=== PATIENT | female | born 1955 | race Caucasian/White ===

== ENCOUNTER 2020-12-06 14:33 | Emergency (ER) | payer MEDICARE, SELFPAY ==
[2020-12-06 14:34] VITALS: BP 182/114; PULSE 80; RESP 18; TEMP 36.6; O2SAT 98; BMI 27.4
--- NOTE | 2020-12-06 14:51 | EKG12_ITS ---
Test Reason : CHEST PAIN Blood Pressure : / mmHG Vent. Rate : 077 BPM Atrial Rate : 077 BPM P-R Int : 136 ms QRS Dur : 076 ms QT Int : 408 ms P-R-T Axes : 058 063 038 degrees QTc Int : 461 ms Normal sinus rhythm Nonspecific ST abnormality Abnormal ECG Confirmed by RICARDO RASCON, EDOUARD ([id number]), field map editor DRU GRAVES ([id number]) on 12/07/2020 12:54:19 PM Referred By: DAGO/JARON Confirmed By:ZACKARY SILVA MD
--- NOTE | 2020-12-06 14:52 | EX.ED.DYSGE1 ---
HPI History of Present Illness Chief Complaint: Chest Pain Detail of Chief Complaint: Left upper chest pain and hypertension Informant: patient Onset/Context/Timing Onset: Days Current Severity: Moderate Maximum Severity: Moderate Narrative Narrative: Patient presents complaining of left shoulder pain. Symptoms been ongoing for the past several days. Pain was more severe today to the point where she canceled a trip and went to the urgent care. 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 They noted her blood pressure to be quite elevated and wanted her to come the emergency room for evaluation. Patient states her blood pressure typically runs borderline high but she is not currently on any medication for blood pressure. [facility] Medical History (Updated 12/06/20 @ 16:[address] Aysha Singh MD) History of depression RODRIGUEZ (obstructive sleep apnea) Home Medications bupropion HCl 100 mg PO DAILY 10/06/13 [History Last Taken 10/07/16] citalopram 20 mg PO DAILY 10/06/13 [History Last Taken 10/07/16] multivitamin [Multiple Vitamins] 1 ea PO DAILY 10/07/16 [History Last Taken 10/07/16] hydrocodone-acetaminophen 1 tab PO Q6H PRN 3 Days #10 tab 12/06/20 [Rx Last Taken Unknown] Allergy/AdvReac Type Severity Reaction Status Date / Time amoxicillin Allergy Itching Verified 12/06/20 14:37 codeine Allergy Unknown Verified 12/06/20 14:36 Iodinated Contrast Media Allergy Swelling Verified 12/06/20 14:36 [Iodinated Contrast Media - IV Dye] shellfish derived Allergy Rash Verified 12/06/20 14:36 Surgical History H/O cardiac radiofrequency ablation Social History Smoking Status: Never smoker ROS ROS ED Constitutional Constitutional ED: Denies chills or fever(s) Eyes Eyes: Denies change in vision ENT ENT ED: Denies sore throat Cardiovascular Cardiovascular: Reports chest pain Respiratory/Chest Respiratory/Chest: Denies cough or dyspnea Gastrointestinal Gastrointestinal: Denies abdominal pain, diarrhea, nausea or vomiting Genitourinary Genitourinary ED: Denies dysuria Musculoskeletal Musculoskeletal: Reports arthralgias; Denies back pain Integumentary Denies rash Neurologic Neurologic: Denies headache(s) or weakness Psychiatric Psychiatric: Denies anxiety or depression Endocrine Endocrinology: Denies polydipsia or polyuria Allergic/Immunologic Allergic/Immunologic ED: Denies urticaria EXAM Physical Exam Const Vital Signs: 12/06/20 14:34 12/06/20 15:52 Temperature 97.8 F Temperature Source Temporal Pulse Rate 80 79 Respiratory Rate 18 22 H Blood Pressure 182/114 H 174/114 H Blood Pressure Mean 136 134 Pulse Ox 98 95 Oxygen Delivery Method Room Air Positive well nourished and well developed General Appearance ED: well developed HEENT Reports normocephalic and head/scalp atraumatic Eyes PERRL and EOMs intact bilaterally Neck supple Chest Wall inspection of chest normal Chest Narrative: Left upper chest wall tenderness to palpation. No crepitus. Resp normal respiratory effort and clear to auscultation bilaterally Cardio regular rate and regular rhythm GI normal to inspection, nondistended, normoactive bowel sounds Palpation: soft Extremity normal to inspection Neuro oriented x3 and no sensory deficits noted Sensorium / Orientation: alert Motor Exam: strength 5/5 throughout Psych mental status grossly normal Skin no rashes or lesions noted MDM MDM MDM Narrative Medical decision making narrative: EKG was obtained. Portable chest x-ray and labs are obtained. Lab Data Attestation: I reviewed the patient's lab results. Labs: Laboratory Results - last 24 hr 12/06/20 12/06/20 15:15 15:15 WBC 9.1 RBC 4.72 Hgb 13.5 Hct 40.5 MCV 85.8 MCH 28.6 MCHC 33.3 RDW Std Deviation 41.6 RDW Coeff of Anthony 13.2 Plt Count 204 MPV 11.0 Immature Gran % (Auto) 0.300 Neut % (Auto) 56.4 Lymph % (Auto) 28.9 [place] % (Auto) 8.6 Eos % (Auto) 5.1 H Baso % (Auto) 0.7 Absolute Neuts (auto) 5.1 Absolute Lymphs (auto) 2.62 Nucleated RBC % 0 Sodium 139 Potassium 3.5 Chloride 107 Carbon Dioxide 27.0 Anion Gap 5 BUN 12 Creatinine 0.88 Estim Creat Clear Calc 58.87 Est GFR (MDRD) Af Amer 83 Est GFR (MDRD) Non-Af 69 BUN/Creatinine Ratio 13.7 Glucose 96 Calcium 8.3 L Troponin I < 0.015 Radiography Chest X-Ray - ED: 1 View, Read by ED Physician, Normal, Heart, Lungs and Mediastinum Diagnostic Testing: Radiology Impression Chest X-Ray 12/06/20 15:20 IMPRESSION: Normal x-ray examination of the chest. Electronically Signed: Tuan Rosales MD at 15:33 EDT , Service support , EKG Initial EKG: Attestation: I personally reviewed and interpreted this EKG as follows: Interpretation: Sinus Rhythm (Sinus at 77 with no acute ischemia.) Treatment and Re-Evaluation Comments:: Patient had an episode of similar pain several days ago and several hours today. Pain is reproducible over the left upper chest wall. Cardiac work-up at this time is negative. I am unsure if her elevated blood pressure may be secondary to pain. At this time we will work on controlling her pain and healing the chest wall. I did recommend obtaining a blood pressure cuff and monitoring this of 2 times a day. She will follow-up with her PCP in regards to this as well as any further cardiac work-up that is needed. Patient was advised that if she develops worsened pain, shortness of breath, lightheadedness or dizziness, or persistent elevation of blood pressure she is to return for repeat evaluation. She voices understanding and agreement. Discharge Plan Triage Chief Complaint: Chest Pain ED Provider: Aysha Singh Dx/Rx/DC Orders Clinical Impression: Hypertension, Acute chest wall pain Instructions: ED Chest Wall Contusion, ED Hypertension, To Be Confirmed Prescriptions: New hydrocodone-acetaminophen 5-325 mg tablet 1 tab PO Q6H PRN (Reason: pain) 3 Days Qty: 10 RF: 0 No Action bupropion HCl 100 MG tablet 100 mg PO DAILY RF: 0 citalopram 20 MG tablet 20 mg PO DAILY RF: 0 multivitamin [Multiple Vitamins] 1 EACH tablet 1 ea PO DAILY RF: 0 Primary Care Provider: Mai Schmidt Referrals: Mai Schmidt PA [Primary Care Provider] - 3-5 Days Disposition Disposition: Home, self care
--- NOTE | 2020-12-06 15:20 | RAD_ITS ---
STUDY: X-RAY CHEST REASON FOR EXAM: Female, 65 years old. Chest pain. TECHNIQUE: Single AP portable view of the chest. COMPARISON: Comparison is made with prior examination 10/07/2016. FINDINGS: EKG electrodes are seen. The lungs are clear and expanded. There is no demonstrated pleural abnormality. Normal size heart. Normal mediastinum and gosia. Normal visualized pulmonary arteries. Normal visualized aortic arch and descending thoracic aorta. Normal visualized thoracic spine. Normal visualized ribs, clavicles, and shoulders. There is no demonstrated abnormality of the visualized soft tissue structures of the upper abdomen. RAD/Chest 1 View (Portable) IMPRESSION: Normal x-ray examination of the chest. Electronically Signed: Tuan Rosales MD at 15:33 EDT , Service support ,
[2020-12-06 15:28] LABS: Absolute Lymphocyte Count 2.62 X10^3/uL (0.83-4.51); Absolute Neutrophil Count 5.1 X10^3/uL (2.0-7.7); Basophil# 0.06 X10^3/uL; Basophil% 0.7 % (0-1); Eosinophil# 0.46 X10^3/uL; Eosinophils% 5.1 % (0-5); Hematocrit 40.5 % (37-47); Hemoglobin 13.5 g/dL (12.0-15.0); Lymphocyte # 2.62 X10^3/ul (0.83-4.51); Lymphocyte % 28.9 % (19-41); Mean Corp Hgb Conc 33.3 g/dL (32-36); Mean Corpuscular Hgb 28.6 pg (27.0-32.0); Mean Corpuscular Volume 85.8 fL (81-99); Monocyte# 0.78 X10^3/uL; Monocyte% 8.6 % (0-10); NRBC Flagged by Analyzer 0 % (0-5); Neutrophil # 5.12 X10^3/uL (2.7-7.7); Neutrophil % 56.4 % (47-70); Platelet Count 204 K/mm3 (150-450); RBC Distribution Width CV 13.2 % (11.6-14.6); RBC Distribution Width SD 41.6 fl (35.1-43.9); Red Blood Count 4.72 M/mm3 (4.2-5.4); White Blood Count 9.1 K/mm3 (4.4-11.0)
[2020-12-06 15:43] LABS: Anion Gap 5 (5-15); BUN 12 mg/dL (7-18); BUN/Creat Ratio 13.7 RATIO (10-20); Calcium,Total 8.3 mg/dL (8.5-10.1); Chloride 107 mmol/L (98-107); Creatinine, Serum 0.88 mg/dL (0.55-1.02); EST Glomerular Filtration Rate 69 mL/min (>60); Est Glom Filt Rate - Afr Amer 83 mL/min (>60); Estimated Creatinine Clearance 58.87 ml/min; Glucose 96 mg/dL (74-106); Potassium 3.5 mmol/L (3.5-5.1); Sodium Level 139 mmol/L (136-145)
[2020-12-06 15:52] VITALS: BP 174/114; PULSE 79; RESP 22; O2SAT 95
[2020-12-06 16:16] VITALS: BP 167/93; PULSE 71; RESP 16; O2SAT 95
== END 2020-12-06 16:24 | disposition home or self-care (01) ==
PROVIDERS: Emergency Provider Emergency Medicine; PCP Physician Assistant
DX: I10 Essential (primary) hypertension (principal); R07.89 Other chest pain
CPT/HCPCS: 71045; 80048; 84484; 85025; 93005; 99284; A4216

== ENCOUNTER 2025-06-05 19:56 | Emergency (ER) | payer MEDICARE, SELFPAY ==
[2025-06-05 19:56] VITALS: BP 169/88; PULSE 92; RESP 18; TEMP 36.6; O2SAT 99; BMI 27.8
--- NOTE | 2025-06-05 20:09 | EDS_ITS ---
HPI History of Present Illness Chief Complaint: Laceration Detail of Chief Complaint: Laceration distal volar radial side of right index finger Informant: patient Onset/Context/Timing Onset: Hours Mechanism/Context: Incised (Cut using a knife to open boxes) Location of pain/injuries: Right hand Location: Right index finger Current Severity: Gone Maximum Severity: Mild Worsened by: Not applicable Relieved by: Pressure Associated Symptoms Associated Symptoms: Negative for Parasthesias, Weakness or Loss of function Narrative Narrative: Patient is a 70-year-old [id number] woman who presents with laceration distal volar radial side of the left index finger. Is a flap type laceration. She denies paresthesia, anesthesia medics. Prior similar symptoms: No Recent Illness/Hospitalization: No PFSH PFSH Medical History RODRIGUEZ (obstructive sleep apnea) History of depression Home Medications ?Medication ?Instructions ?Recorded ?Last Taken ?Type bupropion HCl 100 mg tablet 100 mg PO DAILY 10/06/13 0 10/07/16 History citalopram 20 mg tablet 20 mg PO DAILY 10/06/13 04/0 09/20 History multivitamin (Multiple Vitamins 1 ea PO DAILY 10/07/16 10/07/16 History tablet) hydrocodone-acetaminophen 5-325mg 1 tab PO Q6H PRN roma n 3 days #10 12/06/20 Unknown Rx 5mg-325mg tabs Allergy/AdvReac Type Severity Reaction Status Date / Time amoxicillin Allergy Itching Verified 06/05/25 19:57 codeine Allergy Unknown Verified 06/05/25 19:57 Iodinated Contrast Media Allergy Swelling Verified 06/05/25 19:57 (Iodinated Contrast Media - IV Dye) shellfish derived Allergy Rash Verified 06/05/25 19:57 Surgical History H/O cardiac radiofrequency ablation Social History Smoking Status: Never smoker ROS ROS ED Integumentary Reports other Details: Flap type laceration right index finger previously- described Neurologic Neurologic: Denies paresthesias Hematologic/Lymphatic Hematologic/Lymphatic: Denies easy bleeding or easy bruising EXAM Physical Exam Const Vital Signs: 06/05/25 19:56 Temperature 97.8 F Temperature Source Oral Pulse Rate 92 Respiratory Rate 18 Blood Pressure 169/88 H Blood Pressure Mean 115 Pulse Ox 99 Oxygen Delivery Method Room Air Positive well nourished and well developed General Appearance ED: well developed and NAD HEENT atraumatic Eyes PERRL and EOMs intact bilaterally Resp normal respiratory effort Cardio regular rhythm Rate: regular rate Extremity Extremity Narrative: Patient has a flap type laceration 1.5 cm distal volar radial side of the right index finger. There is no subungual hematoma. Sensation is intact. Capillary fill is normal. Extensor and flexor mechanism is intact. Neuro oriented x3, CN's II-XII intact bilaterally, no focal motor deficits and no sensory deficits noted Psych mental status grossly normal and thought process normal Skin Skin Narrative: Laceration previously-described PROC Procedures Other Procedures Procedure(s): The laceration was cleansed. The laceration was closed with Dermabond since it approximates well. MDM MDM MDM Narrative Medical decision making narrative: Patient has laceration amenable to closure with Dermabond. It did need closure. Imaging was not indicated. Discharge Plan Triage Chief Complaint: Laceration ED Provider: Norm Bartlett Dx/Rx/DC Orders Clinical Impression: Laceration of right index finger, Hypertension Instructions: ED Laceration, Skin Adhesive Prescriptions: No Action bupropion HCl 100 MG tablet 100 mg PO DAILY Patient Comments: MENTAL HEALTH citalopram 20 MG tablet 20 mg PO DAILY Patient Comments: DEPRESSION multivitamin [Multiple Vitamins] 1 EACH tablet 1 ea PO DAILY Patient Comments: SUPPLEMENT hydrocodone-acetaminophen 5-325 mg tablet 1 tab PO Q6H PRN (Reason: pain) 3 Days Qty: 10 0RF Primary Care Provider: Mai Schmidt Referrals: Mai Schmidt PA [Primary Care Provider, Medical] - As Needed Print Language: Slovak Disposition Disposition: Home, Self Care
--- OUTSIDE RECORDS SUMMARY | 2025-06-05 20:24 | XMS RPT_ITS | CCD ---
Author Organization [facility] Care Team Providers Care Fitness [employer] Manager Name Role Phone Mai Schmidt PA-C Primary Care Provider [phone] Zak Buck MD Unavailable Zak Buck MD Unavailable Fiorella ESCOBAR, [place] Unavailable [phone] Ambrose Brandt Unavailable Unavailable Mai Schmidt PA-C Primary Care Provider [phone] Zak Buck MD Unavailable Zak Buck MD Unavailable Fiorella ESCOBAR, [place] Unavailable [phone] Mai Schmidt PA-C Primary Care Provider [phone] Zak Buck MD Unavailable Zak Buck MD Unavailable Fiorella ESCOBAR, [place] Unavailable [phone] Fiorella ESCOBAR, [place] Unavailable [phone] Mai Schmidt PA-C Primary Care Provider [phone] Nedra BOWL SANDER.Sharda ALFORD Primary Care Provider Haagen BOWL SANDER.Sharda ALFORD Primary Care Provider Suppan BOWL SANDER.Connie ALFORD Unavailable Mehrdad Yuan MD Unavailable Suppan BOWL SANDER.Connie ALFORD A Unavailable SHARDA SNEED Primary Care Unavailable BEVERLEY CUEVAS Referring Unavailable ANA LUISA ARTIS Attending Unavailable [facility] Unavailable HANNAH BO Referring Unavailable [facility] Unavailable QUIANA TAPIA Attending Unavailable [facility] Referring Unavailable [facility] Attending Unavailable [facility] Unavailable [facility] Care Unavailable [facility] Care Unavailable FARZANA BOSTON Referring Unavailable [facility] Unavailable [facility] Attending Unavailable [facility] Unavailable [facility] Referring Unavailable BEVERLEY CUEVAS Attending Unavailable [facility] Unavailable Allergies Allergy Classification Reported Allergen(s) Allergy Type Date of Onset Reaction(s) Facility (20 sources) Amoxicillin; Translations: [AMOXICILLIN] Drug Allergy 03-27-2005 [facility] Work Phone: (20 sources) Codeine; Translations: [CODEINE] Drug Allergy 09-10-2005 [facility] (20 sources) Iodine; Translations: [IODINE] Drug Allergy 03-27-2005 [facility] Work Phone: (20 sources) Lisinopril; Translations: [LISINOPRIL] Drug Allergy 12-29-2020 [facility] (20 sources) SEAFOOD [Other] Propensity to adverse reactions 08-01-2006 [facility] Work Phone: (20 sources) Shellfish; Translations: [SHELLFISH DERIVED] Drug Allergy 07-31-2023 [facility] Work Phone: Medications Current Medications Medication Drug Class(es) Dates Sig (Normalized) Sig (Original) amLODIPine 5 mg oral tablet (20 sources) Dihydropyridine Calcium Channel Meaghan Start: 12-08-2020 End: 2024 take 1 tablet by mouth once daily amLODIPine (NORVASC) 5 mg tablet Indications: Hypertension, essential Take 1 tablet by mouth once daily. 90 tablet 3 04/14/2024 Active Comment on above: Take 1 tablet by lottie th once daily. cefdinir 300 mg oral capsule (1 source) Cephalosporin Antibacterial Start: 07-14-2022 End: 07-21-2022 take 1 capsule by mouth twice daily cefdinir (OMNICEF) 300 mg capsule Take 1 capsule by mouth twice daily for 7 days. 20 capsule 0 07/14/2022 07/21/2022 Active Comment on above: Take 1 capsule by mo [facility] twice daily for 7 days. 24 hr desvenlafaxine succinate 25 mg extended release oral tablet (20 sources) Serotonin and Norepinephrine Reuptake Inhibitor Start: 02-09-2024 End: 04-23-2025 take 1 tablet by mouth once daily desvenlafaxine ER (PRISTIQ) 25 mg 24 hr tablet Indications: Recurrent major depression in partial remission Take 1 tablet by mouth once daily. Take with additional 50 mg tablet. 90 tablet 1 10/25/2024 04/23/2025 Active Start: 07-04-2022 End: 2024 take 1 tablet by mouth once daily desvenlafaxine ER (PRISTIQ) 50 mg 24 hr tablet Indications: Recurrent major depression in partial remission Take 1 tablet by mouth once daily. 90 tablet 3 04/14/2024 Active Start: 05-13-2022 End: 07-04-2022 take 1 tablet by mouth once daily desvenlafaxine ER (PRISTIQ) 25 mg 24 hr tablet Take 1 tablet by mouth once daily. 30 tablet 2 05/13/2022 07/04/2022 Discontinued (Course of therapy completed) Comment on above: Take 1 tablet by [facility] once daily. difluprednate 0.5 mg/ml ophthalmic suspension (20 sources) Start: 07-01-2024 take 1 drop(s) into the eye(s) four times daily difluprednate (DUREZOL) 0.05 % ophthalmic suspension Use 1 Drop in both eyes four times daily. 07/01/2024 Active Start: 05-08-2016 End: 05-13-2022 Difluprednate (DUREZOL) 0.05 % drop [The details of the medication are not available because there are pending changes by a home health clinician.] 05/08/2016 05/13/2022 Discontinued Comment on above: [The details of the medication are not available because there are pending changes by a home health clinician.] doxycycline hyclate 100 mg oral tablet (2 sources) Tetracycline-class Drug Start: End: take 1 tablet by mouth twice daily doxycycline (VIBRA-TABS) 100 mg tablet Take 1 tablet by mouth two times a day for 7 days. Patient should start on June 18, 2024. 14 tablet 06/18/2024 06/25/2024 Active Start: 05-26-2022 End: 06-02-2022 take 1 tablet by mouth twice daily doxycycline (VIBRA-TABS) 100 mg tablet Take 1 tablet by mouth twice daily for 7 days. 14 tablet 0 05/26/2022 06/02/2022 Active Comment on above: Take 1 tablet by [facility] twice daily for 7 days. erythromycin 0.005 mg/mg ophthalmic ointment (2 sources) Macrolide, Macrolide Antimicrobial Start: 07-08-2024 End: 07-15-2024 erythromycin (ROMYCIN) 5 mg/gram (0.5 %) ophthalmic ointment Use 1 application in both eyes four times daily for 7 days. 3.5 g 07/08/2024 07/15/2024 Active Start: 08-18-2022 End: 08-25-2022 erythromycin (ROMYCIN) 5 mg/ gram (0.5 %) ophthalmic ointment Use 1 application in the left eye four times daily for 7 days. 7 g 0 08/18/2022 08/25/2022 Active Comment on above: Use 1 application in the left eye four times daily for 7 days. estradiol 0.1 mg/ml vaginal cream (5 sources) Estrogen Start: estradiol (ESTRACE) 0.01 % (0.1 mg/gram) vaginal cream Use 1 gram vaginally at bedtime for 2 weeks then 1-3 time/weeks for maintenance. 42.5 g 2 12/07/2024 Active fluticasone propionate 0.05 mg/actuat metered dose nasal spray (20 sources) Corticosteroid Start: End: take 2 spray(s) by mouth once daily fluticasone (FLONASE) 50 mcg/actuation nasal spray Use 2 Sprays in each nostril once daily. Rinse mouth after use. 11.1 mL 07/08/2024 02/28/2025 Discontinued levothyroxine sodium 0.025 mg oral tablet (20 sources) l-Thyroxine Start: 022 End: take 1 tablet by mouth once daily for thyroid dysfunction levothyroxine (SYNTHROID) 25 mcg tablet Indications: Subclinical hypothyroidism Take 1 tablet by mouth once daily. Take on empty stomach. For thyroid. 90 tablet 3 09/17/2024 Active Start: 05-11-2022 End: 05-13-2022 take 1 tablet by mouth once daily for thyroid dysfunction levothyroxine (LEVOXYL) 50 mcg tablet Indications: Subclinical hypothyroidism Take 1 tablet by mouth once daily. Take on empty stomach. For Thyroid 30 tablet 2 05/11/2022 05/13/2022 Discontinued Start: 06-05-2021 End: 05-11-2022 take 1 tablet by mouth once daily for thyroid dysfunction levothyroxine (SYNTHROID) 25 mcg tablet Indications: Subclinical hypothyroidism Take 1 tablet by mouth once daily. Take on empty stomach. For thyroid. 30 tablet 0 04/12/2022 05/11/2022 Discontinued Start: 05-19-2020 End: 06-01-2021 take 1 tablet by mouth once daily for thyroid dysfunction levothyroxine (SYNTHROID) 25 mcg tablet Indications: Subclinical hypothyroidism Take 1 tablet by mouth once daily. Take on empty stomach. For thyroid. 30 tablet 11 05/19/2020 06/01/2021 Discontinued Comment on above: Take 1 tablet by lottie th once daily. Take on empty stomach. For thyroid. Take 1 tablet by lottie th once daily. Take on empty stomach. For Thyroid Completed/Discontinued Medications Medication Drug Class(es) Dates Sig (Normalized) Sig (Original) aspirin 81 mg delayed release oral tablet (14 sources) Platelet Aggregation Inhibitor, Nonsteroidal Anti-inflammatory Drug Start: 06-07-2021 End: 05-13-2022 take 1 tablet by mouth twice daily aspirin, enteric coated (ASPIRIN, ENTERIC COATED) 81 mg EC tablet Take 1 tablet by mouth twice daily for 28 days. 56 tablet 0 06/07/2021 05/13/2022 Discontinued Comment on above: Take 1 tablet by lottie th twice daily for 28 days. benzonatate 100 mg oral capsule (2 sources) Non-narcotic Antitussive Start: 06-14-2024 End: 07-08-2024 take 1 capsule by mouth every eight hours as needed benzonatate (TESSALON PERLE) 100 mg capsule Take 1 capsule by mouth three times a day as needed for cough. 21 capsule 06/14/2024 07/08/2024 Discontinued (Course of therapy completed) betamethasone 0.0005 mg/mg topical ointment (1 source) Corticosteroid Start: 07-31-2023 End: 08-30-2023 betamethasone dipropionate 0.05 % ointment Apply to affected area two times a day. 15 g 07/31/2023 08/30/2023 betamethasone 3 mg/ml / betamethasone acetate 3 mg/ml injectable suspension (1 source) Corticosteroid Start: 05-05-2023 End: 05-05-2023 betamethasone acetate-betamethas one sodium phosphate 6 mg injection (CELESTONE) 24 hr buPROPion hydrochloride 300 mg extended release oral tablet (17 sources) Aminoketone Start: 10-16-2020 End: 05-13-2022 take 1 tablet by mouth once daily buPROPion XL (WELLBUTRIN XL) 300 mg 24 hr tablet Take 1 tablet by mouth once daily. 90 tablet 1 11/21/2021 05/13/2022 Discontinued Comment on above: Take 1 tablet by [facility] once daily. Calcium Carbonate / vitamin D3 (17 sources) End: 05-13-2022 CALCIUM CARBONATE/VITAMIN D3 (VITAMIN D-3 ORAL) Indications: seasonal affective disorder Take by mouth. 05/13/2022 Discontinued End: 05-13-2022 CALCIUM CARBONATE/VITAMIN D3 (VITAMIN D-3 ORAL) Indications: seasonal affective disorder Take by mouth. 0 05/13/2022 Discontinued CALCIUM CARBONAT E/VITAMIN D3 (VITAMIN D-3 ORAL) Indications: seasonal affective disorder Take by mouth. 0 Active Comment on above: Take by mouth. celecoxib 200 mg oral capsule (6 sources) Nonsteroidal Anti-inflammatory Drug Start: End: take 1 capsule by mouth once daily celecoxib (CELEBREX) 200 mg capsule Indications: Primary osteoarthritis of right knee Take 1 capsule by mouth once daily. 30 capsule 1 01/14/2022 05/13/2022 Discontinued Comment on above: Take 1 capsule by mo [facility] once daily. citalopram 40 mg oral tablet (20 sources) Serotonin Reuptake Inhibitor Start: End: take 1 tablet by mouth once daily citalopram (CELEXA) 40 mg tablet Indications: Recurrent major depression in partial remission (HCC) Take 1 tablet by mouth once daily. 90 tablet 1 11/21/2021 07/04/2022 Discontinued Comment on above: Take 1 tablet by lottie th once daily. clindamycin 300 mg oral capsule (9 sources) Lincosamide Antibacterial Start: End: clindamycin (CLEOCIN) 300 mg capsule Indications: Status post left knee replacement 2 capsules 1 hour prior to dental procedure. 2 capsule 3 12/18/2021 05/13/2022 Discontinued (Course of therapy completed) Comment on above: 2 capsules 1 hour pr ior to dental procedure. cyclobenzaprine hydrochloride 10 mg oral tablet (16 sources) Muscle Relaxant Start: End: cyclobenzaprine (FLEXERIL) 10 mg tablet Indications: Acute left-sided low back pain without sciatica [The details of the medication are not available because there are pending changes by a home health clinician.] 15 tablet 0 03/05/2021 05/13/2022 Discontinued Comment on above: [The details of the medication are not available because there are pending changes by a home health clinician.] 10 ml lidocaine hydrochloride 10 mg/ml injection (1 source) Antiarrhythmic, Amide Local Anesthetic Start: End: lidocaine (PF) 10 mg/mL (1 %) 4 mL injection (XYLOCAINE) meloxicam 15 mg oral tablet (4 sources) Nonsteroidal Anti-inflammatory Drug Start: End: take 1 tablet by mouth once daily meloxicam (MOBIC) 15 mg tablet Take 1 tablet by mouth once daily. 30 tablet 1 05/05/2023 02/09/2024 Discontinued (Side Effects) Comment on above: Take 1 tablet by lottie th once daily. Problems Active Problems Problem Classification Problem Date Documented Date Episodic/Chronic Cardiac dysrhythmias (20 sources) Paroxysmal supraventricular tachycardia; Translations: [Supraventricular tachycardia] Onset: 03-27-2005 03-06-2020 Chronic Chronic kidney disease (20 sources) Chronic kidney disease stage 3; Translations: [Chronic renal insufficiency, stage 3 (moderate)] Onset: 07-13-2020 07-13-2020 Chronic Chronic kidney disease (1 source) Chronic kidney disease; Translations: [Stage 3 chronic kidney disease, unspecified whether stage 3a or 3b CKD (HCC)] Onset: 05-02-2025 Disorders of lipid metabolism (20 sources) Hypercholesterolemia; Translations: [Pure hypercholesterolemia, unspecified] Onset: 06-24-2012 06-24-2012 Chronic Diverticulosis and diverticulitis (20 sources) Diverticulosis of colon; Translations: [Diverticulosis of large intestine without perforation or abscess without bleeding] Onset: 12-12-2009 08-01-2011 Chronic Essential hypertension (3 sources) Essential hypertension; Translations: [Essential (primary) hypertension] Onset: 05-02-2025 01-27-2023 Chronic Genitourinary symptoms and ill-defined conditions (3 sources) Urinary incontinence; Translations: [Unspecified urinary incontinence] Onset: 12-07-2024 12-07-2024 Chronic Immunity disorders (20 sources) Sarcoidosis of lung with sarcoidosis of lymph nodes; Translations: [Sarcoidosis of lung with sarcoidosis of lymph nodes] Onset: 08-25-2006 03-06-2020 Chronic Immunizations and screening for infectious disease (1 source) Encounter for immunization; Translations: [Encounter for immunization] Onset: 05-02-2025 Episodic Inflammation; infection of eye (except that caused by tuberculosis or sexually transmitteddisease) (2 sources) Conjunctivitis of left eye; Translations: [Unspecified conjunctivitis] Episodic Menopausal disorders (1 source) Atrophic vaginitis; Translations: [Postmenopausal atrophic vaginitis] 12-07-2024 Chronic Mood disorders (20 sources) Recurrent major depression in partial remission; Translations: [Major depressive disorder, recurrent, in partial remission] Onset: 05-22-2010 07-23-2017 Chronic Nonmalignant breast conditions (2 sources) Lump in left breast; Translations: [Unspecified lump in the left breast, unspecified quadrant] 02-18-2024 Episodic Osteoarthritis (20 sources) Osteoarthritis of left knee joint; Translations: [Unilateral primary osteoarthritis, left knee] Onset: 05-21-2021 05-21-2021 Chronic Other and unspecified benign neoplasm (20 sources) History of polyp of colon; Translations: [Personal history of colonic polyps] Onset: 10-01-2012 03-31-2022 Episodic Other bone disease and musculoskeletal deformities (20 sources) Posterior calcaneal exostosis; Translations: [Juvenile osteochondrosis of tarsus, left ankle] Onset: 06-10-2018 06-10-2018 Chronic Other connective tissue disease (5 sources) History of total knee arthroplasty; Translations: [Presence of left artificial knee joint] Chronic Other ear and sense organ disorders (1 source) Impacted cerumen of bilateral ears; Translations: [Impacted cerumen, bilateral] Episodic Other ear and sense organ disorders (1 source) Impacted cerumen, right ear; Translations: [Impacted cerumen of right ear] Onset: 04-14-2025 Episodic Other ear and sense organ disorders (1 source) Impacted cerumen, bilateral; Translations: [Bilateral impacted cerumen] Onset: 04-14-2025 Episodic Other lower respiratory disease (3 sources) Cough; Translations: [Acute cough] 06-14-2024 Episodic Other nervous system disorders (1 source) Carpal tunnel syndrome of right wrist; Translations: [Carpal tunnel syndrome, right upper limb] Chronic Other non-traumatic joint disorders (2 sources) Pain in left knee; Translations: [Pain in joint, lower leg] Episodic Other non-traumatic joint disorders (3 sources) Pain in right knee; Translations: [Pain in joint, lower leg] Episodic Other screening for suspected conditions (not mental disorders or infectious disease) (13 sources) Patient encounter status; Translations: [Encounter for screening mammogram for malignant neoplasm of breast] Onset: 02-24-2025 Episodic Other skin disorders (3 sources) Skin lesion; Translations: [Disorder of the skin and subcutaneous tissue, unspecified] 10-25-2024 Episodic Other upper respiratory infections (2 sources) Bacterial sinusitis; Translations: [Chronic sinusitis, unspecified] Chronic Other upper respiratory infections (3 sources) Acute maxillary sinusitis; Translations: [Acute maxillary sinusitis, unspecified] Onset: 05-02-2025 Episodic Residual codes; unclassified (20 sources) Obstructive sleep apnea syndrome; Translations: [Obstructive sleep apnea (adult) (pediatric)] Onset: 12-14-2018 03-06-2020 Chronic Thyroid disorders (20 sources) Subclinical hypothyroidism; Translations: [Other specified hypothyroidism] Onset: 12-29-2020 12-29-2020 Chronic Unclassified (3 sources) Patient encounter status 12-07-2024 Unclassified (1 source) History of colonic polyps; Translations: [History of colonic polyps] Onset: 02-28-2025 Unclassified (1 source) PSVT (paroxysmal supraventricular tachycardia) (HCC); Translations: [PSVT (paroxysmal supraventricular tachycardia) (HCC)] Onset: 03-06-2020 Unclassified (1 source) Acute cough; Translations: [Acute cough] Onset: 06-14-2024 Past or Other Problems Problem Classification Problem Date Documented Da te Episodic/Chronic Diabetes mellitus without complication (20 sources) Prediabetes; Translations: [Prediabetes] Onset: 05-21-2021 05-21-2021 Episodic Infective arthritis and osteomyelitis (except that caused by tuberculosis or sexually transmitted disease) (20 sources) Reactive arthritis triad; Translations: [Ana's disease, unspecified site] Onset: 11-25-2013 Resolved: 03-06-2020 03-06-2020 Episodic Nonspecific chest pain (20 sources) Chest pain; Translations: [Other chest pain] Onset: 03-06-2020 03-06-2020 Episodic Other connective tissue disease (20 sources) Left achilles tendonitis; Translations: [Achilles tendinitis, left leg] Onset: 06-10-2018 06-10-2018 Episodic Other skin disorders (1 source) Disorder of the skin and subcutaneous tissue, unspecified; Translations: [Skin lesion] Onset: 10-25-2024 Episodic Screening and history of mental health and substance abuse codes (20 sources) H/O: depression; Translations: [Personal history of other mental and behavioral disorders] Onset: 12-14-2018 Resolved: 03-06-2020 03-06-2020 Episodic Results Test Name Value Interpretation Reference Range Facility [facility] 05-02-2025 CN Office Visit (FAMPWS ) ROSE MARIE ROYAL ([id number]) 1955 F Date Time Provider Department 05/02/25 3:40 PM SHARDA SNEED During your visit today, we recorded the following information about you: Pulse Respiration Blood pressure Weight 91/minute 16/minute 142/98 78.9 kg Sharda Sneed APRN.CNP 05/02/2025 4:17 PM Written The condition is asymptomatic based upon labs. Continue current treatment plan. Follow up at least yearly. Sharda Sneed APRN.CNP 05/02/2025 4:26 PM Signed Continue the same medication. Check some home BPs and send them in to me. Get labwork done. Recheck in 6 months. Sharda Sneed APRN.CNP 05/03/2025 1:08 PM Signed This is a 70 year old female who presents today with: The patient is a 70-year-old female with hypertension and hypothyroidism, presenting for influenza and COVID-19 vaccinations. HISTORY OF PRESENT ILLNESS: Rose Marie Drummond is a 70-year-old female with a history of HTN, hypothyroidism, and depression, presenting for follow-up. Upper Respiratory Infection: - Runny nose and nasal crusting x2 weeks. - Initially thought to be allergies; now believes it is a cold. - Symptoms began to improve; considering flu and COVID vaccinations today. HTN: - Taking amlodipine. - Uses high blood pressure cold tablets for current cold symptoms. - Has a home blood pressure monitor but does not regularly check BP. - Recent high BP reading on 04/14 while in urgent care for cerumen impaction. Hypothyroidism: - Taking levothyroxine. - Takes all medications together in the morning. - Denies heat or cold intolerance, dysphagia, or hair loss. - Reports chronic constipation, especially during travel. Depression: - Managed with Pristiq 50 mg and 25 mg. - Reports medication is effective; denies desire for changes. Vaginal Atrophy: - Using Estrace cream with significant improvement in symptoms. 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 Baumann-PSVT ARTHROSCOPY KNEE DIAGNOSTIC W/WO SYNOVIAL BX SPX Left 1973 DELIVERY ONLY 1982,1986 , low transverse CHOLECYSTECTOMY Cholecystectomy COLONOSCOPY 2012, 2015 COLONOSCOPY FLX DX W/COLLJ SPEC WHEN PFRMD 03/31/2020 Colonoscopy COLSC FLX W/RMVL OF TUMOR POLYP LESION SNARE TQ 12/12/2009 Multiple polyps,diverticulosis EYE SURGERY HX Left 2017 cataract TONSILLECTOMY HX TOTAL ABDOMINAL HYSTERECT W/WO RMVL TUBE OVARY Hysterectomy, BRIE TOTAL KNEE REPLACEMENT Left 06/06/2021 Left total knee arthroplasty VAGINAL HYSTERECTOMY ALLERGIES Shellfish Derived, Amoxicillin, Codeine, Iodine, and Lisinopril MEDICATIONS Current Outpatient Medications Medication Sig desvenlafaxine ER (PRISTIQ) 50 mg 24 hr tablet Take 1 tablet by mouth once daily. amLODIPine (NORVASC) 5 mg tablet Take 1 tablet by mouth once daily. estradiol (ESTRACE) 0.01 % (0.1 mg/gram) vaginal cream Use 1 gram vaginally at bedtime for 2 weeks then 1-3 time/weeks for maintenance. desvenlafaxine ER (PRISTIQ) 25 mg 24 hr tablet Take 1 tablet by mouth once daily. Take with additional 50 mg tablet. levothyroxine (SYNTHROID) 25 mcg tablet Take 1 tablet by mouth once daily. Take on empty stomach. For thyroid. difluprednate (DUREZOL) 0.05 % ophthalmic suspension Use 1 drop in both eyes as needed (for eyerhitis). fluticasone (FLONASE) 50 mcg/actuation nasal spray Use 2 Sprays in each nostril once daily. Rinse mouth after use. No current facility-administered medications for this visit. FAMILY HISTORY Problem Relation Age of Onset Cancer Father lung Diabetes Mother Coronary Artery Disease Mother multiple interventions, but has severe diabetes Colon Cancer Other none Thyroid Maternal Grandmother SOCIAL HISTORY[1] REVIEW OF SYSTEMS Constitutional: (-) unintentional weight loss, (-) weakness, (-) fatigue Head: (-) headaches Eyes: (-) vision change Ears/Nose/Mouth/Throat: (+) runny nose, (-) hearing change, (-) dysphagia Neck: (-) neck mass Cardiovascular: (-) chest pain, (-) palpitations, (-) peripheral edema Respiratory: (-) dyspnea Gastrointestinal: (+) heartburn, (+) constipation, (-) blood in stool, (-) melena Musculoskeletal: (-) muscle pain, (-) joint pain Skin: (+) dry skin Neurological: (-) syncope, (-) seizures, (-) tremors Endocrine: (-) heat intolerance, (-) cold intolerance, (-) polydipsia, (-) polyuria Hematologic/Lymphatic: (-) easy bruising EXAM: BP 142/98 Pulse 91 Resp 16 Wt 78.9 kg (174 lb) SpO2 96% BM (more content not included)... Normal [facility] CNOVon 04-14-2025 CNOV Office Visit (WOUCA) ROSE MARIE ROYAL ([id number]) 1955 F Date Time Provider Department 04/14/25 8:45 AM QUIANA TAPIA During your visit today, we recorded the following information about you: Temperature Pulse Respiration Blood pressure 97.3 degrees 71/minute 20/minute 161/79 Weight 79 kg Quiana Tapia APRN.SALES FACILITATOR 04/14/2025 10:03 AM Signed [facility] Subjective Rose Marie [place] Felipe Drummond is a 70 year old female. Patient presents with: Ear Pain: R ear pain and down neck x 6 days Ear Pain The patient is a 70-year-old female presenting with aural pulsations. Aural Pulsations: - Onset: Recent. - Describes hearing heartbeat in the ear, worsening over time. - No previous episodes. - Denies use of Q-tips. - Had earwax removal a few years ago. 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 Baumann-PSVT ARTHROSCOPY KNEE DIAGNOSTIC W/WO SYNOVIAL BX SPX Left 1973 DELIVERY ONLY 1982,1986 , low transverse CHOLECYSTECTOMY Cholecystectomy COLONOSCOPY 2012, 2015 COLONOSCOPY FLX DX W/COLLJ SPEC WHEN PFRMD 03/31/2020 Colonoscopy COLSC FLX W/RMVL OF TUMOR POLYP LESION SNARE TQ 12/12/2009 Multiple polyps,diverticulosis EYE SURGERY HX Left 2017 cataract TONSILLECTOMY HX TOTAL ABDOMINAL HYSTERECT W/WO RMVL TUBE OVARY Hysterectomy, BRIE TOTAL KNEE REPLACEMENT Left 06/06/2021 Left total knee arthroplasty VAGINAL HYSTERECTOMY ALLERGIES Shellfish Derived, Amoxicillin, Codeine, Iodine, and Lisinopril MEDICATIONS estradiol (ESTRACE) 0.01 % (0.1 mg/gram) vaginal cream Use 1 gram vaginally at bedtime for 2 weeks then 1-3 time/weeks for maintenance. desvenlafaxine ER (PRISTIQ) 25 mg 24 hr tablet Take 1 tablet by mouth once daily. Take with additional 50 mg tablet. levothyroxine (SYNTHROID) 25 mcg tablet Take 1 tablet by mouth once daily. Take on empty stomach. For thyroid. difluprednate (DUREZOL) 0.05 % ophthalmic suspension Use 1 drop in both eyes as needed (for eyerhitis). amLODIPine (NORVASC) 5 mg tablet Take 1 tablet by mouth once daily. desvenlafaxine ER (PRISTIQ) 50 mg 24 hr tablet Take 1 tablet by mouth once daily. fluticasone (FLONASE) 50 mcg/actuation nasal spray Use 2 Sprays in each nostril once daily. Rinse mouth after use. FAMILY HISTORY Problem Relation Age of Onset Cancer Father lung Diabetes Mother Coronary Artery Disease Mother multiple interventions, but has severe diabetes Colon Cancer Other none Thyroid Maternal Grandmother SOCIAL HISTORY[1] Objective BP 161/79 Pulse 71 Temp 36.3 ?C (97.3 ?F) Resp 20 Wt 79 kg (174 lb 2.6 oz) SpO2 96% BMI 28.67 kg/m? Physical Exam Constitutional: General: She is not in acute distress. Appearance: Normal appearance. She is normal weight. She is not ill-appearing or toxic-appearing. HENT: Right Ear: Tympanic membrane, ear canal and external ear normal. There is impacted cerumen. Left Ear: Tympanic membrane and ear canal normal. There is impacted cerumen. Ears: Comments: Irrigation bilaterally by MA Patient tolerated procedure well Nose: No congestion or rhinorrhea. Mouth/Throat: Pharynx: Oropharynx is clear. Eyes: Extraocular Movements: Extraocular movements intact. Conjunctiva/sclera: Conjunctivae normal. Pupils: Pupils are equal, round, and reactive to light. Cardiovascular: Rate and Rhythm: Normal rate and regular rhythm. Pulses: Normal pulses. Heart sounds: Normal heart sounds. Pulmonary: Effort: Pulmonary effort is normal. Breath sounds: Normal breath sounds. Lymphadenopathy: Cervical: No cervical adenopathy. Neurological: Mental Status: She is alert. { 1. Impacted cerumen of right ear (H61.21) 2. Bilateral impacted cerumen (H61.23) - Significant cerumen impaction noted on exam, obscuring visualization of the tympanic membrane. - Performed cerumen irrigation with resolution of symptoms and improved hearing. No signs of otitis externa, perferation of tympanic membrane or otitis media. - Educated patient on cerumen overproduction and impaction; advised that this is not due to Q-tip use. and Recording using [employer] software for draft documentation of the visit was discussed with the patient/authorized sales representative consultant; all questions welcomed and answered. Patient/authorized sales representative consultant agreed to proceed Disposition The patient was discharged. [1] Social History Tobacco Use Smoking status: Never Smo (more content not included)... Normal [facility] CNOVon 02-28-2025 CNOV Office Visit (GENSWS ) ROSE MARIE ROYAL ([id number]) 1955 F Date Time Provider Department 02/28/25 8:30 AM ANA LUISA ARTIS During your visit today, we recorded the following information about you: Pulse Respiration Blood pressure Weight 72/minute 16/minute 125/76 80.9 kg Ana Luisa Artis APRN.SALES FACILITATOR 02/28/2025 8:59 AM Signed HISTORY AND PHYSICAL Rose Marie Drummond : 1955 REFERRING PHYSICIAN: Hannah Bo [address] [facility] [id number] CHIEF COMPLAINT: Patient presents with: Consult: Due for repeat colonoscopy. Denies GI issues HPI: Rose Marie is a 69 year old female referred for endoscopy. Rose Marie notes due for screening colonoscopy-hx of polyps (2019). Rose Marie denies abdominal pain. Rose Marie denies diarrhea. Rose Marie denies constipation. Rose Marie denies a change in bowel habits. Rose Marie denies melena. Rose Marie denies bright red blood per rectum. Rose Marie denies hemorrhoids. Rose Marie denies family history of colon issues. Rose Marie denies heartburn. Rose Marie denies dysphagia. Rose Marie denies a history of ulcers/ peptic ulcer disease. Rose Marie's medical history is significant for hx of SVT s/p ablation (2013), obstructive lung disease, AND CKD. She denies CP, SOB, dizziness, palpitations, syncope, edema, recent hospitalizations Rose Marie has undergone prior endoscopy. Last colonoscopy was 03/[address] Bo at [facility]. Sedation: Midazolam 5 mg IV, Fentanyl 100 micrograms IV, Diphenhydramine 50 mg IV Impression: - Non-bleeding internal hemorrhoids. - One 3 to 8 mm polyp at the hepatic flexure, removed with a cold snare. Resected and retrieved. Clip (MR conditional) was placed. CONVERTED FINAL DIAGNOSIS Colon, hepatic flexure, polyp, biopsy Sessile serrated polyp. Current Outpatient Medications Medication Sig estradiol (ESTRACE) 0.01 % (0.1 mg/gram) vaginal cream Use 1 gram vaginally at bedtime for 2 weeks then 1-3 time/weeks for maintenance. desvenlafaxine ER (PRISTIQ) 25 mg 24 hr tablet Take 1 tablet by mouth once daily. Take with additional 50 mg tablet. levothyroxine (SYNTHROID) 25 mcg tablet Take 1 tablet by mouth once daily. Take on empty stomach. For thyroid. difluprednate (DUREZOL) 0.05 % ophthalmic suspension Use 1 Drop in both eyes four times daily. fluticasone (FLONASE) 50 mcg/actuation nasal spray Use 2 Sprays in each nostril once daily. Rinse mouth after use. amLODIPine (NORVASC) 5 mg tablet Take 1 tablet by mouth once daily. desvenlafaxine ER (PRISTIQ) 50 mg 24 hr tablet Take 1 tablet by mouth once daily. fluticasone (FLONASE) 50 mcg/actuation nasal spray Use 2 Sprays in each nostril once daily. Rinse mouth after use. (Patient not taking: Reported on 02/28/2025) No current facility-administered medications for this visit. 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 Baumann-PSVT ARTHROSCOPY KNEE DIAGNOSTIC W/WO SYNOVIAL BX SPX Left 1973 DELIVERY ONLY 1982,1986 , low transverse CHOLECYSTECTOMY Cholecystectomy COLONOSCOPY 2012, 2015 COLONOSCOPY FLX DX W/COLLJ SPEC WHEN PFRMD 03/31/2020 Colonoscopy COLSC FLX W/RMVL OF TUMOR POLYP LESION SNARE TQ 12/12/2009 Multiple polyps,diverticulosis EYE SURGERY HX Left 2017 cataract TONSILLECTOMY HX TOTAL ABDOMINAL HYSTERECT W/WO RMVL TUBE OVARY Hysterectomy, BRIE TOTAL KNEE REPLACEMENT Left 06/06/2021 Left total knee arthroplasty VAGINAL HYSTERECTOMY FAMILY HISTORY Problem Relation Age of Onset Cancer Father lung Diabetes Mother Coronary Artery Disease Mother multiple interventions, but has severe diabetes Colon Cancer Other none Thyroid Maternal Grandmother SOCIAL HISTORY[1] REVIEW OF SYMPTOMS: REVIEW OF SYSTEMS: General: The patient + fatigue, denies weight loss, denies weight gain, denies feeling hot, and feelings of cold. Eyes: The patient denies glaucoma, denies eye injury/surgery, denies glasses or contacts. Ear/Nose/Throat: The patient + allergies, denies hayfever, denies ear infections, and denies bloody noses. Cardiovascular: The patient denies chest pain, denies heart disease, denies high blood pressure, denies high cholesterol, and denies poor circulation. Respiratory: The patient denies tuberculosis, denies pneumonia, + frequent cough, denies shortness of breath, and denies coughing up blood. Gastrointestinal: The patient denies difficulty swallowing, denies acid reflux, denies ulcers, denies jaundice/hepatitis, denies gallbladder problem (more content not included)... Normal [facility] DBT Breast - bilateral scree wingn 02-24-2025 IMPRESSION: There is no mammographic evidence of malignancy in either breast. Routine screening mammogram is recommended. Annual mammogram will be due in 1 year. BI-RADS Category 1: Negative RISK: Based on the Tyrer-Cuzick (TC) risk assessment model, this patient has a 5.2% lifetime risk of developing breast cancer, meaning they are at average risk for developing breast cancer. However, this is only an estimate based on available history provided on the patient's questionnaire. We encourage all patients to talk with their providers about these results, further recommendations for managing breast health, and appropriate supplemental screening options if the patient has dense breast tissue. Interpreting Radiologist: Azucena Osuna M.D. Electronically signed on: 02/24/2025 Power Lineman Technician: KILLIAN Transcriminda Date/Time: Feb 24 2025 7:51A Dictated by: AZUCENA OSUNA MD This examination was interpreted and the report reviewed and electronically signed by: AZUCENA OSUNA MD on Feb 24 2025 11:49AM [facility] DIVISION OF RADIOLOGY * * *Final Report* * * DATE OF EXAM: Feb 24 2025 8:01AM [facility] [id number] - [facility] SCREENING W JOSE / PROCEDURE REASON: Encounter for screening mammogram for malignant neoplasm of breast * * * * Physician Interpretation * * * * RESULT: [place] [address] #[id number] - [facility] SCREENING W JOSE HISTORY: 69 year-old patient presents for screening. Patient is asymptomatic in both breasts. Patient states no personal history of breast cancer. COMPARISON STUDIES: The present examination has been compared to prior imaging studies dated 09/22/2019 (mammogram), 06/04/2021 (mammogram), 06/05/2021 (mammogram), 02/14/2023 (mammogram), 02/18/2024 (mammogram) and 02/25/2024 (ultrasound). MAMMOGRAM TECHNIQUE: The study was acquired using full field digital technology and interpreted from soft copy. Digital Breast Tomosynthesis (DBT) images were obtained and used to assist in the interpretation of this examination. MAMMOGRAM FINDINGS: There are scattered areas of fibroglandular density. No suspicious masses, calcifications or other abnormalities are seen in either breast. There are no significant interval changes. DIVISION OF RADIOLOGY Provider, [facility] - 02/24/2025 * * *Final Report* * * DATE OF EXAM: Feb 24 2025 8:01AM [facility] [id number] - [facility] SCREENING W JOSE / PROCEDURE REASON: Encounter for screening mammogram for malignant neoplasm of breast * * * * Physician Interpretation * * * * RESULT: [place] [address] #[id number] - [facility] SCREENING W JOSE HISTORY: 69 year-old patient presents for screening. Patient is asymptomatic in both breasts. Patient states no personal history of breast cancer. COMPARISON STUDIES: The present examination has been compared to prior imaging studies dated 09/22/2019 (mammogram), 06/04/2021 (mammogram), 06/05/2021 (mammogram), 02/14/2023 (mammogram), 02/18/2024 (mammogram) and 02/25/2024 (ultrasound). MAMMOGRAM TECHNIQUE: The study was acquired using full field digital technology and interpreted from soft copy. Digital Breast Tomosynthesis (DBT) images were obtained and used to assist in the interpretation of this examination. MAMMOGRAM FINDINGS: There are scattered areas of fibroglandular density. No suspicious masses, calcifications or other abnormalities are seen in either breast. There are no significant interval changes. IMPRESSION IMPRESSION: There is no mammographic evidence of malignancy in either breast. Routine screening mammogram is recommended. Annual mammogram will be due in 1 year. BI-RADS Category 1: Negative RISK: Based on the Tyrer-Cuzick (TC) risk assessment model, this patient has a 5.2% lifetime risk of developing breast cancer, meaning they are at average risk for developing breast cancer. However, this is only an estimate based on available history provided on the patient's questionnaire. We encourage all patients to talk with their providers about these results, further recommendations for managing breast health, and appropriate supplemental screening options if the patient has dense breast tissue. Interpreting Radiologist: Azucena Osuna M.D. Electronically signed on: 02/24/2025 Power Lineman Technician: KILLIAN Transcribe Date/Time: Feb 24 2025 7:51A Dictated by: AZUCENA OSUNA MD This examination was interpreted and the report reviewed and electronically signed by: AZUCENA OSUNA MD on Feb 24 2025 11:49AM EST [facility] Radiology Study observation (narrative) [facility] DBT Breast - bilateral scree ningOrdered By: [facility] Provider on 02-24-2025 [facility] SCREENING W TOMOon 02-24 [facility] SCREENING W JOSE * * *Final Report* * * DATE OF EXAM: Feb 24 2025 8:01AM [id number] - [facility] SCREENING W JOSE / PROCEDURE REASON: Encounter for screening mammogram for malignant neoplasm of breast * * * * Physician Interpretation * * * * RESULT: [place] [address] #[id number] - [facility] SCREENING W JOSE HISTORY: 69 year-old patient presents for screening. Patient is asymptomatic in both breasts. Patient states no personal history of breast cancer. COMPARISON STUDIES: The present examination has been compared to prior imaging studies dated 09/22/2019 (mammogram), 06/04/2021 (mammogram), 06/05/2021 (mammogram), 02/14/2023 (mammogram), 02/18/2024 (mammogram) and 02/25/2024 (ultrasound). MAMMOGRAM TECHNIQUE: The study was acquired using full field digital technology and interpreted from soft copy. Digital Breast Tomosynthesis (DBT) images were obtained and used to assist in the interpretation of this examination. MAMMOGRAM FINDINGS: There are scattered areas of fibroglandular density. No suspicious masses, calcifications or other abnormalities are seen in either breast. There are no significant interval changes. IMPRESSION: There is no mammographic evidence of malignancy in either breast. Routine screening mammogram is recommended. Annual mammogram will be due in 1 year. BI-RADS Category 1: Negative RISK: Based on the Tyrer-Cuzick (TC) risk assessment model, this patient has a 5.2% lifetime risk of developing breast cancer, meaning they are at average risk for developing breast cancer. However, this is only an estimate based on available history provided on the patient's questionnaire. We encourage all patients to talk with their providers about these results, further recommendations for managing breast health, and appropriate supplemental screening options if the patient has dense breast tissue. Interpreting Radiologist: Azucena Osuna M.D. Electronically signed on: 02/24/2025 Power Lineman Technician: KILLIAN Transcribe Date/Time: Feb 24 2025 7:51A Dictated by: AZUCENA OSUNA MD This examination was interpreted and the report reviewed and electronically signed by: AZUCENA OSUNA MD on Feb 24 2025 11:49AM EST [id number] Normal [facility] CNOVon 12-07-2024 CNOV Office Visit (OBGYWM ) ROSE MARIE ROYAL ([id number]) 1955 F Date Time Provider Department 12/07/24 7:30 AM BEVERLEY CUEVAS OBGYWM During your visit today, we recorded the following information about you: Blood pressure Weight 142/84 78 kg Beverley Cuevas APRN.SALES FACILITATOR 12/07/2024 8:31 AM Signed Rose Marie Gardinermargarita Drummond is a 69 year old female who presents for problem visit anal lesion. HPI: Patient states that she noticed a lump near the anus recently. She denies any drainage or pain to the area. She does have a history of internal hemorrhoids. Patient is also concerned about random incontinence and is wondering what she can do for that. She also complains of random soreness and bleeding when wiping the vaginal area. Patient is not sexually active at this time. 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 Baumann-PSVT ARTHROSCOPY KNEE DIAGNOSTIC W/WO SYNOVIAL BX SPX Left 1973 DELIVERY ONLY 1982,1986 , low transverse CHOLECYSTECTOMY Cholecystectomy COLONOSCOPY 2012, 2015 COLONOSCOPY FLX DX W/COLLJ SPEC WHEN PFRMD 03/31/2020 Colonoscopy COLSC FLX W/RMVL OF TUMOR POLYP LESION SNARE TQ 12/12/2009 Multiple polyps,diverticulosis EYE SURGERY HX Left 2017 cataract TONSILLECTOMY HX TOTAL ABDOMINAL HYSTERECT W/WO RMVL TUBE OVARY Hysterectomy, BRIE TOTAL KNEE REPLACEMENT Left 06/06/2021 Left total knee arthroplasty VAGINAL HYSTERECTOMY FAMILY HISTORY Problem Relation Age of Onset Cancer Father lung Diabetes Mother Coronary Artery Disease Mother multiple interventions, but has severe diabetes Colon Cancer Other none Thyroid Maternal Grandmother Social History Tobacco Use Smoking status: Never Smokeless tobacco: Never Vaping Use Vaping status: Never Used Substance Use Topics Alcohol use: No Drug use: No Current Outpatient Medications Medication Sig desvenlafaxine ER (PRISTIQ) 25 mg 24 hr tablet Take 1 tablet by mouth once daily. Take with additional 50 mg tablet. levothyroxine (SYNTHROID) 25 mcg tablet Take 1 tablet by mouth once daily. Take on empty stomach. For thyroid. difluprednate (DUREZOL) 0.05 % ophthalmic suspension Use 1 Drop in both eyes four times daily. fluticasone (FLONASE) 50 mcg/actuation nasal spray Use 2 Sprays in each nostril once daily. Rinse mouth after use. fluticasone (FLONASE) 50 mcg/actuation nasal spray Use 2 Sprays in each nostril once daily. Rinse mouth after use. amLODIPine (NORVASC) 5 mg tablet Take 1 tablet by mouth once daily. desvenlafaxine ER (PRISTIQ) 50 mg 24 hr tablet Take 1 tablet by mouth once daily. estradiol (ESTRACE) 0.01 % (0.1 mg/gram) vaginal cream Use 1 gram vaginally at bedtime for 2 weeks then 1-3 time/weeks for maintenance. No current facility-administered medications for this visit. Allergies As of Date: 12/07/2024 Allergen Noted Reaction SHELLFISH DERIVED 07/31/2023 Hives AMOXICILLIN 03/27/2005 Rash CODEINE 09/10/2005 Vomiting IODINE 03/27/2005 Hives LISINOPRIL 12/29/2020 Rash Fully Assessed 12/07/2024 REVIEW OF SYSTEMS Bladder: No dysuria, gross hematuria, urinary frequency, urinary urgency, +incontinence. Expanded ROS: N/A Allergies and current medication updated:Yes SENSITIVE EXAM: The sensitive examination was discussed with the Patient or Patient's Authorized Clipper Counters. As applicable, any other physician, advance practice provider, medical student, or other health professional student that will be observing or involved in the sensitive examination for educational or training purposes was discussed with the Patient or Authorized Clipper Counters. The Patient or Authorized Clipper Counters has agreed to proceed with the sensitive examination. (Sensitive examination includes inspection and/or palpation of the breasts, pelvis, prostate and anorectal regions). EXAM: BP 142/84 Wt 172 lb (78.0kg) GENERAL: pleasant, female in no apparent distress HEENT: Normocephalic, atraumatic, mucus membranes moist, and no lesions CHEST: Normal inspiratory effort PELVIC: external genitalia normal, normal Bartholin's glands, urethra, Lusby's glands, no vulvar lesions, physiologic discharge present, normal appearing perineal body and perianal region, cysto (more content not included)... Normal [facility] CNOVon 10-25-2024 CNOV Office Visit (FAMPWS ) ROSE MARIE ROYAL ([id number]) 1955 F Date Time Provider Department 10/25/24 3:00 PM SHARDA SNEED [facility] During your visit today, we recorded the following information about you: Pulse Respiration Blood pressure Weight 87/minute 16/minute 138/78 78 kg Sharda Sneed APRN.SALES FACILITATOR 10/25/2024 3:33 PM Signed Your refill for Pristiq has been processed; continue taking it first thing in the morning along with your thyroid medication. Fasting labs (CBC, CMP, A1c, cholesterol panel, and thyroid labs) have been ordered. When you come in for these tests, please fast for 10-12 hours (water and black coffee are allowed). The order is good for 2 months. A referral has been placed for cardiology -- you should be able to call in to schedule. A referral has been made to pulmonology. You will be seen by Dr. Sadia Riley in [place]. A referral to rheumatology is in place (Dr. Lara in [place]). A referral to gynecology has been ordered. Continue monitoring your sugar intake by watching carbohydrates and sugars to help manage your A1c in the pre-diabetic range. Sharda Sneed APRN.SALES FACILITATOR 10/25/2024 4:11 PM Signed This is a 69 year old female who presents today with: Rose Marie is a 69-year-old female with a history of tachycardia, depression, and Ana's disease, presenting for medication management and referrals to cardiology, pulmonology, gynecology, and rheumatology. HISTORY OF PRESENT ILLNESS: Medication Management: - Taking Pristiq 50 mg and 25 mg daily; requests refill. - Taking thyroid medication; last labs in February. - Taking amlodipine; denies chest pain, dyspnea, palpitations, peripheral edema, headaches, or dizziness. - Blood pressure well-controlled; notes elevation with cold tablets. - A1c consistently between 5.9-6.1. Tachycardia: - History of tachycardia, treated with ablation; no episodes since. - Consumes coffee and occasional Mountain Dew; avoids excessive caffeine. She hasn't seen cardiology in many years and would like to get reestablished. Depression: - Well-managed with Pristiq; no changes desired. Happy with current regimen. Ana's Disease: - Experiences occasional swelling in fingers and toes. Reports that she has not seen rheumatology in many years. She would like to get reestablished with rheum. Anorectal Mass: - Noticed a small mass resembling a BB at the edge of the anus; suspects a cyst. 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 Pulmonary sarcoidosis. Has not seen pulmonology in years. No problems, but would like to get reestablished. 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 Baumann-PSVT ARTHROSCOPY KNEE DIAGNOSTIC W/WO SYNOVIAL BX SPX Left 1973 DELIVERY ONLY 1982,1986 , low transverse CHOLECYSTECTOMY Cholecystectomy COLONOSCOPY 2012, 2015 COLONOSCOPY FLX DX W/COLLJ SPEC WHEN PFRMD 03/31/2020 Colonoscopy COLSC FLX W/RMVL OF TUMOR POLYP LESION SNARE TQ 12/12/2009 Multiple polyps,diverticulosis EYE SURGERY HX Left 2017 cataract TONSILLECTOMY HX TOTAL ABDOMINAL HYSTERECT W/WO RMVL TUBE OVARY Hysterectomy, BRIE TOTAL KNEE REPLACEMENT Left 06/06/2021 Left total knee arthroplasty VAGINAL HYSTERECTOMY ALLERGIES Shellfish Derived, Amoxicillin, Codeine, Iodine, and Lisinopril MEDICATIONS Current Outpatient Medications Medication Sig desvenlafaxine ER (PRISTIQ) 25 mg 24 hr tablet Take 1 tablet by mouth once daily. Take with additional 50 mg tablet. levothyroxine (SYNTHROID) 25 mcg tablet Take 1 tablet by mouth once daily. Take on empty stomach. For thyroid. difluprednate (DUREZOL) 0.05 % ophthalmic suspension Use 1 Drop in both eyes four times daily. fluticasone (FLONASE) 50 mcg/actuation nasal spray Use 2 Sprays in each nostril once daily. Rinse mouth after use. fluticasone (FLONASE) 50 mcg/actuation nasal spray Use 2 Sprays in each nostril once daily. Rinse mouth after use. amLODIPine (NORVASC) 5 mg tablet Take 1 tablet by mouth once daily. desvenlafaxine ER (PRISTIQ) 50 mg 24 hr tablet Take 1 tablet by mouth once daily. No current facility-administered medications for this visit. FAMILY HISTORY Problem Relation Age of Onset Cancer Father lung Diabetes Mother Coronary Artery Disease Mother multiple interventions, but has severe diabetes Colon Cancer Other none Thyroid Maternal Grandmother Social History Tobacco Use Smoking status: Never Smokeless tobacco: Never Vaping Use Vaping status: Never Used (more content not included)... Normal [facility] CNOVon 07-08-2024 CNOV Office Visit (UCWSTR ) ROSE MARIE ROYAL ([id number]) 1955 F Date Time Provider Department 07/08/24 5:30 PM FARZANA BOSTON [facility] During your visit today, we recorded the following information about you: Temperature Pulse Respiration Blood pressure 98.7 degrees 81/minute 20/minute 157/73 Weight 75.7 kg Farzana Boston APRN.SALES FACILITATOR 07/08/2024 6:27 PM Signed This note was created using NoteWriter. Subjective Rose Marie England Felipe Drummond is a 69 year old female. 69 year old female with PMH PSVT, RODRIGUEZ, sarcoidosis, Ana's, hypothyroid presents for illness. Acute onset one week ago +sinus pressure +post nasal drainage +cough Non productive +eye redness and drainage Denies SOB Denies dyspnea Denies abdominal pain Denies N/V/D The history is provided by the patient. No health policy manager was used. Sinus Problem This is a new problem. The current episode started 1 to 4 weeks ago. The problem occurs constantly. The problem has been unchanged. Associated symptoms include congestion, coughing, headaches and a sore throat. Pertinent negatives include no abdominal pain, anorexia, arthralgias, change in bowel habit, chest pain, fatigue, fever, joint swelling, myalgias, nausea, neck pain, rash, swollen glands, urinary symptoms, vomiting or weakness. Nothing aggravates the symptoms. She has tried nothing for the symptoms. The treatment provided no relief. 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 Baumann-PSVT ARTHROSCOPY KNEE DIAGNOSTIC W/WO SYNOVIAL BX SPX Left 1973 DELIVERY ONLY 1982,1986 , low transverse CHOLECYSTECTOMY Cholecystectomy COLONOSCOPY 2012, 2015 COLONOSCOPY FLX DX W/COLLJ SPEC WHEN PFRMD 03/31/2020 Colonoscopy COLSC FLX W/RMVL OF TUMOR POLYP LESION SNARE TQ 12/12/2009 Multiple polyps,diverticulosis EYE SURGERY HX Left 2017 cataract TONSILLECTOMY HX TOTAL ABDOMINAL HYSTERECT W/WO RMVL TUBE OVARY Hysterectomy, BRIE TOTAL KNEE REPLACEMENT Left 06/06/2021 Left total knee arthroplasty VAGINAL HYSTERECTOMY ALLERGIES Shellfish Derived, Amoxicillin, Codeine, Iodine, and Lisinopril MEDICATIONS difluprednate (DUREZOL) 0.05 % ophthalmic suspension Use 1 Drop in both eyes four times daily. fluticasone (FLONASE) 50 mcg/actuation nasal spray Use 2 Sprays in each nostril once daily. Rinse mouth after use. desvenlafaxine ER (PRISTIQ) 25 mg 24 hr tablet Take 1 tablet by mouth once daily. Take with additional 50 mg tablet. amLODIPine (NORVASC) 5 mg tablet Take 1 tablet by mouth once daily. desvenlafaxine ER (PRISTIQ) 50 mg 24 hr tablet Take 1 tablet by mouth once daily. levothyroxine (SYNTHROID) 25 mcg tablet Take 1 tablet by mouth once daily. Take on empty stomach. For thyroid. fluticasone (FLONASE) 50 mcg/actuation nasal spray Use 2 Sprays in each nostril once daily. Rinse mouth after use. erythromycin (ROMYCIN) 5 mg/gram (0.5 %) ophthalmic ointment Use 1 application in both eyes four times daily for 7 days. FAMILY HISTORY Problem Relation Age of Onset Cancer Father lung Diabetes Mother Coronary Artery Disease Mother multiple interventions, but has severe diabetes Colon Cancer Other none Thyroid Maternal Grandmother Social History Tobacco Use Smoking status: Never Smokeless tobacco: Never Vaping Use Vaping status: Never Used Substance Use Topics Alcohol use: No Drug use: No Review of Systems Constitutional: Negative for activity change, appetite change, fatigue and fever. HENT: Positive for congestion, postnasal drip, rhinorrhea, sinus pressure, sinus pain and sore throat. Eyes: Positive for discharge and redness. Negative for pain and itching. Eye lid matting Respiratory: Positive for cough. Negative for apnea, choking and chest tightness. Cardiovascular: Negative for chest pain. Gastrointestinal: Negative for abdominal pain, anorexia, change in bowel habit, nausea and vomiting. Musculoskeletal: Negative for arthralgias, joint swelling, myalgias and neck pain. Skin: Negative for rash. Allergic/Immunologic: Negative for environmental allergies, food allergies and immunocompromised state. Neurological: Positive for headaches. Negative for dizziness, facial asymmetry and weakness. Hematological: Negative for adenopathy. Does not bruise/bleed easily. Psychiatric/Behavioral: Negative for agitation and behavioral problems. Objective BP 157/73 Pulse 81 Temp 37.1 ?C (98.7 ?F) Resp 20 Wt 75.7 kg (166 lb 14.2 oz) SpO2 97% BMI 27.47 kg/m? Physical Exam (more content not included)... Normal [facility] CNOVon 06-14-2024 CN Office Visit (UCTR ) ROSE MARIE ROYAL ([id number]) 1955 F Date Time Provider Department 06/14/24 8:45 AM FARZANA BOSTON [facility] During your visit today, we recorded the following information about you: Temperature Pulse Respiration Blood pressure 98.2 degrees 90/minute 18/minute 148/84 Weight 76.1 kg Farzana Boston APRN.SALES FACILITATOR 06/14/2024 9:34 AM Signed This note was created using RubyRideriter. Subjective Rose Marie England Felipe Drummond is a 69 year old female. 69 year old female with PMH sleep apnea, sarcoidosis, reiters, subclinical thyroid presents for illness. Acute onset 4 days ago +raspy throat. 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 No health policy manager was used. Cough This is a new problem. The current episode started more than 2 days ago. The problem occurs constantly. The problem has not changed since onset.The cough is Non-productive. There has been no fever. Associated symptoms include chills, headaches and rhinorrhea. Pertinent negatives include no chest pain, no sweats, no weight loss, no ear congestion, no ear pain, no sore throat, no myalgias, no shortness of breath, no wheezing and no eye redness. Treatments tried: see HPI. The treatment provided no relief. She is not a smoker. Her past medical history does not include bronchitis, pneumonia, bronchiectasis, COPD, emphysema or asthma. 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 Baumann-PSVT ARTHROSCOPY KNEE DIAGNOSTIC W/WO SYNOVIAL BX SPX Left 1973 DELIVERY ONLY 1982,1986 , low transverse CHOLECYSTECTOMY Cholecystectomy COLONOSCOPY 2012, 2015 COLONOSCOPY FLX DX W/COLLJ SPEC WHEN PFRMD 03/31/2020 Colonoscopy COLSC FLX W/RMVL OF TUMOR POLYP LESION SNARE TQ 12/12/2009 Multiple polyps,diverticulosis EYE SURGERY HX Left 2017 cataract TONSILLECTOMY HX TOTAL ABDOMINAL HYSTERECT W/WO RMVL TUBE OVARY Hysterectomy, BRIE TOTAL KNEE REPLACEMENT Left 06/06/2021 Left total knee arthroplasty VAGINAL HYSTERECTOMY ALLERGIES Shellfish Derived, Amoxicillin, Codeine, Iodine, and Lisinopril MEDICATIONS desvenlafaxine ER (PRISTIQ) 25 mg 24 hr tablet Take 1 tablet by mouth once daily. Take with additional 50 mg tablet. amLODIPine (NORVASC) 5 mg tablet Take 1 tablet by mouth once daily. desvenlafaxine ER (PRISTIQ) 50 mg 24 hr tablet Take 1 tablet by mouth once daily. levothyroxine (SYNTHROID) 25 mcg tablet Take 1 tablet by mouth once daily. Take on empty stomach. For thyroid. benzonatate (TESSALON PERLE) 100 mg capsule Take 1 capsule by mouth three times a day as needed for cough. fluticasone (FLONASE) 50 mcg/actuation nasal spray Use 2 Sprays in each nostril once daily. Rinse mouth after use. [START ON 06/18/2024] doxycycline (VIBRA-TABS) 100 mg tablet Take 1 tablet by mouth two times a day for 7 days. Patient should start on June 18, 2024. FAMILY HISTORY Problem Relation Age of Onset Cancer Father lung Diabetes Mother Coronary Artery Disease Mother multiple interventions, but has severe diabetes Colon Cancer Other none Thyroid Maternal Grandmother Social History Tobacco Use Smoking status: Never Smokeless tobacco: Never Vaping Use Vaping status: Never Used Substance Use Topics Alcohol use: No Drug use: No Review of Systems Constitutional: Positive for chills. Negative for weight loss. HENT: Positive for congestion, rhinorrhea, sinus pressure and sinus pain. Negative for ear pain and sore throat. Eyes: Negative for pain, discharge, redness and itching. Respiratory: Positive for cough. Negative for shortness of breath and wheezing. Cardiovascular: Negative for chest pain. Gastrointestinal: Negative for abdominal pain, diarrhea and vomiting. Musculoskeletal: Negative for myalgias. Skin: Negative for color change, pallor and rash. Allergic/Immunologic: Negative for environmental allergies, food allergies and immunocompromised state. Neurological: Positive for headaches. Hematological: Negative for adenopathy. Does not bruise/bleed easily. Psychiatric/Behavioral: Negative for agitation and behavioral problems. Objective BP 148/84 Pulse 90 Temp 36.8 ?C (98.2 ?F) (Tympanic) Resp 18 Wt 76.1 kg (167 lb 12.3 oz) SpO2 98% BMI 27.62 kg/m? Physical Exam Vitals and nursing note reviewed. Const (more content not included)... Normal [facility] STREP A MOLECULAR (POC)on Procedural Control Valid [facility] Strep A (POCT) Negative Negative [facility] XR CHEST 2V FRONTAL/LATon XR CHEST 2V FRONTAL/LAT * * *Final Report* * * DATE OF EXAM: Jun 14 2024 9:08AM [id number] - XR CHEST 2V FRONTAL/LAT / PROCEDURE REASON: Acute cough * * * * Physician Interpretation * * * * EXAMINATION: CHEST RADIOGRAPH (2 VIEW FRONTAL and LATERAL) CLINICAL HISTORY: Acute cough MQ: XC2_6 EXAM DATE/TIME: 06/14/2024 9:08 AM COMPARISON: Chest x-ray dated 07/31/2023 RESULT: Lines, tubes, and devices: None. Lungs and pleura: Chronic mild coarsening of the lung markings. No consolidation. No lung mass. No pleural effusion. No pneumothorax. Cardiomediastinal silhouette: Stable cardiomediastinal silhouette. Bones and soft tissues: Surgical clips are present in the upper abdomen. IMPRESSION: No acute radiographic abnormality. Power Lineman Technician: [facility] Transcribe Date/Time: Jun 14 2024 9:09A Dictated by : ELLA SQUIRES MD This examination was interpreted and the report reviewed and electronically signed by: ELLA SQUIRES MD on Jun 14 2024 9:09AM EST [id number] Normal [facility] XR Chest PA and Lateralon IMPRESSION: No acute radiographic abnormality. Power Lineman Technician: [facility] Transcribe Date/Time: Jun 14 2024 9:09A Dictated by : ELLA SQUIRES MD This examination was interpreted and the report reviewed and electronically signed by: ELLA SQUIRES MD on Jun 14 2024 9:09AM EST DIVISION OF RADIOLOGY * * *Final Report* * * DATE OF EXAM: Jun 14 2024 9:08AM [id number] - XR CHEST 2V FRONTAL/LAT / PROCEDURE REASON: Acute cough * * * * Physician Interpretation * * * * EXAMINATION: CHEST RADIOGRAPH (2 VIEW FRONTAL & LATERAL) CLINICAL HISTORY: Acute cough MQ: XC2_6 EXAM DATE/TIME: 06/14/2024 9:08 AM COMPARISON: Chest x-ray dated 07/31/2023 RESULT: Lines, tubes, and devices: None. Lungs and pleura: Chronic mild coarsening of the lung markings. No consolidation. No lung mass. No pleural effusion. No pneumothorax. Cardiomediastinal silhouette: Stable cardiomediastinal silhouette. Bones and soft tissues: Surgical clips are present in the upper abdomen. DIVISION OF RADIOLOGY Provider, [facility] - 06/14/2024 * * *Final Report* * * DATE OF EXAM: Jun 14 2024 9:08AM WOX [id number] - XR CHEST 2V FRONTAL/LAT / PROCEDURE REASON: Acute cough * * * * Physician Interpretation * * * * EXAMINATION: CHEST RADIOGRAPH (2 VIEW FRONTAL & LATERAL) CLINICAL HISTORY: Acute cough MQ: XC2_6 EXAM DATE/TIME: 06/14/2024 9:08 AM COMPARISON: Chest x-ray dated 07/31/2023 RESULT: Lines, tubes, and devices: None. Lungs and pleura: Chronic mild coarsening of the lung markings. No consolidation. No lung mass. No pleural effusion. No pneumothorax. Cardiomediastinal silhouette: Stable cardiomediastinal silhouette. Bones and soft tissues: Surgical clips are present in the upper abdomen. IMPRESSION IMPRESSION: No acute radiographic abnormality. Power Lineman Technician: JULIANO Transcribe Date/Time: Jun 14 2024 9:09A Dictated by : ELLA SQUIRES MD This examination was interpreted and the report reviewed and electronically signed by: ELLA SQUIRES MD on Jun 14 2024 9:09AM EST [facility] Radiology Study observation (narrative) [facility] XR Chest PA and LateralOrder ed By: [facility] Provider on 06-14-2024 [facility] US Breast - left limitedon 0 02-25-2024 IMPRESSION: BENIGN There is no sonographic evidence of malignancy. The 1.2 cm x 0.6 cm x 1.3 cm oval cyst in the left breast is consistent with a simple cyst and is benign. Return to annual mammogram screening schedule is recommended. Raul morgan/denis:02/25/2024 14:46:00 Melting Supervisor(s): Farzana Petty [facility] Ultrasound BI-RADS: Category 2: Benign Multiple national specialty organizations have released breast cancer screening guidelines for women at average risk for developing breast cancer - guidelines that are based on both evidence and opinion, yet differ on when to start and how often to screen for breast cancer. With representation from Breast Imaging, Internal Medicine, Women's Health, Family Medicine, and Medical/Surgical Oncology, the [facility] has carefully reviewed the data and reached the following consensus: 1) All women should engage in shared decision-making with their providers to decide when to start and how often to screen; 2) All women should have the opportunity to start screening mammography at age 40; 3) For women ages 45-55, we recommend annual screening mammograms; 4) For women ages 55 and over, we support both the transition from an annual to a biennial interval if this aligns more with patient's values and preferences, or continuation with annual screening; 5) All women should discuss with their providers when to stop screening mammograms. Power Lineman Technician: Denis Transcribe Date/Time: Feb 25 2024 2:32P Dictated by : RAUL LENNON MD This examination was interpreted and the report reviewed and electronically signed by: RAUL LENNON MD on Feb 25 2024 2:46PM [facility] DIVISION OF RADIOLOGY * * *Final Report* * * DATE OF EXAM: Feb 25 2024 2:41PM [id number] - [facility] US BREAST LTD LT / PROCEDURE REASON: multiple diagnoses * * * * Physician Interpretation * * * * #[id number] - [facility] [employer] BREAST LTD LT LIMITED ULTRASOUND OF LEFT BREAST: 02/25/2024 HISTORY: Multiple Diagnoses. RESULT: No prior exams were available for comparison. Color flow and real-time ultrasound of the left breast upper outer quadrant were performed. Mata scale images of the real-time examination were reviewed. There is a benign 1.2 cm x 0.6 cm x 1.3 cm oval cyst in the left breast at 1 o'clock middle depth. This oval cyst is anechoic. This correlates with mammography findings. Color flow imaging demonstrates that there is no vascularity present. DIVISION OF RADIOLOGY Provider, [facility] - 02/25/2024 * * *Final Report* * * DATE OF EXAM: Feb 25 2024 2:41PM U [id number] - [employer] BREAST LTD LT / PROCEDURE REASON: multiple diagnoses * * * * Physician Interpretation * * * * #[id number] - [facility] US BREAST LTD LT LIMITED ULTRASOUND OF LEFT BREAST: 02/25/2024 HISTORY: Multiple Diagnoses. RESULT: No prior exams were available for comparison. Color flow and real-time ultrasound of the left breast upper outer quadrant were performed. Mata scale images of the real-time examination were reviewed. There is a benign 1.2 cm x 0.6 cm x 1.3 cm oval cyst in the left breast at 1 o'clock middle depth. This oval cyst is anechoic. This correlates with mammography findings. Color flow imaging demonstrates that there is no vascularity present. IMPRESSION IMPRESSION: BENIGN There is no sonographic evidence of malignancy. The 1.2 cm x 0.6 cm x 1.3 cm oval cyst in the left breast is consistent with a simple cyst and is benign. Return to annual mammogram screening schedule is recommended. Raul morgan/denis:02/25/2024 14:46:00 Melting Supervisor(s): Farzana Petty, [facility] Ultrasound BI-RADS: Category 2: Benign Multiple national specialty organizations have released breast cancer screening guidelines for women at average risk for developing breast cancer - guidelines that are based on both evidence and opinion, yet differ on when to start and how often to screen for breast cancer. With representation from Breast Imaging, Internal Medicine, Women's Health, Family Medicine, and Medical/Surgical Oncology, the [facility] has carefully reviewed the data and reached the following consensus: 1) All women should engage in shared decision-making with their providers to decide when to start and how often to screen; 2) All women should have the opportunity to start screening mammography at age 40; 3) For women ages 45-55, we recommend annual screening mammograms; 4) For women ages 55 and over, we support both the transition from an annual to a biennial interval if this aligns more with patient's values and preferences, or continuation with annual screening; 5) All women should discuss with their providers when to stop screening mammograms. Power Lineman Technician: Denis Transcribe Date/Time: Feb 25 2024 2:32P Dictated by : RAUL LENNON MD This examination was interpreted and the report reviewed and electronically signed by: RAUL LENNON MD on Feb 25 2024 2:46PM EST [facility] Radiology Study observation (narrative) [facility] US Breast - left limitedOrde red By: [facility] Provider on 02-25-2024 [facility] DBT Breast - bilateral scree ningon 02-18-2024 * * *Final Report* * * DATE OF EXAM: Feb 18 2024 7:46AM [id number] - [facility] SCREENING W JOSE / PROCEDURE REASON: Encounter for screening mammogram for breast cancer * * * * Physician Interpretation * * * * RESULT: #[id number] - [facility] SCREENING W JOSE BILATERAL DIGITAL SCREENING MAMMOGRAM TOMOSYNTHESIS WITH CAD: 02/18/2024 HISTORY: Screening Mammogram with JOSE - patient reports NO breast symptoms. RESULT: TECHNIQUE: The study was acquired using full field digital technology and interpreted from soft copy. Digital Breast Tomosynthesis (DBT) images were obtained and used to assist in the interpretation of this examination. Current study was also evaluated with a Computer Aided Detection (CAD). Comparison is made to exams dated: 02/14/2023 mammogram, 06/05/2021 mammogram, 06/04/2021 mammogram - [facility], and 09/22/2019 mammogram - [facility]. There are scattered areas of fibroglandular density. There is an oval mass in the left breast upper outer aspect middle depth. Finding is best noted on tomographic CC slice 31 and MLO slice 33. No other significant masses, calcifications, or other findings are seen in either breast. DIVISION OF RADIOLOGY Provider, [facility] - 02/18/2024 * * *Final Report* * * DATE OF EXAM: Feb 18 2024 7:46AM [id number] - [facility] SCREENING W JOSE / PROCEDURE REASON: Encounter for screening mammogram for breast cancer * * * * Physician Interpretation * * * * RESULT: #[id number] - [facility] SCREENING W JOSE BILATERAL DIGITAL SCREENING MAMMOGRAM TOMOSYNTHESIS WITH CAD: 02/18/2024 HISTORY: Screening Mammogram with JOSE - patient reports NO breast symptoms. RESULT: TECHNIQUE: The study was acquired using full field digital technology and interpreted from soft copy. Digital Breast Tomosynthesis (DBT) images were obtained and used to assist in the interpretation of this examination. Current study was also evaluated with a Computer Aided Detection (CAD). Comparison is made to exams dated: 02/14/2023 mammogram, 06/05/2021 mammogram, 06/04/2021 mammogram - [facility], and 09/22/2019 mammogram - [facility]. There are scattered areas of fibroglandular density. There is an oval mass in the left breast upper outer aspect middle depth. Finding is best noted on tomographic CC slice 31 and MLO slice 33. No other significant masses, calcifications, or other findings are seen in either breast. IMPRESSION IMPRESSION: INCOMPLETE: NEED ADDITIONAL IMAGING EVALUATION The oval mass in the left breast is indeterminate. An ultrasound is recommended. The exam was reviewed by a staff physician. josé Lewis M.D., D.O./ednis:02/18/2024 10:57:26 Melting Supervisor(s): RT Otto(R)(M), [facility] letter sent: Additional Imaging Needed Mammogram BI-RADS: Category 0: Incomplete: Need Additional Imaging Evaluation If this report indicates you need additional imaging, and it has NOT yet been performed, please call , to schedule. We sincerely thank you for choosing the [facility] for your breast imaging needs. Multiple national specialty organizations have released breast cancer screening guidelines for women at average risk for developing breast cancer - guidelines that are based on both evidence and opinion, yet differ on when to start and how often to screen for breast cancer. With representation from Breast Imaging, Internal Medicine, Women's Health, Family Medicine, and Medical/Surgical Oncology, the [facility] has carefully reviewed the data and reached the following consensus: 1) All women should engage in shared decision-making with their providers to decide when to start and how often to screen; 2) All women should have the opportunity to start screening mammography at age 40; 3) For women ages 45-55, we recommend annual screening mammograms; 4) For women ages 55 and over, we support both the transition from an annual to a biennial interval if this aligns more with patient's values and preferences, or continuation with annual screening; 5) All women should discuss with their providers when to stop screening mammograms. Power Lineman Technician: Denis Transcribe Date/Time: Feb 18 2024 7:27A Dictated by: JEN LIM, DO This examination was interpreted and the report reviewed and electronically signed by: CASEY WILDER MD on Feb 18 2024 10:57AM EST [facility] Radiology Study observation (narrative) [facility] DBT Breast - bilateral scree ningOrdered By: Ccf Provider on 02-18-2024 [facility] HbA1c (Bld)on 02-09-2024 Average glucose Estimated from glycated hemoglobin (Bld) [Mass/Vol] 128 mg/dL [facility] Comment on above: eAG: (Estimated aver age glucose) is a calculated value from HgbA1c and is sales representative consultant of the average blood glucose level in the last 2-3 month period. HbA1c (Bld) [Mass fraction] 6.1 % High 4.3 - 5.6 % [facility] Comment on above: [place] Diabetes As sociation guidelines indicate that patients with HgbA1c in the range 5.7-6.4% are at increased risk for development of diabetes, and intervention by lifestyle modification may be beneficial. HgbA1c greater or equal to 6.5% is considered diagnostic of diabetes. Interpretation and review of laboratory results Abnormal [facility] XR Chest PA and Lateralon IMPRESSION: No acute radiographic abnormality. 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 Lungs and pleura: No consolidation. No lung mass. No pleural effusion. No pneumothorax. Mild stable diffuse coarsening of lung markings Cardiomediastinal silhouette: Normal cardiomediastinal silhouette. Bones and soft tissues: Unremarkable. 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 Lungs and pleura: No consolidation. No lung mass. No pleural effusion. No pneumothorax. Mild stable diffuse coarsening of lung markings Cardiomediastinal silhouette: Normal cardiomediastinal silhouette. Bones and soft tissues: Unremarkable. IMPRESSION IMPRESSION: No acute radiographic abnormality. Power Lineman Technician: [facility] Transcribe Date/Time: Jul 31 2023 12:05P Dictated by : GIANFRANCO MILES MD This examination was interpreted and the report reviewed and electronically signed by: GIANFRANCO MILES MD on Jul 31 2023 12:06PM EST [facility] Radiology Study observation (narrative) [facility] XR Chest PA and LateralOrder ed By: Ccf Provider on 07-31-2023 [facility] XR KNEE GENERAL 4V AP BOTH/P A BOTH/LAT/MERC RIGHTon 05-05-2023 [facility] JASPAL SCREENINGon 02-14-2023 [facility] XR CHEST 2V FRONTAL/LATon [facility] XR Chest PA and Lateralon IMPRESSION: Prominence of the bilateral pulmonary markings. 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 Lungs and pleura: There is prominence of the bilateral pulmonary markings. No consolidation. No lung mass. No pleural effusion. No pneumothorax. Cardiomediastinal silhouette: Unremarkable cardiomediastinal silhouette. Bones and soft tissues: Unremarkable. 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 Lungs and pleura: There is prominence of the bilateral pulmonary markings. No consolidation. No lung mass. No pleural effusion. No pneumothorax. Cardiomediastinal silhouette: Unremarkable cardiomediastinal silhouette. Bones and soft tissues: Unremarkable. IMPRESSION IMPRESSION: Prominence of the bilateral pulmonary markings. Power Lineman Technician: JULIANO Transcribe Date/Time: Jan 27 2023 1:06P Dictated by : EDGAR SAM MD This examination was interpreted and the report reviewed and electronically signed by: EDGAR SAM MD on Jan 27 2023 1:07PM EST [facility] Radiology Study observation (narrative) [facility] XR Chest PA and LateralOrder ed By: Ccf Provider on 01-27-2023 [facility] XR KNEE GENERAL 4V AP BOTH/P A BOTH/LAT/MERC RIGHTon 01-14-2022 [facility] XR KNEE GENERAL 4V AP BOTH/P A BOTH/LAT/MERC LEFTon 11-23-2021 [facility] Basic Metabolic Panlon 06-07 Anion gap [Moles/Vol] 15 mmol/L Normal 9-18 [facility] Comment on above: Performed By: #### B MP, CBC ####[facility] [address] [place] [address] Calcium [Mass/Vol] 8.4 mg/dL Low 8.5-10.2 [facility] Comment on above: Performed By: #### B MP, CBC ####[facility] [address] [place] [address] Chloride [Moles/Vol] 103 mmol/L Normal 97-105 [facility] Comment on above: Performed By: #### B MP, CBC ####[facility] [address] [place] [address] CO2 [Moles/Vol] 22 mmol/L Normal 22-30 [facility] Comment on above: Performed By: #### B MP, CBC ####[facility] [address] [place] [address] Creatinine [Mass/Vol] 0.80 mg/dL Normal 0.58-0.96 [facility] Comment on above: Performed By: #### B MP, CBC ####[facility] [address] [place] [address] eGFR- Amer. >60 Normal [facility] Comment on above: Performed By: #### B MP, CBC ####[facility] [address] [place] [address] eGFR-All Other Races >60 Normal [facility] Comment on above: Result Comment: eGFR (Estimated GFR) Units of measure: mL/min/1.73 meters squared eGFR is derived from the reexpressed MDRD Study equation using the following parameters: serum creatinine, age, gender and race. The creatinine assay has been calibrated to be traceable to IDMS. An eGFR <60 mL/min/1.73m2 for >3 months is consistent with chronic kidney disease. Refer to KDOQI guidelines for clinical interpretation. In patients with unstable renal function, e.g. those with acute kidney injury, the eGFR may not accurately reflect actual GFR. Note: On 09/01/2021, the eGFR calculation will be updated to the NKF-ASN Task Force recommended 2020 CKD-EPI creatinine equation which does not include a race variable. For more information or to access a 2020 CKD-EPI calculator, visit the National Kidney Foundation website at kidney.org/professionals/kdoqi/gfr_calculator. Performed By: #### B MP, CBC ####[facility] [address] [place] [address] Glucose [Mass/Vol] 136 mg/dL High 74-99 [facility] Comment on above: Result Comment: The [place] Diabetes Association (ADA) provides guidance for cutoff values for fasting glucose and random glucose. The ADA defines fasting as no caloric intake for at least 8 hours. Fasting plasma glucose results between 100 to 125 mg/dL indicate increased risk for diabetes (prediabetes). Fasting plasma glucose results greater than or equal to 126 mg/dL meet the criteria for diagnosis of diabetes. In the absence of unequivocal hyperglycemia, results should be confirmed by repeat testing. In a patient with classic symptoms of hyperglycemia or hyperglycemic crisis, random plasma glucose results greater than or equal to 200 mg/dL meet the criteria for diagnosis of diabetes. Reference: Standards of Medical Care in Diabetes 2016, [place] Diabetes Association. Diabetes Care. 2016.39(Suppl 1). Performed By: #### B MP, CBC ####[facility] [address] [place] [address] Potassium [Moles/Vol] 4.2 mmol/L Normal 3.7-5.1 [facility] Comment on above: Performed By: #### B MP, CBC ####[facility] [address] [place] [address] Sodium [Moles/Vol] 140 mmol/L Normal 136-144 [facility] Comment on above: Performed By: #### B MP, CBC ####[facility] [address] [place] [address] Urea nitrogen [Mass/Vol] 13 mg/dL Normal 7-21 [facility] Comment on above: Performed By: #### B MP, CBC ####[facility] [address] [place] [address] CASE MANAGEMon 06-07-2021 CASE MANAGEM HNO ID: [id number] Author: Amber Morgan RN Service: Case Management Author Type: Registered Nurse Type: Care Mgt Progress Note Filed: 06/07/2021 4:10 PM Note Text: CARE MANAGEMENT DISCHARGE NOTE SERVICE DATE: 06/07/2021 SERVICE TIME: 4:09 PM LOS: 0 days Admission Date: 06/06/2021 DISCHARGE ARRANGEMENT (list agency and phone number) Discharge Arrangement: Home with Home Health Provider Name: [facility] CAREGIVER ASSESSMENT: Caregiver is ready, willing and able to meet the patient's needs as recommended by the inter-professional team:: Yes Does the patient have an acute stroke diagnosis, or has the patient had a stroke during this admission?: No Patient's transition needs and plan for meeting these needs: Home PT HANDOFF COMMUNICATION: Handoff to: Primary Care Physician Primary Care Physician Name/Phone: Dr. John Schmidt-[phone] TRANSPORTATION ARRANGEMENTS: Transportation Arrangements: Car- Daughter to transport Discharge Information Row Name Admission (Current) from 06/06/[address] [facility] Start of Care 06/08/21 Needs Prior to Discharge: Ready for Discharge Discharge order written for today. [facility] will be seeing the patient with a start of care date on 06/08/21. Notified [facility] of the patients discharge home today. SIGNATURE: Amber Morgan RN PATIENT NAME: Rose Marie Drummond DATE: June 07, 2021 TIME: 4:09 PM PAGER/CONTACT #: [phone] [facility] CASE MANAGEM HNO ID: [id number] Author: Amber Morgan RN Service: Case Management Author Type: Registered Nurse Type: Care Mgt Progress Note Filed: 06/07/2021 9:52 AM Note Text: CARE MANAGEMENT PROGRESS NOTE SERVICE DATE: 06/07/2021 SERVICE TIME: 9:52 AM LOS: 0 days Needs Prior to Discharge: OT/PT Evaluation [facility] able to accept. CM department will continue to follow for DC needs. SIGNATURE: Amber Morgan RN PATIENT NAME: Rose Marie Drummond DATE: June 07, 2021 TIME: 9:52 AM PAGER/CONTACT #: [phone] [facility] CASE MGT INIT ASSESon 2020 CASE MGT INIT [facility] HNO ID: [id number] Author: Amber Morgan RN Service: Case Management Author Type: Registered Nurse Type: Care Mgt Initial Assessment Filed: 06/07/2021 9:38 AM Note Text: CARE MANAGEMENT: ASSESSMENT AND DISCHARGE PLAN SERVICE DATE: June 07, 2021 SERVICE TIME: 9:36 AM PRIMARY CARE PHYSICIAN: Mai Schmidt PA-C - Confirmed with the patient ADMISSION STATUS: Extended Recovery Needs Prior to Discharge: OT/PT Evaluation MEDICAL: [employer] MEDICARE PPO Patient/Clipper Counters Stated Goals: To have reduction in symptoms;To improve my functional status;To return home to life as it was Health Insurance: [employer] Medicare Health Issues Impacting Discharge Plan: Chronic Chronic: Tachycardia and Saarcoidosis Last Discharge Date: 03/31/20 Is this Within the Past 30 days? Last discharge within 30 days: No Advance Directive: Current Advance Directive: Health Care Power of Duplicate Maker;Living Will In Chart: Yes Up To Date and Valid: Yes Health LiteracyHow often do you need to have someone help you when you read instructions, pamphlets, or other written material from your doctor or pharmacy? : 1 - Never How confident are you filling out medical forms by yourself?: 1 - Extremely Baseline Mental Status Prior to this Illness what was the patient's Baseline Mental Status?: Alert AND Oriented Prior to this illness, has anyone described the patient having any of the following behaviors?: Not Applicable Relationship of the informant to the patient:: Self Functional Status: Independent Does Patient Currently Receive Any Community Services or Home Care?: None Equipment Prior to Admission: Walker;Cane;Elevated toilet seat Has the Patient Been in a Senior Care Facility in the Past 30 days?: No SOCIAL: Living Arrangements: Home Lives With: Alone Financial Resources: Not Applicable Primary Contact: Extended Emergency Contact Information Primary Emergency Contact: McgowanTabitha hooper Mobile Relation: Daughter Supportive Patient Contact:: Yes Contact Resources: Family Family Name/Phone: Daughter Tabitha Mcgowan Caregiver AssessmentCaregiver is ready, willing and able to meet the patient's needs as recommended by the inter-professional team:: Yes Does the patient have an acute stroke diagnosis, or has the patient had a stroke during this admission?: No Patient's transition needs and plan for meeting these needs: TBD Patient's perception of need for this admission: Elective surgery Medication Adherance I am convinced of the importance of my prescription medication: 0 - Agree Completely I worry that my prescription medication will do more harm than good to me : 0 - Disagree Completely I feel financially burdened by my [id number] expenses for my prescription medication:: 0 - Disagree Completely Risk Score: 0 Patient is categorized as: Low risk < 2 Are you interested in bedside delivery of your medications? Yes Is Patient Psychosocially Complex?: No ASSESSMENT AND PLAN: Medical Needs: Medical Needs: Two or more chronic diseases;Fall risk or frequent falls Psychosocial Needs: Psychosocial Needs: None FREEDOM OF CHOICE EXPLAINED: [place] of Choice Given: Yes Level of Care Discussed: Home Care Financial Disclosure Provided: Yes POTENTIAL TRANSITION PLANS To Be Determined Review of the chart and met with the patient. The patient lives alone, she has someone coming over in the mornings and evening to help her during the day when she gets home and her daughter will be staying with her a night. The patient lives in a ranch home. PT- Pending. Discussed discharge planning. The patient plans on discharging home with home PT. Referral to [facility]. CM department will continue to follow for DC needs. SIGNATURE: Amber Morgan RN PATIENT NAME: Rose Marie Drummond DATE: June 07, 2021 TIME: 9:36 AM PAGER/CONTACT #: [phone] Normal [facility] CBCon 06-07-2021 Absolute nRBC <0.01 Normal <0.01 [facility] Comment on above: Performed By: #### B MP, CBC ####[facility] [address] [place], [place] [id number] Erythrocyte distribution width (RBC) [Ratio] 13.2 % Normal 11.5-15.0 [facility] Comment on above: Performed By: #### B MP, CBC ####[facility] [address] [place], [place] [address] Hematocrit (Bld) [Volume fraction] 34.8 % Low 36.0-46.0 [facility] Comment on above: Performed By: #### B MP, CBC ####[facility] [address] [place] [address] Hemoglobin (Bld) [Mass/Vol] 11.8 g/dL Normal 11.5-15.5 [facility] Comment on above: Performed By: #### B MP, CBC ####[facility] [phone] MCH 28.9 pG Normal 26.0-34.0 [facility] Comment on above: Performed By: #### B MP, CBC ####[facility] [address] [place] [address] MCHC (RBC) [Mass/Vol] 33.9 g/dL Normal 30.5-36.0 [facility] Comment on above: Performed By: #### B MP, CBC ####[facility] [address] MCV (RBC) [Entitic vol] 85.3 fL Normal 80.0-100.0 [facility] Comment on above: Performed By: #### B MP, CBC ####[facility] [address] [place], [place] [phone] Platelet mean volume (Bld) [Entitic vol] 10.7 fL Normal 9.0-12.7 [facility] Comment on above: Performed By: #### B MP, CBC ####[facility] [address] Platelets (Bld) [#/Vol] 194 10*3/uL Normal 150-400 [facility] Comment on above: Performed By: #### B MP, CBC ####[facility] [address] RBC (Bld) [#/Vol] 4.08 10*6/uL Normal 3.90-5.20 [facility] Comment on above: Performed By: #### B MP, CBC ####[facility] [address] WBC (Bld) [#/Vol] 13.52 10*3/uL High 3.70-11.00 [facility] Comment on above: Performed By: #### B MP, CBC ####[facility] [address] [place] [address] CONSULTon 06-07-2021 CONSULT HNO ID: [id number] Author: Yousif Ghosh MD Service: General Internal Medicine Author Type: Physician Type: Consults Filed: 06/08/2021 8:36 PM Note Text: [facility]- Consultation ROSE MARIE ROYAL : 1955 AGE: 66 SEX: F [id number] LOCATION: [id number] ATTENDING PHYSICIAN: Zak Buck M.D. DATE OF SERVICE: 06/07/2021 TIME OF SERVICE: 01:40 PM REASON FOR CONSULTATION: Postop medical management. 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 She underwent elective left total knee arthroplasty on 06/06/2021. She had uneventful intraoperative course. Estimated blood loss 250 mL. She had an uneventful night and so far she is doing well with physical therapy. Has 1 episode of transient lightheadedness, dizziness. PAST MEDICAL HISTORY: As mentioned above. PAST SURGICAL HISTORY: As mentioned above plus history of cholecystectomy, hysterectomy, endoscopy. FAMILY HISTORY: Father had lung cancer. Mother had diabetes and coronary artery disease. SOCIAL HISTORY: She does not smoke or drink alcohol. MEDICATIONS: Current home medication list reviewed. ALLERGIES: She is allergic to amoxicillin, caused a rash; iodine, hives; lisinopril, rash; seafood, also hives; codeine caused vomiting. REVIEW OF SYSTEMS: HEENT/Neck: No history of TIA, CVA, glaucoma, seizure disorders. No history of asthma or COPD. Has chronic cough due to sarcoidosis. Obstructive sleep apnea, currently on CPAP. History of cardiac arrhythmia status post ablation therapy. No history of coronary artery disease, congestive heart failure. No dyspnea with exertion. No history of bleeding, peptic ulcer disease, hepatitis, or colitis. Good appetite. Regular bowel movement. No history of chronic dysuria, hematuria, renal calculi. Does have CKD stage 3. Prediabetic and hypothyroidism. No history of DVTs, paresthesia of the feet. History of depression. PHYSICAL EXAM: General: Elderly white female who is alert and oriented. Neck: Good carotid pulse felt. No carotid bruit. No thyromegaly appreciated. No lymphadenopathy of the neck. Lungs: Clear to auscultation bilaterally. Cardiovascular: S1, S2. Regular rhythm. No murmur, gallop, or rub appreciated. Abdomen: Soft, nontender, nondistended. No mass felt. Lower Extremities: No ankle edema noted. IMPRESSION: 1. Osteoarthritis, status post left total knee arthroplasty. Deep venous thrombosis prophylaxis as ordered by Dr. Buck. 2. Obstructive sleep apnea. Currently on home CPAP. 3. Anxiety/depression. Continue Wellbutrin and Celexa. 4. Hypertension. Continue Norvasc. 5. Hypothyroidism. Continue Synthroid. 6. Sarcoidosis. 7. Continue her eye drops. 8. Hold other medication for now. Thank you very much for kind referral. Continue to follow her while she is in the hospital. It is possible she will discharge home today. Yousif Ghosh M.D. Internal Medicine MAHDURI:[id number] /[id number] [facility] THERAPY NTon 06-07-2021 THERAPY NT HNO ID: [id number] Author: Ave Murphy PTA Service: Physical Therapy Author Type: Hardware Trainer Type: Therapy (PT/OT/Speech/Resp) Filed: 06/07/2021 4:12 PM Note Text: Attestation signed by Sweetie Bahena PT at 06/07/2021 5:11 PM I reviewed and agree with the assessment as documented above. SIGNATURE: Sweetie Bahena, PT DATE: June 07, 2021 TIME: 5:11 PM Physical Therapy Treatment SERVICE DATE: 06/07/2021 SERVICE TIME: 1537 to 1604 ROOM: [id number] Recommended Discharge Disposition: Home PT Recommended Discharge Disposition Comments: Pt currently functining below baseline s/p L TKA; Pt presenting with increased pain, increased edema, decreased LLE ROM, decreased strength, impaired activity tolerance, impaired balance, and overall decreased functional mobility requiring skilled services post acute stay to address deficits Anticipated Discharge Needs: Physical Assist at Home;Supervision at Home Physical Assist at Home for: Stairs;Self Care;Safety;Transportat ion;Shopping Supervision at Home due to: Other: See Comment (Initially for optimal safety) Recommended Discharge Equipment: No equipment needs anticipated PT 6 Clicks Score: 20 Precautions/Activity Restrictions: Total Knee Replacement;Weight Bearing Restrictions;Fall Risk Precaution/Activity Restriction Comments: standard Extremity With Weight Bearing Restricted: Left Lower Extremity Left Lower Extremity Weight Bearing Status: WBAT Current Hospital Course: L TKA Reason for Hospital Admission: Osteoarthritis of L knee Relevant Past Medical History: Arthiritis, benign neoplasm of colon, Lumbago, dyslipidemia, tachycardia, Reiters disease Response to Therapy Interventions: Good participation in activities,Improved tolerance for activity,Notable progression with functional activities/skills,On-tr ack to achieve discharge goals,Pain Continue skilled needs due to: Functional mobility/skill impairments,Safety concerns Physical Therapy Problem List: Education Deficit;Edema;Pain;Impa ired Self Care;Decreased Activity Tolerance;Decreased Range Of Motion;Decreased Strength;Functional Mobility Impairment;Balance Impaired Treatment Interventions: Education;Self Care / Home Management;Energy Conservation Training;Joint Mobility;Balance Training;Strengthening; Functional Mobility Training;Pain Management;Edema Management;Modalities Modalities: Ice Plan for next visit: Bed mobility,Fall prevention,Family instruction,Gait training,Exercise instruction/handout,Sit to Stand Transfers,Standing Balance,Standing Tolerance,Walker Training Home Environment Patient Lives With: Self/Alone Assistance Available: PRN (daughter) Entry To Home: Stairs;Without Rail Number Of Stairs Into Home: 2 (1 step, then platform, then 1 step) Number Of Stairs To Bed/Bath: 0 Tub/Shower Type: walk in shower with built in seat Laundry: 1st floor pt completes Equipment Owned: Wheeled Walker;Commode-Raised;L bradley Handled Shoe Horn;ADL Kit;Hand Held Shower;Shower Chair;Bread Slicer Machine;Cane Prior Functional Level: Within Functional Limits Prior Functional Level Comments: Pt reports independence with ADLs and IADLs, No AD for ambulation however has been wearing a knee brace recently, +driving, +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 No falls in the past 6 months Patient Report: Patient reporting significant pain however, agreeable to Pt session. patient medication prior to PT treatment. CURRENT FUNCTIONAL STATUS: Most recent performance Current Functional Mobility Assist Level Additional Information Rolling Supine to Sit Stand By Assistance HOB flat, no use of rails Sit to Supine Stand By Assistance HOb flat, no use of rails Scooting Stand By Assistance forward/retro in bed Sit to Stand Contact Guard Assistance x1 trail from EOB, x2 trials from chair. Cues for hand placement. Stand to Sit Contact Guard Assistance Cues for safe approach, hand placement, L LE extension and controlled/eccentric decent. patient impulsive with sitting. Bed to Chair Toilet/Commode Gait Contact Guard Assistance Gait Device: Wheeled Walker Gait Distance (feet): 100'x1 Step-to gait. Patient continues to hip hike due to keeping L LE straight. Patient noting significant pain with gait training. Cues for upright posture, use of B UE's to assist and diaphragmatic breathing Stairs Additional Information Curb Step Contact Guard Assistance Device: Wheeled Walker Car Transfer Blank ritchie indicate activity not attempted Gait Deviations Left Lower Extremity: Foot clearance decreased;Heel strike during initial stance decreased;Step length decreased General Deviations/Observations : Antalgic gait;Mimi decreased;Flexed trunk posture;Step length decreased;Visual scanning/environmental awareness de (more content not included)... [facility] THERAPY NT HNO ID: [id number] Author: Sweetie Bahena, PT Service: ? Author Type: Physical Therapist Type: Therapy (PT/OT/Speech/Resp) Filed: 06/07/2021 12:12 PM Note Text: Physical Therapy Evaluation SERVICE DATE: 06/07/2021 SERVICE TIME: 1101 to 1145 ROOM: [place] [address] Recommended Discharge Disposition: Home PT Recommended Discharge Disposition Comments: Pt currently functining below baseline s/p L TKA; Pt presenting with increased pain, increased edema, decreased LLE ROM, decreased strength, impaired activity tolerance, impaired balance, and overall decreased functional mobility requiring skilled services post acute stay to address deficits Anticipated Discharge Needs: Physical Assist at Home;Supervision at Home Physical Assist at Home for: Stairs;Self Care;Safety;Transportat ion;Shopping Supervision at Home due to: Other: See Comment (Initially for optimal safety) Recommended Discharge Equipment: No equipment needs anticipated PT 6 Clicks Score: 18 Precautions/Activity Restrictions: Total Knee Replacement;Weight Bearing Restrictions;Fall Risk Precaution/Activity Restriction Comments: standard Extremity With Weight Bearing Restricted: Left Lower Extremity Left Lower Extremity Weight Bearing Status: WBAT Current Hospital Course: L TKA Reason for Hospital Admission: Osteoarthritis of L knee Relevant Past Medical History: Arthiritis, benign neoplasm of colon, Lumbago, dyslipidemia, tachycardia, Reiters disease Response to Therapy Interventions: Good participation in activities,Improved tolerance for activity,Notable progression with functional activities/skills,On-tr ack to achieve discharge goals,Pain,Progression of disease process,Requires additional time to complete activities Continue skilled needs due to: Functional mobility/skill impairments,Safety concerns Physical Therapy Problem List: Education Deficit;Edema;Pain;Impa ired Self Care;Decreased Activity Tolerance;Decreased Range Of Motion;Decreased Strength;Functional Mobility Impairment;Balance Impaired Treatment Interventions: Education;Self Care / Home Management;Energy Conservation Training;Joint Mobility;Balance Training;Strengthening; Functional Mobility Training;Pain Management;Edema Management;Modalities Modalities: Ice Plan for next visit: Bed mobility,Chair transfer training,Fall prevention,Family instruction,Gait training,Exercise instruction/handout,Pre -gait activities,Sit to Stand Transfers,Sitting balance,Standing Balance,Stairs training,Standing Tolerance,Walker Training Home Environment Patient Lives With: Self/Alone Assistance Available: PRN (daughter) Entry To Home: Stairs;Without Rail Number Of Stairs Into Home: 2 (1 step, then platform, then 1 step) Number Of Stairs To Bed/Bath: 0 Tub/Shower Type: walk in shower with built in seat Laundry: 1st floor pt completes Equipment Owned: Wheeled Walker;Commode-Raised;L bradley Handled Shoe Horn;ADL Kit;Hand Held Shower;Shower Chair;Bread Slicer Machine;Cane Prior Functional Level: Within Functional Limits Prior Functional Level Comments: Pt reports independence with ADLs and IADLs, No AD for ambulation however has been wearing a knee brace recently, +driving, +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 No falls in the past 6 months Patient Report: Pt reports pain in her knee along the incision site above her kneecap. Agreeable to PT, cleared with RN CURRENT FUNCTIONAL STATUS: Most recent performance Current Functional Mobility Assist Level Additional Information Rolling Supine to Sit Stand By Assistance;Additional Information HOB flat, minimal use of handrail Sit to Supine Stand By Assistance;Additional Information HOB flat, no use of handrail. Scooting Stand By Assistance;Additional Information fwd/retro at EOB and in bedside chair Sit to Stand Contact Guard Assistance;Additional Information Pt uses UE support from surface appropriately, with LLE extended due to increased pain with flexion Stand to Sit Contact Guard Assistance;Additional Information Cues for feeling BLE against surface, reaching UE back to surface, and slow descent to sit. Pt demonstrated eccentric control Bed to Chair Toilet/Commode Gait Contact Guard Assistance;Additional Information Gait Device: Wheeled Walker;Other: See Comment (gait belt) Gait Distance (feet): 1 X 100 Demonstrated and gave verbal cues for sequencing prior to attempt. Pt hesitant to flex LLE secondary to pain resulting in hip hike, decreased heel strike, and antalgic gait. Pt follows cues appropriately with no increased lateral sway or LOB. Progressed to SBA Stairs Additional Information Pt deferred this session due to increased pain and fatigue. Requesting second session for stair negotiation Curb Step Car Transfer Blank ritchie indicate activity not attempted Gait Deviations Left Lower Extremity: Heel strike during initial stance decreased;Hip Hike;Foot clearance decreased;Hyperextensio n during st (more content not included)... [facility] THERAPY NT HNO ID: [id number] Author: Amber Martínez OT/L Service: Occupational Therapy Author Type: Occupational Therapist Type: Therapy (PT/OT/Speech/Resp) Filed: 06/07/2021 11:02 AM Note Text: Occupational Therapy Evaluation SERVICE DATE: 06/07/2021 SERVICE TIME: 1006 to 1046 ROOM: [place] [address] Recommended Discharge Disposition: Home Anticipated Discharge Needs: Physical Assist at Home Physical Assist at Home for: Transportation;Shopping ;Meals;Laundry;Cleaning OT 6 Clicks Score: 22 Precautions/Activity Restrictions: Total Knee Replacement;Weight Bearing Restrictions;Fall Risk Extremity With Weight Bearing Restricted: Left Lower Extremity Left Lower Extremity Weight Bearing Status: WBAT Current Hospital Course: L TKA Reason for Hospital Admission: surgery Relevant Past Medical History: OA PAST MEDICAL HISTORY Diagnosis Date - Arthritis - Benign neoplasm of colon - Disorder of thyroid - Dyslipidemia - Lumbago - Paroxysmal tachycardia, unspecified (HCC) - 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 Baumann-PSVT - DELIVERY ONLY 1982,1986 , low transverse - COLONOS W/REM POLYP SNARE 12/12/2009 Multiple polyps,diverticulosis - COLONOSCOP W/ OR W/O BRSH SPEC 03/31/2020 Colonoscopy - COLONOSCOPY 2012, 2015 - DIAGNOSTIC ARTHROSCOPY KNEE Left 1973 - EYE SURGERY HX Left 2017 cataract - REMOVAL GALLBLADDER Cholecystectomy - TONSILLECTOMY HX - TOTAL ABDOM HYSTERECTOMY Hysterectomy, BRIE - TOTAL KNEE REPLACEMENT Left 06/06/2021 Left total knee arthroplasty - VAGINAL HYSTERECTOMY Response to Therapy Interventions: Good participation in activities Cognition/Communication Deficits Responsiveness: Awake,Alert Follows Commands: 3-step Commands Cognitive Clinical Tests and Screens: 4AT Screening 4AT Screening Assess alertness (ask patient to state their name and address): Normal (fully alert, but not agitated, throughout assessment) Ask patient: age, date of , current year, and current location: No mistakes Ask patient to tell me the months of the year backwards order, starting with June: Able to state 7+ months correctly Acute change or fluctuating mental status: No 4AT Score: 0 Delirium Positive/Negative: Negative Home Environment Patient Lives With: Self/Alone Assistance Available: PRN (Dtr lives 2 miles away) Entry To Home: Stairs;Without Rail Number Of Stairs Into Home: 2 Number Of Stairs To Bed/Bath: 0 Tub/Shower Type: walk in shower with built in seat Laundry: 1st floor pt completes Equipment Owned: ADL Kit;Commode-Raised Prior Functional Level: Within Functional Limits Prior Functional Level Comments: Pt reports IND with ADLs/IADLS, ambulates without AD. 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 Patient Report: I'm feeling good CURRENT FUNCTIONAL STATUS: Most recent performance Current Activities of Daily Living Assist Level Additional Information Feeding Set Up Grooming Stand By Assistance (while standing at sink) Bathing Upper Body Supervision Bathing Lower Body Contact Guard Assistance Dressing Upper Body Contact Guard Assistance;Supervision Dressing Lower Body Contact Guard Assistance Toileting Contact Guard Assistance Instrumental Activities of Daily Living Assist Level Additional Information Meal/Beverage Prep Moderate Assistance Cleaning Maximal Assistance Laundry Maximal Assistance Medication Management with Strategies Functional Mobility Assist Level Additional Information Rolling Supine to Sit Stand By Assistance Sit to Supine Scooting Sit to Stand Contact Guard Assistance Stand to Sit Contact Guard Assistance Bed to Chair Toilet/Commode Shower Functional Mobility Contact Guard Assistance Wheeled Walker Blank ritchie indicate activity not attempted Learning/Educational Needs: Discharge Plan;Disease Process;Equipment;Funct ional Activities/Mobility;Randall n Management;Plan of Care;Precautions;Rehabi litation Techniques and Procedures;Safety;Self Care Goals for Plan of Care: Patient will be discontinued from Occupational Therapy when no further skilled needs are identified in this setting. PLAN: OT Frequency: Discontinue therapy services Reasons Therapy Services Discontinued: No skilled needs TREATMENT INTERVENTIONS: Therapy Diagnosis: No Skilled Need Interventions Provided: Evaluation;Therapeutic Activity (07889);Self Usp Management (07379) $ Evaluation-Moderate (76113) Billed Units: 1 unit Therapeutic Activity (52885) Treatment Minutes: 10 $ Therapeutic Activity (96554) Billed Units: 1 unit Self Usp Management (63335) Treatment Minutes: 15 $ Self Usp Management (77258) Billed Units: 1 unit Training AND education provided in: Adaptive equipment / DME,Assistive (more content not included)... [facility] ANES POSTPROC EVALon 021 ANES POSTPROC EVAL HNO ID: [id number] Author: Randy Adkins MD Service: Anesthesiology Author Type: Anesthesiologist Type: Anesthesia Postprocedure Evaluation Filed: 06/06/2021 5:02 PM Note Text: POST ANESTHESIA EVALUATION NOTE : 1955 Procedure Summary Date: 06/06/21 Room / Location: [place] OR04 / [place] Anesthesia Start: 1425 Anesthesia Stop: 1654 Procedure: ARTHROPLASTY REPLACE JOINT TOTAL KNEE (Left Knee) Diagnosis: Primary osteoarthritis of left knee Surgeons: Zak Buck MD Responsible Provider: Randy Adkins MD Anesthesia Type: spinal ASA Status: 3 Anesthesia Type: spinal Last vitals Vitals Value Taken Time BP 94/52 06/06/21 1655 Temp 36.6 ?C (97.9 ?F) 06/06/21 1651 Pulse 67 06/06/21 1659 Resp 22 06/06/21 1659 SpO2 96 % 06/06/21 1659 Vitals shown include unvalidated device data. Post Anesthesia Patient Status Patient Evaluation: bedside. Anticipated Disposition: inpatient floor planned admission. Neurological Status: aware and responsive. Pulmonary Status: breathing comfortably on room air Airway Control: returned to baseline unsupported. Cardiovascular Status: stable. Pain Management: clinically adequate Postoperative Hydration: acceptable. Intraoperative Events: no significant anesthesia events Post Operative Nausea/Vomiting Status: no significant post operative nausea or vomiting Anesthetic Observations: Recommendation: continue current plan of care. Anesthesia Observations No Documentation SIGNATURE: Randy Adkins MD PATIENT NAME: Rose Marie Drummond DATE: June 06, 2021 TIME: 5:01 PM CSN: [id number] [facility] ANES PRE-OPon 06-06-2021 ANES PRE-OP HNO ID: [id number] Author: Randy Adkins MD Service: Anesthesiology Author Type: Anesthesiologist Type: Anesthesia Preprocedure Evaluation Filed: 06/06/2021 12:40 PM Note Text: ANESTHESIOLOGY DAY OF SURGERY NOTE : 1955 Procedure(s) (LRB): ARTHROPLASTY REPLACE JOINT TOTAL KNEE (Left) Surgeon(s): Zak Buck MD Estimated body mass index is 28.41 kg/m? as calculated from the following: Height as of this encounter: 167.6 cm (5' 6). Weight as of this encounter: 79.8 kg (176 lb). Most recent hematocrit and potassium results: Hematocrit 41.3 05/21/2021 Potassium 3.6 05/21/2021 Relevant Problems ANESTHESIA (+) Obstructive sleep apnea syndrome CARDIO (+) PSVT (paroxysmal supraventricular tachycardia) (HCC) ENDO (+) Subclinical hypothyroidism -RENAL (+) Chronic renal insufficiency, stage 3 (moderate) ([facility]) NEURO-PSYCH (+) Personal history of colonic polyps PULMONARY (+) Obstructive sleep apnea syndrome Other (+) Ana's disease (HCC) I - PHYSICAL EVALUATION AIRWAY Patient intubated: No. Tracheostomy tube not present Mallampati: II. TM distance: >3 FB. Neck ROM: full ROM without neurological symptoms. Mouth opening: adequate. Short neck: no. Thick neck: no DENTAL Dental findings: teeth intact and poor dentition. Additional exam findings: no II - ANESTHESIA PLAN ASA Score: 3 Anesthetic Plan: spinal The patient is not a current smoker. NPO Status: adequate Monitoring plan: standard ASA. Postoperative analgesic plan: parenteral or oral opioids and peripheral nerve block. Anesthetic Risks, Benefits, Alternatives, Personnel Discussed. Consent obtained from: patient.Patient / Surrogate agrees to blood products: blood products not planned DNR status not reviewed with patient and/or family prior to surgery. Significant changes in the patient condition since the History and Physical, not otherwise documented in primary service progress note: no. Potential Anesthesia issues that may suggest increased risk of complications or contraindication to planned procedure: none. Vitals Value Taken Time BP 141/70 06/06/21 1232 Pulse 82 06/06/21 1232 Resp 16 06/06/21 1232 Temp 36.2 ?C (97.2 ?F) 06/06/21 1232 SpO2 98 % 06/06/21 1232 Facility-Administered Medications as of 06/06/2021 Medication Dose Route Frequency - lidocaine 10 mg/mL (1 %) 1-2 mg injection (XYLOCAINE) 0.1-0.2 mL INTRADERMAL PRN - lactated ringers iv infusion 5-30 mL/hr INTRAVENOUS CONTINUOUS - ceFAZolin iv piggyback 2 g in D5W (iso-osmotic) 100 mL (ANCEF) 2 g INTRAVENOUS Pre-Op Once Outpatient Medications as of 06/06/2021 Medication Sig - amLODIPine (NORVASC) 5 mg tablet Take 1 tablet by mouth once daily. - naproxen (NAPROSYN) 500 mg tablet Take 1 tablet by mouth twice daily with meals. Take with food. - cyclobenzaprine (FLEXERIL) 10 mg tablet Take 1/2 - 1 tid prn - Difluprednate (DUREZOL) 0.05 % drop As needed - CALCIUM CARBONATE/VITAMIN D3 (VITAMIN D-3 ORAL) Take by mouth. I have interviewed and examined the patient. I have reviewed the medical record and/or the pre-anesthesia evaluation, pertinent labs, and test results. This contains updated information obtained within 48 hours of Surgery/Procedure. SIGNATURE: Randy Adkins MD PATIENT NAME: Rose Marie Drummond DATE: June 06, 2021 TIME: 12:40 PM CSN: [id number] [facility] 06-06-2021 [facility] HNO ID: [id number] Author: Sam Ramey PA-C Service: Orthopaedic Surgery Author Type: Physician Histologic Technician Type: Discharge Summary Filed: 06/07/2021 4:04 PM Note Text: Attestation signed by Zak Buck MD at 06/09/2021 9:31 AM Zak Buck MD DISCHARGE SUMMARY PATIENT NAME: Rose Marie Drummond ADMISSION DATE: 06/06/2021 DISCHARGE DATE: 06/07/2021 PATIENT DISCHARGE SUMMARY C O N F I D E N T I A L I N F O R M A T I O N The following is a brief overview of your hospitalization. Some of the information contained on this summary may be confidential. This information should be kept in your records and should be shared with your regular doctor. These instructions explain what you or your plant care worker need to do to continue your care at home or at another healthcare facility - Please go over these instructions with your nurse and plant care worker. - If you are not sure about something, please ask. ------ Highest Readmission Risk Score: 6 The 30 day readmissions risk score is derived from an internally validated risk model which evaluates patient level characteristics, utilization history, medication orders and lab results up until the day of discharge. Patients with a score of 40 or above are considered highest risk for readmission. Specific patient level drivers will be listed at the bottom of the summary. The 30 day readmissions risk score is derived from an internally validated risk model which evaluates patient level characteristics, utilization history, medication orders and lab results up until the day of discharge. Patients with a score of 40 or above are considered highest risk for readmission. Where I Will be Going after Discharge: Home with Home Health My Condition at Discharge: Stable PRINCIPAL DIAGNOSIS: (Reason after study for this admission): Procedure(s): ARTHROPLASTY REPLACE JOINT TOTAL KNEE OTHER DIAGNOSES: Patient Active Hospital Problem List: No active hospital problems. OPERATIONS PERFORMED: Procedure(s): ARTHROPLASTY REPLACE JOINT TOTAL KNEE My Doctors and Medical Team: - My Main Hospital Doctor: Doctor Zak Buck MD PHYSICAL EXAM: See daily progress note Vitals: BP 154/75 Pulse 104 Temp 36.9 ?C (98.4 ?F) (Oral) Resp 16 Ht 167.6 cm (5' 6) Wt 85.9 kg (189 lb 6 oz) SpO2 94% BMI 30.57 kg/m? SUMMARY OF WHAT HAPPENED WHILE PATIENT WAS IN THE HOSPITAL: The patient was followed in the office by Dr. Buck in clinic for left knee osteoarthritis. It was determined the patient would benefit from left total knee arthoplasty. The procedure, its risks, benefits, and potential complications were discussed in detail prior to surgery. The patient conveyed understanding of all topics and consented to surgery. The patient was admitted to the hospital. Underwent an elective left total knee arthroplasty on 06/06/[address] Buck. The patient tolerated the procedure well and was returned to the Post Anesthesia Care Unit in stable condition. Vital signs per PACU protocol. VTE risk assessment performed. O2 therapy monitored by Respiratory Therapy to include incentive spirometry, ADL, wound and support per physician order set postop protocol. PT and OT to evaluate and treat. IV antibiotics, antiemetics, Aspirin for DVT prophylaxis and pain medication were given. The patient progressed with physical therapy. Lab values and vital signs were monitored and remained stable. The incision remained clean, dry and intact. Thigh and calf are not swollen. No signs of DVT or infection. The patient progressed with physical therapy towards goal of safety and independence. Patient was determined safe for discharge to home with home health care on 06/07/2021. TREATMENT / WOUND CARE: If you have any concerns about your wound, please contact the office. Keep wound and incision area clean and dry. You may remove your dressing on POD #7. If it remains drainage-free, you may leave the dressing off, keeping the wound open to air. If there is any drainage please contact the office You may not submerge the wound under standing water for 6 weeks time after surgery (i.e. no baths, no hot tubs, no swimming pools). Do not rub the wound, but rather pat dry. If you have non-absorbable sutures in place, these will be taken out on your 1st follow-up appointment. Observe the wound for signs of infection, including increased redness, swelling, or persistent drainage around the incision site. It is normal for your wound to be warmer immediately after surgery (even up to 4-6 weeks after surgery). If you begin to experience fevers, chills, night sweats, or flu-like symptoms (more content not included)... [facility] NURSING PROGon 06-06-2021 NURSING PROG HNO ID: [id number] Author: Sera Rodriguez RN Service: ? Author Type: Registered Nurse Type: Nursing Progress Note Filed: 06/06/2021 2:02 PM Note Text: Dr. adkins at bedside for left adductor nerve block. RN at bedside, pt monitored throughout, BP 141/70 Pulse 82 Temp 36.2 ?C (97.2 ?F) (Temporal) Resp 16 Ht 167.6 cm (5' 6) Wt 79.8 kg (176 lb) SpO2 98% BMI 28.41 kg/m? .Pt tolerated procedure without difficulty. [facility] OPERATIVE NOon 06-06-2021 OPERATIVE NO HNO ID: [id number] Author: Zak Buck MD Service: Orthopaedic Surgery Author Type: Physician Type: Operative Report Filed: 06/06/2021 4:45 PM Note Text: OPERATIVE/PROCEDURE REPORT LOG ID: [id number] SURGERY/PROCEDURE DATE: 06/06/2021 INCISION/PROCEDURE START TIME: 3:01 PM INCISION CLOSE/PROCEDURE END TIME: SURGEON(S)/PROCEDURALIS T(S) AND WELLNESS RN(S): Surgeon(s) and Role: * Zak Buck MD - Primary Physician Histologic Technician: Rossy Shah PA-C (first coat sander) Registered Nurse: Radha Leal RN SURGERY/PROCEDURE(S): Left total knee arthroplasty. On 06/06/2021, the patient was clearly identified in the preoperative? area and marked accordingly on the Left?knee by myself.? Anesthesia placed a? regional block in pre-op.? Pt received 2g of Ancef in the IV within 1 hour of? incision or tourniquet.? Pt was taken to the operative suite, provided a spinal anesthesia, and was placed in the? supine position.? Anesthesia assumed care of the head and neck for the remainder?of the case and began a supplemental anesthetic.? All other bony landmarks? were appropriately padded in standard fashion.? A well-padded upper thigh? tourniquet was placed on the affected?lower extremity with Webril padding and set at? 300 mmHg.? An appropriate time-out was conducted and all in the room in agreement,? signed consent form was on the chart, images were available for viewing, and implants? were appropriately present with representation.? The left?lower extremity was then? sterilely prepped and draped in the standard fashion with Chloroprep.? An incision? was marked out approximately 3 fingerbreadths both proximal and distal to the? patella leading down to the medial side of the tibial tuberosity. Exsanguination? was completed with an Esmarch bandage and the tourniquet was applied at 300 mmHg.? Incision was made with a 10 blade through the skin, down to the fascia of the? thigh and the bursa of the knee.? Minor dissection was made along the medial? portion for skin flap for exposure.? Then, using a 10 blade a medial arthrotomy? was completed and the patella was dislocated laterally.? The fat pad was resected.? An appopriate?medial release was completed for again visualization, and soft tissue balancing for varus and valgus balance, due to her mild varus.? The synovium was likewise resected on? the superior portion of the distal femur for later, accurate measurements.? The patient had moderate patellofemoral compartmental OA and severe medial and mild lateral femoral wear and minor wear on the lateral tibial surface. ? Once appropriate exposure was completed with sharp Hohmann and Z retractors both? medially and laterally, entry point for the femoral intramedullary guide was? started and the starting point was drilled accordingly.? The guide cathy was placed with just some slight flexion,? and the distal femoral measuring guide was applied. ?Next the distal femoral cutting jig was applied.? 6 degrees of valgus? with a 8 mm cut was made off the medial distal femur. This was pinned in place accordingly and the? distal cut was made. The femoral sizer block was then pinned and was measured to a #4 femur. The All-in-one cutting block was then pinned securely, lined up with the [place]'s line and the epicondylar axis. The distal femoral and chamfer cuts were then made in standard fashion? without any complication.? The femoral trial was placed and fit appropriately with? excellent positioning.? I then focused on? the tibial cut.? A blunt Hohmann retractor was placed to protect the PCL?and posterior structures and the anterior tibia was translated anteriorly for? visualization.? The medial and lateral menisci were excised at this time with? Bovie electrocautery. The external medullary guide for the proximal tibia cut was applied? and centered at the ankle off the medial border of the tibial crest and medial 1/3? of the tibial tuberosity.? This was pinned in place in standard fashion with the? cross pin to stabilize after measuring off the lateral?and intact side at 9 mm.? A standard cut was then made with the appropriate varus and valgus positioning to my? liking using drop cathy.? I then selected a #4 sizer for the tibia and this?appeared to fit very well.? It was pinned with the appropriate external rotation and central position based off the medial third of the tibial tuberosity. ?I trialed with a 9 mm polyethylene?and?my distal femoral trial was placed.? My? rotation appears excellent.? The patient was able to come out into full extension. ?She had varus and valgus through full flexion and extension arc which balanced the knee nicely, maybe an extra 1-2 mm of opening on the medial side. I marked my rotation of? the tibial component and then used the tibial punch accordingly. I reamed for a universal with a 50mm stem as her bone was not of great quality. ? ??The final femoral tria (more content not included)... [facility] 05-17-2021 [facility] Telephone (ME2E) FELIPE HSUROSE MARIE HAMMOND ([id number]) 1955 F Date Time Provider Department 05/17/21 ZAK BUCK During your visit today, we recorded the following information about you: OTIS Morejon 05/22/2021 3:10 PM Signed TOTAL JOINT COMPLETE CARE PROGRAM PRE-OPERATIVE TEACHING Service Date: 05/17/2021 Service Time: 3:06 PM Date of : 1955 Gender: female Date of Surgery: 06/06/21 Procedure: Left Total Knee Replacement Complete Care Program was discussed with the patient: Subcontract Manager Identification: Patient identified a plant care worker to help when discharged to home: daughter teaches school Home Environment: Home Layout: Ranch, Entry Steps: 1 to porch and 1 in house, Bedroom Location: 1st floor, Bathroom Location: 1st floor and walk in shower. Pt owns walker, cane, raised toilet seat. Discussed with patient importance of attending joint education class and provided date and times of class: YES paper copy. Patient received Joint Education Binder: Yes Patient plans discharge home with [facility]. SIGNATURE: OTIS Morejon PATIENT NAME: Rose Marie Drummond DATE: May 17, 2021 TIME: 6:42 AM Allergies As of Date: 05/17/2021 Noted Allergy Reaction AMOXICILLIN 03/27/2005 2 - Rash CODEINE 09/10/2005 11 - Vomiting IODINE 03/27/2005 4 - Hives LISINOPRIL 12/29/2020 2 - Rash SEAFOOD [Other] 08/01/2006 4 - Hives Date Reviewed: 04/26/2021 Reviewed by: Zak Buck MD - Fully Assessed Reason for Visit: Pre-Op Teaching [134] Prescriptions as of 05/22/2021 - mupirocin (BACTROBAN) 2 % ointment Apply 0.5 inch with cotton swab (Q-tip) to each nostril in the morning and evening for 5 days prior to and including day of surgery. - buPROPion XL (WELLBUTRIN XL) 300 mg 24 hr tablet Take 1 tablet by mouth once daily. - citalopram (CELEXA) 40 mg tablet Take 1 tablet by mouth once daily. - traMADol (ULTRAM) 50 mg tablet Take 1 tablet by mouth every 8 hours as needed for pain for up to 122 days. - naproxen (NAPROSYN) 500 mg tablet Take 1 tablet by mouth twice daily with meals. Take with food. - cyclobenzaprine (FLEXERIL) 10 mg tablet Take 1/2 - 1 tid prn - amLODIPine (NORVASC) 5 mg tablet Take 1 tablet by mouth once daily. - levothyroxine (SYNTHROID) 25 mcg tablet Take 1 tablet by mouth once daily. Take on empty stomach. For thyroid. - Difluprednate (DUREZOL) 0.05 % drop As needed - CALCIUM CARBONATE/VITAMIN D3 (VITAMIN D-3 ORAL) Take by mouth. 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] 06/10/2018 Tendonitis, Achilles, left [M76.62] 06/10/2018 Obstructive sleep apnea syndrome [G47.33] 12/14/2018 History of depression [Z86.59] 12/14/2018 03/06/2020 Other chest pain [R07.89] 03/06/2020 Chronic renal insufficiency, stage 3 (moderate)*07/13/2020 Subclinical hypothyroidism [E03.8] 12/29/2020 Encounter Status:Closed by AMBROSE EUGENE on 05/22/21 [facility] BD DXA - AXIAL SKELETONon BD DXA - AXIAL SKELETON * * *Final Report* * * DATE OF EXAM: Apr 24 2021 5:05PM LDX 0804 - BD DXA - AXIAL SKELETON / PROCEDURE REASON: Osteopenia, senile * * * * Physician Interpretation * * * * BONE MINERAL DENSITY INDICATION: Osteopenia, senile COMPARISONS: None TECHNICAL PARAMETERS: Bone mineral density was obtained using dual energy x-ray absorptiometry PATIENT DEMOGRAPHICS: ROSE MARIE DRUMMOND, [id number] Age: 66 years, Race: White, Gender: Female Referring: Mai SCHMIDT DXA Model: [employer] Site Scanned: [facility] Date Scanned: 04/24/2021 5:05 PM RESULT: LUMBAR SPINE: BMD: 1.253 g/sq cm T-Score: 0.4 SD Z-Score: 1.5 SD LEFT FEMORAL NECK: BMD: 0.716 g/sq cm T-Score: -2.3 SD Z-Score: -1.1 SD LEFT HIP: BMD: 0.797 g/sq cm T-Score: -1.7 SD Z-Score: -0.8 SD RIGHT FEMORAL NECK: BMD: 0.693 g/sq cm T-Score: -2.5 SD Z-Score: -1.3 SD RIGHT HIP: BMD: 0.772 g/sq cm T-Score: -1.9 SD Z-Score: -1 SD T-score is standard deviation from the expected peak bone mineral density of the normal young adult (20 to 45 year old) [facility] female reference population. Z-score is standard deviations from the expected peak bone mass matched for age, sex, weight and ethnicity. IMPRESSION: OSTEOPOROSIS Findings are based upon the World Health Organization criteria. FOLLOW-UP RECOMMENDATIONS: Screening DEXA BMD testing in two years is recommended, as clinically indicated. However, when monitoring for rapid bone loss, repeat scanning as frequently as every 6 to 12 months may be desirable or necessary. (Please note that sequential exams to assess change or best on the same machine each time in order to preserve comparison accuracy.) WORLD HEALTH ORGANIZATION CRITERIA: (For postmenopausal > 60-year-old women, no established criteria another populations). * NORMAL: T-score greater than or equal to -1.0 SD * OSTEOPENIA: T-score between -1.0 and -2.5 SD * OSTEOPOROSIS: T-score less than or equal to -2.5 SD * SEVERE OSTEOPOROSIS:T-score less than or equal to -2.5 SD with fracture Power Lineman Technician: JULIANO Transcribe Date/Time: Apr 25 2021 9:54P Dictated by : SONIA VILLATORO MD This examination was interpreted and the report reviewed and electronically signed by: SONIA VILLATORO MD on Apr 25 2021 9:56PM EST [id number] Normal [facility] 12 Lead EKGon 12-06-2020 12 Lead EKG [facility] Cardiovascular Services [address] [place] [address] 12 Lead EKG 12/06/20 1444 MR#: [id number] Acct: [id number] Name: ROSE MARIE ROYAL Rep #: [id number] : 1955 65 From: Susan Gao MD Attending Dr: Status: DEP ER Ordering Dr: Aysha Singh MD Date: 12/06/20 Location: ED Sex: F C Admitted: Test Reason : CHEST PAIN Blood Pressure : / mmHG Vent. Rate : 077 BPM Atrial Rate : 077 BPM P-R Int : 136 ms QRS Dur : 076 ms QT Int : 408 ms P-R-T Axes : 058 063 038 degrees QTc Int : 461 ms Normal sinus rhythm Nonspecific ST abnormality Abnormal ECG Confirmed by RICARDO RASCON, EDOUARD ([id number]), editorial clerk DRU GRAVES ([id number]) on 12/07/2020 12:54:19 PM Referred By: DAGO/JARON Confirmed By:ZACKARY GAO MD 12/07/20 1254 Date Susan Gao MD CC: MO Schmidt; Dr. Aysha Singh MD Signed Normal [facility] Basic Metabolic Profile (BMP )on 12-06-2020 BUN/CRE 13.7 RATIO Normal 10-20 [facility] Comment on above: Performed By: #### L 100.0100, L500.2500, L501.4010 #### [facility] [address] [place], [address] CA,Total 8.3 mg/dL Low 8.5-10.1 [facility] Comment on above: Performed By: #### L 100.0100, L500.2500, L501.4010 #### [facility] [address] [place], [address] Chloride [Moles/Vol] 107 mmol/L Normal 98-107 [facility] Comment on above: Performed By: #### L 100.0100, L500.2500, L501.4010 #### [facility] [address] [place], [address] CO2 [Moles/Vol] 27.0 mmol/L Normal 21.0-32.0 [facility] Comment on above: Performed By: #### L 100.0100, L500.2500, L501.4010 #### [facility] [address] [place], [address] Creatinine [Mass/Vol] 0.88 mg/dL Normal 0.55-1.02 [facility] Comment on above: Result Comment: The validity of the calculated GFR GFRAA in patients over 70 years has not been determined. Clinical correlation is essential. Performed By: #### L 100.0100, L500.2500, L501.4010 #### [facility] [address] [place], [address] ECRCL 58.87 ml/min Normal [facility] Comment on above: Performed By: #### L 100.0100, L500.2500, L501.4010 #### [facility] [address] [place], [address] EST GFR - AA 83 mL/min Normal >60 [facility] Comment on above: Result Comment: Afri can Beninese GFR Calc Performed By: #### L 100.0100, L500.2500, L501.4010 #### [facility] [address] [place], [address] GAP 5 Normal 5-15 [facility] Comment on above: Performed By: #### L 100.0100, L500.2500, L501.4010 #### [facility] [address] [place], [address] GFR/1.73 sq M.predicted among non-blacks MDRD (S/P/Bld) [Vol rate/Area] 69 mL/min/{1.73_m2} Normal >60 [facility] Comment on above: Result Comment: Non- GFR Calc Performed By: #### L 100.0100, L500.2500, L501.4010 #### [facility] [address] [place], [address] Glucose [Mass/Vol] 96 mg/dL Normal 74-106 [facility] Comment on above: Result Comment: Jamilah diaz note revised GLUCOSE reference range effective 2017. Performed By: #### L 100.0100, L500.2500, L501.4010 #### [facility] [address] [place], [address] Potassium [Moles/Vol] 3.5 mmol/L Normal 3.5-5.1 [facility] Comment on above: Performed By: #### L 100.0100, L500.2500, L501.4010 #### [facility] [address] [place], [address] Sodium [Moles/Vol] 139 mmol/L Normal 136-145 [facility] Comment on above: Performed By: #### L 100.0100, L500.2500, L501.4010 #### [facility] [address] [place], [address] Urea nitrogen [Mass/Vol] 12 mg/dL Normal 7-18 [facility] Comment on above: Performed By: #### L 100.0100, L500.2500, L501.4010 #### [facility] [address] [place], [address] CBC W/Diff, Automatedon 06-0 2-2020 Absolute Lymph 2.62 X10 3/uL Normal 0.83-4.51 [facility] Comment on above: Performed By: #### L 100.0100, L500.2500, L501.4010 #### [facility] [address] [place], [address] Absolute Neut 5.1 X10 3/uL Normal 2.0-7.7 [facility] Comment on above: Performed By: #### L 100.0100, L500.2500, L501.4010 #### [facility] [address] [place], [address] Basophils/100 WBC (Bld) 0.7 % Normal 0-1 [facility] Comment on above: Performed By: #### L 100.0100, L500.2500, L501.4010 #### [facility] [address] [place], [address] Eosinophils/100 WBC (Bld) 5.1 % High 0-5 [facility] Comment on above: Performed By: #### L 100.0100, L500.2500, L501.4010 #### [facility] [address] [place], [address] Erythrocyte distribution width (RBC) [Ratio] 13.2 % Normal 11.6-14.6 [facility] Comment on above: Performed By: #### L 100.0100, L500.2500, L501.4010 #### [facility] [address] [place], [address] Hematocrit (Bld) [Volume fraction] 40.5 % Normal 37-47 [facility] Comment on above: Performed By: #### L 100.0100, L500.2500, L501.4010 #### [facility] [address] [place], [address] Hemoglobin (Bld) [Mass/Vol] 13.5 g/dL Normal 12.0-15.0 [facility] Comment on above: Performed By: #### L 100.0100, L500.2500, L501.4010 #### [facility] [address] [place], [address] IG% 0.300 Normal 0.0-0.9 [facility] Comment on above: Result Comment: IG% - Immature Granulocytes (promyelocytes, myelocytes and metamyelocytes) > 1% indicates that a LEFT SHIFT is Present. Performed By: #### L 100.0100, L500.2500, L501.4010 #### [facility] [address] [place], [address] Lymphocytes/100 WBC (Bld) 28.9 % Normal 19-41 [facility] Comment on above: Performed By: #### L 100.0100, L500.2500, L501.4010 #### [facility] [address] [place], [address] MCH (RBC) [Entitic mass] 28.6 pg Normal 27.0-32.0 [facility] Comment on above: Performed By: #### L 100.0100, L500.2500, L501.4010 #### [facility] [address] [place], [address] MCHC (RBC) [Mass/Vol] 33.3 g/dL Normal 32-36 [facility] Comment on above: Performed By: #### L 100.0100, L500.2500, L501.4010 #### [facility] [address] [place], [address] MCV (RBC) [Entitic vol] 85.8 fL Normal 81-99 [facility] Comment on above: Performed By: #### L 100.0100, L500.2500, L501.4010 #### [facility] [address] [place], [address] Monocytes/100 WBC (Bld) 8.6 % Normal 0-10 [facility] Comment on above: Performed By: #### L 100.0100, L500.2500, L501.4010 #### [facility] [address] [place], [address] Neutrophils/100 WBC (Bld) 56.4 % Normal 47-70 [facility] Comment on above: Performed By: #### L 100.0100, L500.2500, L501.4010 #### [facility] [address] [place], [address] Nucleated RBC (Bld) [#/Vol] 0 10*3/uL Normal 0-5 [facility] Comment on above: Performed By: #### L 100.0100, L500.2500, L501.4010 #### [facility] [address] [place], [address] Platelet mean volume (Bld) [Entitic vol] 11.0 fL Normal 6.2-12.0 [facility] Comment on above: Performed By: #### L 100.0100, L500.2500, L501.4010 #### [facility] [address] [place], [address] Platelets (Bld) [#/Vol] 204 10*3/uL Normal 150-450 [facility] Comment on above: Performed By: #### L 100.0100, L500.2500, L501.4010 #### [facility] [address] [place], [address] RBC (Bld) [#/Vol] 4.72 10*6/uL Normal 4.2-5.4 [facility] Comment on above: Performed By: #### L 100.0100, L500.2500, L501.4010 #### [facility] [address] [place], [address] RDW SD 41.6 fl Normal 35.1-43.9 [facility] Comment on above: Performed By: #### L 100.0100, L500.2500, L501.4010 #### [facility] [address] [place], [address] WBC (Bld) [#/Vol] 9.1 10*3/uL Normal 4.4-11.0 [facility] Comment on above: Performed By: #### L 100.0100, L500.2500, L501.4010 #### [facility] [address] [place], [address] Chest 1 View (Portable)on Chest 1 View (Portable) [facility] Imaging Services [address] [place] [address] Chest 1 View (Portable) MR#: [id number] Acct: [id number] Name: ROSE MARIE ROYAL Rep #: [id number] : 1955 F 65 From: Tuan ortiz MD PCP: MO Lopez Status: REG ER Study: Chest 1 View (Portable) Date of Exam: 12/06/20 Exam# [id number] Ordering Dr: Aysha Singh MD STUDY: X-RAY CHEST REASON FOR EXAM: Female, 65 years old. Chest pain. TECHNIQUE: Single AP portable view of the chest. COMPARISON: Comparison is made with prior examination 10/07/2016. FINDINGS: EKG electrodes are seen. The lungs are clear and expanded. There is no demonstrated pleural abnormality. Normal size heart. Normal mediastinum and gosia. Normal visualized pulmonary arteries. Normal visualized aortic arch and descending thoracic aorta. Normal visualized thoracic spine. Normal visualized ribs, clavicles, and shoulders. There is no demonstrated abnormality of the visualized soft tissue structures of the upper abdomen. RAD/Chest 1 View (Portable) IMPRESSION: Normal x-ray examination of the chest. Electronically Signed: Tuan Rosales MD at 15:33 EDT , Service support , CC: MO Schmidt; Dr. Aysha Singh MD Power Lineman Technician: Signed Normal [facility] Emergency Department Summary on 12-06-2020 Emergency Department Summary [facility] Medical Records Department [address] [place] [address] Emergency Department Summary 12/06/20 MR#: [id number] Acct: [id number] Name: ROSE MARIE ROYAL Rep #: [id number] : 1955 65 From: Aysha Singh MD PCP: MO Lopez Status:DEP ER Location: ED HPI History of Present Illness Chief Complaint: Chest Pain Detail of Chief Complaint: Left upper chest pain and hypertension Informant: patient Onset/Context/Timing Onset: Days Current Severity: Moderate Maximum Severity: Moderate Narrative Narrative: Patient presents complaining of left shoulder pain. Symptoms been ongoing for the past several days. Pain was more severe today to the point where she canceled a trip and went to the urgent care. 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 They noted her blood pressure to be quite elevated and wanted her to come the emergency room for evaluation. Patient states her blood pressure typically runs borderline high but she is not currently on any medication for blood pressure. [facility] Medical History (Updated 12/06/20 @ 16:[address] Aysha Singh MD) History of depression RODRIGUEZ (obstructive sleep apnea) Home Medications bupropion HCl 100 mg PO DAILY 10/06/13 [History Last Taken 10/07/16] citalopram 20 mg PO DAILY 10/06/13 [History Last Taken 10/07/16] multivitamin [Multiple Vitamins] 1 ea PO DAILY 10/07/16 [History Last Taken 10/07/16] hydrocodone-acetaminoph en 1 tab PO Q6H PRN 3 Days #10 tab 12/06/20 [Rx Last Taken Unknown] Allergy/AdvReac Type Severity Reaction Status Date / Time amoxicillin Allergy Itching Verified 12/06/20 14:37 codeine Allergy Unknown Verified 12/06/20 14:36 Iodinated Contrast Media Allergy Swelling Verified 12/06/20 14:36 [Iodinated Contrast Media - IV Dye] shellfish derived Allergy Rash Verified 12/06/20 14:36 Surgical History H/O cardiac radiofrequency ablation Social History Smoking Status: Never smoker ROS ROS ED Constitutional Constitutional ED: Denies chills or fever(s) Eyes Eyes: Denies change in vision ENT ENT ED: Denies sore throat Cardiovascular Cardiovascular: Reports chest pain Respiratory/Chest Respiratory/Chest: Denies cough or dyspnea Gastrointestinal Gastrointestinal: Denies abdominal pain, diarrhea, nausea or vomiting Genitourinary Genitourinary ED: Denies dysuria Musculoskeletal Musculoskeletal: Reports arthralgias; Denies back pain Integumentary Denies rash Neurologic Neurologic: Denies headache(s) or weakness Psychiatric Psychiatric: Denies anxiety or depression Endocrine Endocrinology: Denies polydipsia or polyuria Allergic/Immunologic Allergic/Immunologic ED: Denies urticaria EXAM Physical Exam Const Vital Signs: 12/06/20 14:34 12/06/20 15:52 Temperature 97.8 F Temperature Source Temporal Pulse Rate 80 79 Respiratory Rate 18 22 H Blood Pressure 182/114 H 174/114 H Blood Pressure Mean 136 134 Pulse Ox 98 95 Oxygen Delivery Method Room Air Positive well nourished and well developed General Appearance ED: well developed HEENT Reports normocephalic and head/scalp atraumatic Eyes PERRL and EOMs intact bilaterally Neck supple Chest Wall inspection of chest normal Chest Narrative: Left upper chest wall tenderness to palpation. No crepitus. Resp normal respiratory effort and clear to auscultation bilaterally Cardio regular rate and regular rhythm GI normal to inspection, nondistended, normoactive bowel sounds Palpation: soft Extremity normal to inspection Neuro oriented x3 and no sensory deficits noted Sensorium / Orientation: alert Motor Exam: strength 5/5 throughout Psych mental status grossly normal Skin no rashes or lesions noted MDM MDM MDM Narrative Medical decision making narrative: EKG was obtained. Portable chest x-ray and labs are obtained. Lab Data Attestation: I reviewed the patient's lab results. Labs: Laboratory Results - last 24 hr 12/06/20 12/06/20 15:15 15:15 WBC 9.1 RBC 4.72 Hgb 13.5 Hct 40.5 MCV 85.8 MCH 28.6 MCHC 33.3 RDW Std Deviation 41.6 RDW Coeff of Anthony 13.2 Plt Count 204 MPV 11.0 Immature Gran % (Auto) 0.300 Neut % (Auto) 56.4 Lymph % (Auto) 28.9 Thayer % (Auto) 8.6 Eos % (Auto) 5.1 H Baso % (Auto) 0.7 Absolute Neuts (auto) 5.1 Absolute Lymphs (auto) 2.62 Nucleated RBC % 0 Sodium 139 Potassium 3.5 Chloride 107 Carbon Dioxide 27.0 Anion Gap 5 BUN 12 Creatinine 0.88 Estim Creat Clear Calc 58.87 Est GFR (MDRD) Af Amer 83 Est GFR (MDRD) Non-Af 69 BUN/Creatinine Ratio 13.7 G (more content not included)... Normal [facility] Troponin-Ion 12-06-2020 Troponin I.cardiac [Mass/Vol] ng/mL Normal <0.045 [facility] Comment on above: Result Comment: TROP ONIN-I EXPECTED VALUES <0.045 Negative 0.045 - 0.590 Consistent with Cardiac Damage > OR = 0.600 Critical Value Not every elevated troponin is indicative of [place]. These values should be used with clinical judgement in examining the patient's clinical picture for diagnosis. To establish a diagnosis of [place] versus myocardial injury, there must be a demonstrated rise and/or fall in the troponin values, in addition to ischemic symptoms, EKG changes, new regional wall motion abnormality, and/or angiographical evidence. PLEASE NOTE: REFERENCE RANGES EDITED 17 Performed By: #### L 100.0100, L500.2500, L501.4010 #### [facility] [address] [place], [address] XR Shoulder - left 3 Viewson 12-06-2020 IMPRESSION: Acromioclavicular and glenohumeral osteoarthrosis. Power Lineman Technician: JULIANO Transcribe Date/Time: Dec 06 2020 2:23P Dictated by : APRYL CHAVEZ MD This examination was interpreted and the report reviewed and electronically signed by: APRYL CHAVEZ MD on Dec 06 2020 2:24PM [facility] DIVISION OF RADIOLOGY * * *Final Report* * * DATE OF EXAM: Dec 06 2020 2:21PM WOX 5252 - XR SHLDR >/=3V AP/ARLEY AP/OTHR LT / PROCEDURE REASON: Acute pain of left shoulder * * * * Physician Interpretation * * * * Left shoulder radiographs HISTORY: 65 years old Clinical information: Acute pain of left shoulder Pt states pain for a couple of days in anterior left shoulder area no inj TECHNIQUE: Images: XR SHLDR >/=3V AP/ARLEY AP/OTHR LT Comparison: None. RESULT: Findings: No humeral joint space is maintained. Mild osteophyte formation involving the medial inferior humeral head. Narrowing of the acromioclavicular joint with associated subjacent osteophytes. No fracture or dislocation. No soft tissue abnormality identified. DIVISION OF RADIOLOGY Provider, [facility] - 12/06/2020 * * *Final Report* * * DATE OF EXAM: Dec 06 2020 2:21PM WOX 5252 - XR SHLDR >/=3V AP/ARLEY AP/OTHR LT / PROCEDURE REASON: Acute pain of left shoulder * * * * Physician Interpretation * * * * Left shoulder radiographs HISTORY: 65 years old Clinical information: Acute pain of left shoulder Pt states pain for a couple of days in anterior left shoulder area no inj TECHNIQUE: Images: XR SHLDR >/=3V AP/ARLEY AP/OTHR LT Comparison: None. RESULT: Findings: No humeral joint space is maintained. Mild osteophyte formation involving the medial inferior humeral head. Narrowing of the acromioclavicular joint with associated subjacent osteophytes. No fracture or dislocation. No soft tissue abnormality identified. IMPRESSION IMPRESSION: Acromioclavicular and glenohumeral osteoarthrosis. Power Lineman Technician: JULIANO Transcribe Date/Time: Dec 06 2020 2:23P Dictated by : APRYL CHAVEZ MD This examination was interpreted and the report reviewed and electronically signed by: APRYL CHAVEZ MD on Dec 06 2020 2:24PM EST [facility] Radiology Study observation (narrative) [facility] XR Shoulder - left 3 ViewsOr dered By: [facility] Provider on 12-06-2020 [facility] Large Joint Arthro/Inj: R kn ee joint [facility] Vital Signs Date Time Vital Sign Value Performing Clinician Dc calvin 02-28-2025 08:36-0400 Body mass index (BMI) [Ratio] 29.37 kg/m2 Ana Luisa Artis APRN.CNP Work Phone: [facility] 02-28-2025 08:36-0400 Body weight 80.92 kg Ana Luisa Artis APRN.CNP Work Phone: [facility] 02-28-2025 08:36-0400 Diastolic blood pressure 76 mm[Hg] Ana Luisa Artis APRN.CNP Work Phone: [facility] 02-28-2025 08:36-0400 Heart rate 72 /min Ana Luisa Artis APRN.CNP Work Phone: [facility] 02-28-2025 08:36-0400 Respiratory rate 16 /min Ana Luisa Chandra BOWL SANDER.SALES FACILITATOR Work Phone: [facility] 02-28-2025 08:36-0400 SaO2% (BldA) [Mass fraction] 95 % Ana Luisa Chandra BOWL SANDER.SALES FACILITATOR Work Phone: [facility] 02-28-2025 08:36-0400 Systolic blood pressure 125 mm[Hg] Ana Luisa Chandra BOWL SANDER.SALES FACILITATOR Work Phone: [facility] 12-07-2024 07:32-0400 Body mass index (BMI) [Ratio] 28.31 kg/m2 Beverley Lew BOWL SANDER.SALES FACILITATOR Work Phone: [facility] 12-07-2024 07:32-0400 Body weight 78.02 kg Beverley Cassatt BOWL SANDER.SALES FACILITATOR Work Phone: [facility] 12-07-2024 07:32-0400 Diastolic blood pressure 84 mm[Hg] Beverley Cassatt BOWL SANDER.SALES FACILITATOR Work Phone: [facility] 12-07-2024 07:32-0400 Systolic blood pressure 142 mm[Hg] Beverley Lew BOWL SANDER.SALES FACILITATOR Work Phone: [facility] 10-25-2024 14:57-0400 Body mass index (BMI) [Ratio] 28.31 kg/m2 Sharda Haagen BOWL SANDER.SALES FACILITATOR Work Phone: [facility] 10-25-2024 14:57-0400 Body weight 78.02 kg Sharda Haagen BOWL SANDER.SALES FACILITATOR Work Phone: [facility] 10-25-2024 14:57-0400 Diastolic blood pressure 78 mm[Hg] Sharda Haagen BOWL SANDER.SALES FACILITATOR Work Phone: [facility] 10-25-2024 14:57-0400 Heart rate 87 /min Sharda Haagen BOWL SANDER.SALES FACILITATOR Work Phone: [facility] 10-25-2024 14:57-0400 Respiratory rate 16 /min Sharda Haagen BOWL SANDER.SALES FACILITATOR Work Phone: [facility] 10-25-2024 14:57-0400 SaO2% (BldA) [Mass fraction] 96 % Sharda Haagen BOWL SANDER.SALES FACILITATOR Work Phone: [facility] 10-25-2024 14:57-0400 Systolic blood pressure 138 mm[Hg] Sharda Haagen BOWL SANDER.SALES FACILITATOR Work Phone: [facility] 07-08-2024 17:46-0500 Body mass index (BMI) [Ratio] 27.47 kg/m2 Farzana Boston BOWL SANDER.SALES FACILITATOR Work Phone: [facility] 07-08-2024 17:46-0500 Body temperature 98.71 [degF] Farzana Boston BOWL SANDER.SALES FACILITATOR Work Phone: [facility] 07-08-2024 17:46-0500 Body weight 75.7 kg Farzana Boston BOWL SANDER.SALES FACILITATOR Work Phone: [facility] 07-08-2024 17:46-0500 Diastolic blood pressure 73 mm[Hg] Farzana Boston BOWL SANDER.SALES FACILITATOR Work Phone: [facility] 07-08-2024 17:46-0500 Heart rate 81 /min Farzana Boston BOWL SANDER.SALES FACILITATOR Work Phone: [facility] 07-08-2024 17:46-0500 Respiratory rate 20 /min Farzana Boston BOWL SANDER.SALES FACILITATOR Work Phone: [facility] 07-08-2024 17:46-0500 SaO2% (BldA) [Mass fraction] 97 % Farzana Boston BOWL SANDER.SALES FACILITATOR Work Phone: [facility] 07-08-2024 17:46-0500 Systolic blood pressure 157 mm[Hg] Farzana Boston BOWL SANDER.SALES FACILITATOR Work Phone: [facility] 06-14-2024 08:47-0500 Body mass index (BMI) [Ratio] 27.62 kg/m2 Farzana Boston BOWL SANDER.SALES FACILITATOR Work Phone: [facility] 06-14-2024 08:47-0500 Body temperature 98.2 [degF] Farzana Boston BOWL SANDER.SALES FACILITATOR Work Phone: [facility] 06-14-2024 08:47-0500 Body weight 76.1 kg Farzana Boston BOWL SANDER.SALES FACILITATOR Work Phone: [facility] 06-14-2024 08:47-0500 Diastolic blood pressure 84 mm[Hg] Farzana Boston BOWL SANDER.SALES FACILITATOR Work Phone: [facility] 06-14-2024 08:47-0500 Heart rate 90 /min Farzana Boston BOWL SANDER.SALES FACILITATOR Work Phone: [facility] 06-14-2024 08:47-0500 Respiratory rate 18 /min Farzana Boston BOWL SANDER.SALES FACILITATOR Work Phone: [facility] 06-14-2024 08:47-0500 SaO2% (BldA) [Mass fraction] 98 % Farzana Boston BOWL SANDER.SALES FACILITATOR Work Phone: [facility] 06-14-2024 08:47-0500 Systolic blood pressure 148 mm[Hg] Farzana Boston BOWL SANDER.SALES FACILITATOR Work Phone: [facility] 04-19-2024 16:26-0400 Diastolic blood pressure 74 mm[Hg] Sharda Haagen BOWL SANDER.SALES FACILITATOR Work Phone: [facility] 04-19-2024 16:26-0400 Heart rate 91 /min Sharda Haagen BOWL SANDER.SALES FACILITATOR Work Phone: [facility] 04-19-2024 16:26-0400 Respiratory rate 16 /min Sharda Haagen BOWL SANDER.SALES FACILITATOR Work Phone: [facility] 04-19-2024 16:26-0400 SaO2% (BldA) [Mass fraction] 94 % Sharda Haagen BOWL SANDER.SALES FACILITATOR Work Phone: [facility] 04-19-2024 16:26-0400 Systolic blood pressure 138 mm[Hg] Sharda Haagen BOWL SANDER.SALES FACILITATOR Work Phone: [facility] 02-09-2024 09:08-0400 Body mass index (BMI) [Ratio] 29.03 kg/m2 Sera Chambershof BOWL SANDER.SALES FACILITATOR Work Phone: [facility] 02-09-2024 09:08-0400 Body weight 80 kg Sera Chambershof BOWL SANDER.SALES FACILITATOR Work Phone: [facility] 02-09-2024 09:08-0400 Diastolic blood pressure 90 mm[Hg] Sera Chambershof BOWL SANDER.SALES FACILITATOR Work Phone: [facility] 02-09-2024 09:08-0400 Heart rate 85 /min Sera Chambershof BOWL SANDER.SALES FACILITATOR Work Phone: [facility] 02-09-2024 09:08-0400 Respiratory rate 16 /min Sera Chambershof BOWL SANDER.SALES FACILITATOR Work Phone: [facility] 02-09-2024 09:08-0400 SaO2% (BldA) [Mass fraction] 98 % Sera Chambershof BOWL SANDER.SALES FACILITATOR Work Phone: [facility] 02-09-2024 09:08-0400 Systolic blood pressure 132 mm[Hg] Sera Chambershof BOWL SANDER.SALES FACILITATOR Work Phone: [facility] 01-27-2023 09:18-0400 Body weight 80.74 kg NA Schmidt PA-C Work Phone: [facility] 01-27-2023 09:18-0400 Diastolic blood pressure 78 mm[Hg] NA Schmidt PA-C Work Phone: [facility] 01-27-2023 09:18-0400 Heart rate 81 /min NA Schmidt PA-C Work Phone: [facility] 01-27-2023 09:18-0400 Respiratory rate 18 /min NA Schmidt PA-C Work Phone: [facility] 01-27-2023 09:18-0400 SaO2% (BldA) [Mass fraction] 96 % NA Schmidt PA-C Work Phone: [facility] 01-27-2023 09:18-0400 Systolic blood pressure 134 mm[Hg] HENRY Atkinsonon PA-C Work Phone: [facility] 08-18-2022 11:45-0500 Body temperature 97.3 [degF] Farzana Boston BOWL SANDER.SALES FACILITATOR Work Phone: [facility] 08-18-2022 11:45-0500 Body weight 84.01 kg Farzana Boston BOWL SANDER.SALES FACILITATOR Work Phone: [facility] 08-18-2022 11:45-0500 Diastolic blood pressure 84 mm[Hg] Farzana Boston BOWL SANDER.SALES FACILITATOR Work Phone: [facility] 08-18-2022 11:45-0500 Heart rate 78 /min Farzana Boston BOWL SANDER.SALES FACILITATOR Work Phone: [facility] 08-18-2022 11:45-0500 Respiratory rate 16 /min Farzana Boston BOWL SANDER.SALES FACILITATOR Work Phone: [facility] 08-18-2022 11:45-0500 SaO2% (BldA) [Mass fraction] 97 % Farzana Boston BOWL SANDER.SALES FACILITATOR Work Phone: [facility] 08-18-2022 11:45-0500 Systolic blood pressure 136 mm[Hg] Farzana Boston BOWL SANDER.SALES FACILITATOR Work Phone: [facility] 07-14-2022 12:44-0500 Body temperature 97.3 [degF] Nikki Athy PA-C Work Phone: [facility] 07-14-2022 12:44-0500 Body weight 84.91 kg Nikki Athy PA-C Work Phone: [facility] 07-14-2022 12:44-0500 Diastolic blood pressure 72 mm[Hg] Nikki Athy PA-C Work Phone: [facility] 07-14-2022 12:44-0500 Heart rate 71 /min Nikki Athy PA-C Work Phone: [facility] 07-14-2022 12:44-0500 Respiratory rate 20 /min Nikki Athy PA-C Work Phone: [facility] 07-14-2022 12:44-0500 SaO2% (BldA) [Mass fraction] 98 % Nikki Athy PA-C Work Phone: [facility] 07-14-2022 12:44-0500 Systolic blood pressure 118 mm[Hg] Nikki Athy PA-C Work Phone: [facility] 07-04-2022 16:50-0500 Body weight 83.46 kg NA Schmidt PA-C Work Phone: [facility] 07-04-2022 16:50-0500 Diastolic blood pressure 88 mm[Hg] NA Schmidt PA-C Work Phone: [facility] 07-04-2022 16:50-0500 Heart rate 75 /min NA Schmidt PA-C Work Phone: [facility] 07-04-2022 16:50-0500 Respiratory rate 16 /min NA Schmidt PA-C Work Phone: [facility] 07-04-2022 16:50-0500 SaO2% (BldA) [Mass fraction] 94 % NA Schmidt PA-C Work Phone: [facility] 07-04-2022 16:50-0500 Systolic blood pressure 142 mm[Hg] NA Schmidt PA-C Work Phone: [facility] 05-26-2022 14:06-0500 Body temperature 98.1 [degF] Charu Older BOWL SANDER.SALES FACILITATOR Work Phone: [facility] 05-26-2022 14:06-0500 Body weight 81.56 kg Charu Older BOWL SANDER.SALES FACILITATOR Work Phone: [facility] 05-26-2022 14:06-0500 Diastolic blood pressure 98 mm[Hg] Charu Older BOWL SANDER.SALES FACILITATOR Work Phone: [facility] 05-26-2022 14:06-0500 Heart rate 73 /min Charu Older BOWL SANDER.SALES FACILITATOR Work Phone: [facility] 05-26-2022 14:06-0500 Respiratory rate 18 /min Charu Older BOWL SANDER.SALES FACILITATOR Work Phone: [facility] 05-26-2022 14:06-0500 SaO2% (BldA) [Mass fraction] 97 % Charu Older BOWL SANDER.SALES FACILITATOR Work Phone: [facility] 05-26-2022 14:06-0500 Systolic blood pressure 182 mm[Hg] Charu Older BOWL SANDER.SALES FACILITATOR Work Phone: [facility] 05-13-2022 15:23-0500 Body height 166 cm NA Schmidt PA-C Work Phone: [facility] 05-13-2022 15:23-0500 Body weight 81.65 kg NA Schmidt PA-C Work Phone: [facility] 05-13-2022 15:23-0500 Diastolic blood pressure 68 mm[Hg] NA Schmidt PA-C Work Phone: [facility] 05-13-2022 15:23-0500 Heart rate 83 /min NA Schmidt PA-C Work Phone: [facility] 05-13-2022 15:23-0500 SaO2% (BldA) [Mass fraction] 96 % NA Schmidt PA-C Work Phone: [facility] 05-13-2022 15:23-0500 Systolic blood pressure 132 mm[Hg] NA Schmidt PA-C Work Phone: [facility] Encounters Encounter Date Encounter Type Care Provider Facility Start: 05-02-2025 End: 05-02-2025 [facility] Facility:[facility] Start: 04-14-2025 End: 04-14-2025 [facility] Facility:[facility] Start: 02-28-2025 End: 02-28-2025 Patient encounter procedure Ana Luisa Artis BOWL SANDER.SALES FACILITATOR Work Phone: General Surgery Comment on above: Screen for colon can cer (Primary Dx); History of colonic polyps Start: 02-28-2025 End: 02-28-2025 ambulatory ANA LUISA CHANDRA Facility:[facility] Start: 02-24-2025 ambulatory [facility] Facility :[facility] Start: 02-24-2025 End: 02-24-2025 Subsequent hospital visit by physician Screen Mammo [facility] Comment on above: Encounter for screen ing mammogram for malignant neoplasm of breast [Z12.31] Start: 02-23-2025 End: 02-23-2025 ambulatory Su Edward MA [facility] [place] Start: 02-23-2025 End: 02-23-2025 Patient encounter procedure Su Edward MA [facility] Comment on above: Population Health Na vigation Outreach ([employer] [facility] SPRINT LIST) Start: 02-18-2025 End: 02-18-2025 ambulatory Sharda Sneed BOWL SANDER.SALES FACILITATOR Work Phone: [facility] Start: 02-18-2025 End: 02-18-2025 Patient encounter procedure Sharda Sneed BOWL SANDER.SALES FACILITATOR Work Phone: [facility] Comment on above: Population Health Na vigation Outreach ([employer] [place]/) Start: 12-07-2024 End: 12-07-2024 Patient encounter procedure Beverley Cuevas BOWL SANDER.SALES FACILITATOR Work Phone: OB/Gynecology Comment on above: Skin lesion (Primary Dx); Urinary incontinence, unspecified type; Postmenopausal atrophic vaginitis; Encounter for screening mammogram for malignant neoplasm of breast Start: 12-07-2024 End: 12-07-2024 ambulatory [facility] Facility:[facility] Start: 10-25-2024 End: 10-25-2024 Office outpatient visit 25 minutes Sharda Sneed BOWL SANDER.SALES FACILITATOR Work Phone: [facility] [place] Comment on above: PSVT (paroxysmal sup raventricular tachycardia) (HCC) (Primary Dx); Recurrent major depression in partial remission; Ana's disease (HCC); Skin lesion; 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); Prediabetes; Mixed hyperlipidemia; Subclinical hypothyroidism; Reactive arthritis, unspecified site (HCC) Start: 10-25-2024 End: 10-25-2024 ambulatory [facility] Facility:[facility] Start: 09-29-2024 End: 09-29-2024 ambulatory Sadia Mitchell [facility] Start: 09-29-2024 End: 09-29-2024 Patient encounter procedure Sadia Mitchell MA [facility] Comment on above: Population [facility] Na vigation Outreach ([employer] High Risk Attempt [facility] [place] [facility] ) Start: 09-16-2024 End: 09-17-2024 Refill Sharda Sneed APRN.SALES FACILITATOR Work Phone: [address] [place] [address] Comment on above: Refill Request Start: 09-14-2024 End: 09-14-2024 ambulatory Radha Espinoza MA [facility] Start: 09-14-2024 End: 09-14-2024 Patient encounter procedure Radha Espinoza MA [facility] Comment on above: Population Health Na vigation Outreach ([employer] High Risk - 1st attempt/) Start: 07-08-2024 End: 07-08-2024 ambulatory [facility] Facility:[facility] Start: 07-08-2024 End: 07-08-2024 Patient encounter procedure Farzana Boston APRN.SALES FACILITATOR Work Phone: [facility] Comment on above: Conjunctivitis of le ft eye, unspecified conjunctivitis type (Primary Dx); Rhinosinusitis; Acute cough Start: 06-14-2024 End: 06-14-2024 Subsequent hospital visit by physician Shawna [facility] [place] Work Phone: Radiology Comment on above: Acute cough [R05.1] Start: 06-14-2024 End: 06-14-2024 ambulatory [facility] Facility:[facility] Start: 06-14-2024 End: 06-14-2024 Patient encounter procedure Farzana Boston APRN.CNP Work Phone: [facility] Comment on above: Acute cough (Primary Dx); URI, acute Start: 04-19-2024 End: 04-19-2024 Office outpatient visit 15 minutes Sharda Sneed APRN.SALES FACILITATOR Work Phone: [facility] [place] Comment on above: Recurrent major depr ession in partial remission (HCC) (Primary Dx); Encounter for immunization Start: 2024 End: 04-14-2024 Abigail Schmidt PA-C Work Phone: [facility] [place] Comment on above: Refill Request Start: 02-26-2024 End: 03-04-2024 Telephone encounter Sera Steven APRN.CNP Work Phone: [facility] [place] Comment on above: Results (Breast US ) Start: 02-25-2024 End: 02-25-2024 Subsequent hospital visit by physician [facility] Work Phone: Radiology Comment on above: Mass of left breast, unspecified quadrant [N63.20] Start: 02-18-2024 Documentation procedure Mammog bridger Coordinator [facility] Department Start: 02-18-2024 Letter encounter Mammography Coordinator [facility] Department Start: 02-18-2024 Telephone encounter Sera espinosa APRN.CNP Work Phone: [facility] [place] Comment on above: Results (Mammogram ) ; Orders Start: 02-18-2024 End: 02-18-2024 Subsequent hospital visit by physician Sera Steven APRN.CNP Work Phone: Mammogram Comment on above: Encounter for screen ing mammogram for breast cancer [Z12.31] Start: 02-10-2024 Telephone encounter Sera espinosa APRN.CNP Work Phone: [facility] [place] Comment on above: Results (Labs ) Start: 02-09-2024 End: 02-09-2024 Patient encounter procedure Sera Steven APRN.CNP Work Phone: [facility] [place] Comment on above: PSVT (paroxysmal sup raventricular tachycardia) (HCC) (Primary Dx); Mixed hyperlipidemia; Prediabetes; Chronic renal insufficiency, stage 3 (moderate) (HCC); Subclinical hypothyroidism; Recurrent major depression in partial remission (HCC); Encounter for screening mammogram for breast cancer Start: 07-31-2023 End: 07-31-2023 Subsequent hospital visit by physician Xr [facility] [place] Work Phone: Radiology Comment on above: 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) [D86.2] Start: 05-05-2023 End: 05-05-2023 Subsequent hospital visit by physician Xr [facility] [place] Work Phone: Radiology Comment on above: Right knee pain, uns pecified chronicity [M25.561] Start: 05-05-2023 End: 05-05-2023 Patient encounter procedure Zak Buck MD Work Phone: Orthopaedics Comment on above: Chronic pain of righ t knee (Primary Dx); Primary osteoarthritis of right knee Start: 02-17-2023 Documentation procedure Mammog bridger Coordinator [facility] Start: 02-17-2023 Letter encounter Mammography Coordinator [facility] Department Start: 02-14-2023 End: 02-14-2023 Subsequent hospital visit by physician Screen Mammo [facility] Mamm[facility] Comment on above: Encounter for screen ing mammogram for malignant neoplasm of breast [Z12.31] Start: 01-27-2023 End: 01-27-2023 Subsequent hospital visit by physician Xr [facility] [place] Work Phone: Radiology Comment on above: 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 [place] Comment on above: Population Health Na vigation Outreach ([facility]) Start: 11-13-2022 ambulatory Cata [facility] [place] Comment on above: Population Health Na vigation Outreach ([facility]) Start: 08-18-2022 End: 08-18-2022 Patient encounter procedure Farzana Boston BOWL SANDER.SALES FACILITATOR Work Phone: [facility] Comment on above: Conjunctivitis of le ft eye, unspecified conjunctivitis type (Primary Dx) Start: 07-14-2022 End: 07-14-2022 Patient encounter procedure Nikki WOOTENC Work Phone: [facility] [place] [facility] Comment on above: Bacterial sinusitis (Primary Dx) Start: 07-04-2022 End: 07-04-2022 Patient encounter procedure Mai WOOTENC Work Phone: [facility] [place] Comment on above: Recurrent major depr ession in partial remission (HCC) (Primary Dx) Start: 06-17-2022 End: 06-17-2022 Patient encounter procedure Zak Buck MD Work Phone: Orthopaedics Comment on above: Status post left kne e replacement (Primary Dx) Start: 06-14-2022 Telephone encounter Zak tobin MD Work Phone: Orthopaedics Comment on above: Patient Question Start: 06-11-2022 Orders Only Zak Buck MD Work Phone: Orthopaedics Comment on above: Primary osteoarthrit is of right knee (Primary Dx); Status post left knee replacement Start: 05-26-2022 End: 05-26-2022 Patient encounter procedure Charu Pulliam BOWL SANDER.SALES FACILITATOR Work Phone: [place] [facility] Comment on above: Acute non-recurrent maxillary sinusitis (Primary Dx) Start: 05-13-2022 End: 05-13-2022 Patient encounter procedure Mai Schmidt PA-C Work Phone: [facility] [place] Comment on above: PSVT (paroxysmal sup raventricular tachycardia) ([facility]) (Primary Dx); Other chest pain; Elevated cholesterol; 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 [place] Comment on above: Results Start: 04-11-2022 Refill Mai Atkinson on PA-C Work Phone: [facility] [place] Comment on above: Refill Request Start: 04-03-2022 ambulatory Sweetie (Pss) [facility] [place] Comment on above: Population Health Na vigation Outreach ([employer] Care Gaps/) Start: 02-04-2022 Refill John Atkinson on PA-C [facility] Comment on above: Refill Request Start: 01-14-2022 End: 01-14-2022 Orders Only Zak Buck MD Work Phone: Orthopaedics Comment on above: Right knee pain, uns pecified chronicity (Primary Dx) Right knee pain, uns pecified chronicity [M25.561] Primary osteoarthrit is of right knee (Primary Dx) Start: 01-11-2022 ambulatory Mariya Leo RN Work Phone: [employer] Comment on above: chronic disease maricel ramírez (insight enrollment) Start: 12-13-2021 End: 12-13-2021 Patient encounter procedure Zak Buck MD Work Phone: Orthopaedics Comment on above: Acute pain of left k nee (Primary Dx); Status post left knee replacement; Carpal tunnel syndrome of right wrist Start: 11-23-2021 End: 11-23-2021 Subsequent hospital visit by physician Shawna [facility] [place] Osborne Work Phone: Radiology Comment on above: Primary osteoarthrit is of left knee [M17.12] Start: 11-21-2021 Refill Mai Atkinson on PA-C Work Phone: [facility] [place] Comment on above: Refill Request Start: 11-20-2021 Orders Only Zak Buck MD Work Phone: Orthopaedics Comment on above: Primary osteoarthrit is of left knee (Primary Dx); Status post left knee replacement Population Health Na vigation Outreach ([employer] Care Gap) Start: 10-18-2021 Telephone encounter Zak tobin MD Work Phone: Orthopaedics Comment on above: Patient Update Start: 03-05-2021 Telephone encounter Carin Avinash hdz BOWL SANDER.SALES FACILITATOR Work Phone: [facility] [place] Comment on above: Appointment (Nurse B P) Start: 12-06-2020 End: 12-06-2020 Subsequent hospital visit by physician Xr [facility] [place] Work Phone: Radiology Comment on above: Acute pain of left s millaulder [M25.512] Start: 11-01-2013 Patient encounter procedure Zak Buck MD Work Phone: [facility] Start: 08-01-2011 Patient encounter status Hua Buck MD Work Phone: [facility] Work Phone: Start: 02-06-2009 End: 04-16-2022 Patient encounter status Sera Steven BOWL SANDER.SALES FACILITATOR Work Phone: [facility] Procedures Date Procedure Procedure Detail Performing Clinician Start: 02-24-2025 Screening digital br east tomosynthesis bi Beverley Cuevas BOWL SANDER.SALES FACILITATOR Work Phone: Start: 06-14-2024 STREP A MOLECULAR (POC) Farzana Boston BOWL SANDER.SALES FACILITATOR Work Phone: Start: 06-14-2024 Radiologic exam ches t 2 views Farzana Boston BOWL SANDER.SALES FACILITATOR Work Phone: Start: 04-19-2024 PFIZER-BIONTECH COVI D-19 VACCINE AGE 12+ YR (COMIRNATY) Sharda Sneed BOWL SANDER.SALES FACILITATOR Work Phone: Start: 02-25-2024 Us breast uni real t osiel with image limited Sera Steven APRN.SALES FACILITATOR Work Phone: Start: 02-18-2024 Screening digital br east tomosynthesis bi Sera Tannhof BOWL SANDER.SALES FACILITATOR Work Phone: Start: 02-09-2024 Lipid 1996 panel - S yelitza or Plasma Sera Steven BOWL SANDER.SALES FACILITATOR Work Phone: Start: 07-31-2023 Radiologic exam ches t 2 views Mai John Schmidt PA-C Work Phone: Start: 07-31-2023 Lipid 1995 panel - S yelitza or Plasma Sera Steven BOWL SANDER.SALES FACILITATOR Work Phone: Start: 05-05-2023 Arthrocentesis aspir &/inj major jt/bursa w/o us Zak Buck MD Work Phone: Start: 05-05-2023 Radiologic exam knee complete 4/more views Zak Buck MD Work Phone: Start: 02-14-2023 End: 02-14-2023 Mammography Mai John Ambrocio Work Phone: Start: 01-27-2023 Radiologic exam ches t 2 views Mai John Schmidt PA-C Work Phone: Start: 05-10-2022 Lipid 1996 panel - S yelitza or Plasma [employer] Work Phone: Start: 01-14-2022 Radiologic exam knee complete 4/more views Zak Buck MD Work Phone: Start: 11-23-2021 Radiologic exam knee complete 4/more views Zak Buck MD Work Phone: Start: 06-04-2021 Mammography Zak tobin MD Work Phone: Start: 12-06-2020 Radex shoulder compl ete minimum 2 views Dario Mac BOWL SANDER.SALES FACILITATOR Work Phone: Start: 03-31-2020 Colonoscopy Zak tobin MD Work Phone: Plan of Treatment Date Care Activity Detail Author Start: 04-02-2029 Urine microalbumin profile [facility] Start: 02-08-2029 Lipid panel Lipid Screening [facility] Start: 07-31-2028 Lipid panel Lipid Screening [facility] Start: 05-10-2027 Lipid 1996 panel - Serum or Plasma Lipid Screening [facility] Start: 05-10-2027 LIPID SCREEN LIPID SCREEN [facility] Start: 02-08-2027 Diabetes Screening Diabetes Screening [facility] Start: 02-24-2026 Screening for malignant neoplasm of breast Mammogram Screening [facility] Start: 02-19-2026 DIABETES SCREEN DIABETES SCREEN [facility] Start: 02-19-2026 Diabetes Screening Diabetes Screening [facility] Start: 10-25-2025 Annual PCP Team Chronic Disease Visit Annual PCP Team Chronic Disease Visit [facility] Start: 06-01-2025 End: 06-01-2025 Patient encounter procedure Cardiology Comment on above: Dx: PSVT (paroxysmal supraventricular ta chycardia) ([facility]) [I47.10] Start: 05-08-2025 DIABETES SCREEN DIABETES SCREEN [facility] Start: 04-26-2025 End: 04-26-2025 Patient encounter procedure [facility] [place] Comment on above: 6 month follow up 6 month follow up [facility] CARE GAP CLOSURE Start: 04-19-2025 Annual PCP Team Chronic Disease Visit Annual PCP Team Chronic Disease Visit [facility] Start: 04-04-2025 End: 04-04-2025 Patient encounter procedure 04/04/2025 1:00 PM EDT Office Visit Rheumatology [address] [place] [address] Galen Samuel, [address] [place] [address] reiters disease Rheumatology Comment on above: reiters disease Start: 03-31-2025 Colonoscopy COLONOSCOPY [facility] Start: 03-31-2025 COLORECTAL CANCER SCREENING COLORECTAL CANCER SCREENING [facility] Start: 03-31-2025 Screening for malignant neoplasm of colon [facility] Start: 03-31-2025 End: 03-31-2025 Patient encounter procedure 03/31/2025 8:00 AM EDT Appointment Ambulatory Surgery [address] [place], [place] [id number] Sam Dailey MD [address] [place], [place] [id number] Screen for colon cancer [Z12.11]; History of colonic polyps [Z86.0100] Ambulatory Surgery Comment on above: Screen for colon cancer [Z12.11]; Histor y of colonic polyps [Z86.0100] Start: 03-23-2025 LIPID SCREEN LIPID SCREEN [facility] Start: 03-07-2025 Influenza [facility] Start: 02-28-2025 End: 02-28-2025 Patient encounter procedure 02/28/2025 3:30 PM EDT Office Visit Rheumatology [address] [address] Galen Samuel, DO [address] [place], [place] [id number] reiters disease Rheumatology Comment on above: reiters disease Start: 02-28-2025 End: 02-28-2025 Patient encounter procedure 02/28/2025 8:30 AM EDT Office Visit General Surgery [address] [place], [place] [id number] Ana Luisa Artis APRN.SALES FACILITATOR [address] [place] [address] CONSULT: Colonoscopy; LW 03/31/2020. [facility] General Surgery Comment on above: CONSULT: Colonoscopy; LW 03/31/2020. [facility] Start: 02-24-2025 End: 02-24-2025 Patient encounter procedure 02/24/2025 8:10 AM EDT Appointment Mammogram [address] [place] [address] Encounter for screening mammogram for malignant neoplasm of breast [Z12.31] Mammogram Comment on above: Encounter for screening mammogram for ma lignant neoplasm of breast [Z12.31] Start: 02-18-2025 End: 02-18-2025 Patient encounter procedure 02/18/2025 7:30 AM EDT Appointment Mammogram [address] [place], [place] [phone] Encounter for screening mammogram for malignant neoplasm of breast [Z12.31] Mammogram Comment on above: Encounter for screening mammogram for ma lignant neoplasm of breast [Z12.31] Start: 02-17-2025 Screening for malignant neoplasm of breast Mammogram Screening [facility] Start: 02-08-2025 Annual PCP Team Chronic Disease Visit Annual PCP Team Chronic Disease Visit [facility] Start: 02-08-2025 Creatinine measurement Serum Creatinine [facility] Start: 12-13-2024 End: 12-13-2024 Patient encounter procedure 12/13/2024 8:00 AM EDT Office Visit Rheumatology [address] [address] Galen Samuel DO [address] [place] [address] Dx: Ana's disease (HCC) [M02.30] Rheumatology Comment on above: Dx: Ana's disease (HCC) [M02.30] Start: 12-07-2024 End: 12-07-2024 Patient encounter procedure 12/07/2024 7:30 AM EDT Office Visit OB/Gynecology [address] [place] [address] Beverley Cuevas APRN.SALES FACILITATOR [address] [place] [address] Dx: Skin lesion [L98.9] OB/Gynecology Comment on above: Dx: Skin lesion [L98.9] Start: 10-25-2024 End: 01-24-2025 CBC W Auto Differential panel - Blood COMPLETE BLOOD COUNT AND DIFFERENTIAL Lab Routine Prediabetes Mixed hyperlipidemia Expected: 10/25/2024, Expires: 01/24/2025 [facility] Comment on above: Expected: 10/25/2024, Expires: Start: 10-25-2024 End: 01-24-2025 Comprehensive metabolic 2000 panel - Serum or Plasma COMPREHENSIVE METABOLIC PANEL Lab Routine Prediabetes Expected: 10/25/2024, Expires: 01/24/2025 [facility] Comment on above: Expected: 10/25/2024, Expires: Start: 10-25-2024 End: 01-24-2025 Hemoglobin A1c in Blood HEMOGLOBIN A1C Lab Routine Prediabetes Expected: 10/25/2024, Expires: 01/24/2025 [facility] Comment on above: Expected: 10/25/2024, Expires: Start: 10-25-2024 End: 01-24-2025 Lipid 1996 panel - Serum or Plasma LIPID PANEL, FASTING Lab Routine Mixed hyperlipidemia Expected: 10/25/2024, Expires: 01/24/2025 [facility] Comment on above: Expected: 10/25/2024, Expires: Start: 10-25-2024 End: 01-24-2025 Thyrotropin [Units/volume] in Serum or Plasma THYROID STIMULATING HORMONE Lab Routine Subclinical hypothyroidism Expected: 10/25/2024, Expires: 01/24/2025 [facility] Work Phone: Comment on above: Expected: 10/25/2024, Expires: Start: 10-25-2024 End: 01-24-2025 Thyroxine (T4) free [Mass/volume] in Serum or Plasma T4 FREE/FREE THYROXINE Lab Routine Subclinical hypothyroidism Expected: 10/25/2024, Expires: 01/24/2025 [facility] Comment on above: Expected: 10/25/2024, Expires: Start: 10-18-2024 End: 10-18-2024 Patient encounter procedure Family [facility] Comment on above: 6 month follow up Start: 10-18-2024 Covid-19 Vaccine () Covid-19 Vaccine () [facility] Start: 07-31-2024 Creatinine measurement Serum Creatinine [facility] Start: 07-07-2024 Advance Directive Discussion Advance Directive Discussion [facility] Start: 07-07-2024 Medicare Advantage Annual Wellness Visit Medicare Advantage Annual Wellness Visit [facility] Start: 06-07-2024 DIABETES SCREEN DIABETES SCREEN [facility] Start: 04-19-2024 End: 04-19-2024 Patient encounter procedure 04/19/2024 4:20 PM EDT Office Visit Family Clifford De Los Santos [address] [facility] [place] [address] Sharda Sneed, BOWL SANDER.SALES FACILITATOR [address] [place] [address] med follow up [facility] [place] Comment on above: med follow up Start: 03-16-2024 End: 03-16-2024 Patient encounter procedure Mammogram Comment on above: Mass of left breast, unspecified quadran t [N63.20]; Abnormal mammogram [R92.8] Start: 03-10-2024 End: 03-10-2024 Patient encounter procedure 03/10/2024 4:40 PM EDT Office Visit [facility] [place] [address] [place] [address] Sera Steven, BOWL SANDER.SALES FACILITATOR [address] [place] [address] 1 month BP follow up [facility] [place] Comment on above: 1 month BP follow up Start: 03-07-2024 Covid-19 Vaccine ( season) Covid-19 Vaccine ( season) [facility] Start: 03-07-2024 Covid-19 Vaccine ( season) Covid-19 Vaccine ( season) [facility] Start: 03-07-2024 Influenza vaccination Influenza Vaccine (#1) [facility] Start: 02-20-2024 SERUM CREATININE SERUM CREATININE [facility] Start: 02-16-2024 End: 02-16-2024 Patient encounter procedure 02/16/2024 1:10 PM EDT Appointment Mammogram [address] [place] [address] Encounter for screening mammogram for breast cancer [Z12.31] Mammogram Comment on above: Encounter for screening mammogram for br east cancer [Z12.31] Start: 02-15-2024 Mammography [facility] Start: 02-15-2024 Screening for malignant neoplasm of breast Mammogram Screening [facility] Start: 02-09-2024 End: 05-10-2024 Comprehensive metabolic 2000 panel - Serum or Plasma [facility] Work Phone: Comment on above: Expected: 02/09/2024, Expires: Start: 02-09-2024 End: 05-10-2024 Lipid 1996 panel - Serum or Plasma [facility] Comment on above: Expected: 02/09/2024, Expires: Start: 02-09-2024 End: 05-10-2024 Thyrotropin [Units/volume] in Serum or Plasma [facility] Comment on above: Expected: 02/09/2024, Expires: Start: 02-09-2024 End: 05-10-2024 Thyroxine (T4) free [Mass/volume] in Serum or Plasma [facility] Comment on above: Expected: 02/09/2024, Expires: Start: 01-28-2024 ANNUAL PCP TEAM CHRONIC DISEASE VISIT ANNUAL PCP TEAM CHRONIC DISEASE VISIT [facility] Start: 11-29-2023 Covid-19 Vaccine () Covid-19 Vaccine () [facility] Start: 07-04-2023 ANNUAL PCP TEAM CHRONIC DISEASE VISIT ANNUAL PCP TEAM CHRONIC DISEASE VISIT [facility] Start: 05-13-2023 ANNUAL PCP TEAM CHRONIC DISEASE VISIT ANNUAL PCP TEAM CHRONIC DISEASE VISIT [facility] Start: 05-08-2023 SERUM CREATININE SERUM CREATININE [facility] Start: 04-28-2023 End: 06-28-2023 Hemoglobin A1c in Blood HGB A1C Lab Routine Prediabetes Expected: 04/28/2023, Expires: 06/28/2023 [facility] Work Phone: Comment on above: Expected: 04/28/2023, Expires: 3 Start: 03-07-2023 Covid-19 Vaccine () Covid-19 Vaccine () [facility] Start: 03-07-2023 Influenza vaccination [facility] Start: 01-27-2023 End: 03-29-2023 CBC W Auto Differential panel - Blood CBC + DIFF Lab Routine Chronic renal insufficiency, stage 3 (moderate) (HCC) Prediabetes Recurrent major depression in partial remission (HCC) Subclinical hypothyroidism Expected: 01/27/2023, Expires: 03/29/2023 [facility] Work Phone: Comment on above: Expected: 01/27/2023, Expires: 3 Start: 01-27-2023 End: 03-29-2023 Comprehensive metabolic 2000 panel - Serum or Plasma COMP METABOLIC PANEL Lab Routine Chronic renal insufficiency, stage 3 (moderate) (HCC) Prediabetes Recurrent major depression in partial remission (HCC) Subclinical hypothyroidism Expected: 01/27/2023, Expires: 03/29/2023 [facility] Work Phone: Comment on above: Expected: 01/27/2023, Expires: 3 Start: 01-27-2023 End: 03-29-2023 Thyrotropin [Units/volume] in Serum or Plasma TSH BLD Lab Routine Subclinical hypothyroidism Expected: 01/27/2023, Expires: 03/29/2023 [facility] Work Phone: Comment on above: Expected: 01/27/2023, Expires: 3 Start: 07-25-2022 COVID-19 VACCINE (5 - Moderna series) COVID-19 VACCINE (5 - Moderna series) [facility] Start: 07-11-2022 End: 09-10-2022 Thyrotropin [Units/volume] in Serum or Plasma TSH BLD Lab Routine Subclinical hypothyroidism Expected: 07/11/2022, Expires: 09/10/2022 [facility] Work Phone: Comment on above: Expected: 07/11/2022, Expires: 3 Start: 07-11-2022 End: 09-10-2022 Thyroxine (T4) free [Mass/volume] in Serum or Plasma T4 FREE/FREE THYROX Lab Routine Subclinical hypothyroidism Expected: 07/11/2022, Expires: 09/10/2022 [facility] Work Phone: Comment on above: Expected: 07/11/2022, Expires: 3 Start: 07-07-2022 ADVANCE DIRECTIVE DISCUSSION ADVANCE DIRECTIVE DISCUSSION [facility] Start: 06-07-2022 SERUM CREATININE SERUM CREATININE [facility] Start: 06-04-2022 Mammography MAMMOGRAM [facility] Start: 04-12-2022 End: 06-12-2022 CBC W Auto Differential panel - Blood CBC + DIFF Lab Routine Chronic renal insufficiency, stage 3 (moderate) (HCC) Expected: 04/12/2022, Expires: 06/12/2022 [facility] Work Phone: Comment on above: Expected: 04/12/2022, Expires: 2 Start: 04-12-2022 End: 06-12-2022 Comprehensive metabolic 2000 panel - Serum or Plasma COMP METABOLIC PANEL Lab Routine Hyperlipidemia, mixed Prediabetes Chronic renal insufficiency, stage 3 (moderate) (HCC) Expected: 04/12/2022, Expires: 06/12/2022 [facility] Work Phone: Comment on above: Expected: 04/12/2022, Expires: 2 Start: 04-12-2022 End: 06-12-2022 Hemoglobin A1c in Blood HGB A1C Lab Routine Prediabetes Expected: 04/12/2022, Expires: 06/12/2022 [facility] Work Phone: Comment on above: Expected: 04/12/2022, Expires: 2 Start: 04-12-2022 End: 06-12-2022 Lipid 1996 panel - Serum or Plasma LIPID PANEL BASIC Lab Routine Hyperlipidemia, mixed Expected: 04/12/2022, Expires: 06/12/2022 [facility] Work Phone: Comment on above: Expected: 04/12/2022, Expires: 2 Start: 04-12-2022 End: 06-12-2022 Thyrotropin [Units/volume] in Serum or Plasma TSH BLD Lab Routine Subclinical hypothyroidism Expected: 04/12/2022, Expires: 06/12/2022 [facility] Work Phone: Comment on above: Expected: 04/12/2022, Expires: 2 Start: 04-12-2022 End: 06-12-2022 Thyroxine (T4) free [Mass/volume] in Serum or Plasma T4 FREE/FREE THYROX Lab Routine Subclinical hypothyroidism Expected: 04/12/2022, Expires: 06/12/2022 [facility] Work Phone: Comment on above: Expected: 04/12/2022, Expires: Start: 04-05-2022 ANNUAL PCP TEAM CHRONIC DISEASE VISIT ANNUAL PCP TEAM CHRONIC DISEASE VISIT [facility] Start: 03-07-2022 Influenza vaccination INFLUENZA (#1) [facility] Start: 11-09-2021 COVID-19 VACCINE (4 - Booster for Moderna series) COVID-19 VACCINE (4 - Booster for Moderna series) [facility] Start: 09-06-2021 COVID-19 VACCINE (4 - Booster for Moderna series) COVID-19 VACCINE (4 - Booster for Moderna series) [facility] Start: 07-07-2021 ADVANCE DIRECTIVE DISCUSSION ADVANCE DIRECTIVE DISCUSSION [facility] Start: 1999 COLOGUARD (FIT-DNA) COLOGUARD (FIT-DNA) [facility] Start: [address] COLONOGRAPHY [facility] Start: 1999 FECAL OCCULT BLOOD FECAL OCCULT BLOOD [facility] Start: 1999 Screening for malignant neoplasm of colon [facility] Start: 1999 SIGMOIDOSCOPY SIGMOIDOSCOPY [facility] Start: 1972 Anxiety Screening Anxiety Screening [facility] Start: 1972 BP CONTROLLED (<130/80) BP CONTROLLED (<130/80) [facility] End: 03-10-2025 DBT Breast - bilateral screening JASPAL SCREENING W JSOE Radiology Routine Encounter for screening mammogram for breast cancer 1 Occurrences starting 02/09/2024 until 03/10/2025 [facility] Comment on above: 1 Occurrences starting 02/09/2024 until 03/10/2025 End: 01-06-2026 DBT Breast - bilateral screening JASPAL SCREENING W JOSE Radiology Routine Encounter for screening mammogram for malignant neoplasm of breast 1 Occurrences starting 12/07/2024 until 01/06/2026 [facility] Work Phone: Comment on above: 1 Occurrences starting 12/07/2024 until 01/06/2026 End: 03-19-2025 MG Breast - left Diagnostic for implant JASPAL DIAGNOSTIC LEFT Radiology Routine Mass of left breast, unspecified quadrant Abnormal mammogram 1 Occurrences starting 02/18/2024 until 03/19/2025 [facility] Work Phone: Comment on above: 1 Occurrences starting 02/18/2024 until 03/19/2025 Removal impacted cer umen irrigation/lvg unilat AMBULATORY EAR LAVAGE/IRRIGATION Procedures Routine Bilateral impacted cerumen Ordered: 05/13/2022 [facility] Work Phone: Comment on above: Ordered: 05/13/2022 End: 02-28-2026 Screening colonoscopy COLONOSCOPY SCREENING Endoscopy Routine Screen for colon cancer History of colonic polyps 1 Occurrences starting 02/28/2025 until 02/28/2026 [facility] Work Phone: Comment on above: 1 Occurrences starting 02/28/2025 until 02/28/2026 End: 06-12-2023 Screening mammography bi 2-view breast inc cad JASPAL SCREENING Radiology Routine Encounter for screening mammogram for malignant neoplasm of breast 1 Occurrences starting 05/13/2022 until 06/12/2023 [facility] Work Phone: Comment on above: 1 Occurrences starting 05/13/2022 until 06/12/2023 End: 03-19-2025 US Breast - left limited US BREAST LTD LEFT Radiology Routine Mass of left breast, unspecified quadrant Abnormal mammogram 1 Occurrences starting 02/18/2024 until 03/19/2025 [facility] Comment on above: 1 Occurrences starting 02/18/2024 until 03/19/2025 End: 12-20-2022 XR KNEE GENERAL 4V AP BOTH/PA BOTH/LAT/MERC LEFT XR KNEE GENERAL 4V AP BOTH/PA BOTH/LAT/MERC LEFT Radiology Routine Primary osteoarthritis of left knee Status post left knee replacement 1 Occurrences starting 11/20/2021 until 12/20/2022 [facility] Work Phone: Comment on above: 1 Occurrences starting 11/20/2021 until 12/20/2022 End: 07-11-2023 XR KNEE GENERAL 4V AP BOTH/PA BOTH/LAT/MERC LEFT XR KNEE GENERAL 4V AP BOTH/PA BOTH/LAT/MERC LEFT Radiology Routine Primary osteoarthritis of right knee Status post left knee replacement 1 Occurrences starting 06/11/2022 until 07/11/2023 [facility] Work Phone: Comment on above: 1 Occurrences starting 06/11/2022 until 07/11/2023 XR KNEE GENERAL 4V A P BOTH/PA BOTH/LAT/MERC RIGHT XR KNEE GENERAL 4V AP BOTH/PA BOTH/LAT/MERC RIGHT Radiology Routine Right knee pain, unspecified chronicity 01/14/2022 9:17 AM EDT [facility] Work Phone: [facility] Immunizations Immunization Date Immunization Notes Care Provider Javan go 04-19-2024 COVID-19 vaccine, ag e 12+ yr (PFIZER-BIONTECH COMNAT) Sharda Sneed BOWL SANDER.SALES FACILITATOR Work Phone: [facility] 04-19-2024 influenza, high dose seasonal, preservative-free Sharda Sneed BOWL SANDER.SALES FACILITATOR Work Phone: [facility] 04-19-2024 influenza virus vacc ine, unspecified formulation Sharda Sneed BOWL SANDER.SALES FACILITATOR Work Phone: [facility] 07-31-2023 COVID-19 vaccine, ag e 12+ yr, season (PFIZER-BIONTECH) Sera Steven BOWL SANDER.SALES FACILITATOR Work Phone: [facility] 07-31-2023 influenza (HD-IIV4) vaccine, age 65+ yr, high dose, quadrivalent, PF (FLUZONE HIGH-DOSE) Sera Steven BOWL SANDER.SALES FACILITATOR Work Phone: [facility] 07-31-2023 influenza virus vacc ine, unspecified formulation Sera Steven BOWL SANDER.SALES FACILITATOR Work Phone: [facility] 04-07-2023 respiratory syncytia l virus (RSV) vaccine, bivalent (ABRYSVO) Sera Steven BOWL SANDER.SALES FACILITATOR Work Phone: [facility] 03-25-2022 influenza (aIIV4) vaccine, age 65+ yr, quadrivalent, PF (FLUAD QUAD) HENRY Schmidt PA-C Work Phone: [facility] 03-25-2022 influenza virus vacc ine, unspecified formulation [employer] Work Phone: [facility] 04-05-2021 influenza, high-dose , quadrivalent vaccine (FLUZONE HIGH DOSE QUADRIVALENT) Zak Buck MD Work Phone: [facility] 09-18-2020 COVID-19 vaccine, fu ll dose (MODERNA) Zak Buck MD Work Phone: [facility] 08-21-2020 COVID-19 vaccine, fu ll dose (MODERNA) Zak Buck MD Work Phone: [facility] 06-09-2020 zoster vaccine recombinant Zak Buck MD Work Phone: [facility] 04-03-2020 pneumococcal polysaccharide vaccine, 23 valent Zak Buck MD Work Phone: [facility] 03-25-2020 influenza, high dose seasonal, preservative-free Zak Buck MD Work Phone: [facility] 03-25-2020 influenza, high-dose , quadrivalent vaccine (FLUZONE HIGH DOSE QUADRIVALENT) Zak Buck MD Work Phone: [facility] 03-25-2020 zoster vaccine recombinant Zak Buck MD Work Phone: [facility] 04-02-2019 tetanus toxoid, redu kehinde diphtheria toxoid, and acellular pertussis vaccine, adsorbed Zak Buck MD Work Phone: [facility] 04-01-2019 influenza, injectabl e, quadrivalent, preservative free Zak Buck MD Work Phone: [facility] 04-01-2019 influenza, seasonal, injectable Zak Buck MD Work Phone: [facility] 04-21-2018 influenza, injectabl e, quadrivalent, contains preservative Zak Buck MD Work Phone: [facility] Work Phone: 05-08-2017 influenza, injectabl e, quadrivalent, preservative free Zak Buck MD Work Phone: [facility] 04-02-2017 tetanus toxoid, redu kehinde diphtheria toxoid, and acellular pertussis vaccine, adsorbed Zak Buck MD Work Phone: [facility] 09-23-2016 pneumococcal conjuga te vaccine, 13 valent Zak Buck MD Work Phone: [facility] Work Phone: 04-25-2016 influenza, injectabl e, quadrivalent, contains preservative Zak Buck MD Work Phone: [facility] 04-23-2016 influenza, injectabl e, madin jennifer canine kidney, preservative free Zak Buck MD Work Phone: [facility] 11-09-2015 tetanus toxoid, redu kehinde diphtheria toxoid, and acellular pertussis vaccine, adsorbed Zak Buck MD Work Phone: [facility] 04-12-2015 influenza, seasonal, injectable, preservative free Zak Buck MD Work Phone: [facility] 05-31-2014 pneumococcal polysaccharide vaccine, 23 valent Zak Buck MD Work Phone: [facility] 12-08-2012 zoster vaccine, live Zak Buck MD Work Phone: [facility] 03-26-2012 tetanus toxoid, redu kehinde diphtheria toxoid, and acellular pertussis vaccine, adsorbed Zak Buck MD Work Phone: [facility] 05-10-2009 novel influenza-H1N1 -09, preservative-free, injectable Zak Buck MD Work Phone: [facility] 04-10-2009 influenza virus vacc ine, unspecified formulation Zak Buck MD Work Phone: [facility] Work Phone: 05-11-2008 influenza virus vacc ine, unspecified formulation Zak Buck MD Work Phone: [facility] Work Phone: 10-15-2007 pneumococcal polysaccharide vaccine, 23 valent Zak Buck MD Work Phone: [facility] Work Phone: 07-30-2007 influenza virus vacc ine, unspecified formulation Zak Buck MD Work Phone: [facility] Work Phone: 05-06-2006 influenza virus vacc ine, unspecified formulation Zak Buck MD Work Phone: [facility] Work Phone: 05-15-1999 diphtheria and tetan us toxoids, adsorbed for pediatric use Zak Buck MD Work Phone: [facility] Work Phone: Payers Date Payer Category Payer Medicare AETNA MEDICARE A ETNA MEDICARE PPO [id number] 2021-Present [phone] [address] [place] [address] [facility] [id number] 2021 Medicare (Managed Care[place] [id number] 2021 Medicare [id number] 2019 Medicare AETNA MEDICARE A ETNA MEDICARE PPO [id number] 2019-2021 [address] [place] [address] [facility] [id number] 2019 Medicare [id number] Social History Date Type Detail Facility Tobacco smoking stat [facility] Never smoked tobacco [facility] Start: 08-30-2021 End: 10-25-2024 Alcohol intake Current non-drinker of alcohol (finding) [facility] Start: 05-17-2020 History SDOH Alcohol Binge 1 [facility] Start: 05-17-2020 History SDOH Social Connections Phone 5 [facility] Start: 05-17-2020 History SDOH Social Connections Meetings 98 [facility] Start: 05-17-2020 History SDOH Physica l Activity DPW 3 [facility] Start: 05-17-2020 History SDOH Physica l Activity MPS 2 [facility] Start: 05-17-2020 Education 18 [facility] Start: 1955 Sex Assigned At Not on file C [facility] Start: 11-06-2020 End: 05-13-2022 Exposure to SARS-CoV-2 (event) Not sure [facility] Work Phone: Start: 08-18-2022 End: 01-27-2023 History of Social function [facility] Work Phone: Start: 08-18-2022 End: 01-27-2023 Tobacco use panel [facility] Work Phone: Start: 06-07-2012 Adult Depression Screening Assessment 4 [facility] Work Phone: Start: 05-17-2020 Gender identity Identifies as female gender (finding) [facility] Do you belong to any clubs or organizations such as taoist groups, unions, fraternal or athletic groups, or school groups? Yes [facility] Are you now , , , , never or living with a partner? [facility] How often do you hav e 6 or more drinks on 1 occasion? Never [facility] Do you feel stress - tense, restless, nervous, or anxious, or unable to sleep at night because your mind is troubled all the time - these days [OSQ] To some extent [facility] (I/We) worried wheth er (my/our) food would run out before (I/we) got money to buy more. Never true [facility] In the past 12 month s, was there a time when you were not able to pay the mortgage or rent on time? No [facility] Medical Equipment Procedure Code Equipment Code Equipment Origin al Text Equipment Identifier Dates Cement Simplex B one High Viscosity - [id number] Start: 06-06-2021 Biocomposite Ten odesis Screw With Disposable Stone Sawyer Pack [id number] Start: 12-28-2018 Component Triath melissa 4 Femoral Cruciate Retain Cemented Knee Left - [id number] Start: 06-06-2021 Stem Triathlon 1 2mm Cocr 50mm Femoral Cemented Total Stabilized Knee - [id number] Start: 06-06-2021 Insert Triathlon 4 9mm Tibial Bearing Condylar Stabilize Sterile Knee - [id number] Start: 06-06-2021 Component Triath melissa 32mm 10mm Patellar Asymmetric Knee - [id number] Start: 06-06-2021 Baseplate Triath melissa 4 [place]more Cocr Tibial Total Stabilize Cemented Knee - [id number] Start: 06-06-2021 Clare Swivelock C 4.75mm Biocomposite Peek 19.1mm Suture Closed Eyelet - [id number] Start: 12-28-2018 Clare Swivelock C 4.75mm Biocomposite Peek 19.1mm Suture Closed Eyelet - [id number] Start: 12-28-2018 Functional Status Date Assessment Result Facility 06-07-2021 Are you deaf, or do you have serious difficulty hearing No 06/07/2021 4:17 PM Sera Jiang RN No [facility] 06-07-2021 Are you blind, or do you have serious difficulty seeing, even when wearing glasses No 06/07/2021 4:17 PM Sera Jiang RN No [facility] 06-07-2021 Do you have serious difficulty walking or climbing stairs No 06/07/2021 4:17 PM Sera Jiang RN No [facility] 06-07-2021 Do you have difficul ty dressing or bathing No 06/07/2021 4:17 PM Sera Jiang RN No [facility] 06-07-2021 Because of a physica l, mental, or emotional condition, do you have difficulty doing errands alone such as visiting a physician's office or shopping No 06/07/2021 4:17 PM Sera Jiang, LILO No [facility] Mental Status Date Assessment Result Facility 06-07-2021 Because of a physica l, mental, or emotional condition, do you have serious difficulty concentrating, remembering, or making decisions No 06/07/2021 4:17 PM Sera Jiang, LILO No [facility] Clinical Notes 12-14-2018 to 05-04-2025 Ana Luisa Artis APRN.SALES FACILITATOR - 02/28/2025 8:30 AM Nirmal Rubin Mammo Tech - 02/24/2025 8:10 AM Su Bravo MA - 02/23/2025 12:45 PM REMITRolo Ayala - 02/18/2025 12:10 PM EDT Note Date & Type Note Facility 05-04-2025 Note HNO ID: [id number] Author: ?, ?, ? Service: ? Author Type: ? Type: Progress Notes Filed: 05/04/2025 14:10 Note Text: POPULATION HEALTH NAVIGATION OUTREACH Action/ - 0 [facility] Wellness: Overdue since 07/07/2024 Jaspal: Next due on 02/24/2026 F/U: Follow up in 6 months for Hypertension (on 10/31/2025). ----- Called Patient: Left Voicemail AND Sent Mychart Reason for Outreach Care Gap/HCC or Scheduling Wellness Visits Care Gaps due: Next Year's Care Gap(s) Medicare Annual Wellness Visit Follow-up Appointment Patient Contacted: Unable or unnecessary to reach patient: Left message MyChart message sent Navigation Signature: Rolo Ayala May 04, 2025 2:[address] [facility] 05-04-2025 Note Patient Outreach (JOHNNY MELO) ROSE MARIE ROYAL ([id number]) 1955 F Date Time Provider Department 05/04/25 SHARDA SNEED During your visit today, we recorded the following information about you: Rolo Ayala 05/04/2025 2:10 PM Signed POPULATION HEALTH NAVIGATION OUTREACH Action/I - 0 [facility] Wellness: Overdue since 07/07/2024 Jaspal: Next due on 02/24/2026 F/U: Follow up in 6 months for Hypertension (on 10/31/2025). ----- Called Patient: Left Voicemail AND Sent [employer] Reason for Outreach Care Gap/HCC or Scheduling Wellness Visits Care Gaps due: Next Year's Care Gap(s) Medicare Annual Wellness Visit Follow-up Appointment Patient Contacted: Unable or unnecessary to reach patient: Left message [employer] message sent Navigation Signature: Rolo Ayala May 04, 2025 2:05 PM Allergies As of Date: 05/04/2025 Noted Allergy Reaction SHELLFISH DERIVED 07/31/2023 4 - Hives Comments: All seafood makes her sick AMOXICILLIN 03/27/2005 2 - Rash CODEINE 09/10/2005 11 - Vomiting IODINE 03/27/2005 4 - Hives LISINOPRIL 12/29/2020 2 - Rash Date Reviewed: 04/14/2025 Reviewed by: Mickie Moore LPN - Fully Assessed Reason for Visit: Population Health Navigation Outreach [3910] Cmt: Mook De Los Santos Prescriptions as of 05/04/2025 - desvenlafaxine ER (PRISTIQ) 50 mg 24 hr tablet Take 1 tablet by mouth once daily. - amLODIPine (NORVASC) 5 mg tablet Take 1 tablet by mouth once daily. - estradiol (ESTRACE) 0.01 % (0.1 mg/gram) vaginal cream Use 1 gram vaginally at bedtime for 2 weeks then 1-3 time/weeks for maintenance. - desvenlafaxine ER (PRISTIQ) 25 mg 24 hr tablet Take 1 tablet by mouth once daily. Take with additional 50 mg tablet. - levothyroxine (SYNTHROID) 25 mcg tablet Take 1 tablet by mouth once daily. Take on empty stomach. For thyroid. - difluprednate (DUREZOL) 0.05 % ophthalmic suspension Use 1 drop in both eyes as needed (for eyerhitis). - fluticasone (FLONASE) 50 mcg/actuation nasal spray Use 2 Sprays in each nostril once daily. Rinse mouth after use. 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 Routine gynecological examination [Z01.419] 02/06/2009 04/16/2022 Class: Chronic Diverticulosis of colon [K57.30] 12/12/2009 Recurrent major depression in partial remission*05/22/2010 Personal history of colonic polyps [Z86.0100] 04/06/2012 Elevated cholesterol [E78.00] 06/24/2012 IRB # [id number]: [employer] ICY-AVNRT Study [Z00.6] 09/29/2013 Ana's disease of low back (HCC) [M02.38] 11/25/2013 03/06/2020 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 05-03-2025 Note HNO ID: [id number] Author: SHARDA SNEED APRN.SALES FACILITATOR Service: ? Author Type: Nurse Practitioner Type: Progress Notes Filed: 05/03/2025 13:08 Note Text: This is a 70 year old female who presents today with: The patient is a 70-year-old female with hypertension and hypothyroidism, presenting for influenza and COVID-19 vaccinations. HISTORY OF PRESENT ILLNESS: Rose Marie Drummond is a 70-year-old female with a history of HTN, hypothyroidism, and depression, presenting for follow-up. Upper Respiratory Infection: - Runny nose and nasal crusting x2 weeks. - Initially thought to be allergies; now believes it is a cold. - Symptoms began to improve; considering flu and COVID vaccinations today. HTN: - Taking amlodipine. - Uses high blood pressure cold tablets for current cold symptoms. - Has a home blood pressure monitor but does not regularly check BP. - Recent high BP reading on 04/14 while in urgent care for cerumen impaction. Hypothyroidism: - Taking levothyroxine. - Takes all medications together in the morning. - Denies heat or cold intolerance, dysphagia, or hair loss. - Reports chronic constipation, especially during travel. Depression: - Managed with Pristiq 50 mg and 25 mg. - Reports medication is effective; denies desire for changes. Vaginal Atrophy: - Using Estrace cream with significant improvement in symptoms. 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 Baumann-PSVT ARTHROSCOPY KNEE DIAGNOSTIC W/WO SYNOVIAL BX SPX Left 1973 DELIVERY ONLY 1982,1986 , low transverse CHOLECYSTECTOMY Cholecystectomy COLONOSCOPY 2012, 2015 COLONOSCOPY FLX DX W/COLLJ SPEC WHEN PFRMD 03/31/2020 Colonoscopy COLSC FLX W/RMVL OF TUMOR POLYP LESION SNARE TQ 12/12/2009 Multiple polyps,diverticulosis EYE SURGERY HX Left 2017 cataract TONSILLECTOMY HX TOTAL ABDOMINAL HYSTERECT W/WO RMVL TUBE OVARY Hysterectomy, BRIE TOTAL KNEE REPLACEMENT Left 06/06/2021 Left total knee arthroplasty VAGINAL HYSTERECTOMY ALLERGIES Shellfish Derived, Amoxicillin, Codeine, Iodine, and Lisinopril MEDICATIONS Current Outpatient Medications Medication Sig desvenlafaxine ER (PRISTIQ) 50 mg 24 hr tablet Take 1 tablet by mouth once daily. amLODIPine (NORVASC) 5 mg tablet Take 1 tablet by mouth once daily. estradiol (ESTRACE) 0.01 % (0.1 mg/gram) vaginal cream Use 1 gram vaginally at bedtime for 2 weeks then 1-3 time/weeks for maintenance. desvenlafaxine ER (PRISTIQ) 25 mg 24 hr tablet Take 1 tablet by mouth once daily. Take with additional 50 mg tablet. levothyroxine (SYNTHROID) 25 mcg tablet Take 1 tablet by mouth once daily. Take on empty stomach. For thyroid. difluprednate (DUREZOL) 0.05 % ophthalmic suspension Use 1 drop in both eyes as needed (for eyerhitis). fluticasone (FLONASE) 50 mcg/actuation nasal spray Use 2 Sprays in each nostril once daily. Rinse mouth after use. No current facility-administered medications for this visit. FAMILY HISTORY Problem Relation Age of Onset Cancer Father lung Diabetes Mother Coronary Artery Disease Mother multiple interventions, but has severe diabetes Colon Cancer Other none Thyroid Maternal Grandmother SOCIAL HISTORY[1] REVIEW OF SYSTEMS Constitutional: (-) unintentional weight loss, (-) weakness, (-) fatigue Head: (-) headaches Eyes: (-) vision change Ears/Nose/Mouth/Throat: (+) runny nose, (-) hearing change, (-) dysphagia Neck: (-) neck mass Cardiovascular: (-) chest pain, (-) palpitations, (-) peripheral edema Respiratory: (-) dyspnea Gastrointestinal: (+) heartburn, (+) constipation, (-) blood in stool, (-) melena Musculoskeletal: (-) muscle pain, (-) joint pain Skin: (+) dry skin Neurological: (-) syncope, (-) seizures, (-) tremors Endocrine: (-) heat intolerance, (-) cold intolerance, (-) polydipsia, (-) polyuria Hematologic/Lymphatic: (-) easy bruising EXAM: BP 142/98 Pulse 91 Resp 16 Wt 78.9 kg (174 lb) SpO2 96% BMI 28.64 kg/m? PHYSICAL EXAM: General Appearance: Well appearing, alert, in no acute distress, well-hydrated, well nourished.. Skin: Skin color, texture, turgor normal, no suspicious rashes or lesions. Head: Normocephalic, no masses, lesions, tenderness or abnormalities. Eyes: Anicteric sclera. Pupils are equally round and reactive to light. Extraocular movements are intact. . Ears: External ears normal, canals clear. Normal TMs bilaterally. Oropharynx: Lips, mucosa, and tongue normal, teeth and gums normal, oropharynx normal. Neck: Supple, no adenopathy; thyroid symmetric, normal (more content not included)... [facility] 04-15-2025 Note HNO ID: [id number] Author: MICKIE MOORE LPN Service: ? Author Type: Licensed Nurse Type: Progress Notes Filed: 04/15/2025 07:55 Note Text: Bilateral ears flushed with warm water/h2o2. Large amount of cerumen removed. Patient tolerated procedure well. Mickie Moore LPN [facility] 04-14-2025 Note HNO ID: [id number] Author: QUIANA TAPIA APRN.SALES FACILITATOR Service: ? Author Type: Nurse Practitioner Type: Progress Notes Filed: 04/14/2025 10:03 Note Text: URGENT CARE FILIBERTO Drummond is a 70 year old female. Patient presents with: Ear Pain: R ear pain and down neck x 6 days Ear Pain The patient is a 70-year-old female presenting with aural pulsations. Aural Pulsations: - Onset: Recent. - Describes hearing heartbeat in the ear, worsening over time. - No previous episodes. - Denies use of Q-tips. - Had earwax removal a few years ago. 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 Baumann-PSVT ARTHROSCOPY KNEE DIAGNOSTIC W/WO SYNOVIAL BX SPX Left 1973 DELIVERY ONLY 1982,1986 , low transverse CHOLECYSTECTOMY Cholecystectomy COLONOSCOPY 2012, 2015 COLONOSCOPY FLX DX W/COLLJ SPEC WHEN PFRMD 03/31/2020 Colonoscopy COLSC FLX W/RMVL OF TUMOR POLYP LESION SNARE TQ 12/12/2009 Multiple polyps,diverticulosis EYE SURGERY HX Left 2017 cataract TONSILLECTOMY HX TOTAL ABDOMINAL HYSTERECT W/WO RMVL TUBE OVARY Hysterectomy, BRIE TOTAL KNEE REPLACEMENT Left 06/06/2021 Left total knee arthroplasty VAGINAL HYSTERECTOMY ALLERGIES Shellfish Derived, Amoxicillin, Codeine, Iodine, and Lisinopril MEDICATIONS estradiol (ESTRACE) 0.01 % (0.1 mg/gram) vaginal cream Use 1 gram vaginally at bedtime for 2 weeks then 1-3 time/weeks for maintenance. desvenlafaxine ER (PRISTIQ) 25 mg 24 hr tablet Take 1 tablet by mouth once daily. Take with additional 50 mg tablet. levothyroxine (SYNTHROID) 25 mcg tablet Take 1 tablet by mouth once daily. Take on empty stomach. For thyroid. difluprednate (DUREZOL) 0.05 % ophthalmic suspension Use 1 drop in both eyes as needed (for eyerhitis). amLODIPine (NORVASC) 5 mg tablet Take 1 tablet by mouth once daily. desvenlafaxine ER (PRISTIQ) 50 mg 24 hr tablet Take 1 tablet by mouth once daily. fluticasone (FLONASE) 50 mcg/actuation nasal spray Use 2 Sprays in each nostril once daily. Rinse mouth after use. FAMILY HISTORY Problem Relation Age of Onset Cancer Father lung Diabetes Mother Coronary Artery Disease Mother multiple interventions, but has severe diabetes Colon Cancer Other none Thyroid Maternal Grandmother SOCIAL HISTORY[1] Objective BP 161/79 Pulse 71 Temp 36.3 ?C (97.3 ?F) Resp 20 Wt 79 kg (174 lb 2.6 oz) SpO2 96% BMI 28.67 kg/m? Physical Exam Constitutional: General: She is not in acute distress. Appearance: Normal appearance. She is normal weight. She is not ill-appearing or toxic-appearing. HENT: Right Ear: Tympanic membrane, ear canal and external ear normal. There is impacted cerumen. Left Ear: Tympanic membrane and ear canal normal. There is impacted cerumen. Ears: Comments: Irrigation bilaterally by MA Patient tolerated procedure well Nose: No congestion or rhinorrhea. Mouth/Throat: Pharynx: Oropharynx is clear. Eyes: Extraocular Movements: Extraocular movements intact. Conjunctiva/sclera: Conjunctivae normal. Pupils: Pupils are equal, round, and reactive to light. Cardiovascular: Rate and Rhythm: Normal rate and regular rhythm. Pulses: Normal pulses. Heart sounds: Normal heart sounds. Pulmonary: Effort: Pulmonary effort is normal. Breath sounds: Normal breath sounds. Lymphadenopathy: Cervical: No cervical adenopathy. Neurological: Mental Status: She is alert. { 1. Impacted cerumen of right ear (H61.21) 2. Bilateral impacted cerumen (H61.23) - Significant cerumen impaction noted on exam, obscuring visualization of the tympanic membrane. - Performed cerumen irrigation with resolution of symptoms and improved hearing. No signs of otitis externa, perferation of tympanic membrane or otitis media. - Educated patient on cerumen overproduction and impaction; advised that this is not due to Q-tip use. and Recording using [employer] software for draft documentation of the visit was discussed with the patient/authorized sales representative consultant; all questions welcomed and answered. Patient/authorized sales representative consultant agreed to proceed Disposition The patient was discharged. [1] Social History Tobacco Use Smoking status: Never Smokeless tobacco: Never Vaping Use Vaping status: Never Used Substance Use Topics Alcohol use: No Drug use: No [facility] 03-25-2025 Note HNO ID: [id number] Author: ?, ?, ? Service: ? Author Type: ? Type: Progress Notes Filed: 03/25/2025 09:16 Note Text: POPULATION HEALTH NAVIGATION OUTREACH Action/FYI - 1 [facility] Wellness: Overdue since 07/07/2024 Flu: Due for dose 1 since 03/07/2025 Called Patient: Left Voicemail AND Sent [employer] Reason for Outreach Care Gap/HCC or Scheduling Wellness Visits Care Gaps due: Medicare Annual Wellness Visit Flu Vaccine Patient Contacted: Unable or unnecessary to reach patient: Left message [employer] message sent [facility] related Navigation Signature: Rolo Ayala March 25, 2025 9:[address] [facility] 03-25-2025 Note Patient Outreach (JOHNNY MELO) ROSE MARIE ROYAL ([id number]) 1955 F Date Time Provider Department 03/25/25 SHARDA SNEED During your visit today, we recorded the following information about you: Rolo Ayala 03/25/2025 9:16 AM Signed POPULATION HEALTH NAVIGATION OUTREACH Action/ [facility] Wellness: Overdue since 07/07/2024 Flu: Due for dose 1 since 03/07/2025 Called Patient: Left Voicemail AND Sent [employer] Reason for Outreach Care Gap/HCC or Scheduling Wellness Visits Care Gaps due: Medicare Annual Wellness Visit Flu Vaccine Patient Contacted: Unable or unnecessary to reach patient: Left message [employer] message sent [facility] related Navigation Signature: Rolo Ayala March 25, 2025 9:13 AM Allergies As of Date: 03/25/2025 Noted Allergy Reaction SHELLFISH DERIVED 07/31/2023 4 - Hives Comments: All seafood makes her sick AMOXICILLIN 03/27/2005 2 - Rash CODEINE 09/10/2005 11 - Vomiting IODINE 03/27/2005 4 - Hives LISINOPRIL 12/29/2020 2 - Rash Date Reviewed: 02/28/2025 Reviewed by: Ana Luisa Artis APRN.SALES FACILITATOR - Fully Assessed Reason for Visit: Population Health Navigation Outreach [3910] Cmt: [employer] [place] Prescriptions as of 03/25/2025 - estradiol (ESTRACE) 0.01 % (0.1 mg/gram) vaginal cream Use 1 gram vaginally at bedtime for 2 weeks then 1-3 time/weeks for maintenance. - desvenlafaxine ER (PRISTIQ) 25 mg 24 hr tablet Take 1 tablet by mouth once daily. Take with additional 50 mg tablet. - levothyroxine (SYNTHROID) 25 mcg tablet Take 1 tablet by mouth once daily. Take on empty stomach. For thyroid. - difluprednate (DUREZOL) 0.05 % ophthalmic suspension Use 1 Drop in both eyes four times daily. - fluticasone (FLONASE) 50 mcg/actuation nasal spray Use 2 Sprays in each nostril once daily. Rinse mouth after use. - amLODIPine (NORVASC) 5 mg tablet Take 1 tablet by mouth once daily. - desvenlafaxine ER (PRISTIQ) 50 mg 24 hr tablet Take 1 tablet by mouth once daily. 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/2006 Routine gynecological examination [Z01.419] 02/06/2009 04/16/2022 Class: Chronic Diverticulosis of colon [K57.30] 12/12/2009 Recurrent major depression in partial remission*05/22/2010 Personal history of colonic polyps [Z86.0100] 04/06/2012 Elevated cholesterol [E78.00] 06/24/2012 IRB # [id number]: [employer] ICY-AVNRT Study [Z00.6] 09/29/2013 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 02-28-2025 History of Presen t illness Narrative HISTORY AND PHYSICAL Rose Marie Drummond : 1955 REFERRING PHYSICIAN: Hannah Bo [address] [facility] [id number] CHIEF COMPLAINT: Patient presents with: Consult: Due for repeat colonoscopy. Denies GI issues HPI: Rose Marie is a 69 year old female referred for endoscopy. Rose Marie notes due for screening colonoscopy-hx of polyps (2019). Rose Marie denies abdominal pain. Rose Marie denies diarrhea. Rose Marie denies constipation. Rose Marie denies a change in bowel habits. Rose Marie denies melena. Rose Marie denies bright red blood per rectum. Rose Marie denies hemorrhoids. Rose Marie denies family history of colon issues. Rose Marie denies heartburn. Rose Marie denies dysphagia. Rose Marie denies a history of ulcers/ peptic ulcer disease. Rose Marie's medical history is significant for hx of SVT s/p ablation (2013), obstructive lung disease, & CKD. She denies CP, SOB, dizziness, palpitations, syncope, edema, recent hospitalizations Rose Marie has undergone prior endoscopy. Last colonoscopy was 03/[address] Bo at [facility]. Sedation: Midazolam 5 mg IV, Fentanyl 100 micrograms IV, Diphenhydramine 50 mg IV Impression: - Non-bleeding internal hemorrhoids. - One 3 to 8 mm polyp at the hepatic flexure, removed with a cold snare. Resected and retrieved. Clip (MR conditional) was placed. CONVERTED FINAL DIAGNOSIS Colon, hepatic flexure, polyp, biopsy Sessile serrated polyp. Current Outpatient Medications Medication Sig estradiol (ESTRACE) 0.01 % (0.1 mg/gram) vaginal cream Use 1 gram vaginally at bedtime for 2 weeks then 1-3 time/weeks for maintenance. desvenlafaxine ER (PRISTIQ) 25 mg 24 hr tablet Take 1 tablet by mouth once daily. Take with additional 50 mg tablet. levothyroxine (SYNTHROID) 25 mcg tablet Take 1 tablet by mouth once daily. Take on empty stomach. For thyroid. difluprednate (DUREZOL) 0.05 % ophthalmic suspension Use 1 Drop in both eyes four times daily. fluticasone (FLONASE) 50 mcg/actuation nasal spray Use 2 Sprays in each nostril once daily. Rinse mouth after use. amLODIPine (NORVASC) 5 mg tablet Take 1 tablet by mouth once daily. desvenlafaxine ER (PRISTIQ) 50 mg 24 hr tablet Take 1 tablet by mouth once daily. fluticasone (FLONASE) 50 mcg/actuation nasal spray Use 2 Sprays in each nostril once daily. Rinse mouth after use. (Patient not taking: Reported on 02/28/2025) No current facility-administered medications for this visit. 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 Baumann-PSVT ARTHROSCOPY KNEE DIAGNOSTIC W/WO SYNOVIAL BX SPX Left 1973 DELIVERY ONLY 1982,1986 , low transverse CHOLECYSTECTOMY Cholecystectomy COLONOSCOPY 2012, 2015 COLONOSCOPY FLX DX W/COLLJ SPEC WHEN PFRMD 03/31/2020 Colonoscopy COLSC FLX W/RMVL OF TUMOR POLYP LESION SNARE TQ 12/12/2009 Multiple polyps,diverticulosis EYE SURGERY HX Left 2017 cataract TONSILLECTOMY HX TOTAL ABDOMINAL HYSTERECT W/WO RMVL TUBE OVARY Hysterectomy, BRIE TOTAL KNEE REPLACEMENT Left 06/06/2021 Left total knee arthroplasty VAGINAL HYSTERECTOMY FAMILY HISTORY Problem Relation Age of Onset Cancer Father lung Diabetes Mother Coronary Artery Disease Mother multiple interventions, but has severe diabetes Colon Cancer Other none Thyroid Maternal Grandmother SOCIAL HISTORY[1] REVIEW OF SYMPTOMS: REVIEW OF SYSTEMS: General: The patient + fatigue, denies weight loss, denies weight gain, denies feeling hot, and feelings of cold. Eyes: The patient denies glaucoma, denies eye injury/surgery, denies glasses or contacts. Ear/Nose/Throat: The patient + allergies, denies hayfever, denies ear infections, and denies bloody noses. Cardiovascular: The patient denies chest pain, denies heart disease, denies high blood pressure, denies high cholesterol, and denies poor circulation. Respiratory: The patient denies tuberculosis, denies pneumonia, + frequent cough, denies shortness of breath, and denies coughing up blood. Gastrointestinal: The patient denies difficulty swallowing, denies acid reflux, denies ulcers, denies jaundice/hepatitis, denies gallbladder problems, denies vomiting, denies black or tarry stools, denies hemorrhoids, denies bleeding from rectum, denies diverticulitis, denies constipation, denies diarrhea, denies loss of stool control, and denies hernias. Kidney/Bladder: The patient denies kidney stones, denies urine infections, and denies bloody urine. Skin: The patient denies a history of skin cancer, denies bleeding/changing moles, and denies a history of skin rash. Neurologic: The patient denies a history of epilepsy/convulsions, denies headaches, denies head/spinal injuries, and denies stroke/TIA. Psychiatric: The patient denies psychiatric medications, + depression, and denies voices. Endocrine: The patient + thyroid disorders, denies diabetes, and denies hormonal problems. Hematologic: The patient denies a history of bruising, denies bleeding, and denies anemia. Infections: The patient + a history of measles and mumps, denies rheumatic fever, and denies sexually transmitted diseases. Musculoskeletal: The patient denies back pain/injury, denies back problems, denies sciatica, + knee/foot trouble, denies arthritis, or denies gout. PHYSICAL EXAMINATION: General: The patient is 69 year old, female well nourished, well hydrated in no acute distress. The patient is oriented to time, place, and person. VITALS: Blood pressure 125/76, pulse 72, resp. rate 16, weight 80.9 kg (178 lb 6.4 oz), SpO2 95%. Body mass index is 29.37 kg/m . HEENT: Normal cephalic, ataumatic, pupils are equally round, sclera are anicteric, mucous membranes are moist, oropharynx is clear. Neck has no masses or asymmetry . Respiratory: Clear to auscultation. Cardiac: Regular rate and rhythm. Abdominal exam: Soft, nontender, with no palpable masses. No hepatosplenomegaly. No palpable hernias. Extremities: no clubbing or cyanosis LABORATORY VALUES: As Noted RADIOLOGIC STUDIES: As Noted Assessment IMPRESSION: screen for colon cancer, history of colon polyps PLAN: I have reviewed my findings with the surgeon. Will plan for lower endoscopy. We discussed the risks and benefits of the planned endoscopy in terms understandable to the patient. I have informed the patient that complications can occur including failure to complete the endoscopy and perforation. Rose Marie had the opportunity to ask questions concerning the planned endoscopy. Rose Marie freely consents to surgery. I plan to use miraLAX bowel preparation I have explained to the patient the difference between IV conscious sedation and MAC anesthesia - and I have offered either, according to the patient's wishes. I have explained that with IV conscious sedation there is no anesthesia provider available and therefore there is a limitation of the amount of IV medications that can be given and that the patient may wake up in the middle of the procedure and/or experience pain/discomfort during the procedure. Further discussion was done and the patient was given the opportunity to ask questions and all questions were answered. Rose Marie chooses IV conscious sedation. Rose Marie was counseled that if there are changes in his/her medical condition, to let the office know if surgery should proceed. If there are changes in patient's medical condition from time of this encounter to the day of the procedure that preclude anesthesia, patient may have procedure cancelled for patient's safety. Diagnoses: (Z12.11) Screen for colon cancer (primary encounter diagnosis) (Z86.0100) History of colonic polyps Portions of this documentation were copied and pasted from previous office visit notes in order to provide a cohesive continuity of the history. The note has been reviewed and edited and updated as necessary. Ana Luisa Artis APRN.CNP [1] Social History Tobacco Use Smoking status: Never Smokeless tobacco: Never Vaping Use Vaping status: Never Used Substance Use Topics Alcohol use: No Drug use: No documented in this encounter [facility] 02-28-2025 Note HNO ID: [id number] Author: ANA LUISA ARTIS APRN.SALES FACILITATOR Service: ? Author Type: Nurse Practitioner Type: Progress Notes Filed: 02/28/2025 08:59 Note Text: HISTORY AND PHYSICAL Rose Marie Drummond : 1955 REFERRING PHYSICIAN: Hannah Bo [address] [facility] [id number] CHIEF COMPLAINT: Patient presents with: Consult: Due for repeat colonoscopy. Denies GI issues HPI: Rose Marie is a 69 year old female referred for endoscopy. Rose Marie notes due for screening colonoscopy-hx of polyps (2019). Rose Marie denies abdominal pain. Rose Marie denies diarrhea. Rose Marie denies constipation. Rose Marie denies a change in bowel habits. Rose Marie denies melena. Rose Marie denies bright red blood per rectum. Rose Marie denies hemorrhoids. Rose Marie denies family history of colon issues. Rose Marie denies heartburn. Rose Marie denies dysphagia. Rose Marie denies a history of ulcers/ peptic ulcer disease. Rose Marie's medical history is significant for hx of SVT s/p ablation (2013), obstructive lung disease, AND CKD. She denies CP, SOB, dizziness, palpitations, syncope, edema, recent hospitalizations Rose Marie has undergone prior endoscopy. Last colonoscopy was 03/[address] Bo at [facility]. Sedation: Midazolam 5 mg IV, Fentanyl 100 micrograms IV, Diphenhydramine 50 mg IV Impression: - Non-bleeding internal hemorrhoids. - One 3 to 8 mm polyp at the hepatic flexure, removed with a cold snare. Resected and retrieved. Clip (MR conditional) was placed. CONVERTED FINAL DIAGNOSIS Colon, hepatic flexure, polyp, biopsy Sessile serrated polyp. Current Outpatient Medications Medication Sig estradiol (ESTRACE) 0.01 % (0.1 mg/gram) vaginal cream Use 1 gram vaginally at bedtime for 2 weeks then 1-3 time/weeks for maintenance. desvenlafaxine ER (PRISTIQ) 25 mg 24 hr tablet Take 1 tablet by mouth once daily. Take with additional 50 mg tablet. levothyroxine (SYNTHROID) 25 mcg tablet Take 1 tablet by mouth once daily. Take on empty stomach. For thyroid. difluprednate (DUREZOL) 0.05 % ophthalmic suspension Use 1 Drop in both eyes four times daily. fluticasone (FLONASE) 50 mcg/actuation nasal spray Use 2 Sprays in each nostril once daily. Rinse mouth after use. amLODIPine (NORVASC) 5 mg tablet Take 1 tablet by mouth once daily. desvenlafaxine ER (PRISTIQ) 50 mg 24 hr tablet Take 1 tablet by mouth once daily. fluticasone (FLONASE) 50 mcg/actuation nasal spray Use 2 Sprays in each nostril once daily. Rinse mouth after use. (Patient not taking: Reported on 02/28/2025) No current facility-administered medications for this visit. 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 Baumann-PSVT ARTHROSCOPY KNEE DIAGNOSTIC W/WO SYNOVIAL BX SPX Left 1973 DELIVERY ONLY 1982,1986 , low transverse CHOLECYSTECTOMY Cholecystectomy COLONOSCOPY 2012, 2015 COLONOSCOPY FLX DX W/COLLJ SPEC WHEN PFRMD 03/31/2020 Colonoscopy COLSC FLX W/RMVL OF TUMOR POLYP LESION SNARE TQ 12/12/2009 Multiple polyps,diverticulosis EYE SURGERY HX Left 2016 cataract TONSILLECTOMY HX TOTAL ABDOMINAL HYSTERECT W/WO RMVL TUBE OVARY Hysterectomy, BRIE TOTAL KNEE REPLACEMENT Left 06/06/2021 Left total knee arthroplasty VAGINAL HYSTERECTOMY FAMILY HISTORY Problem Relation Age of Onset Cancer Father lung Diabetes Mother Coronary Artery Disease Mother multiple interventions, but has severe diabetes Colon Cancer Other none Thyroid Maternal Grandmother SOCIAL HISTORY[1] REVIEW OF SYMPTOMS: REVIEW OF SYSTEMS: General: The patient + fatigue, denies weight loss, denies weight gain, denies feeling hot, and feelings of cold. Eyes: The patient denies glaucoma, denies eye injury/surgery, denies glasses or contacts. Ear/Nose/Throat: The patient + allergies, denies hayfever, denies ear infections, and denies bloody noses. Cardiovascular: The patient denies chest pain, denies heart disease, denies high blood pressure, denies high cholesterol, and denies poor circulation. Respiratory: The patient denies tuberculosis, denies pneumonia, + frequent cough, denies shortness of breath, and denies coughing up blood. Gastrointestinal: The patient denies difficulty swallowing, denies acid reflux, denies ulcers, denies jaundice/hepatitis, denies gallbladder problems, denies vomiting, denies black or tarry stools, denies hemorrhoids, denies bleeding from rectum, denies diverticulitis, denies constipation, denies diarrhea, denies loss of stool control, and denies hernias. Kidney/Bladder: The patient denies kidney stones, den (more content not included)... [facility] 02-24-2025 History of Presen t illness Narrative Radiology Service Progress Note PATIENT NAME: Rose Marie Drummond DATE OF SERVICE: February 24, 2025 TIME: 8:20 AM PATIENT IDENTITY VERIFICATION COMPLETED USING TWO (2) IDENTIFIERS: Name and Date of confirmed by patient verbally. FALL SCREENING: Has the patient had 2 falls in the last year or 1 fall with injury or currently using an Ambulatory Assistive Device (Walker, Cane, Wheelchair, Crutches, etc.)? No PATIENT GENDER DATA: Assigned female at . status: : No status: NO. PATIENT RELEVANT IMPLANT DATA REVIEWED: Not Applicable PATIENT PRESENTS WITH AN IMPLANTABLE OR ATTACHED BLUNGER LOADER: No RADIOLOGY DEPARTMENT: Mammography PERIPHERAL IV DATA: Not applicable SIGNED BY: Sukumar Menjivar February 24, 2025 8:20 AM documented in this encounter [facility] 02-24-2025 Note HNO ID: [id number] Author: NIRMAL BONILLA Mammo Tech Service: ? Author Type: Osteopathic Medicine Teacher Type: Progress Notes Filed: 02/24/2025 08:21 Note Text: Radiology Service Progress Note PATIENT NAME: Rose Marie Drummond DATE OF SERVICE: February 24, 2025 TIME: 8:20 AM PATIENT IDENTITY VERIFICATION COMPLETED USING TWO (2) IDENTIFIERS: Name and Date of confirmed by patient verbally. FALL SCREENING: Has the patient had 2 falls in the last year or 1 fall with injury or currently using an Ambulatory Assistive Device (Walker, Cane, Wheelchair, Crutches, etc.)? No PATIENT GENDER DATA: Assigned female at . status: : No status: NO. PATIENT RELEVANT IMPLANT DATA REVIEWED: Not Applicable PATIENT PRESENTS WITH AN IMPLANTABLE OR ATTACHED BLUNGER LOADER: No RADIOLOGY DEPARTMENT: Mammography PERIPHERAL IV DATA: Not applicable SIGNED BY: Nirmal Bonilla [employer] February 24, 2025 8:[address] [facility] 02-23-2025 Note HNO ID: [id number] Author: SU EDWARD MA Service: ? Author Type: Poultry Farmer Egg Type: Progress Notes Filed: 02/23/2025 12:47 Note Text: POPULATION HEALTH NAVIGATION OUTREACH Action/FYI OUTREACH WITHIN THE LAST 7 DAYS BY ANOTHER MIKEL, UPDATED APPT NOTES W HCCS/DUE HM Reason for Outreach Care Gap/HCC or Scheduling Wellness Visits Care Gaps due: Medicare Annual Wellness Visit Colorectal Cancer Screening Patient Contacted: Unable or unnecessary to reach patient: Updated appointment notes Chart Review only Navigation Signature: Su Edward MA February 23, 2025 12:[address] [facility] 02-23-2025 History of Presen t illness Narrative POPULATION HEALTH NAVIGATION OUTREACH Action/FYI OUTREACH WITHIN THE LAST 7 DAYS BY ANOTHER MIKEL, UPDATED APPT NOTES W HCCS/DUE HM Reason for Outreach Care Gap/HCC or Scheduling Wellness Visits Care Gaps due: Medicare Annual Wellness Visit Colorectal Cancer Screening Patient Contacted: Unable or unnecessary to reach patient: Updated appointment notes Chart Review only Navigation Signature: Su Edwadr MA February 23, 2025 12:46 PM documented in this encounter [facility] 02-23-2025 Note Patient Outreach (JOHNNY TNAV) ROSE MARIE ROYAL ([id number]) 1955 F Date Time Provider Department 02/23/25 [facility] During your visit today, we recorded the following information about you: Su Edward MA 02/23/2025 12:47 PM Signed POPULATION HEALTH NAVIGATION OUTREACH Action/FYI OUTREACH WITHIN THE LAST 7 DAYS BY ANOTHER MIKEL, UPDATED APPT NOTES W HCCS/DUE HM Reason for Outreach Care Gap/HCC or Scheduling Wellness Visits Care Gaps due: Medicare Annual Wellness Visit Colorectal Cancer Screening Patient Contacted: Unable or unnecessary to reach patient: Updated appointment notes Chart Review only Navigation Signature: Su Edward MA February 23, 2025 12:46 PM Allergies As of Date: 02/23/2025 Noted Allergy Reaction SHELLFISH DERIVED 07/31/2023 4 - Hives Comments: All seafood makes her sick AMOXICILLIN 03/27/2005 2 - Rash CODEINE 09/10/2005 11 - Vomiting IODINE 03/27/2005 4 - Hives LISINOPRIL 12/29/2020 2 - Rash Date Reviewed: 12/07/2024 Reviewed by: Sammie Álvarez LPN - Fully Assessed Reason for Visit: Population Health Navigation Outreach [3910] Cmt: [employer] HCC SPRINT LIST Prescriptions as of 02/23/2025 - estradiol (ESTRACE) 0.01 % (0.1 mg/gram) vaginal cream Use 1 gram vaginally at bedtime for 2 weeks then 1-3 time/weeks for maintenance. - desvenlafaxine ER (PRISTIQ) 25 mg 24 hr tablet Take 1 tablet by mouth once daily. Take with additional 50 mg tablet. - levothyroxine (SYNTHROID) 25 mcg tablet Take 1 tablet by mouth once daily. Take on empty stomach. For thyroid. - difluprednate (DUREZOL) 0.05 % ophthalmic suspension Use 1 Drop in both eyes four times daily. - fluticasone (FLONASE) 50 mcg/actuation nasal spray Use 2 Sprays in each nostril once daily. Rinse mouth after use. - fluticasone (FLONASE) 50 mcg/actuation nasal spray Use 2 Sprays in each nostril once daily. Rinse mouth after use. - amLODIPine (NORVASC) 5 mg tablet Take 1 tablet by mouth once daily. - desvenlafaxine ER (PRISTIQ) 50 mg 24 hr tablet Take 1 tablet by mouth once daily. 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/25/2006 Routine gynecological examination [Z01.419] 02/06/2009 04/16/2022 Class: Chronic Diverticulosis of colon [K57.30] 12/12/2009 Recurrent major depression in partial remission*05/22/2010 Personal history of colonic polyps [Z86.0100] 04/06/2012 Elevated cholesterol [E78.00] 06/24/2012 IRB # [id number]: [employer] ICY-AVNRT Study [Z00.6] 09/29/2013 Ana's disease of low back (HCC) [M02.38] 11/25/2013 03/06/2020 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 02-18-2025 Note HNO ID: [id number] Author: ?, ?, ? Service: ? Author Type: ? Type: Progress Notes Filed: 02/18/2025 12:14 Note Text: POPULATION HEALTH NAVIGATION OUTREACH Action/ - HCC Wellness: Overdue since 07/07/2024 Colon: Due soon on 03/31/2025 Called Patient: Left Voicemail AND Sent [facility] [employer] Updated appt notes to address HCC AND Care Gaps Reason for Outreach Care Gap/HCC or Scheduling Wellness Visits Care Gaps due: Medicare Annual Wellness Visit Colorectal Cancer Screening Patient Contacted: Unable or unnecessary to reach patient: Left message MyChart message sent HCC related Updated appointment notes Navigation Signature: Rolo Ayala February 18, 2025 12:[address] [facility] 02-18-2025 History of Presen t illness Narrative POPULATION HEALTH NAVIGATION OUTREACH Action/ HCC Wellness: Overdue since 07/07/2024 Colon: Due soon on 03/31/2025 Called Patient: Left Voicemail & Sent Mychart Updated appt notes to address HCC & Care Gaps Reason for Outreach Care Gap/HCC or Scheduling Wellness Visits Care Gaps due: Medicare Annual Wellness Visit Colorectal Cancer Screening Patient Contacted: Unable or unnecessary to reach patient: Left message MyChart message sent HCC related Updated appointment notes Navigation Signature: Rolo Ayala February 18, 2025 12:10 PM documented in this encounter [facility] 02-18-2025 Note Patient Outreach (NE TNAV) ROSE MARIE ROYAL ([id number]) 1955 F Date Time Provider Department 02/18/25 SHARDA SNEED During your visit today, we recorded the following information about you: Rolo Ayala 02/18/2025 12:14 PM Signed POPULATION HEALTH NAVIGATION OUTREACH Action/ HCC Wellness: Overdue since 07/07/2024 Colon: Due soon on 03/31/2025 Called Patient: Left Voicemail AND Sent Mychart Updated appt notes to address HCC AND Care Gaps Reason for Outreach Care Gap/HCC or Scheduling Wellness Visits Care Gaps due: Medicare Annual Wellness Visit Colorectal Cancer Screening Patient Contacted: Unable or unnecessary to reach patient: Left message MyChart message sent HCC related Updated appointment notes Navigation Signature: Rolo Ayala February 18, 2025 12:10 PM Allergies As of Date: 02/18/2025 Noted Allergy Reaction SHELLFISH DERIVED 07/31/2023 4 - Hives Comments: All seafood makes her sick AMOXICILLIN 03/27/2005 2 - Rash CODEINE 09/10/2005 11 - Vomiting IODINE 03/27/2005 4 - Hives LISINOPRIL 12/29/2020 2 - Rash Date Reviewed: 12/07/2024 Reviewed by: Sammie Álvarez LPN - Fully Assessed Reason for Visit: Population Health Navigation Outreach [3910] [facility] [place] Prescriptions as of 02/18/2025 - estradiol (ESTRACE) 0.01 % (0.1 mg/gram) vaginal cream Use 1 gram vaginally at bedtime for 2 weeks then 1-3 time/weeks for maintenance. - desvenlafaxine ER (PRISTIQ) 25 mg 24 hr tablet Take 1 tablet by mouth once daily. Take with additional 50 mg tablet. - levothyroxine (SYNTHROID) 25 mcg tablet Take 1 tablet by mouth once daily. Take on empty stomach. For thyroid. - difluprednate (DUREZOL) 0.05 % ophthalmic suspension Use 1 Drop in both eyes four times daily. - fluticasone (FLONASE) 50 mcg/actuation nasal spray Use 2 Sprays in each nostril once daily. Rinse mouth after use. - fluticasone (FLONASE) 50 mcg/actuation nasal spray Use 2 Sprays in each nostril once daily. Rinse mouth after use. - amLODIPine (NORVASC) 5 mg tablet Take 1 tablet by mouth once daily. - desvenlafaxine ER (PRISTIQ) 50 mg 24 hr tablet Take 1 tablet by mouth once daily. 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*08/25/2006 Routine gynecological examination [Z01.419] 02/06/2009 04/16/2022 Class: Chronic Diverticulosis of colon [K57.30] 12/12/2009 Recurrent major depression in partial remission*05/22/2010 Personal history of colonic polyps [Z86.0100] 04/06/2012 Elevated cholesterol [E78.00] 06/24/2012 IRB # [id number]: [employer] ICY-AVNRT Study [Z00.6] 09/29/2013 Ana's disease of low back (HCC) [M02.38] 11/25/2013 03/06/2020 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 12-07-2024 Note HNO ID: [id number] Author: BEVERLEY CUEVAS APRN.SALES FACILITATOR Service: ? Author Type: Nurse Practitioner Type: Progress Notes Filed: 12/07/2024 08:31 Note Text: Rose Marie Drummond is a 69 year old female who presents for problem visit anal lesion. HPI: Patient states that she noticed a lump near the anus recently. She denies any drainage or pain to the area. She does have a history of internal hemorrhoids. Patient is also concerned about random incontinence and is wondering what she can do for that. She also complains of random soreness and bleeding when wiping the vaginal area. Patient is not sexually active at this time. 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 Baumann-PSVT ARTHROSCOPY KNEE DIAGNOSTIC W/WO SYNOVIAL BX SPX Left 1973 DELIVERY ONLY 1982,1986 , low transverse CHOLECYSTECTOMY Cholecystectomy COLONOSCOPY 2012, 2015 COLONOSCOPY FLX DX W/COLLJ SPEC WHEN PFRMD 03/31/2020 Colonoscopy COLSC FLX W/RMVL OF TUMOR POLYP LESION SNARE TQ 12/12/2009 Multiple polyps,diverticulosis EYE SURGERY HX Left 2017 cataract TONSILLECTOMY HX TOTAL ABDOMINAL HYSTERECT W/WO RMVL TUBE OVARY Hysterectomy, BRIE TOTAL KNEE REPLACEMENT Left 06/06/2021 Left total knee arthroplasty VAGINAL HYSTERECTOMY FAMILY HISTORY Problem Relation Age of Onset Cancer Father lung Diabetes Mother Coronary Artery Disease Mother multiple interventions, but has severe diabetes Colon Cancer Other none Thyroid Maternal Grandmother Social History Tobacco Use Smoking status: Never Smokeless tobacco: Never Vaping Use Vaping status: Never Used Substance Use Topics Alcohol use: No Drug use: No Current Outpatient Medications Medication Sig desvenlafaxine ER (PRISTIQ) 25 mg 24 hr tablet Take 1 tablet by mouth once daily. Take with additional 50 mg tablet. levothyroxine (SYNTHROID) 25 mcg tablet Take 1 tablet by mouth once daily. Take on empty stomach. For thyroid. difluprednate (DUREZOL) 0.05 % ophthalmic suspension Use 1 Drop in both eyes four times daily. fluticasone (FLONASE) 50 mcg/actuation nasal spray Use 2 Sprays in each nostril once daily. Rinse mouth after use. fluticasone (FLONASE) 50 mcg/actuation nasal spray Use 2 Sprays in each nostril once daily. Rinse mouth after use. amLODIPine (NORVASC) 5 mg tablet Take 1 tablet by mouth once daily. desvenlafaxine ER (PRISTIQ) 50 mg 24 hr tablet Take 1 tablet by mouth once daily. estradiol (ESTRACE) 0.01 % (0.1 mg/gram) vaginal cream Use 1 gram vaginally at bedtime for 2 weeks then 1-3 time/weeks for maintenance. No current facility-administered medications for this visit. Allergies As of Date: 12/07/2024 Allergen Noted Reaction SHELLFISH DERIVED 07/31/2023 Hives AMOXICILLIN 03/27/2005 Rash CODEINE 09/10/2005 Vomiting IODINE 03/27/2005 Hives LISINOPRIL 12/29/2020 Rash Fully Assessed 12/07/2024 REVIEW OF SYSTEMS Bladder: No dysuria, gross hematuria, urinary frequency, urinary urgency, +incontinence. Expanded ROS: N/A Allergies and current medication updated:Yes SENSITIVE EXAM: The sensitive examination was discussed with the Patient or Patient's Authorized Clipper Counters. As applicable, any other physician, advance practice provider, medical student, or other health professional student that will be observing or involved in the sensitive examination for educational or training purposes was discussed with the Patient or Authorized Clipper Counters. The Patient or Authorized Clipper Counters has agreed to proceed with the sensitive examination. (Sensitive examination includes inspection and/or palpation of the breasts, pelvis, prostate and anorectal regions). EXAM: BP 142/84 Wt 172 lb (78.0kg) GENERAL: pleasant, female in no apparent distress HEENT: Normocephalic, atraumatic, mucus membranes moist, and no lesions CHEST: Normal inspiratory effort PELVIC: external genitalia normal, normal Bartholin's glands, urethra, Lusby's glands, no vulvar lesions, physiologic discharge present, normal appearing perineal body and perianal region, cystocele 1st - 2nd degree, small inclusion cyst at the 4 o'clock position of the anus-I was able to squeeze all contents out of cyst BIMANUAL: no adnexal masses and non-tender NEURO: alert and oriented x3,exam grossly non (more content not included)... [facility] 12-07-2024 History of Presen t illness Narrative Rose Marie Drummond is a 69 year old female who presents for problem visit anal lesion. HPI: Patient states that she noticed a lump near the anus recently. She denies any drainage or pain to the area. She does have a history of internal hemorrhoids. Patient is also concerned about random incontinence and is wondering what she can do for that. She also complains of random soreness and bleeding when wiping the vaginal area. Patient is not sexually active at this time. 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 Baumann-PSVT ARTHROSCOPY KNEE DIAGNOSTIC W/WO SYNOVIAL BX SPX Left 1973 DELIVERY ONLY 1982,1986 , low transverse CHOLECYSTECTOMY Cholecystectomy COLONOSCOPY 2012, 2015 COLONOSCOPY FLX DX W/COLLJ SPEC WHEN PFRMD 03/31/2020 Colonoscopy COLSC FLX W/RMVL OF TUMOR POLYP LESION SNARE TQ 12/12/2009 Multiple polyps,diverticulosis EYE SURGERY HX Left 2017 cataract TONSILLECTOMY HX TOTAL ABDOMINAL HYSTERECT W/WO RMVL TUBE OVARY Hysterectomy, BRIE TOTAL KNEE REPLACEMENT Left 06/06/2021 Left total knee arthroplasty VAGINAL HYSTERECTOMY FAMILY HISTORY Problem Relation Age of Onset Cancer Father lung Diabetes Mother Coronary Artery Disease Mother multiple interventions, but has severe diabetes Colon Cancer Other none Thyroid Maternal Grandmother Social History Tobacco Use Smoking status: Never Smokeless tobacco: Never Vaping Use Vaping status: Never Used Substance Use Topics Alcohol use: No Drug use: No Current Outpatient Medications Medication Sig desvenlafaxine ER (PRISTIQ) 25 mg 24 hr tablet Take 1 tablet by mouth once daily. Take with additional 50 mg tablet. levothyroxine (SYNTHROID) 25 mcg tablet Take 1 tablet by mouth once daily. Take on empty stomach. For thyroid. difluprednate (DUREZOL) 0.05 % ophthalmic suspension Use 1 Drop in both eyes four times daily. fluticasone (FLONASE) 50 mcg/actuation nasal spray Use 2 Sprays in each nostril once daily. Rinse mouth after use. fluticasone (FLONASE) 50 mcg/actuation nasal spray Use 2 Sprays in each nostril once daily. Rinse mouth after use. amLODIPine (NORVASC) 5 mg tablet Take 1 tablet by mouth once daily. desvenlafaxine ER (PRISTIQ) 50 mg 24 hr tablet Take 1 tablet by mouth once daily. estradiol (ESTRACE) 0.01 % (0.1 mg/gram) vaginal cream Use 1 gram vaginally at bedtime for 2 weeks then 1-3 time/weeks for maintenance. No current facility-administered medications for this visit. Allergies As of Date: 12/07/2024 Allergen Noted Reaction SHELLFISH DERIVED 07/31/2023 Hives AMOXICILLIN 03/27/2005 Rash CODEINE 09/10/2005 Vomiting IODINE 03/27/2005 Hives LISINOPRIL 12/29/2020 Rash Fully Assessed 12/07/2024 REVIEW OF SYSTEMS Bladder: No dysuria, gross hematuria, urinary frequency, urinary urgency, +incontinence. Expanded ROS: N/A Allergies and current medication updated:Yes SENSITIVE EXAM: The sensitive examination was discussed with the Patient or Patient's Authorized Clipper Counters. As applicable, any other physician, advance practice provider, medical student, or other health professional student that will be observing or involved in the sensitive examination for educational or training purposes was discussed with the Patient or Authorized Clipper Counters. The Patient or Authorized Clipper Counters has agreed to proceed with the sensitive examination. (Sensitive examination includes inspection and/or palpation of the breasts, pelvis, prostate and anorectal regions). EXAM: BP 142/84 Wt 172 lb (78.0kg) GENERAL: pleasant, female in no apparent distress HEENT: Normocephalic, atraumatic, mucus membranes moist, and no lesions CHEST: Normal inspiratory effort PELVIC: external genitalia normal, normal Bartholin's glands, urethra, Lusby's glands, no vulvar lesions, physiologic discharge present, normal appearing perineal body and perianal region, cystocele 1st - 2nd degree, small inclusion cyst at the 4 o'clock position of the anus-I was able to squeeze all contents out of cyst BIMANUAL: no adnexal masses and non-tender NEURO: alert and oriented x3,exam grossly non-focal EXTREMITIES: normal ASSESSMENT/PLAN: 1. Skin lesion - ICD9: 709.9, ICD10: L98.9 (primary diagnosis) Inclusion cyst, resolved 2. Urinary incontinence, unspecified type - ICD9: 788.30, ICD10: R32 - CONSULT TO PHYSICAL THERAPY 3. Postmenopausal atrophic vaginitis - ICD9: 627.3, ICD10: N95.2 Estrace vaginal cream ordered 4. Encounter for screening mammogram for malignant neoplasm of breast - ICD9: V76.12, ICD10: Z12.31 - JASPAL SCREENING W JOSE Cuevas APRN.CNP Medical Decision Making: Problems: Low: Acute, uncomplicated illness or injury Data: Unique test(s) ordered: 1 Risk: Moderate: Drug management Medical Decision Making Level: 3 - Low documented in this encounter [facility] 10-28-2024 Note HNO ID: [id number] Author: RICKY CURTIS RN Service: ? Author Type: Registered Nurse Type: Progress Notes Filed: 10/28/2024 13:38 Note Text: Value Based Care Coordination Chart Review Provider Action / FYI: Unable to Reach Mikel team-can you please assist in scheduling annual wellness visit? Thanks. Upon review of patient chart, the patient is excluded from Chronic Disease Management Patient is not a candidate for CDM at this time and placed in the following status: Unable to reach Action taken: Patient routed to Navigation Team Provide H@H number Schedule PCP appointment(s) . Ricky Curtis RN October 28, 2024 1:[address] [facility] 10-28-2024 Note Patient Outreach ([facility] [place]) ROSE MARIE ROYAL ([id number]) 1955 F Date Time Provider Department 10/28/24 RICKY CURTIS During your visit today, we recorded the following information about you: Ricky Curtis RN 10/28/2024 1:38 PM Signed Value Based Care Coordination Chart Review Provider Action / FYI: Unable to Reach Mikel team-can you please assist in scheduling annual wellness visit? Thanks. Upon review of patient chart, the patient is excluded from Chronic Disease Management Patient is not a candidate for CDM at this time and placed in the following status: Unable to reach Action taken: Patient routed to Navigation Team Provide H@H number Schedule PCP appointment(s) . 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 Take with additional 50 mg tablet. - levothyroxine (SYNTHROID) 25 mcg tablet Take 1 tablet by mouth once daily. Take on empty stomach. For thyroid. - difluprednate (DUREZOL) 0.05 % ophthalmic suspension Use 1 Drop in both eyes four times daily. - fluticasone (FLONASE) 50 mcg/actuation nasal spray Use 2 Sprays in each nostril once daily. Rinse mouth after use. - fluticasone (FLONASE) 50 mcg/actuation nasal spray Use 2 Sprays in each nostril once daily. Rinse mouth after use. - amLODIPine (NORVASC) 5 mg tablet Take 1 tablet by mouth once daily. - desvenlafaxine ER (PRISTIQ) 50 mg 24 hr tablet Take 1 tablet by mouth once daily. 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*08/25/2006 Routine gynecological examination [Z01.419] 02/06/2009 04/16/2022 Class: Chronic Diverticulosis of colon [K57.30] 12/12/2009 Recurrent major depression in partial remission*05/22/2010 Personal history of colonic polyps [Z86.0100] 04/06/2012 Elevated cholesterol [E78.00] 06/24/2012 IRB # [id number]: [employer] ICY-AVNRT Study [Z00.6] 09/29/2013 Ana's disease of low back (HCC) [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 10-25-2024 Note HNO ID: [id number] Author: SHARDA SNEED APRN.SALES FACILITATOR Service: ? Author Type: Nurse Practitioner Type: Progress Notes Filed: 10/25/2024 16:11 Note Text: This is a 69 year old female who presents today with: Rose Marie is a 69-year-old female with a history of tachycardia, depression, and Ana's disease, presenting for medication management and referrals to cardiology, pulmonology, gynecology, and rheumatology. HISTORY OF PRESENT ILLNESS: Medication Management: - Taking Pristiq 50 mg and 25 mg daily; requests refill. - Taking thyroid medication; last labs in February. - Taking amlodipine; denies chest pain, dyspnea, palpitations, peripheral edema, headaches, or dizziness. - Blood pressure well-controlled; notes elevation with cold tablets. - A1c consistently between 5.9-6.1. Tachycardia: - History of tachycardia, treated with ablation; no episodes since. - Consumes coffee and occasional Mountain Dew; avoids excessive caffeine. She hasn't seen cardiology in many years and would like to get reestablished. Depression: - Well-managed with Pristiq; no changes desired. Happy with current regimen. Ana's Disease: - Experiences occasional swelling in fingers and toes. Reports that she has not seen rheumatology in many years. She would like to get reestablished with rheum. Anorectal Mass: - Noticed a small mass resembling a BB at the edge of the anus; suspects a cyst. 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 Pulmonary sarcoidosis. Has not seen pulmonology in years. No problems, but would like to get reestablished. 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 Baumann-PSVT ARTHROSCOPY KNEE DIAGNOSTIC W/WO SYNOVIAL BX SPX Left 1973 DELIVERY ONLY 1982,1986 , low transverse CHOLECYSTECTOMY Cholecystectomy COLONOSCOPY 2012, 2015 COLONOSCOPY FLX DX W/COLLJ SPEC WHEN PFRMD 03/31/2020 Colonoscopy COLSC FLX W/RMVL OF TUMOR POLYP LESION SNARE TQ 12/12/2009 Multiple polyps,diverticulosis EYE SURGERY HX Left 2017 cataract TONSILLECTOMY HX TOTAL ABDOMINAL HYSTERECT W/WO RMVL TUBE OVARY Hysterectomy, BRIE TOTAL KNEE REPLACEMENT Left 06/06/2021 Left total knee arthroplasty VAGINAL HYSTERECTOMY ALLERGIES Shellfish Derived, Amoxicillin, Codeine, Iodine, and Lisinopril MEDICATIONS Current Outpatient Medications Medication Sig desvenlafaxine ER (PRISTIQ) 25 mg 24 hr tablet Take 1 tablet by mouth once daily. Take with additional 50 mg tablet. levothyroxine (SYNTHROID) 25 mcg tablet Take 1 tablet by mouth once daily. Take on empty stomach. For thyroid. difluprednate (DUREZOL) 0.05 % ophthalmic suspension Use 1 Drop in both eyes four times daily. fluticasone (FLONASE) 50 mcg/actuation nasal spray Use 2 Sprays in each nostril once daily. Rinse mouth after use. fluticasone (FLONASE) 50 mcg/actuation nasal spray Use 2 Sprays in each nostril once daily. Rinse mouth after use. amLODIPine (NORVASC) 5 mg tablet Take 1 tablet by mouth once daily. desvenlafaxine ER (PRISTIQ) 50 mg 24 hr tablet Take 1 tablet by mouth once daily. No current facility-administered medications for this visit. FAMILY HISTORY Problem Relation Age of Onset Cancer Father lung Diabetes Mother Coronary Artery Disease Mother multiple interventions, but has severe diabetes Colon Cancer Other none Thyroid Maternal Grandmother Social History Tobacco Use Smoking status: Never Smokeless tobacco: Never Vaping Use Vaping status: Never Used Substance Use Topics Alcohol use: No Drug use: No REVIEW OF SYSTEMS Head: (-) headache Cardiovascular: (-) chest pain, (-) palpitations, (-) pedal edema Respiratory: (-) shortness of breath Gastrointestinal: (+) anal lesion (?BB?-sized bump) Musculoskeletal: (+) intermittent finger swelling, (+) intermittent toe swelling Neurological: (-) dizziness Endocrine: (-) heat intolerance, (-) cold intolerance, (-) hair loss EXAM: BP 138/78 Pulse 87 Resp 16 Wt 78 kg (172 lb) SpO2 96% BMI 28.31 kg/m? PHYSICAL EXAM: General Appearance: Well appearing, alert, in no acute distress, well-hydrated, well nourished.. Skin: Skin color, texture, turgor normal, no suspicious rashes or lesions. Head: Normocephalic, no masses, lesions, tenderness or abnormalities. Eyes: Anicteric sclera. Extraocular movements are intact. . Neck: Supple, no adenopathy; thyroid symmetric, normal size, no bruits. Lungs: Lungs clear to auscultation. No wheezing, rhonchi, rales.. Heart: RRR without murmur, gallop, or rubs. No ectopy Abdomen: Abdomen soft, non-tender. B (more content not included)... [facility] 10-25-2024 History of Presen t illness Narrative This is a 69 year old female who presents today with: Rose Marie is a 69-year-old female with a history of tachycardia, depression, and Ana's disease, presenting for medication management and referrals to cardiology, pulmonology, gynecology, and rheumatology. HISTORY OF PRESENT ILLNESS: Medication Management: - Taking Pristiq 50 mg and 25 mg daily; requests refill. - Taking thyroid medication; last labs in February. - Taking amlodipine; denies chest pain, dyspnea, palpitations, peripheral edema, headaches, or dizziness. - Blood pressure well-controlled; notes elevation with cold tablets. - A1c consistently between 5.9-6.1. Tachycardia: - History of tachycardia, treated with ablation; no episodes since. - Consumes coffee and occasional Mountain Dew; avoids excessive caffeine. She hasn't seen cardiology in many years and would like to get reestablished. Depression: - Well-managed with Pristiq; no changes desired. Happy with current regimen. Ana's Disease: - Experiences occasional swelling in fingers and toes. Reports that she has not seen rheumatology in many years. She would like to get reestablished with rheum. Anorectal Mass: - Noticed a small mass resembling a BB at the edge of the anus; suspects a cyst. 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 Pulmonary sarcoidosis. Has not seen pulmonology in years. No problems, but would like to get reestablished. 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 Baumann-PSVT ARTHROSCOPY KNEE DIAGNOSTIC W/WO SYNOVIAL BX SPX Left 1973 DELIVERY ONLY 1982,1986 , low transverse CHOLECYSTECTOMY Cholecystectomy COLONOSCOPY 2012, 2015 COLONOSCOPY FLX DX W/COLLJ SPEC WHEN PFRMD 03/31/2020 Colonoscopy COLSC FLX W/RMVL OF TUMOR POLYP LESION SNARE TQ 12/12/2009 Multiple polyps,diverticulosis EYE SURGERY HX Left 2017 cataract TONSILLECTOMY HX TOTAL ABDOMINAL HYSTERECT W/WO RMVL TUBE OVARY Hysterectomy, BRIE TOTAL KNEE REPLACEMENT Left 06/06/2021 Left total knee arthroplasty VAGINAL HYSTERECTOMY ALLERGIES Shellfish Derived, Amoxicillin, Codeine, Iodine, and Lisinopril MEDICATIONS Current Outpatient Medications Medication Sig desvenlafaxine ER (PRISTIQ) 25 mg 24 hr tablet Take 1 tablet by mouth once daily. Take with additional 50 mg tablet. levothyroxine (SYNTHROID) 25 mcg tablet Take 1 tablet by mouth once daily. Take on empty stomach. For thyroid. difluprednate (DUREZOL) 0.05 % ophthalmic suspension Use 1 Drop in both eyes four times daily. fluticasone (FLONASE) 50 mcg/actuation nasal spray Use 2 Sprays in each nostril once daily. Rinse mouth after use. fluticasone (FLONASE) 50 mcg/actuation nasal spray Use 2 Sprays in each nostril once daily. Rinse mouth after use. amLODIPine (NORVASC) 5 mg tablet Take 1 tablet by mouth once daily. desvenlafaxine ER (PRISTIQ) 50 mg 24 hr tablet Take 1 tablet by mouth once daily. No current facility-administered medications for this visit. FAMILY HISTORY Problem Relation Age of Onset Cancer Father lung Diabetes Mother Coronary Artery Disease Mother multiple interventions, but has severe diabetes Colon Cancer Other none Thyroid Maternal Grandmother Social History Tobacco Use Smoking status: Never Smokeless tobacco: Never Vaping Use Vaping status: Never Used Substance Use Topics Alcohol use: No Drug use: No REVIEW OF SYSTEMS Head: (-) headache Cardiovascular: (-) chest pain, (-) palpitations, (-) pedal edema Respiratory: (-) shortness of breath Gastrointestinal: (+) anal lesion ( BB -sized bump) Musculoskeletal: (+) intermittent finger swelling, (+) intermittent toe swelling Neurological: (-) dizziness Endocrine: (-) heat intolerance, (-) cold intolerance, (-) hair loss EXAM: BP 138/78 Pulse 87 Resp 16 Wt 78 kg (172 lb) SpO2 96% BMI 28.31 kg/m PHYSICAL EXAM: General Appearance: Well appearing, alert, in no acute distress, well-hydrated, well nourished.. Skin: Skin color, texture, turgor normal, no suspicious rashes or lesions. Head: Normocephalic, no masses, lesions, tenderness or abnormalities. Eyes: Anicteric sclera. Extraocular movements are intact. . Neck: Supple, no adenopathy; thyroid symmetric, normal size, no bruits. Lungs: Lungs clear to auscultation. No wheezing, rhonchi, rales.. Heart: RRR without murmur, gallop, or rubs. No ectopy Abdomen: Abdomen soft, non-tender. Bowel sounds normal. No masses, organomegaly. Extremities: No deformities, edema, skin discoloration, clubbing or cyanosis. Good capillary refill. . Neurologic: Gait normal. ASSESSMENT/PLAN 1. Recurrent major depression in partial remission (F33.41) - Stable on Pristiq 50 mg and 25 mg daily. - Refilled Pristiq. 2. PSVT (paroxysmal supraventricular tachycardia) (HCC) (I47.10) - No episodes since ablation. - No chest pain, dyspnea, or palpitations reported. - Referral to cardiology placed. 3. Ana's disease (HCC) (M02.30) - Occasional swelling in fingers and toes. - Referral to rheumatology placed. 4. Skin lesion (L98.9) - Small palpable mass near the anus, likely a cyst. - Referral to gynecology placed for further evaluation -- also requesting routine job interviewer care. 5. 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 Sadia Riley in [place]. 6. Prediabetes (R73.03) - A1c 6.1%, consistent with previous readings between 5.9-6.1%. - Advised dietary modifications focusing on reducing carbohydrates and sugars. - Ordered fasting labs including A1c. 7. Mixed hyperlipidemia (E78.2) - Ordered fasting lipid panel. 8. Subclinical hypothyroidism (E03.8) - No symptoms of heat or cold intolerance, or hair loss/breaking. - Ordered thyroid function tests. Discussed treatment plan and patient voices understanding. Patient's questions answered appropriately. Medications and potential side effects were discussed and patient voices understanding. Return to the office as scheduled or as needed for worsening/no improvement. Sharda Sneed APRN.SALES FACILITATOR Recording using Sooligan software for draft documentation of the visit was discussed with the patient/authorized sales representative consultant; all questions welcomed and answered. Patient/authorized sales representative consultant agreed to proceed documented in this encounter [facility] 10-25-2024 Instructions Sharda Sneed APRN.ROCÍO - 10/25/2024 3:33 PM EDT Your refill for Pristiq has been processed; continue taking it first thing in the morning along with your thyroid medication. Fasting labs (CBC, CMP, A1c, cholesterol panel, and thyroid labs) have been ordered. When you come in for these tests, please fast for 10-12 hours (water and black coffee are allowed). The order is good for 2 months. A referral has been placed for cardiology -- you should be able to call in to schedule. A referral has been made to pulmonology. You will be seen by Dr. Sadia Riley in [place]. A referral to rheumatology is in place (Dr. Lara in [place]). A referral to gynecology has been ordered. Continue monitoring your sugar intake by watching carbohydrates and sugars to help manage your A1c in the pre-diabetic range. documented in this encounter [facility] 09-29-2024 Note HNO ID: [id number] Author: SADIA MITCHELL MA Service: ? Author Type: Poultry Farmer Egg Type: Progress Notes Filed: 09/29/2024 11:19 Note Text: POPULATION HEALTH NAVIGATION OUTREACH Action/September 29, 2024 11:15 AM [employer] High Risk Attempt Two [place] PCSA ~Patient is scheduled for follow up with Zoë Sneed CNP on October 18, 2024 Mammogram Screening due on 02/17/2025 Outcome: Left second message for patient to return call, thank you Reason for Outreach Care Gap/HCC or Scheduling Wellness Visits Care Gaps due: Medicare Annual Wellness Visit Breast Cancer Screening Patient Contacted: Unable or unnecessary to reach patient: Left message Navigation Signature: Sadia Mitchell MA September 29, 2024 11:[address] [facility] 09-29-2024 History of Presen t illness Narrative POPULATION HEALTH NAVIGATION OUTREACH Action/September 29, 2024 11:15 AM [employer] High Risk Attempt [facility] [place] PCSA ~Patient is scheduled for follow up with Zoë Sneed CNP on October 18, 2024 Mammogram Screening due on 02/17/2025 Outcome: Left second message for patient to return call, thank you Reason for Outreach Care Gap/HCC or Scheduling Wellness Visits Care Gaps due: Medicare Annual Wellness Visit Breast Cancer Screening Patient Contacted: Unable or unnecessary to reach patient: Left message Navigation Signature: Sadia Mitchell MA September 29, 2024 11:15 AM documented in this encounter [facility] 09-29-2024 Note Patient Outreach (JOHNNY MELO) ROSE MARIE ROYAL ([id number]) 1955 F Date Time Provider Department 09/29/24 SADIA MITCHELL During your visit today, we recorded the following information about you: Sadia Mitchell MA 09/29/2024 11:19 AM Signed POPULATION HEALTH NAVIGATION OUTREACH Action/FYI September 29, 2024 11:15 AM [employer] High Risk Attempt Two [place] PCSA ~Patient is scheduled for follow up with Zoë Sneed CNP on October 18, 2024 Mammogram Screening due on 02/17/2025 Outcome: Left second message for patient to return call, thank you Reason for Outreach Care Gap/HCC or Scheduling Wellness Visits Care Gaps due: Medicare Annual Wellness Visit Breast Cancer Screening Patient Contacted: Unable or unnecessary to reach patient: Left message Navigation Signature: Sadia Mitchell MA September 29, 2024 11:15 AM Allergies As of Date: 09/29/2024 Noted Allergy Reaction SHELLFISH DERIVED 07/31/2023 4 - Hives Comments: All seafood makes her sick AMOXICILLIN 03/27/2005 2 - Rash CODEINE 09/10/2005 11 - Vomiting IODINE 03/27/2005 4 - Hives LISINOPRIL 12/29/2020 2 - Rash Date Reviewed: 07/08/2024 Reviewed by: Mickie Moore LPN - Fully Assessed Reason for Visit: Population Health Navigation Outreach [3910] Cmt: [employer] High Risk Attempt Two [place] PCSA Prescriptions as of 09/29/2024 - levothyroxine (SYNTHROID) 25 mcg tablet Take 1 tablet by mouth once daily. Take on empty stomach. For thyroid. - difluprednate (DUREZOL) 0.05 % ophthalmic suspension Use 1 Drop in both eyes four times daily. - fluticasone (FLONASE) 50 mcg/actuation nasal spray Use 2 Sprays in each nostril once daily. Rinse mouth after use. - fluticasone (FLONASE) 50 mcg/actuation nasal spray Use 2 Sprays in each nostril once daily. Rinse mouth after use. - desvenlafaxine ER (PRISTIQ) 25 mg 24 hr tablet Take 1 tablet by mouth once daily. Take with additional 50 mg tablet. - amLODIPine (NORVASC) 5 mg tablet Take 1 tablet by mouth once daily. - desvenlafaxine ER (PRISTIQ) 50 mg 24 hr tablet Take 1 tablet by mouth once daily. 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*08/25/2006 Routine gynecological examination [Z01.419] 02/06/2009 04/16/2022 Class: Chronic Diverticulosis of colon [K57.30] 12/12/2009 Recurrent major depression in partial remission*05/22/2010 Personal history of colonic polyps [Z86.0100] 04/06/2012 Elevated cholesterol [E78.00] 06/24/2012 IRB # [id number]: [employer] ICY-AVNRT Study [Z00.6] 09/29/2013 Ana's disease of low back (HCC) [M02.38] 11/25/2013 03/06/2020 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 09-16-2024 Telephone encounter Note Patient has been identified by name and date of : Yes, Provider Sharda Miguel Date 09/16/24 Time 10:30 Patient phones for refill(s): Requested Prescriptions Pending Prescriptions Disp Refills levothyroxine (SYNTHROID) 25 mcg tablet 90 tablet 3 Sig: Take 1 tablet by mouth once daily. Take on empty stomach. For thyroid. Date of last office visit in primary care: 04/19/24 Date of next office visit in primary care: 10/18/24 Please advise. Thank you. Lesvia Page. [facility] 09-16-2024 Miscellaneous Notes Patient has been identified by name and date of : Yes, Provider Sharda Miguel Date 09/16/24 Time 10:30 Patient phones for refill(s): Requested Prescriptions Pending Prescriptions Disp Refills levothyroxine (SYNTHROID) 25 mcg tablet 90 tablet 3 Sig: Take 1 tablet by mouth once daily. Take on empty stomach. For thyroid. Date of last office visit in primary care: 04/19/24 Date of next office visit in primary care: 10/18/24 Please advise. Thank you. Lesvia Page. documented in this encounter [facility] 09-14-2024 Note HNO ID: [id number] Author: RADHA ESPINOZA MA Service: ? Author Type: Poultry Farmer Egg Type: Progress Notes Filed: 09/14/2024 13:15 Note Text: POPULATION HEALTH NAVIGATION OUTREACH Action/FYI - [employer] High Risk - 1st attempt Next office visit: 10/18/24 - follow up Mammogram Screening due on 02/17/2025 Voicemail message left and Mychart message sent offering to assist in scheduling AWV and mammogram. Reason for Outreach Care Gap/HCC or Scheduling Wellness Visits Care Gaps due: Medicare Annual Wellness Visit Breast Cancer Screening Patient Contacted: Unable or unnecessary to reach patient: Left message MyChart message sent Navigation Signature: Rdaha Espinoza MA September 14, 2024 1:[address] [facility] 09-14-2024 History of Presen t illness Narrative POPULATION HEALTH NAVIGATION OUTREACH Action/FYI - [employer] High Risk - 1st attempt Next office visit: 10/18/24 - follow up Mammogram Screening due on 02/17/2025 Voicemail message left and Mychart message sent offering to assist in scheduling AWV and mammogram. Reason for Outreach Care Gap/HCC or Scheduling Wellness Visits Care Gaps due: Medicare Annual Wellness Visit Breast Cancer Screening Patient Contacted: Unable or unnecessary to reach patient: Left message Quat-Ehart message sent Navigation Signature: Radha Espinoza MA September 14, 2024 1:07 PM documented in this encounter [facility] 09-14-2024 Note Patient Outreach (NE TNAV) ROSE MARIE ROYAL ([id number]) 1955 F Date Time Provider Department 09/14/24 RADHA ESPINOZA During your visit today, we recorded the following information about you: Radha Espinoza MA 09/14/2024 1:15 PM Signed POPULATION HEALTH NAVIGATION OUTREACH Action/FYI - [employer] High Risk - 1st attempt Next office visit: 10/18/24 - follow up Mammogram Screening due on 02/17/2025 Voicemail message left and Mychart message sent offering to assist in scheduling AWV and mammogram. Reason for Outreach Care Gap/HCC or Scheduling Wellness Visits Care Gaps due: Medicare Annual Wellness Visit Breast Cancer Screening Patient Contacted: Unable or unnecessary to reach patient: Left message Moreboatst message sent Navigation Signature: Radha Espinoza MA September 14, 2024 1:07 PM Allergies As of Date: 09/14/2024 Noted Allergy Reaction SHELLFISH DERIVED 07/31/2023 4 - Hives Comments: All seafood makes her sick AMOXICILLIN 03/27/2005 2 - Rash CODEINE 09/10/2005 11 - Vomiting IODINE 03/27/2005 4 - Hives LISINOPRIL 12/29/2020 2 - Rash Date Reviewed: 07/08/2024 Reviewed by: Mickie Moore LPN - Fully Assessed Reason for Visit: Population Health Navigation Outreach [3910] Cmt: [employer] High Risk - 1st attempt Primary Visit Diagnosis:Encounter for screening mammogram for malignant neoplasm of breast [Z12.31] Prescriptions as of 09/14/2024 - difluprednate (DUREZOL) 0.05 % ophthalmic suspension Use 1 Drop in both eyes four times daily. - fluticasone (FLONASE) 50 mcg/actuation nasal spray Use 2 Sprays in each nostril once daily. Rinse mouth after use. - fluticasone (FLONASE) 50 mcg/actuation nasal spray Use 2 Sprays in each nostril once daily. Rinse mouth after use. - desvenlafaxine ER (PRISTIQ) 25 mg 24 hr tablet Take 1 tablet by mouth once daily. Take with additional 50 mg tablet. - amLODIPine (NORVASC) 5 mg tablet Take 1 tablet by mouth once daily. - desvenlafaxine ER (PRISTIQ) 50 mg 24 hr tablet Take 1 tablet by mouth once daily. - levothyroxine (SYNTHROID) 25 mcg tablet Take 1 tablet by mouth once daily. Take on empty stomach. For thyroid. 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 07-08-2024 History of Presen t illness Narrative This note was created using RubyRideriter. Subjective Rose Marie Samanta Drummond is a 69 year old female. 69 year old female with PMH PSVT, RODRIGUEZ, sarcoidosis, Ana's, hypothyroid presents for illness. Acute onset one week ago +sinus pressure +post nasal drainage +cough Non productive +eye redness and drainage Denies SOB Denies dyspnea Denies abdominal pain Denies N/V/D The history is provided by the patient. No health policy manager was used. Sinus Problem This is a new problem. The current episode started 1 to 4 weeks ago. The problem occurs constantly. The problem has been unchanged. Associated symptoms include congestion, coughing, headaches and a sore throat. Pertinent negatives include no abdominal pain, anorexia, arthralgias, change in bowel habit, chest pain, fatigue, fever, joint swelling, myalgias, nausea, neck pain, rash, swollen glands, urinary symptoms, vomiting or weakness. Nothing aggravates the symptoms. She has tried nothing for the symptoms. The treatment provided no relief. 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 Baumann-PSVT ARTHROSCOPY KNEE DIAGNOSTIC W/WO SYNOVIAL BX SPX Left 1973 DELIVERY ONLY 1982,1986 , low transverse CHOLECYSTECTOMY Cholecystectomy COLONOSCOPY 2012, 2015 COLONOSCOPY FLX DX W/COLLJ SPEC WHEN PFRMD 03/31/2020 Colonoscopy COLSC FLX W/RMVL OF TUMOR POLYP LESION SNARE TQ 12/12/2009 Multiple polyps,diverticulosis EYE SURGERY HX Left 2017 cataract TONSILLECTOMY HX TOTAL ABDOMINAL HYSTERECT W/WO RMVL TUBE OVARY Hysterectomy, BRIE TOTAL KNEE REPLACEMENT Left 06/06/2021 Left total knee arthroplasty VAGINAL HYSTERECTOMY ALLERGIES Shellfish Derived, Amoxicillin, Codeine, Iodine, and Lisinopril MEDICATIONS difluprednate (DUREZOL) 0.05 % ophthalmic suspension Use 1 Drop in both eyes four times daily. fluticasone (FLONASE) 50 mcg/actuation nasal spray Use 2 Sprays in each nostril once daily. Rinse mouth after use. desvenlafaxine ER (PRISTIQ) 25 mg 24 hr tablet Take 1 tablet by mouth once daily. Take with additional 50 mg tablet. amLODIPine (NORVASC) 5 mg tablet Take 1 tablet by mouth once daily. desvenlafaxine ER (PRISTIQ) 50 mg 24 hr tablet Take 1 tablet by mouth once daily. levothyroxine (SYNTHROID) 25 mcg tablet Take 1 tablet by mouth once daily. Take on empty stomach. For thyroid. fluticasone (FLONASE) 50 mcg/actuation nasal spray Use 2 Sprays in each nostril once daily. Rinse mouth after use. erythromycin (ROMYCIN) 5 mg/gram (0.5 %) ophthalmic ointment Use 1 application in both eyes four times daily for 7 days. FAMILY HISTORY Problem Relation Age of Onset Cancer Father lung Diabetes Mother Coronary Artery Disease Mother multiple interventions, but has severe diabetes Colon Cancer Other none Thyroid Maternal Grandmother Social History Tobacco Use Smoking status: Never Smokeless tobacco: Never Vaping Use Vaping status: Never Used Substance Use Topics Alcohol use: No Drug use: No Review of Systems Constitutional: Negative for activity change, appetite change, fatigue and fever. HENT: Positive for congestion, postnasal drip, rhinorrhea, sinus pressure, sinus pain and sore throat. Eyes: Positive for discharge and redness. Negative for pain and itching. Eye lid matting Respiratory: Positive for cough. Negative for apnea, choking and chest tightness. Cardiovascular: Negative for chest pain. Gastrointestinal: Negative for abdominal pain, anorexia, change in bowel habit, nausea and vomiting. Musculoskeletal: Negative for arthralgias, joint swelling, myalgias and neck pain. Skin: Negative for rash. Allergic/Immunologic: Negative for environmental allergies, food allergies and immunocompromised state. Neurological: Positive for headaches. Negative for dizziness, facial asymmetry and weakness. Hematological: Negative for adenopathy. Does not bruise/bleed easily. Psychiatric/Behavioral: Negative for agitation and behavioral problems. Objective BP 157/73 Pulse 81 Temp 37.1 C (98.7 F) Resp 20 Wt 75.7 kg (166 lb 14.2 oz) SpO2 97% BMI 27.47 kg/m Physical Exam Vitals and nursing note reviewed. Constitutional: General: She is not in acute distress. Appearance: Normal appearance. She is normal weight. She is not ill-appearing, toxic-appearing or diaphoretic. HENT: Head: Normocephalic and atraumatic. Right Ear: Ear canal and external ear normal. Left Ear: Ear canal and external ear normal. Nose: Congestion present. No rhinorrhea. Mouth/Throat: Mouth: Mucous membranes are moist. Pharynx: Posterior oropharyngeal erythema present. No oropharyngeal exudate. Eyes: General: Right eye: No discharge. Left eye: Discharge present. Extraocular Movements: Extraocular movements intact. Conjunctiva/sclera: Conjunctivae normal. Pupils: Pupils are equal, round, and reactive to light. Comments: Vision grossly intact OS injected PERRLA EOM intact +red reflex Cardiovascular: Rate and Rhythm: Normal rate and regular rhythm. Pulses: Normal pulses. Heart sounds: Normal heart sounds. No murmur heard. No friction rub. Pulmonary: Effort: Pulmonary effort is normal. No respiratory distress. Breath sounds: Normal breath sounds. No stridor. No wheezing, rhonchi or rales. Chest: Chest wall: No tenderness. Abdominal: General: Abdomen is flat. There is no distension. Palpations: Abdomen is soft. There is no mass. Tenderness: There is no abdominal tenderness. There is no right CVA tenderness, left CVA tenderness, guarding or rebound. Hernia: No hernia is present. Musculoskeletal: General: No swelling, tenderness, deformity or signs of injury. Normal range of motion. Cervical back: Normal range of motion and neck supple. No rigidity. Right lower leg: No edema. Left lower leg: No edema. Lymphadenopathy: Cervical: No cervical adenopathy. Skin: General: Skin is warm and dry. Coloration: Skin is not jaundiced or pale. Findings: No bruising, erythema, lesion or rash. Neurological: General: No focal deficit present. Mental Status: She is alert and oriented to person, place, and time. Cranial Nerves: No cranial nerve deficit. Sensory: No sensory deficit. Motor: No weakness. Coordination: Coordination normal. Gait: Gait normal. Psychiatric: Mood and Affect: Mood normal. Behavior: Behavior normal. Thought Content: Thought content normal. Judgment: Judgment normal. Assessment and Plan ASSESSMENT/PLAN: 1. Conjunctivitis of left eye, unspecified conjunctivitis type - ICD9: 372.30, ICD10: H10.9 (primary diagnosis) - see medication orders - course and contagiousness issues discussed, including hand washing. - Instructed to call if high fever, development of periorbital redness or swelling, eye pain, visual changes, concerns or if symptoms persist. 2. Rhinosinusitis - ICD9: 473.9, ICD10: J32.9 X 1 week RX Flonase - The patient should also be given OTC cough and cold meds as needed, warm salt water gargles, throat lozenges and/or OTC throat spray as needed, and nasal saline gtts and suction prn for the first 5-7 days of treatment. - Supportive care with plenty of fluids, rest, and analgesia prn. - Follow up in 3-5 days if symptoms persist or worsen. 3. Acute cough - ICD9: 786.2, ICD10: R05.1 Ongoing States same cough that was present in June CXR negative then She was on ATB Lungs CTA Farzana Boston APRN.SALES FACILITATOR documented in this encounter [facility] 07-08-2024 Note HNO ID: [id number] Author: FARZANA BOSTON APRN.CNP Service: ? Author Type: Nurse Practitioner Type: Progress Notes Filed: 07/08/2024 18:27 Note Text: This note was created using RubyRideriter. Subjective Rose Marie Drummond is a 69 year old female. 69 year old female with PMH PSVT, RODRIGUEZ, sarcoidosis, Ana's, hypothyroid presents for illness. Acute onset one week ago +sinus pressure +post nasal drainage +cough Non productive +eye redness and drainage Denies SOB Denies dyspnea Denies abdominal pain Denies N/V/D The history is provided by the patient. No health policy manager was used. Sinus Problem This is a new problem. The current episode started 1 to 4 weeks ago. The problem occurs constantly. The problem has been unchanged. Associated symptoms include congestion, coughing, headaches and a sore throat. Pertinent negatives include no abdominal pain, anorexia, arthralgias, change in bowel habit, chest pain, fatigue, fever, joint swelling, myalgias, nausea, neck pain, rash, swollen glands, urinary symptoms, vomiting or weakness. Nothing aggravates the symptoms. She has tried nothing for the symptoms. The treatment provided no relief. 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 Baumann-PSVT ARTHROSCOPY KNEE DIAGNOSTIC W/WO SYNOVIAL BX SPX Left 1973 DELIVERY ONLY 1982,1986 , low transverse CHOLECYSTECTOMY Cholecystectomy COLONOSCOPY 2012, 2015 COLONOSCOPY FLX DX W/COLLJ SPEC WHEN PFRMD 03/31/2020 Colonoscopy COLSC FLX W/RMVL OF TUMOR POLYP LESION SNARE TQ 12/12/2009 Multiple polyps,diverticulosis EYE SURGERY HX Left 2017 cataract TONSILLECTOMY HX TOTAL ABDOMINAL HYSTERECT W/WO RMVL TUBE OVARY Hysterectomy, BRIE TOTAL KNEE REPLACEMENT Left 06/06/2021 Left total knee arthroplasty VAGINAL HYSTERECTOMY ALLERGIES Shellfish Derived, Amoxicillin, Codeine, Iodine, and Lisinopril MEDICATIONS difluprednate (DUREZOL) 0.05 % ophthalmic suspension Use 1 Drop in both eyes four times daily. fluticasone (FLONASE) 50 mcg/actuation nasal spray Use 2 Sprays in each nostril once daily. Rinse mouth after use. desvenlafaxine ER (PRISTIQ) 25 mg 24 hr tablet Take 1 tablet by mouth once daily. Take with additional 50 mg tablet. amLODIPine (NORVASC) 5 mg tablet Take 1 tablet by mouth once daily. desvenlafaxine ER (PRISTIQ) 50 mg 24 hr tablet Take 1 tablet by mouth once daily. levothyroxine (SYNTHROID) 25 mcg tablet Take 1 tablet by mouth once daily. Take on empty stomach. For thyroid. fluticasone (FLONASE) 50 mcg/actuation nasal spray Use 2 Sprays in each nostril once daily. Rinse mouth after use. erythromycin (ROMYCIN) 5 mg/gram (0.5 %) ophthalmic ointment Use 1 application in both eyes four times daily for 7 days. FAMILY HISTORY Problem Relation Age of Onset Cancer Father lung Diabetes Mother Coronary Artery Disease Mother multiple interventions, but has severe diabetes Colon Cancer Other none Thyroid Maternal Grandmother Social History Tobacco Use Smoking status: Never Smokeless tobacco: Never Vaping Use Vaping status: Never Used Substance Use Topics Alcohol use: No Drug use: No Review of Systems Constitutional: Negative for activity change, appetite change, fatigue and fever. HENT: Positive for congestion, postnasal drip, rhinorrhea, sinus pressure, sinus pain and sore throat. Eyes: Positive for discharge and redness. Negative for pain and itching. Eye lid matting Respiratory: Positive for cough. Negative for apnea, choking and chest tightness. Cardiovascular: Negative for chest pain. Gastrointestinal: Negative for abdominal pain, anorexia, change in bowel habit, nausea and vomiting. Musculoskeletal: Negative for arthralgias, joint swelling, myalgias and neck pain. Skin: Negative for rash. Allergic/Immunologic: Negative for environmental allergies, food allergies and immunocompromised state. Neurological: Positive for headaches. Negative for dizziness, facial asymmetry and weakness. Hematological: Negative for adenopathy. Does not bruise/bleed easily. Psychiatric/Behavioral: Negative for agitation and behavioral problems. Objective BP 157/73 Pulse 81 Temp 37.1 ?C (98.7 ?F) Resp 20 Wt 75.7 kg (166 lb 14.2 oz) SpO2 97% BMI 27.47 kg/m? Physical Exam Vitals and nursing note reviewed. Constitutional: General: She is not in acute distress. Appearance: Normal appearance. She is normal weight. She is not ill-appearing, toxic-appearing or diaphoretic. HENT: Head: Normocephalic and atraumatic. Right Ear: Ear canal and external ear n (more content not included)... [facility] 06-14-2024 Instructions Farzana Boston APRN.SALES FACILITATOR - 06/14/2024 9:25 AM EST START USING TESSALON PERLES AND FLONASE. YOU CAN START THE ANTIBIOTIC IF SYMPTOMS DO NOT IMPROVE BY END OF WEEK, IT HAS BEEN PRESCRIBED TO BE PICKED UP 06/18/24 RESPIRATORY INFECTION GENERAL INFORMATION: An upper respiratory tract infection, or cold, is a viral infection of the airway passages. It can be caused by any one of almost 200 different viruses. Common symptoms include a runny or stuffy nose, sneezing, watery eyes, sore throat, cough, and slight fever. Colds are contagious, especially during the first 3 or 4 days and cannot be cured by antibiotics. They are spread by coughs, sneezes, and direct contact, especially [id number]. A respiratory tract infection usually clears up in a few days, but some people may be sick for a week or two. INSTRUCTIONS: 1. Be careful not to blow your nose too hard because this may cause a nosebleed. 2. Use a cool-mist humidifier (vaporizer) to increase air moisture. This will make it easier for you to breathe. Do not use hot steam. 3. Rest as much as possible and get plenty of sleep. 4. Wash your hands often, especially after you blow your nose. Cover your mouth and nose with a tissue when you sneeze or cough. 5. Drink plenty of clear fluids (8 glasses a day) such as water, fruit juice, tea, clear soups, and carbonated beverages. CONTACT YOUR DOCTOR IF : 1. Your fever lasts more than 3 days. 2. You have a sore throat that gets worse or you see white or yellow spots in your throat. 3. Your cough gets worse or lasts more than 10 days. 4. You develop a rash anywhere on your skin. 5. You have an earache or a headache. 6. You have thick greenish or yellowish discharge from your nose. RETURN IMMEDIATELY IF: 1. You cough up thick yellow, green, mata, or bloody sputum. 2. You have difficulty breathing, pain in your chest, or your skin or nails look mata or blue. 3. You have shaking chills or a temperature over 102 F (39 C). documented in this encounter [facility] 06-14-2024 History of Presen t illness Narrative Radiology Service Progress Note PATIENT NAME: Rose Marie Drummond DATE OF SERVICE: June 14, 2024 TIME: 9:02 AM PATIENT IDENTITY VERIFICATION COMPLETED USING TWO (2) IDENTIFIERS: Name and Date of confirmed by patient verbally. FALL SCREENING: Has the patient had 2 falls in the last year or 1 fall with injury or currently using an Ambulatory Assistive Device (Walker, Cane, Wheelchair, Crutches, etc.)? No PATIENT GENDER DATA: Female. status: : No status: NO. PATIENT RELEVANT IMPLANT DATA REVIEWED: Yes PATIENT PRESENTS WITH AN IMPLANTABLE OR ATTACHED BLUNGER LOADER: No RADIOLOGY DEPARTMENT: General X-ray: Exam(s) Completed: Chest X-Ray PERIPHERAL IV DATA: Not applicable SIGNED BY: RT Chava(Felicia) June 14, 2024 9:02 AM documented in this encounter [facility] 06-14-2024 Note HNO ID: [id number] Author: XIMENA SPEARS RT(R) Service: ? Author Type: Osteopathic Medicine Teacher Type: Progress Notes Filed: 06/14/2024 09:08 Note Text: Radiology Service Progress Note PATIENT NAME: Rose Marie Drummond DATE OF SERVICE: June 14, 2024 TIME: 9:02 AM PATIENT IDENTITY VERIFICATION COMPLETED USING TWO (2) IDENTIFIERS: Name and Date of confirmed by patient verbally. FALL SCREENING: Has the patient had 2 falls in the last year or 1 fall with injury or currently using an Ambulatory Assistive Device (Walker, Cane, Wheelchair, Crutches, etc.)? No PATIENT GENDER DATA: Female. status: : No status: NO. PATIENT RELEVANT IMPLANT DATA REVIEWED: Yes PATIENT PRESENTS WITH AN IMPLANTABLE OR ATTACHED BLUNGER LOADER: No RADIOLOGY DEPARTMENT: General X-ray: Exam(s) Completed: Chest X-Ray PERIPHERAL IV DATA: Not applicable SIGNED BY: Ximena Spears, RT(R) June 14, 2024 9:[address] [facility] 06-14-2024 Note HNO ID: [id number] Author: FARZANA BOSTON APRN.SALES FACILITATOR Service: ? Author Type: Nurse Practitioner Type: Progress Notes Filed: 06/14/2024 09:34 Note Text: This note was created using RubyRideriter. Subjective Rose Marie Drummond is a 69 year old female. 69 year old female with PMH sleep apnea, sarcoidosis, reiters, subclinical thyroid presents for illness. Acute onset 4 days ago +raspy throat. 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 No health policy manager was used. Cough This is a new problem. The current episode started more than 2 days ago. The problem occurs constantly. The problem has not changed since onset.The cough is Non-productive. There has been no fever. Associated symptoms include chills, headaches and rhinorrhea. Pertinent negatives include no chest pain, no sweats, no weight loss, no ear congestion, no ear pain, no sore throat, no myalgias, no shortness of breath, no wheezing and no eye redness. Treatments tried: see HPI. The treatment provided no relief. She is not a smoker. Her past medical history does not include bronchitis, pneumonia, bronchiectasis, COPD, emphysema or asthma. 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 Baumann-PSVT ARTHROSCOPY KNEE DIAGNOSTIC W/WO SYNOVIAL BX SPX Left 1973 DELIVERY ONLY 1982,1986 , low transverse CHOLECYSTECTOMY Cholecystectomy COLONOSCOPY 2012, 2015 COLONOSCOPY FLX DX W/COLLJ SPEC WHEN PFRMD 03/31/2020 Colonoscopy COLSC FLX W/RMVL OF TUMOR POLYP LESION SNARE TQ 12/12/2009 Multiple polyps,diverticulosis EYE SURGERY HX Left 2017 cataract TONSILLECTOMY HX TOTAL ABDOMINAL HYSTERECT W/WO RMVL TUBE OVARY Hysterectomy, BRIE TOTAL KNEE REPLACEMENT Left 06/06/2021 Left total knee arthroplasty VAGINAL HYSTERECTOMY ALLERGIES Shellfish Derived, Amoxicillin, Codeine, Iodine, and Lisinopril MEDICATIONS desvenlafaxine ER (PRISTIQ) 25 mg 24 hr tablet Take 1 tablet by mouth once daily. Take with additional 50 mg tablet. amLODIPine (NORVASC) 5 mg tablet Take 1 tablet by mouth once daily. desvenlafaxine ER (PRISTIQ) 50 mg 24 hr tablet Take 1 tablet by mouth once daily. levothyroxine (SYNTHROID) 25 mcg tablet Take 1 tablet by mouth once daily. Take on empty stomach. For thyroid. benzonatate (TESSALON PERLE) 100 mg capsule Take 1 capsule by mouth three times a day as needed for cough. fluticasone (FLONASE) 50 mcg/actuation nasal spray Use 2 Sprays in each nostril once daily. Rinse mouth after use. [START ON 06/18/2024] doxycycline (VIBRA-TABS) 100 mg tablet Take 1 tablet by mouth two times a day for 7 days. Patient should start on June 18, 2024. FAMILY HISTORY Problem Relation Age of Onset Cancer Father lung Diabetes Mother Coronary Artery Disease Mother multiple interventions, but has severe diabetes Colon Cancer Other none Thyroid Maternal Grandmother Social History Tobacco Use Smoking status: Never Smokeless tobacco: Never Vaping Use Vaping status: Never Used Substance Use Topics Alcohol use: No Drug use: No Review of Systems Constitutional: Positive for chills. Negative for weight loss. HENT: Positive for congestion, rhinorrhea, sinus pressure and sinus pain. Negative for ear pain and sore throat. Eyes: Negative for pain, discharge, redness and itching. Respiratory: Positive for cough. Negative for shortness of breath and wheezing. Cardiovascular: Negative for chest pain. Gastrointestinal: Negative for abdominal pain, diarrhea and vomiting. Musculoskeletal: Negative for myalgias. Skin: Negative for color change, pallor and rash. Allergic/Immunologic: Negative for environmental allergies, food allergies and immunocompromised state. Neurological: Positive for headaches. Hematological: Negative for adenopathy. Does not bruise/bleed easily. Psychiatric/Behavioral: Negative for agitation and behavioral problems. Objective BP 148/84 Pulse 90 Temp 36.8 ?C (98.2 ?F) (Tympanic) Resp 18 Wt 76.1 kg (167 lb 12.3 oz) SpO2 98% BMI 27.62 kg/m? Physical Exam Vitals and nursing note reviewed. Constitutional: General: She is not in acute distress. Appearance: Normal appearance. She is normal weight. She is not ill-appearing, toxic-appearing or diaphoretic. HENT: Head: Normocephalic and atraumatic. Comments: +frontal sinus pressure +maxillary sinus pressure Right Ear: Ear narciso (more content not included)... [facility] 06-14-2024 History of Presen t illness Narrative This note was created using RubyRideriter. Subjective Rose Marie England Felipe Drummond is a 69 year old female. 69 year old female with PMH sleep apnea, sarcoidosis, reiters, subclinical thyroid presents for illness. Acute onset 4 days ago +raspy throat. 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 No health policy manager was used. Cough This is a new problem. The current episode started more than 2 days ago. The problem occurs constantly. The problem has not changed since onset.The cough is Non-productive. There has been no fever. Associated symptoms include chills, headaches and rhinorrhea. Pertinent negatives include no chest pain, no sweats, no weight loss, no ear congestion, no ear pain, no sore throat, no myalgias, no shortness of breath, no wheezing and no eye redness. Treatments tried: see HPI. The treatment provided no relief. She is not a smoker. Her past medical history does not include bronchitis, pneumonia, bronchiectasis, COPD, emphysema or asthma. 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 Baumann-PSVT ARTHROSCOPY KNEE DIAGNOSTIC W/WO SYNOVIAL BX SPX Left 1973 DELIVERY ONLY 1982,1986 , low transverse CHOLECYSTECTOMY Cholecystectomy COLONOSCOPY 2012, 2015 COLONOSCOPY FLX DX W/COLLJ SPEC WHEN PFRMD 03/31/2020 Colonoscopy COLSC FLX W/RMVL OF TUMOR POLYP LESION SNARE TQ 12/12/2009 Multiple polyps,diverticulosis EYE SURGERY HX Left 2017 cataract TONSILLECTOMY HX TOTAL ABDOMINAL HYSTERECT W/WO RMVL TUBE OVARY Hysterectomy, BRIE TOTAL KNEE REPLACEMENT Left 06/06/2021 Left total knee arthroplasty VAGINAL HYSTERECTOMY ALLERGIES Shellfish Derived, Amoxicillin, Codeine, Iodine, and Lisinopril MEDICATIONS desvenlafaxine ER (PRISTIQ) 25 mg 24 hr tablet Take 1 tablet by mouth once daily. Take with additional 50 mg tablet. amLODIPine (NORVASC) 5 mg tablet Take 1 tablet by mouth once daily. desvenlafaxine ER (PRISTIQ) 50 mg 24 hr tablet Take 1 tablet by mouth once daily. levothyroxine (SYNTHROID) 25 mcg tablet Take 1 tablet by mouth once daily. Take on empty stomach. For thyroid. benzonatate (TESSALON PERLE) 100 mg capsule Take 1 capsule by mouth three times a day as needed for cough. fluticasone (FLONASE) 50 mcg/actuation nasal spray Use 2 Sprays in each nostril once daily. Rinse mouth after use. [START ON 06/18/2024] doxycycline (VIBRA-TABS) 100 mg tablet Take 1 tablet by mouth two times a day for 7 days. Patient should start on June 18, 2024. FAMILY HISTORY Problem Relation Age of Onset Cancer Father lung Diabetes Mother Coronary Artery Disease Mother multiple interventions, but has severe diabetes Colon Cancer Other none Thyroid Maternal Grandmother Social History Tobacco Use Smoking status: Never Smokeless tobacco: Never Vaping Use Vaping status: Never Used Substance Use Topics Alcohol use: No Drug use: No Review of Systems Constitutional: Positive for chills. Negative for weight loss. HENT: Positive for congestion, rhinorrhea, sinus pressure and sinus pain. Negative for ear pain and sore throat. Eyes: Negative for pain, discharge, redness and itching. Respiratory: Positive for cough. Negative for shortness of breath and wheezing. Cardiovascular: Negative for chest pain. Gastrointestinal: Negative for abdominal pain, diarrhea and vomiting. Musculoskeletal: Negative for myalgias. Skin: Negative for color change, pallor and rash. Allergic/Immunologic: Negative for environmental allergies, food allergies and immunocompromised state. Neurological: Positive for headaches. Hematological: Negative for adenopathy. Does not bruise/bleed easily. Psychiatric/Behavioral: Negative for agitation and behavioral problems. Objective BP 148/84 Pulse 90 Temp 36.8 C (98.2 F) (Tympanic) Resp 18 Wt 76.1 kg (167 lb 12.3 oz) SpO2 98% BMI 27.62 kg/m Physical Exam Vitals and nursing note reviewed. Constitutional: General: She is not in acute distress. Appearance: Normal appearance. She is normal weight. She is not ill-appearing, toxic-appearing or diaphoretic. HENT: Head: Normocephalic and atraumatic. Comments: +frontal sinus pressure +maxillary sinus pressure Right Ear: Ear canal and external ear normal. Left Ear: Ear canal and external ear normal. Nose: Nose normal. No congestion or rhinorrhea. Mouth/Throat: Mouth: Mucous membranes are moist. Pharynx: Posterior oropharyngeal erythema present. No oropharyngeal exudate. Eyes: General: Right eye: No discharge. Left eye: No discharge. Extraocular Movements: Extraocular movements intact. Conjunctiva/sclera: Conjunctivae normal. Pupils: Pupils are equal, round, and reactive to light. Cardiovascular: Rate and Rhythm: Normal rate and regular rhythm. Pulses: Normal pulses. Heart sounds: Normal heart sounds. No murmur heard. No friction rub. Pulmonary: Effort: Pulmonary effort is normal. No respiratory distress. Breath sounds: Normal breath sounds. No stridor. No wheezing, rhonchi or rales. Chest: Chest wall: No tenderness. Abdominal: General: Abdomen is flat. There is no distension. Palpations: Abdomen is soft. There is no mass. Tenderness: There is no abdominal tenderness. There is no right CVA tenderness, left CVA tenderness, guarding or rebound. Hernia: No hernia is present. Musculoskeletal: General: No swelling, tenderness, deformity or signs of injury. Normal range of motion. Cervical back: Normal range of motion and neck supple. No rigidity. Right lower leg: No edema. Left lower leg: No edema. Lymphadenopathy: Cervical: Cervical adenopathy present. Skin: General: Skin is warm and dry. Coloration: Skin is not jaundiced or pale. Findings: No bruising, erythema, lesion or rash. Neurological: General: No focal deficit present. Mental Status: She is alert and oriented to person, place, and time. Cranial Nerves: No cranial nerve deficit. Sensory: No sensory deficit. Motor: No weakness. Coordination: Coordination normal. Gait: Gait normal. Psychiatric: Mood and Affect: Mood normal. Behavior: Behavior normal. Thought Content: Thought content normal. Judgment: Judgment normal. Assessment and Plan ASSESSMENT/PLAN: 1. Acute cough - ICD9: 786.2, ICD10: R05.1 (primary diagnosis) X 4 days Exposure to pneumonia Lungs CTA No red flags - XR CHEST 2V FRONTAL/LAT-negative for acute process 2. URI, acute - ICD9: 465.9, ICD10: J06.9 X 4 days - Discussed viral etiology and rationale for treatment. - Group A strep molecular testing negative - Symptomatic treatment with prn analgesia - Supportive care with fluids and rest - The patient may also use OTC cough and cold meds as needed, warm salt water gargles, throat lozenges and/or OTC throat spray as needed, and nasal saline gtts and suction prn. - Follow up in 3-5 days if symptoms persist or sooner if worsening of symptoms - Declines flu testing Will provide RX Tessalon RX Flonase Safety net ATB Doxcyline to be filled after 06/18/24 - STREP A MOLECULAR (POC) Farzana Boston APRN.SALES FACILITATOR documented in this encounter [facility] 04-19-2024 Instructions Sharda Sneed APRN.CNP - 04/19/2024 5:07 PM EDT Continue the same medication. Recheck in 6 months. documented in this encounter [facility] 04-19-2024 History of Presen t illness Narrative This is a 69 year old female who presents today with: Patient presents with: Recheck: 1 month follow up- Pristiq increased at last visit HISTORY OF PRESENT ILLNESS: Rose Marie Drummond is a 69 year old female. Patient presents with: Recheck: 1 month follow up- Pristiq increased at last visit Pt presents today to follow-up on recent medication changes. Pristiq was increased to 75 mg. She feels better with current dosage. Happy with regimen. Refers previously when not busy, she would lay in bed. Not doing this any longer. Refers that she is not feeling as overwhelmed. No side effects to the medication. 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 Baumann-PSVT ARTHROSCOPY KNEE DIAGNOSTIC W/WO SYNOVIAL BX SPX Left 1973 DELIVERY ONLY 1982,1986 , low transverse CHOLECYSTECTOMY Cholecystectomy COLONOSCOPY 2012, 2015 COLONOSCOPY FLX DX W/COLLJ SPEC WHEN PFRMD 03/31/2020 Colonoscopy COLSC FLX W/RMVL OF TUMOR POLYP LESION SNARE TQ 12/12/2009 Multiple polyps,diverticulosis EYE SURGERY HX Left 2017 cataract TONSILLECTOMY HX TOTAL ABDOMINAL HYSTERECT W/WO RMVL TUBE OVARY Hysterectomy, BRIE TOTAL KNEE REPLACEMENT Left 06/06/2021 Left total knee arthroplasty VAGINAL HYSTERECTOMY ALLERGIES Shellfish Derived, Amoxicillin, Codeine, Iodine, and Lisinopril MEDICATIONS Current Outpatient Medications Medication Sig amLODIPine (NORVASC) 5 mg tablet Take 1 tablet by mouth once daily. desvenlafaxine ER (PRISTIQ) 50 mg 24 hr tablet Take 1 tablet by mouth once daily. desvenlafaxine ER (PRISTIQ) 25 mg 24 hr tablet Take 1 tablet by mouth once daily. Take with additional 50 mg tablet. levothyroxine (SYNTHROID) 25 mcg tablet Take 1 tablet by mouth once daily. Take on empty stomach. For thyroid. No current facility-administered medications for this visit. FAMILY HISTORY Problem Relation Age of Onset Cancer Father lung Diabetes Mother Coronary Artery Disease Mother multiple interventions, but has severe diabetes Colon Cancer Other none Thyroid Maternal Grandmother Social History Tobacco Use Smoking status: Never Smokeless tobacco: Never Vaping Use Vaping status: Never Used Substance Use Topics Alcohol use: No Drug use: No EXAM: BP 138/74 Pulse 91 Resp 16 SpO2 94% PHYSICAL EXAM: General Appearance: Well appearing, alert, in no acute distress, well-hydrated, well nourished.. Skin: Skin color, texture, turgor normal, no suspicious rashes or lesions. Head: Normocephalic, no masses, lesions, tenderness or abnormalities. Eyes: Anicteric sclera. Extraocular movements are intact. Lungs: Lungs clear to auscultation. No wheezing, rhonchi, rales.. Heart: RRR without murmur, gallop, or rubs. No ectopy. Extremities: No deformities, edema, skin discoloration, clubbing or cyanosis. Good capillary refill. . Neurologic: Gait normal. ASSESSMENT/PLAN: 1. Recurrent major depression in partial remission (HCC) - ICD9: 296.35, ICD10: F33.41 (primary diagnosis) Happy with current medication regimen. Continue without change. Recheck in 6 months. Sooner if needed. - DESVENLAFAXINE SUCCINATE ER 25 MG TABLET,EXTENDED RELEASE 24 HR 2. Encounter for immunization - ICD9: V03.89, ICD10: Z23 - INFLUENZA VACCINE, PRSV FREE, AGE 65+ YR, HIGH DOSE, TRIVALENT (FLUZONE HIGH-DOSE) - PolySuite COVID-19 VACCINE AGE 12+ YR (COMIRNATY) Discussed treatment plan and patient voices understanding. Patient's questions answered appropriately. Medications and potential side effects were discussed and patient voices understanding. Return to the office as scheduled or as needed for worsening/no improvement. Sharda Sneed APRN.SALES FACILITATOR documented in this encounter [facility] 04-14-2024 Telephone encounter Note The following approved medication requests have been transmitted electronically. Requested Prescriptions Pending Prescriptions Disp Refills amLODIPine (NORVASC) 5 mg tablet 90 tablet 3 Sig: Take 1 tablet by mouth once daily. desvenlafaxine ER (PRISTIQ) 50 mg 24 hr tablet 90 tablet 3 Sig: Take 1 tablet by mouth once daily. Regan Díaz APRN.CNP [facility] Work Phone: 04-14-2024 Miscellaneous Notes The following approved medication requests have been transmitted electronically. Requested Prescriptions Pending Prescriptions Disp Refills amLODIPine (NORVASC) 5 mg tablet 90 tablet 3 Sig: Take 1 tablet by mouth once daily. desvenlafaxine ER (PRISTIQ) 50 mg 24 hr tablet 90 tablet 3 Sig: Take 1 tablet by mouth once daily. Regan Díaz APRN.CNP Next Office visit 04/19/24. Nicki Moreno LPN Prescription Refill Information The patient has been identified by name and date of : Yes Caregiver verified no other encounters exist for this prescription request: Yes Caregiver confirmed with patient/requestor that no other refills are due, in the near future, with this provider at this time: Yes The last office visit in the department: 02/09/24 Does the patient have a future office visit with this provider/department: Yes Requested Prescriptions Pending Prescriptions Disp Refills amLODIPine (NORVASC) 5 mg tablet 90 tablet 3 Sig: Take 1 tablet by mouth once daily. desvenlafaxine ER (PRISTIQ) 50 mg 24 hr tablet 90 tablet 3 Sig: Take 1 tablet by mouth once daily. Stefany D Villatoro Pss 2024 3:56 PM documented in this encounter [facility] 04-14-2024 Telephone encounter Note Next Office visit 04/19/24. Nicki Moreno LPN [facility] 2024 Telephone encounter Note Prescription Refill Information The patient has been identified by name and date of : Yes Caregiver verified no other encounters exist for this prescription request: Yes Caregiver confirmed with patient/requestor that no other refills are due, in the near future, with this provider at this time: Yes The last office visit in the department: 02/09/24 Does the patient have a future office visit with this provider/department: Yes Requested Prescriptions Pending Prescriptions Disp Refills amLODIPine (NORVASC) 5 mg tablet 90 tablet 3 Sig: Take 1 tablet by mouth once daily. desvenlafaxine ER (PRISTIQ) 50 mg 24 hr tablet 90 tablet 3 Sig: Take 1 tablet by mouth once daily. Stefany Villatoro [facility] 2024 3:56 PM [facility] 03-04-2024 Telephone encounter Note Pt notified of results via [employer]. Jen Montana Ma [facility] 03-04-2024 Miscellaneous Notes Pt notified of results via [employer]. Jen Montana Ma TC to pt. LM to call office, ask for triage nurse to get results. Kelly Anderson LPN Can you please call the patient and let her know that I reviewed her left breast ultrasound results. Ultrasound showed no evidence of malignancy however there was a oval simple cyst noted. Radiology is recommending to return back to annual mammogram screening. Please let me know if she has any questions. Thank you. Sera Steven APRN.ROCÍO documented in this encounter [facility] 02-26-2024 Telephone encounter Note TC to pt. LM to call office, ask for triage nurse to get results. Kelly Anderson LPN [facility] 02-26-2024 Telephone encounter Note Can you please call the patient and let her know that I reviewed her left breast ultrasound results. Ultrasound showed no evidence of malignancy however there was a oval simple cyst noted. Radiology is recommending to return back to annual mammogram screening. Please let me know if she has any questions. Thank you. Sera Steven APRN.SALES FACILITATOR [facility] 02-19-2024 Telephone encounter Note Pt returned call and given provider's message below with verbalized understanding. Patient reports she already scheduled the diagnostic imaging. [facility] 02-19-2024 Miscellaneous Notes Pt returned call and given provider's message below with verbalized understanding. Patient reports she already scheduled the diagnostic imaging. TC to pt. LM to call office, ask for triage nurse to get results. Kelly Anderson LPN Can you please call the patient and let her know that I reviewed her mammogram results. Mammogram showed a oval mass in the left breast, radiology is recommending further evaluation. I would like her to get a repeat diagnostic mammogram and breast ultrasound. She can call in and schedule these appointments at her convenience. Please let me know if she has any questions. Thank you. Sera Steven APRN.CNP documented in this encounter [facility] 02-18-2024 Telephone encounter Note TC to pt. LM to call office, ask for triage nurse to get results. Kelly Anderson LPN [facility] 02-18-2024 Telephone encounter Note Can you please call the patient and let her know that I reviewed her mammogram results. Mammogram showed a oval mass in the left breast, radiology is recommending further evaluation. I would like her to get a repeat diagnostic mammogram and breast ultrasound. She can call in and schedule these appointments at her convenience. Please let me know if she has any questions. Thank you. Sera Steven APRN.CNP [facility] 02-18-2024 Note IMPRESSION: INCOMPLE TE: NEED ADDITIONAL IMAGING EVALUATION The oval mass in the left breast is indeterminate. An ultrasound is recommended. The exam was reviewed by a staff physician. josé Lewis M.D., D.O./denis:02/18/2024 10:57:26 Melting Supervisor(s): RT Otto(R)(M), [facility] letter sent: Additional Imaging Needed Mammogram BI-RADS: Category 0: Incomplete: Need Additional Imaging Evaluation If this report indicates you need additional imaging, and it has NOT yet been performed, please call , to schedule. We sincerely thank you for choosing the [facility] for your breast imaging needs. Multiple national specialty organizations have released breast cancer screening guidelines for women at average risk for developing breast cancer - guidelines that are based on both evidence and opinion, yet differ on when to start and how often to screen for breast cancer. With representation from Breast Imaging, Internal Medicine, Women's Health, Family Medicine, and Medical/Surgical Oncology, the [facility] has carefully reviewed the data and reached the following consensus: 1) All women should engage in shared decision-making with their providers to decide when to start and how often to screen; 2) All women should have the opportunity to start screening mammography at age 40; 3) For women ages 45-55, we recommend annual screening mammograms; 4) For women ages 55 and over, we support both the transition from an annual to a biennial interval if this aligns more with patient's values and preferences, or continuation with annual screening; 5) All women should discuss with their providers when to stop screening mammograms. Power Lineman Technician: Denis Transcribe Date/Time: Feb 18 2024 7:27A Dictated by: JEN LIM, This examination was interpreted and the report reviewed and electronically signed by: CASEY WILDER MD on Feb 18 2024 10:57AM [facility] DIVISION OF RADIOLOGY 02-18-2024 Note Formatting of this n ote might be different from the original. February 19, 2024 PID: [id number] Rose Marie Drummond [address] [place] [address] Dear Ms. Felipe Drummond, Your recent breast imaging exam on 02/18/2024 showed a possible finding that requires additional imaging studies for a complete evaluation. Most such findings are probably benign (not cancer). Breast tissue can be either dense or not dense. Dense tissue makes it harder to find breast cancer on a mammogram and also raises the risk of developing breast cancer. Your breast tissue is not dense. Talk to your healthcare provider about breast density, risks for breast cancer, and your individual situation. If you have a healthcare provider who ordered/prescribed your screening mammogram: Please call [phone] or EXT: [phone] to schedule an appointment for your additional imaging (if you have not already done so). If you DO NOT have a healthcare provider (ie you did not have an order/prescription for your screening mammogram): Please call to schedule an appointment for your additional imaging (if you have not already done so). You must have an order/prescription from your physician when calling to schedule your appointment. If your order/prescription is not electronic, you must bring the hard copy with you on the day of your exam to avoid delays. Your imaging studies and reports are kept on file at [facility] as part of your permanent medical record, and are available for your continuing care. Thank you for allowing us to help in meeting your health care needs. Sincerely, Dr. Wilder Interpreting Radiologist [facility] (Additional imaging) [facility] 02-18-2024 Miscellaneous Notes February 19, 2024 PID: [id number] Rose Marie Drummond [address] [place] [address] Dear Ms. Felipe Drummond, Your recent breast imaging exam on 02/18/2024 showed a possible finding that requires additional imaging studies for a complete evaluation. Most such findings are probably benign (not cancer). Breast tissue can be either dense or not dense. Dense tissue makes it harder to find breast cancer on a mammogram and also raises the risk of developing breast cancer. Your breast tissue is not dense. Talk to your healthcare provider about breast density, risks for breast cancer, and your individual situation. If you have a healthcare provider who ordered/prescribed your screening mammogram: Please call [phone] or EXT: [phone] to schedule an appointment for your additional imaging (if you have not already done so). If you DO NOT have a healthcare provider (ie you did not have an order/prescription for your screening mammogram): Please call to schedule an appointment for your additional imaging (if you have not already done so). You must have an order/prescription from your physician when calling to schedule your appointment. If your order/prescription is not electronic, you must bring the hard copy with you on the day of your exam to avoid delays. Your imaging studies and reports are kept on file at [facility] as part of your permanent medical record, and are available for your continuing care. Thank you for allowing us to help in meeting your health care needs. Sincerely, Dr. Wilder Interpreting Radiologist [facility] (Additional imaging) documented in this encounter [facility] 02-18-2024 History of Presen t illness Narrative Radiology Service Progress Note PATIENT NAME: Rose Marie Drummond DATE OF SERVICE: February 18, 2024 TIME: 7:47 AM PATIENT IDENTITY VERIFICATION COMPLETED USING TWO (2) IDENTIFIERS: Name and Date of confirmed by patient verbally. FALL SCREENING: Has the patient had 2 falls in the last year or 1 fall with injury or currently using an Ambulatory Assistive Device (Walker, Cane, Wheelchair, Crutches, etc.)? No PATIENT GENDER DATA: Female. status: : No status: NO. PATIENT RELEVANT IMPLANT DATA REVIEWED: Not Applicable PATIENT PRESENTS WITH AN IMPLANTABLE OR ATTACHED BLUNGER LOADER: No RADIOLOGY DEPARTMENT: Mammography PERIPHERAL IV DATA: Not applicable SIGNED BY: Sukumar Menjivar February 18, 2024 7:47 AM documented in this encounter [facility] 02-10-2024 Telephone encounter Note Patient notified of results and provider's instructions. Patient verbalizes understanding. Patient will discuss options at appointment. Andria Cabrera RN [facility] 02-10-2024 Miscellaneous Notes Patient notified of results and provider's instructions. Patient verbalizes understanding. Patient will discuss options at appointment. Andria Cabrera RN Message left for pt to call back for results. Jen Montana MA Can you please call the patient and let her know that I reviewed her lab results. LDL mildly elevated, A1c went up from 5.9 to 6.1. Thyroid was normal. I would recommend making lifestyle changes at home to help improve this. Try to decrease processed foods in the diet, increase lean protein, vegetables, and get some form exercise. She may consider adding on metformin daily to help with glucose and insulin resistance. If she would like we can discuss this further at her 1 month follow-up. Please let me know if she has any questions. Thank you. Sera Steven APRN.CNP documented in this encounter [facility] 02-10-2024 Telephone encounter Note Message left for pt to call back for results. Jen Montana MA [facility] 02-10-2024 Telephone encounter Note Can you please call the patient and let her know that I reviewed her lab results. LDL mildly elevated, A1c went up from 5.9 to 6.1. Thyroid was normal. I would recommend making lifestyle changes at home to help improve this. Try to decrease processed foods in the diet, increase lean protein, vegetables, and get some form exercise. She may consider adding on metformin daily to help with glucose and insulin resistance. If she would like we can discuss this further at her 1 month follow-up. Please let me know if she has any questions. Thank you. Sera Steven APRN.CNP [facility] 02-09-2024 Instructions Sera Steven APRN.CNP - 02/09/2024 9:07 AM EDT Fasting labs completed, no food for 10 to 12 hours prior. May have black coffee and water. Increase Pristiq 75 mg daily Continue to take all medication as prescribed. You are due for mammogram in February. Continue to work on lifestyle changes at home, try to watch processed foods in the diet. Increase lean protein, vegetables, get some form exercise. Monitor blood pressure at home, goal is 130/80 or less. Follow-up in 1 months or sooner pending test results. documented in this encounter [facility] 02-09-2024 History of Presen t illness Narrative This is a 68 year old female who presents today with: Patient presents with: 6 Month Exam HISTORY OF PRESENT ILLNESS: Rose Marie Drummond is a 68 year old female. Patient presents with: 6 Month Exam 6 month follow up Paroxysmal SVT: Taking amlodipine 5 mg daily. History of Ablation. Not currently following with cardiology, dr. Beverly. Denies chest pain, palpitations, or dizziness. Lipids: Due for labs, LDL cholesterol in July was 153. Not currently taking medication. Working on diet and lifestyle changes at home? CKD stage III: Monitoring through labs. Watching salt and processed foods in the diet. Staying well hydrated. Mood: Taking Pristiq 50 mg daily. Increased sadness and anxiety. Increased worry and over thinking. Sleeping well. No SI or HI. History of prediabetes: Working on lifestyle changes at home. 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 Baumann-PSVT 1973: ARTHROSCOPY KNEE DIAGNOSTIC W/WO SYNOVIAL BX SPX; Left : DELIVERY ONLY Comment: , low transverse No date: CHOLECYSTECTOMY Comment: Cholecystectomy 2012, 2016: COLONOSCOPY 03/31/2020: COLONOSCOPY FLX DX W/COLLJ SPEC WHEN PFRMD Comment: Colonoscopy 12/12/2009: COLSC FLX W/RMVL OF TUMOR POLYP LESION SNARE TQ Comment: Multiple polyps,diverticulosis 2017: EYE SURGERY HX; Left Comment: cataract No date: TONSILLECTOMY HX No date: TOTAL ABDOMINAL HYSTERECT W/WO RMVL TUBE OVARY Comment: Hysterectomy, BRIE 06/06/2021: TOTAL KNEE REPLACEMENT; Left Comment: Left total knee arthroplasty No date: VAGINAL HYSTERECTOMY ALLERGIES Shellfish Derived, Amoxicillin, Codeine, Iodine, and Lisinopril MEDICATIONS Current Outpatient Medications Medication Sig levothyroxine (SYNTHROID) 25 mcg tablet Take 1 tablet by mouth once daily. Take on empty stomach. For thyroid. meloxicam (MOBIC) 15 mg tablet Take 1 tablet by mouth once daily. (Patient not taking: Reported on 07/31/2023) amLODIPine (NORVASC) 5 mg tablet Take 1 tablet by mouth once daily. desvenlafaxine ER (PRISTIQ) 50 mg 24 hr tablet Take 1 tablet by mouth once daily. No current facility-administered medications for this visit. FAMILY HISTORY Problem Relation Age of Onset Cancer Father lung Diabetes Mother Coronary Artery Disease Mother multiple interventions, but has severe diabetes Colon Cancer Other none Thyroid Maternal Grandmother Social History Tobacco Use Smoking status: Never Smokeless tobacco: Never Vaping Use Vaping Use: Never used Substance Use Topics Alcohol use: No Drug use: No REVIEW OF SYSTEMS GENERAL: No weight loss, malaise or fevers/chills HEENT: Negative for frequent or significant headaches, No changes in hearing or vision. NECK: Negative for lumps, goiter, pain and significant neck swelling RESPIRATORY: Negative for cough, hemoptysis, wheezing, dyspnea or shortness of breath CARDIOVASCULAR: Negative for chest pain, leg swelling, orthopnea, or palpitations GI: No nausea, vomiting, or diarrhea/constipation. No hematochezia/melena. No heartburn or reflux symptoms. : No history of dysuria, frequency or incontinence MUSCULOSKELETAL: Negative for joint pain or swelling. SKIN: Negative for lesions, rash, and itching ENDOCRINE: Negative for cold or heat intolerance, polyuria, polydipsia and goiter NEURO: No history of headaches, syncope, paralysis, seizures or tremors MOOD: + Sadness/Anxiety EXAM: BP 132/90 Pulse 85 Resp 16 Wt 80 kg (176 lb 5.9 oz) SpO2 98% BMI 29.03 kg/m PHYSICAL EXAM: General Appearance: Well appearing, alert, in no acute distress, well-hydrated, well nourished. Skin: Skin color, texture, turgor normal, no suspicious rashes or lesions. Head: Normocephalic, no masses, lesions, tenderness or abnormalities. Eyes: Anicteric sclera. Pupils are equally round and reactive to light. Extraocular movements are intact. Lungs: Lungs clear to auscultation. No wheezing, rhonchi, rales. Heart: RRR without murmur, gallop, or rubs. No ectopy. Extremities: No deformities, edema, skin discoloration, clubbing or cyanosis. Good capillary refill. Peripheral Pulses: Normal, Capillary refill <2secs, strong peripheral pulses, Pulses palpable. Neurologic: Gait normal. Sensation grossly intact. ASSESSMENT/PLAN: 1. PSVT (paroxysmal supraventricular tachycardia) (HCC) - ICD9: 427.0, ICD10: I47.10 (primary diagnosis) - Continue to take medication as prescribed - Establish care with cardiology - CONSULT TO CARDIOLOGY 2. Mixed hyperlipidemia - ICD9: 272.2, ICD10: E78.2 - Control undetermined, due for labs - Counseled on healthy diet and regular exercise - COMPREHENSIVE METABOLIC PANEL - LIPID PANEL BASIC - CONSULT TO CARDIOLOGY 3. Prediabetes - ICD9: 790.29, ICD10: R73.03 - Continue to work on lifestyle changes at home - HEMOGLOBIN A1C 4. Chronic renal insufficiency, stage 3 (moderate) (HCC) - ICD9: 585.3, ICD10: N18.30 - Get labs completed - Watch processed foods and salt in the diet. 5. Subclinical hypothyroidism - ICD9: 244.8, ICD10: E03.8 - Instructed patient on importance of taking on an empty stomach either first thing in the morning or at bedtime. - THYROID STIMULATING HORMONE - T4 FREE/FREE THYROXINE 6. Recurrent major depression in partial remission (HCC) - ICD9: 296.35, ICD10: F33.41 - Increase Pristiq 75 mg daily. - Follow-up in 1 month. - DESVENLAFAXINE SUCCINATE ER 25 MG TABLET,EXTENDED RELEASE 24 HR 7. Encounter for screening mammogram for breast cancer - ICD9: V76.12, ICD10: Z12.31 - JASPAL SCREENING W JOSE Follow up in 1 month or sooner pending test results. Discussed treatment plan and patient voices understanding. Patient's questions answered appropriately. Medications and potential side effects were discussed and patient voices understanding. Sera Steven APRN.ROCÍO This note was partially generated using [employer] voice recognition system. Note was reviewed for accuracy. There may be minor misspellings or grammar miscues with [employer] voice recognition. documented in this encounter [facility] 07-31-2023 History of Presen t illness Narrative Radiology Service Progress Note PATIENT NAME: Rose Marie Drummond DATE OF SERVICE: July 31, 2023 TIME: 9:01 AM PATIENT IDENTITY VERIFICATION COMPLETED USING TWO (2) IDENTIFIERS: Name and Date of confirmed by patient verbally. FALL SCREENING: Has the patient had 2 falls in the last year or 1 fall with injury or currently using an Ambulatory Assistive Device (Walker, Cane, Wheelchair, Crutches, etc.)? No PATIENT GENDER DATA: Female. status: : No status: NO. PATIENT RELEVANT IMPLANT DATA REVIEWED: Not Applicable RADIOLOGY DEPARTMENT: General X-ray: Exam(s) Completed: Chest X-Ray PERIPHERAL IV DATA: Not applicable SIGNED BY: RT Susanne(R) July 31, 2023 9:01 AM documented in this encounter [facility] 05-05-2023 History of Presen t illness Narrative Associated Order(s): Large Joint Arthro/Inj: R knee joint Post-Procedure Diagnose(s): Chronic pain of right knee; Primary osteoarthritis of right knee Zak Buck MD Department of Orthopaedics Orthopaedics [address] [facility] [address] Dept: [phone] Dept May 05, 2023 CHIEF COMPLAINT: Established Patient and Knee Pain of the Right Knee and Last seen 06/17/22 S/P Left TKA (06/06/21) HPI Patient here for follow up right knee pain. States her pain will wake her up at night and then she is unable to get back to sleep. She is having pain on the medial aspect. Taking Tylenol as needed for the pain and does help when she takes it. New x-rays done today. ASSESSMENT: M25.561, G89.29 Chronic pain of right knee (primary encounter diagnosis) M17.11 Primary osteoarthritis of right knee PLAN: NSAIDs and right knee injection. Ms. Rose Marie Drummond was advised as to contrast therapies and/or to take analgesics/anti-inflammatories as needed and all contraindications were reviewed. OBJECTIVE: Ms. Rose Marie Drummond is a pleasant 68 year old in no apparent distress. Gen:There were no vitals taken for this visit. nl development, non obese, no deformities ENT: Normocephalic, normal hearing, moist mucosa CV: Pulses:DP/PT= 2+ and symmetric, capillary refill < 2 secs, no peripheral edema/varicosities Skin: no rash, bruising or lesions. Good turgor. Psych: cooperative and appropriate, alert and oriented x 3, good mood and affect. Musculoskeletal: Patient walks with antalgia, normal station. Hip motion without pain. Right Knee with scant effusion. Patella tracks normally. There is no patellar crepitance. No pain along the medial or lateral facets. Range of motion 5-120. Mild medial, without joint line pain on palpation. Ligamentous exam stable on varus and valgus stress testing at 0 and 30 degrees. Extremity is warm and well perfused. Sensation is grossly intact to light touch, subjectively. Large Joint Arthro/Inj: R knee joint Informed Consent Consent Obtained: Verbal [place] Protocol A moment to CARE was completed. SIGN IN Personnel directly involved with the procedure wore the appropriate PPE. Special Equipment: N/A Patient/Surrogate Stated/Verified: Patient name, Date of , Relevant allergies and Intended procedure TIME OUT Intended patient and procedure match the source document(s). Consent documented and matches the intended procedure. Relevant labs, photos, and/or imaging studies have been reviewed. Correct side/site marked and visible. Medications required for procedure verified. No fire risk assessment and interventions applicable. No implant(s) inserted. 05/05/2023 3:34 PM The procedure site was prepped in the usual sterile fashion. Site: R knee joint Medications: 6 mg betamethasone acetate-betamethasone sodium phosphate 6 mg/mL Anesthetics: 4 mL lidocaine (PF) 10 mg/mL (1 %) Outcome: Tolerated well, no immediate complications Post-injection instructions were reviewed with the patient and the patient voiced understanding of these instructions. SIGN OUT All instruments, equipment, possible retained foreign bodies accounted for. Imaging: IMPRESSION: No acute fracture. Degenerative disease of the right knee predominantly involving the medial compartment. Power Lineman Technician: PSCB Transcribe Date/Time: May 06 2023 4:38P Dictated by : MARLON TRACY MD This examination was interpreted and the report reviewed and electronically signed by: MARLON TRACY MD on May 06 2023 4:40PM EST Results-Findings * * *Final Report* * * DATE OF EXAM: May 05 2023 3:07PM [id number] [id number] - XR KNEE 4V AP/PA BOTH+LAT/MANOJ RT / PROCEDURE REASON: Right knee pain, unspecified chronicity * * * * Physician Interpretation * * * * EXAMINATION: XR KNEE 4V AP/PA BOTH+LAT/MANOJ RT CLINICAL HISTORY: Right knee pain Technique: XR KNEE 4V AP/PA BOTH+LAT/MANOJ RT -- RIGHT with 4 views on 4 images Comparison: X-ray right knee 01/14/2022 RESULT: Generalized osteopenia. No acute fracture or dislocation. Narrowing of the medial compartment of the right knee with small marginal osteophytes. Satisfactory position of a left knee prosthesis. Supporting Subjective Information Below: Past Surgical History: PAST SURGICAL HISTORY Procedure Laterality Date ABLATION:PSVT W/TRANSSEPTAL 09/2013 Dr. Baumann-PSVT ARTHROSCOPY KNEE DIAGNOSTIC W/WO SYNOVIAL BX SPX Left 1973 DELIVERY ONLY 1982,1986 , low transverse CHOLECYSTECTOMY Cholecystectomy COLONOSCOPY 2012, 2015 COLONOSCOPY FLX DX W/COLLJ SPEC WHEN PFRMD 03/31/2020 Colonoscopy COLSC FLX W/RMVL OF TUMOR POLYP LESION SNARE TQ 12/12/2009 Multiple polyps,diverticulosis EYE SURGERY HX Left 2017 cataract TONSILLECTOMY HX TOTAL ABDOMINAL HYSTERECT W/WO RMVL TUBE OVARY Hysterectomy, BRIE TOTAL KNEE REPLACEMENT Left 06/06/2021 Left total knee arthroplasty VAGINAL HYSTERECTOMY Medications: Current Outpatient Medications Medication Sig amLODIPine (NORVASC) 5 mg tablet Take 1 tablet by mouth once daily. desvenlafaxine ER (PRISTIQ) 50 mg 24 hr tablet Take 1 tablet by mouth once daily. levothyroxine (SYNTHROID) 25 mcg tablet Take 1 tablet by mouth once daily. Take on empty stomach. For thyroid. No current facility-administered medications for this visit. Allergies: Amoxicillin, Codeine, Iodine, Lisinopril, and Seafood [Other] ROS: General (negative for fatigue, malaise, weight loss/gain) HEENT (negative for headache, earache, recent vision changes, sinus pain, sore throat) Respiratory (no recent shortness of breath, hemoptysis) CV (negative for chest tightness, palpitations) Musculoskeletal (see HPI) Psych (no depression, anxiety) Zak Buck MD documented in this encounter [facility] 02-17-2023 Miscellaneous Notes February 18, 2023 PID: [id number] Rose Marie Drummond [address] [place] [address] Dear Ms. Felipe Drummond, We are pleased to inform you that the results of your recent breast imaging exam on 02/14/2023 are normal. Early detection of cancer is very important. We also understand recommendations regarding breast cancer screening are controversial. Please discuss with your primary care provider which strategy is best for you and whether a mammogram is right for you. Your imaging studies and report will be kept on file at [facility] as part of your permanent medical record and are available for your continuing care. Thank you for allowing us to help in meeting your health care needs. Sincerely, Dr. Holloway Interpreting Radiologist [facility] (Normal over 40) documented in this encounter [facility] 02-14-2023 History of Presen t illness Narrative Radiology Service Progress Note PATIENT NAME: Rose Marie Drummond DATE OF SERVICE: February 14, 2023 TIME: 7:56 AM PATIENT IDENTITY VERIFICATION COMPLETED USING TWO (2) IDENTIFIERS: Name and Date of confirmed by patient verbally. FALL SCREENING: Has the patient had 2 falls in the last year or 1 fall with injury or currently using an Ambulatory Assistive Device (Walker, Cane, Wheelchair, Crutches, etc.)? No PATIENT GENDER DATA: Female. status: : No status: NO. PATIENT RELEVANT IMPLANT DATA REVIEWED: Yes RADIOLOGY DEPARTMENT: Mammography PERIPHERAL IV DATA: Not applicable SIGNED BY: RT Jael(R) February 14, 2023 7:56 AM documented in this encounter [facility] 01-27-2023 History of Presen t illness Narrative Radiology Service Progress Note PATIENT NAME: Rose Marie Drummond DATE OF SERVICE: January 27, 2023 TIME: 10:07 AM PATIENT IDENTITY VERIFICATION COMPLETED USING TWO (2) IDENTIFIERS: Name and Date of confirmed by patient verbally. FALL SCREENING: Has the patient had 2 falls in the last year or 1 fall with injury or currently using an Ambulatory Assistive Device (Walker, Cane, Wheelchair, Crutches, etc.)? No PATIENT GENDER DATA: Female. status: : No status: NO. PATIENT RELEVANT IMPLANT DATA REVIEWED: Yes RADIOLOGY DEPARTMENT: General X-ray: Exam(s) Completed: Chest X-Ray PERIPHERAL IV DATA: Not applicable SIGNED BY: RT Stephani(R) January 27, 2023 10:07 AM documented in this encounter [facility] 01-27-2023 History of Presen t illness Narrative 67 year old female with c/o A little spot on wrist, dry skin Psvt (paroxysmal supraventricular tachycardia) (hcc) (primary encounter diagnosis) Other chest pain Elevated cholesterol Cardiovascular interval hx: Current meds: Amlodipine 5 mg daily ASA 81 mg twice daily Use of NTG: No Chest pain, arm, jaw pain, neck, or upper back pain suggestive of angina: No. SOB: No Dyspnea with exertion: No orthopnea: No Cough : No racing or irregular heartbeats: No palpitations: No syncopal sx: No Headache: No Unexplainable fatigue: tired a lot. Lays in bed and sleeps. Leg swelling: No Nausea: No diaphoresis: No Heartburn: No Claudication: No Smoking: no Following Low cholesterol, high fiber diet? trying If on statin: muscle aches? No If on statin: GI sx or diarrhea? No Additional history . Lab review: No new data Component Latest Ref Rng & Units 03/23/2020 05/21/2021 05/08/2022 05/10/2022 WBC 3.70 - 11.00 k/uL 9.18 9.41 RBC 3.90 - 5.20 m/uL 4.89 5.15 Hemoglobin 11.5 - 15.5 g/dL 13.9 14.4 Hematocrit 36.0 - 46.0 % 41.3 42.9 MCV 80.0 - 100.0 fL 84.5 83.3 MCH 26.0 - 34.0 pg 28.4 28.0 MCHC 30.5 - 36.0 g/dL 33.7 33.6 RDW-CV 11.5 - 15.0 % 13.2 13.8 Platelet Count 150 - 400 k/uL 250 235 MPV 9.0 - 12.7 fL 10.4 11.1 Neut% % 57.2 55.7 Abs Neut (ANC) 1.45 - 7.50 k/uL 5.24 5.25 Lymph% % 30.0 30.9 Abs Lymph 1.00 - 4.00 k/uL 2.75 2.91 Thayer% % 7.8 9.4 Abs Thayer <0.87 k/uL 0.72 0.88 (H) Eosin% % 4.0 2.8 Abs Eosin <0.46 k/uL 0.37 0.26 Baso% % 1.0 0.9 Abs Baso <0.11 k/uL 0.09 0.08 Immature Gran % % 0.3 IMMATURE GRANS (ABS) <0.10 k/uL 0.03 NRBC /100 WBC 0.0 Absolute nRBC <0.01 k/uL <0.01 <0.01 DTYPE Auto Nucleated Reds 0 /100 WBC 0.0 Diff Type Auto Diff Protein, Total 6.3 - 8.0 g/dL 7.0 7.1 Albumin 3.9 - 4.9 g/dL 4.4 4.4 Calcium 8.5 - 10.2 mg/dL 9.1 8.8 Bilirubin, Total 0.2 - 1.3 mg/dL 0.2 0.3 Alkaline Phosphatase 34 - 123 U/L 85 100 AST 13 - 35 U/L 20 17 Glucose 74 - 99 mg/dL 91 128 (H) BUN 7 - 21 mg/dL 18 17 Creatinine 0.58 - 0.96 mg/dL 0.89 1.00 (H) Sodium 136 - 144 mmol/L 136 137 Potassium 3.7 - 5.1 mmol/L 3.6 (L) 3.9 Chloride 97 - 105 mmol/L 102 102 CO2 22 - 30 mmol/L 22 26 Anion Gap 9 - 18 mmol/L 12 9 ALT 7 - 38 U/L 18 15 eGFR- >60 eGFR-All Other Races . 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 Interval history: none. Current medications: none Worsening shortness of breath: No. 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 Wheezing: No. Smoking: No. 10/08/17 last CXR WNL Obstructive sleep apnea syndrome Goes in spurts With CPAP compliance, pulls it off a lot at night, wakes her up. Wears if sometimes, maybe twice a week. Prediabetes Hemoglobin A1C (%) Date Value 05/08/2022 5.9 05/21/2021 6.1 12/17/2018 6.0 ) Chronic renal insufficiency, stage 3 (moderate) (hcc) Component Latest Ref Rng & Units 05/21/2021 05/08/2022 Protein, Total 6.3 - 8.0 g/dL 7.0 7.1 Albumin 3.9 - 4.9 g/dL 4.4 4.4 Calcium 8.5 - 10.2 mg/dL 9.1 8.8 Bilirubin, Total 0.2 - 1.3 mg/dL 0.2 0.3 Alkaline Phosphatase 34 - 123 U/L 85 100 AST 13 - 35 U/L 20 17 Glucose 74 - 99 mg/dL 91 128 (H) BUN 7 - 21 mg/dL 18 17 Creatinine 0.58 - 0.96 mg/dL 0.89 1.00 (H) Sodium 136 - 144 mmol/L 136 137 Potassium 3.7 - 5.1 mmol/L 3.6 (L) 3.9 Chloride 97 - 105 mmol/L 102 102 CO2 22 - 30 mmol/L 22 26 Anion Gap 9 - 18 mmol/L 12 9 ALT 7 - 38 U/L 18 15 eGFR- >60 eGFR-All Other Races . >60 eGFR >=60 mL/min/1.73m 61 Hypothyroidism Current medication: Levothyroxine 25mcg daily Taking as directed on an empty stomach? No. Thyroid pain: No. Mass effect: No. Change in energy level/ fatigue? No. 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 Sleep disturbance? Still wants to sleep a lot. 9-6 if working, has stopped napping but lays in bed in afternoon. Temperature Intolerance: cold No, hot No. In females, menstrual cycle issues? No, If yes: Change in bowel habits? No. If yes: Weight changes?No. Memory issues: No. Diaphoresis: No. Numbness, tingling none Change in hair or skin? No. If yes: Other symptoms: Last 2 Encounter Wt Readings: Date: Wt: 01/27/2023 80.7 kg (178 lb) 08/18/2022 84 kg (185 lb 3.2 oz) Last thyroid labs: TSH Date Value 05/08/2022 9.160 mIU/L 05/19/2020 3.360 uU/mL 03/23/2020 5.620 uU/mL ) Recurrent major depression in partial remission (hcc) Current medications: Desvenlafaxine 50mg daily If has something to do, feels really well. At home, tends to lay around. Not very motivated. Fair amount of sleeping still. Ana's disease (hcc) Primary osteoarthritis of left knee Current medications: none A little numbness right hand- talked with Dr. Buck, has brace Hx uveiitis Dr. 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 Baumann-PSVT ARTHROSCOPY KNEE DIAGNOSTIC W/WO SYNOVIAL BX SPX Left 1973 DELIVERY ONLY 1982,1986 , low transverse CHOLECYSTECTOMY Cholecystectomy COLONOSCOPY 2012, 2015 COLONOSCOPY FLX DX W/COLLJ SPEC WHEN PFRMD 03/31/2020 Colonoscopy COLSC FLX W/RMVL OF TUMOR POLYP LESION SNARE TQ 12/12/2009 Multiple polyps,diverticulosis EYE SURGERY HX Left 2017 cataract TONSILLECTOMY HX TOTAL ABDOMINAL HYSTERECT W/WO RMVL TUBE OVARY Hysterectomy, BRIE TOTAL KNEE REPLACEMENT Left 06/06/2021 Left total knee arthroplasty VAGINAL HYSTERECTOMY Social History Tobacco Use Smoking status: Never Smokeless tobacco: Never Vaping Use Vaping Use: Never used Substance Use Topics Alcohol use: No Drug use: No ACTIVE PROBLEM LIST Psvt (Paroxysmal Supraventricular Tachycardia) (Hcc) 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 30 tablet 5 levothyroxine (SYNTHROID) 25 mcg tablet Take 1 tablet by mouth once daily. Take on empty stomach. For thyroid. 90 tablet 3 amLODIPine (NORVASC) 5 mg tablet Take 1 tablet by mouth once daily. 90 tablet 3 No current facility-administered medications for this visit. MAMMOGRAM due on 06/04/2022 ADVANCE DIRECTIVE DISCUSSION due on 07/07/2022 COVID-19 VACCINE(5 - Moderna series) due on 07/25/2022 EXAM: BP 134/78 Pulse 81 Resp 18 Wt 80.7 kg (178 lb) SpO2 96% BMI 29.30 kg/m Pleasant overweight woman in no acute distress. Alert and oriented all spheres. Normal affect and cognition. Speech normal. No deficits to learning or comprehension. Skin warm, dry, pink to lips and nailbeds. Normal turgor. Respirations regular and unlabored. HEENT: NCAT. No scleral icterus or conjunctival injection. TM's clear. Nose and oropharynx free from injection or lesion. Oral membranes moist and pink. No cervical lymph nodes. Thyroid non-tender, no masses, or enlargement. Carotids pulses 2+/4+ without bruits. No JVD with HOB at 30 degrees. Chest is normal shape. Lungs are clear to all ritchie with good air exchange through out. HRRR without murmur or gallop. No lifts, heaves, or rubs. Extrem: no clubbing or cyanosis. Edema: none. Left knee with mild effusion, poplital cyst. Extremities are warm and pink with prompt capillary refill. ASSESSMENT/PLAN: 1. Chronic renal insufficiency, stage 3 (moderate) (HCC) - ICD9: 585.3, ICD10: N18.30 (primary diagnosis) - eGFR: Stable - Counseled on avoiding NSAIDs, adequate hydration - CBC + DIFF - COMP METABOLIC PANEL 2. Obstructive sleep apnea syndrome - ICD9: 327.23, ICD10: G47.33 BiPap 3. Prediabetes - ICD9: 790.29, ICD10: R73.03 - CBC + DIFF - COMP METABOLIC PANEL - HGB A1C 4. PSVT (paroxysmal supraventricular tachycardia) (HCC) - ICD9: 427.0, ICD10: I47.1 none 5. Recurrent major depression in partial remission ([facility]) - ICD9: 296.35, ICD10: F33.41 Continue current meds - CBC + DIFF - COMP METABOLIC PANEL - DESVENLAFAXINE SUCCINATE ER 50 MG TABLET,EXTENDED RELEASE 24 HR 6. Ana's disease (HCC) - ICD9: 099.3, ICD10: M02.30 stable 7. 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 Subclinical hypothyroidism - ICD9: 244.8, ICD10: E03.8 - Instructed patient on importance of taking on an empty stomach either first thing in the morning or at bedtime. - CBC + DIFF - COMP METABOLIC PANEL - TSH BLD 9. Other chest pain - ICD9: 786.59, ICD10: R07.89 resolved 10. 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 Last pcp visit- 05-13-22, Return in about 6 months (around 11/10/2022). Scheduled 6 month follow up- 01-27-23 Scheduled mammogram- 02-14-23 Patient Identified by Name and : YES, via phone Outreach Outcome/Action Spoke to patient / parent / legal guardian: Patient scheduled Did you use a PCP flex slot to schedule this appointment? No Reason for Outreach HCC or suspected condition Payer: Payor: [employer] MEDICARE / Plan: [employer] MEDICARE PPO / Product Type: PPO / Care Gap Reviewed:: Follow-up appointment Breast Cancer screening Reminder: Reminder note to check Health Maintenance for items below Health Maintenance items due: MAMMOGRAM due on 06/04/2022 ADVANCE DIRECTIVE DISCUSSION due on 07/07/2022 COVID-19 VACCINE(5 - Moderna series) due on 07/25/2022 Navigation Signature: Cata Dickinson [facility] Navigator January 23, 2023 12:28 PM documented in this encounter [facility] 11-13-2022 History of Presen t illness Narrative POPULATION HEALTH NAVIGATION OUTREACH Action/ HCC gaps- Diagnosis with HCC gap left: 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 Patient asked me to call her back tomorrow and she would like to schedule appt. 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 Last pcp visit- 07-04-22, Return in about 6 months (around 11/10/2022). No future appt scheduled- due in november for 6 month follow up Also due/discuss- Mammogram- ordered Patient Identified by Name and : YES, via phone Outreach Outcome/Action Spoke to patient / parent / legal guardian: Patient will return the call or ask for return call Did you use a PCP flex slot to schedule this appointment? N/A Reason for Outreach HCC or suspected condition Payer: Payor: [id number] MEDICARE / Plan: [employer] MEDICARE PPO / Product Type: PPO / Care Gap Reviewed:: Follow-up appointment Breast Cancer screening Reminder: Reminder note to check Health Maintenance for items below Health Maintenance items due: MAMMOGRAM due on 06/04/2022 ADVANCE DIRECTIVE DISCUSSION due on 07/07/2022 Navigation Signature: Cata Dcikinson Population Health Navigator November 13, 2022 2:11 PM documented in this encounter [facility] 08-18-2022 History of Presen t illness Narrative This note was created using RubyRideriter. Subjective Rose Marie Drummond is a 67 year old female. 67 years old female presented with acute illness started yesterday +feeling of pressure in left eye last night and endorses Thought maybe it was my iritis Upon awakening +yellowish dry crust removed from the left eye this morning +nasal congestion Denies decrease vision, halo vision, pain or itching in left eye, or right eye Denies feelings of FB. Denies trauma or injury Denies pain with movement. Lamberto sore throat, headache, ears pain, discharges Denies chest pain, palpitations, SOB, edema to lower extremities Denies abdominal pain, nausea, vomiting, diarrhea Denies increased frequency or urgency, burning or pain with urination Reported long standing history of iritis that can get from bad to worse very quickly, Dr. Hartley States that she plans on calling him in the morning. The history is provided by the patient. No health policy manager was used. Eye Problem This is a new problem. The current episode started yesterday. The problem occurs constantly. The problem has been gradually worsening. Pertinent negatives include no abdominal pain, anorexia, arthralgias, change in bowel habit, chest pain, chills, congestion, coughing, diaphoresis, fatigue, fever, headaches, joint swelling, myalgias, nausea, neck pain, numbness, rash, sore throat, swollen glands, urinary symptoms, vertigo, visual change, vomiting or weakness. Nothing aggravates the symptoms. She has tried nothing for the symptoms. The treatment provided no relief. 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 Baumann-PSVT ARTHROSCOPY KNEE DIAGNOSTIC W/WO SYNOVIAL BX SPX Left 1973 DELIVERY ONLY 1982,1986 , low transverse CHOLECYSTECTOMY Cholecystectomy COLONOSCOPY 2012, 2015 COLONOSCOPY FLX DX W/COLLJ SPEC WHEN PFRMD 03/31/2020 Colonoscopy COLSC FLX W/RMVL OF TUMOR POLYP LESION SNARE TQ 12/12/2009 Multiple polyps,diverticulosis EYE SURGERY HX Left 2017 cataract TONSILLECTOMY HX TOTAL ABDOMINAL HYSTERECT W/WO RMVL TUBE OVARY Hysterectomy, BRIE TOTAL KNEE REPLACEMENT Left 06/06/2021 Left total knee arthroplasty VAGINAL HYSTERECTOMY ALLERGIES Amoxicillin, Codeine, Iodine, Lisinopril, and Seafood [Other] MEDICATIONS desvenlafaxine ER (PRISTIQ) 50 mg 24 hr tablet Take 1 tablet by mouth once daily. levothyroxine (SYNTHROID) 25 mcg tablet Take 1 tablet by mouth once daily. Take on empty stomach. For thyroid. amLODIPine (NORVASC) 5 mg tablet Take 1 tablet by mouth once daily. erythromycin (ROMYCIN) 5 mg/gram (0.5 %) ophthalmic ointment Use 1 application in the left eye four times daily for 7 days. FAMILY HISTORY Problem Relation Age of Onset Cancer Father lung Diabetes Mother Coronary Artery Disease Mother multiple interventions, but has severe diabetes Colon Cancer Other none Thyroid Maternal Grandmother Social History Tobacco Use Smoking status: Never Smokeless tobacco: Never Vaping Use Vaping Use: Never used Substance Use Topics Alcohol use: No Drug use: No Review of Systems Constitutional: Negative for activity change, appetite change, chills, diaphoresis, fatigue and fever. HENT: Negative for congestion, dental problem, ear discharge, ear pain, hearing loss, mouth sores, postnasal drip, rhinorrhea, sinus pressure, sinus pain, sore throat and trouble swallowing. Eyes: Positive for discharge (drye yellow crust removed from left eye this morning), redness and itching. Negative for photophobia, pain and visual disturbance. Respiratory: Negative for apnea, cough, choking, chest tightness, shortness of breath and wheezing. Cardiovascular: Negative for chest pain, palpitations and leg swelling. Gastrointestinal: Negative for abdominal distention, abdominal pain, anorexia, blood in stool, change in bowel habit, constipation, diarrhea, nausea and vomiting. Genitourinary: Negative for dysuria, frequency and urgency. Musculoskeletal: Negative for arthralgias, gait problem, joint swelling, myalgias, neck pain and neck stiffness. Skin: Negative for color change, pallor, rash and wound. Allergic/Immunologic: Negative for environmental allergies, food allergies and immunocompromised state. Neurological: Negative for vertigo, weakness, light-headedness, numbness and headaches. Psychiatric/Behavioral: Negative for behavioral problems and sleep disturbance. The patient is not nervous/anxious. Objective BP 136/84 Pulse 78 Temp 36.3 C (97.3 F) Resp 16 Wt 84 kg (185 lb 3.2 oz) SpO2 97% BMI 30.49 kg/m Physical Exam Vitals and nursing note reviewed. Constitutional: General: She is not in acute distress. Appearance: Normal appearance. She is normal weight. She is not ill-appearing, toxic-appearing or diaphoretic. HENT: Head: Normocephalic and atraumatic. Right Ear: Tympanic membrane, ear canal and external ear normal. There is no impacted cerumen. Left Ear: Tympanic membrane, ear canal and external ear normal. There is no impacted cerumen. Nose: Nose normal. No congestion or rhinorrhea. Mouth/Throat: Mouth: Mucous membranes are moist. Pharynx: Oropharynx is clear. No oropharyngeal exudate or posterior oropharyngeal erythema. Eyes: General: Vision grossly intact. Gaze aligned appropriately. No scleral icterus. Right eye: No discharge. Left eye: No discharge. Extraocular Movements: Extraocular movements intact. Right eye: Normal extraocular motion and no nystagmus. Left eye: Normal extraocular motion and no nystagmus. Conjunctiva/sclera: Right eye: Right conjunctiva is not injected. No exudate or hemorrhage. Left eye: Left conjunctiva is injected. No exudate or hemorrhage. Pupils: Pupils are equal, round, and reactive to light. Right eye: Pupil is round, reactive and not sluggish. Left eye: Pupil is round, reactive and not sluggish. Funduscopic exam: Right eye: Red reflex present. Left eye: Red reflex present. Comments: Left eye injected conjunctiva, left iris size greater that right, reactive to light, cornea clear SCANT MARGINAL EYELID DEBRIS Neck: Vascular: No carotid bruit. Cardiovascular: Rate and Rhythm: Normal rate and regular rhythm. Pulses: Normal pulses. Heart sounds: Normal heart sounds. No murmur heard. No friction rub. No gallop. Pulmonary: Effort: Pulmonary effort is normal. No respiratory distress. Breath sounds: Normal breath sounds. No stridor. No wheezing, rhonchi or rales. Chest: Chest wall: No tenderness. Abdominal: General: Abdomen is flat. There is no distension. Palpations: There is no mass. Tenderness: There is no abdominal tenderness. There is no guarding or rebound. Hernia: No hernia is present. Musculoskeletal: General: No swelling, tenderness, deformity or signs of injury. Normal range of motion. Cervical back: Normal range of motion and neck supple. No rigidity or tenderness. Right lower leg: No edema. Left lower leg: No edema. Lymphadenopathy: Cervical: No cervical adenopathy. Skin: General: Skin is warm and dry. Capillary Refill: Capillary refill takes less than 2 seconds. Coloration: Skin is not jaundiced or pale. Findings: No bruising, erythema, lesion or rash. Neurological: General: No focal deficit present. Mental Status: She is alert and oriented to person, place, and time. Sensory: No sensory deficit. Motor: No weakness. Coordination: Coordination normal. Gait: Gait normal. Psychiatric: Mood and Affect: Mood normal. Behavior: Behavior normal. Assessment and Plan ASSESSMENT/PLAN: 1. Conjunctivitis of left eye, unspecified conjunctivitis type - ICD9: 372.30, ICD10: H10.9 Acute onset yesterday No red flags Denies accompanying URI sx Conjunctivitis vs. Iritis Will start on Romycin - see medication orders - course and contagiousness issues discussed, including hand washing. - Instructed to call if high fever, development of periorbital redness or swelling, eye pain, visual changes, concerns or if symptoms persist. Will make f/u appt with Dr. Hartley tomorrow Michelle Medellin TEACHING PROVIDER (Physician/PA/BOWL SANDER) NOTE OF PERSONAL INVOLVEMENT IN CARE: I have personally seen and examined the patient and performed the medical decision-making components. I have reviewed the Advanced Practice Registered Nurse (BOWL SANDER) Student's documentation and verified the findings in the note as written. Any additions or changes are noted in bold/italics. Signature: Farzana Boston Date: 08/18/2022 Time: 1:34 PM documented in this encounter [facility] 07-14-2022 History of Presen t illness Narrative This note was created using RubyRideriter. Subjective Rose Marie Drummond is a 67 year old female. HPI Patient presents with right-sided sinus pressure, ear pain over the past 2 days. She has had some congestion that has not been bothering her too much over the past 10 days. She states prior to that she had a cold and was sick for 2 weeks. No fever. She does have some pressure around her eye on the right side. She was not sure if she had a sinus infection, ear infection or if it possibly was coming from her tooth. She did not break any teeth recently. She really is not having any pain with eating. Review of Systems All other systems reviewed and are negative. 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 30 tablet 5 levothyroxine (SYNTHROID) 25 mcg tablet Take 1 tablet by mouth once daily. Take on empty stomach. For thyroid. 90 tablet 3 amLODIPine (NORVASC) 5 mg tablet Take 1 tablet by mouth once daily. 90 tablet 3 cefdinir (OMNICEF) 300 mg capsule Take 1 capsule by mouth twice daily for 7 days. 20 capsule 0 No current facility-administered medications for this visit. PAST SURGICAL HISTORY Procedure Laterality Date ABLATION:PSVT W/TRANSSEPTAL 09/2013 Dr. Baumann-PSVT ARTHROSCOPY KNEE DIAGNOSTIC W/WO SYNOVIAL BX SPX Left 1973 DELIVERY ONLY 1982,1986 , low transverse CHOLECYSTECTOMY Cholecystectomy COLONOSCOPY 2012, 2015 COLONOSCOPY FLX DX W/COLLJ SPEC WHEN PFRMD 03/31/2020 Colonoscopy COLSC FLX W/RMVL OF TUMOR POLYP LESION SNARE TQ 12/12/2009 Multiple polyps,diverticulosis EYE SURGERY HX Left 2016 cataract TONSILLECTOMY HX TOTAL ABDOMINAL HYSTERECT W/WO RMVL TUBE OVARY Hysterectomy, BRIE TOTAL KNEE REPLACEMENT Left 06/06/2021 Left total knee arthroplasty VAGINAL HYSTERECTOMY FAMILY HISTORY Problem Relation Age of Onset Cancer Father lung Diabetes Mother Coronary Artery Disease Mother multiple interventions, but has severe diabetes Colon Cancer Other none Thyroid Maternal Grandmother Social History Tobacco Use Smoking status: Never Smokeless tobacco: Never Vaping Use Vaping Use: Never used Substance Use Topics Alcohol use: No Drug use: No Objective BP 118/72 Pulse 71 Temp 36.3 C (97.3 F) Resp 20 Wt 84.9 kg (187 lb 3.2 oz) SpO2 98% BMI 30.82 kg/m Physical Exam Vitals reviewed. Constitutional: Appearance: Normal appearance. HENT: Head: Normocephalic and atraumatic. Right Ear: Tympanic membrane, ear canal and external ear normal. Left Ear: Tympanic membrane, ear canal and external ear normal. Nose: Congestion present. Right Sinus: Maxillary sinus tenderness and frontal sinus tenderness present. Left Sinus: No maxillary sinus tenderness or frontal sinus tenderness. Mouth/Throat: Lips: [place]. Mouth: Mucous membranes are moist. Pharynx: Oropharynx is clear. Cardiovascular: Rate and Rhythm: Normal rate and regular rhythm. Heart sounds: Normal heart sounds. Pulmonary: Effort: Pulmonary effort is normal. Breath sounds: Normal breath sounds. Musculoskeletal: Cervical back: Neck supple. Lymphadenopathy: Cervical: No cervical adenopathy. Skin: General: Skin is warm and dry. Findings: No rash. Neurological: General: No focal deficit present. Mental Status: She is alert. Assessment and Plan ASSESSMENT/PLAN: 1. Bacterial sinusitis - ICD9: 473.9, 041.9, ICD10: J32.9, B96.89 - Will begin treatment with as per antibiotic as written, see orders - Supportive care with plenty of fluids, rest, and analgesia prn. - Follow up in 3-5 days if symptoms persist or worsen. Nikki Leon PA-C documented in this encounter [facility] 07-04-2022 History of Presen t illness Narrative 67 year old female with c/o here for medication change weaned off escitalopram, bupropion and start on desvenlafaxine. Switch over was hard, crying a lot with movies, felt off. Feels a little better but feels need to increase dose. No negative side effects noted. 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 Baumann-PSVT ARTHROSCOPY KNEE DIAGNOSTIC W/WO SYNOVIAL BX SPX Left 1973 DELIVERY ONLY 1982,1986 , low transverse CHOLECYSTECTOMY Cholecystectomy COLONOSCOPY 2012, 2015 COLONOSCOPY FLX DX W/COLLJ SPEC WHEN PFRMD 03/31/2020 Colonoscopy COLSC FLX W/RMVL OF TUMOR POLYP LESION SNARE TQ 12/12/2009 Multiple polyps,diverticulosis EYE SURGERY HX Left 2017 cataract TONSILLECTOMY HX TOTAL ABDOMINAL HYSTERECT W/WO RMVL TUBE OVARY Hysterectomy, BRIE TOTAL KNEE REPLACEMENT Left 06/06/2021 Left total knee arthroplasty VAGINAL HYSTERECTOMY Social History Tobacco Use Smoking status: Never Smokeless tobacco: Never Vaping Use Vaping Use: Never used Substance Use Topics Alcohol use: No Drug use: No ACTIVE PROBLEM LIST Psvt (Paroxysmal Supraventricular Tachycardia) (Hcc) 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 Take on empty stomach. For thyroid. 90 tablet 3 desvenlafaxine ER (PRISTIQ) 25 mg 24 hr tablet Take 1 tablet by mouth once daily. 30 tablet 2 amLODIPine (NORVASC) 5 mg tablet Take 1 tablet by mouth once daily. 90 tablet 3 citalopram (CELEXA) 40 mg tablet Take 1 tablet by mouth once daily. 90 tablet 1 No current facility-administered medications for this visit. MAMMOGRAM due on 06/04/2022 EXAM: BP 142/88 Pulse 75 Resp 16 Wt 83.5 kg (184 lb) SpO2 94% BMI 30.29 kg/m Pleasant overweight adult woman in no acute distress. Alert and oriented all spheres. Cheerful, euthymic with congruent affect and normal cognition. Speech normal. No deficits to learning or comprehension. Goal oriented. Skin warm, dry, pink to lips and nailbeds. Normal turgor. Respirations regular and unlabored. Extrem: no clubbing or cyanosis. Edema: none. Extremities are warm and pink with prompt capillary refill. ASSESSMENT/PLAN: 1. Recurrent major depression in partial remission (HCC) - ICD9: 296.35, ICD10: F33.41 Starting new job Increase dose, f/u o progress 4 weeks. - DESVENLAFAXINE SUCCINATE ER 50 MG TABLET,EXTENDED RELEASE 24 HR Mai Schmidt PA-C Some of this note may have been copied and pasted for the purpose of history context and comparison. documented in this encounter [facility] 06-17-2022 History of Presen t illness Narrative Zak Buck MD Department of Orthopaedics Orthopaedics [address] [facility] [address] Dept: [phone] Dept June 17, 2022 CHIEF COMPLAINT: Status post left knee replacement. HPI She is 1 year out from her surgery and she is very pleased. She is basically back doing everything she wants to be doing and really is having no problems whatsoever. The right knee will give her some troubles on occasions. AMB ROOMING INTAKE FLOWSHEET DATA Risk Screening Do you have concerns about personal safety or safety in the home?: No Patient denies any pain. States she is back to normal activity. Patient will have x-rays done today after her appointment due to being out of town last week. ASSESSMENT: Z96.652 Status post left knee replacement (primary encounter diagnosis) SUMMARY/PLAN: Normal follow-up and dental prophylaxis for 1 more year recommended. She may stop in at some point along the way for an injection on the right knee, however she states that it just only gives some trouble. Exam: Normal gait. Excellent motion from 0 to 120 degrees. Imaging: Pending Supporting Information Below: Medications: Current Outpatient Medications Medication Sig levothyroxine (SYNTHROID) 25 mcg tablet Take 1 tablet by mouth once daily. Take on empty stomach. For thyroid. desvenlafaxine ER (PRISTIQ) 25 mg 24 hr tablet Take 1 tablet by mouth once daily. amLODIPine (NORVASC) 5 mg tablet Take 1 tablet by mouth once daily. citalopram (CELEXA) 40 mg tablet Take 1 tablet by mouth once daily. No current facility-administered medications for this visit. Allergies: Amoxicillin, Codeine, Iodine, Lisinopril, and Seafood [Other] Zak Buck MD documented in this encounter [facility] 06-14-2022 Miscellaneous Notes Patient called in stating she is out of town till Friday. Patient states her appointment is at 7:45 and was told xray doesn't open till 8. Consulted with orthopaedic stuff and informed patient to come to appointment as scheduled and get xray after and they will call with results. Iwona Arboleda LPN documented in this encounter [facility] 05-26-2022 History of Presen t illness Narrative .noucuriCC: Patient presents with: Cough: Cough, sinus, green drainage and laryngitis x 8 days HPI: Rose Marie Drummond is a 67 year old female who presents to the office with complaint of respiratory symptoms for 8 days. Symptoms are staying the same. Associated symptoms includes sore throat, nasal congestion, rhinorrhea, facial pain/pressure, hoarse voice, post nasal drip, headache, and cough. Denies fever and dyspnea. Treatments tried include Coricidin HBP with temporary relief of symptoms. Sick contacts: yes. History of asthma, frequent episodes of bronchitis, chronic bronchitis, bronchiectasis or COPD: Yes frequent bronchitis Smoker: No Home COVID test x 3 negative The ROS is otherwise negative. The patient's pmh, medications, allergies, and past visits are reviewed. PHYSICAL EXAM: BP 182/98 Pulse 73 Temp 36.7 C (98.1 F) (Tympanic) Resp 18 Wt 81.6 kg (179 lb 12.8 oz) SpO2 97% BMI 29.60 kg/m General appearance: tired/ill appearing, alert, cooperative, pleasant, in no acute distress Head: Normocephalic Eyes: conjunctiva pink and moist, no icterus, sclera white, non-injected Ears: Right ear: External ear/canal- Normal, TM - clear with good landmarks. Left ear: External ear/canal- Normal, TM - clear with good landmarks Nose: bilateral maxillary sinus tenderness Oropharynx:moist without lesions Neck:supple and positive findings: few small anterior cervical nodes Heart: Negative. RRR without obvious murmur, gallop, or rubs. No ectopy. Lungs: clear to auscultation, without rales or wheeze, good air exchange ASSESSMENT/PLAN: 1. Acute non-recurrent maxillary sinusitis - ICD9: 461.0, ICD10: J01.00 - Will begin treatment with Doxycycline x 7 days - Supportive care with plenty of fluids, rest, and analgesia prn. - Follow up in 3-5 days if symptoms persist or worsen. Prescription instructions reviewed with patient as applicable. Potential red flag symptoms discussed with the patient. Reviewed appropriate action plan to take if red flag symptoms occur. Patient agreeable to treatment plan. Charu Pulliam APRN.CNP documented in this encounter [facility] 05-13-2022 Nurse Note Ambulatory Ear Lavage Pre-treatment: Warm water Treatment: Left ear Equipment and Irrigation solution and Volume used: Single use syringe with single use irrigation tip Water Total Irrigation Volume: 250 ml Return flow appearance: Brown Debris Patient tolerated procedure: yes Post-treatment: Post Irrigation Post-treatment: Ear Canal/Tympanic membrane assessed by LIP YES VISUAL ACUITY: Today's exam: Vision Correction? Glasses: RIGHT EYE: 20/40 LEFT EYE: 20/ 30 BOTH EYES: 20/25 documented in this encounter [facility] 05-13-2022 Instructions Mai Schmidt PA-C - 05/13/2022 4:55 PM EST Celexa 40mg alternate 1 tab with 1/2 tab every other day x 1 week, then 1/2 tab daily x 1 week, then 1/2 tab every other day and then off. Bupropion 300mg every other day x 1 week and then off. At the end of the second week with celexa weaning, start desvenlafaxine. Recheck thyroid in 2 months on Synthroid 25mg daily 1 h empty stomach documented in this encounter [facility] 05-13-2022 History of Presen t illness Narrative 67 year old female with c/o Medicare wellness exam and problem review Health Risk Assessment In general, health is: Good PHQ-9 05/13/2022 Score 16 LISSETTE - 7 SCORES 05/13/2022 LISSETTE-7 Score 14 Needs help with grocery shopping, cooking, housework, bathing, grooming, dressing, eating, sitting or standing, walking, using the toilet, handling finances, taking medications, using the telephone, or driving: No Following safety precautions in the home environment and vehicle: removed throw rugs from floors, installed grab bars in the bathroom, handrails in stairwells, having adequate lighting, wearing seatbelt at all times?: Yes Smokes cigarettes, vapes, or chew tobacco: No Eats healthy foods including fruits, vegetables, whole grains, and fiber-rich foods: Several days Number of days per week engages in exercise: 5 days Average alcohol consumption: 2-4 times a month Current Providers Patient Care Team: Mai Schmidt PA-C as PCP - General (Family Medicine) Zak Buck MD as Home Care Provider (Orthopedics) Zak Buck MD as Referring (Orthopedics) Paris Barros PT as Labor Mediator (Post Acute Care) Specialists: I have reviewed specialist-related care of the patient in the medical record. Medical/Family history review Reviewed and updated problem list, medical history, surgical history, family history, social history, medication list, and allergies. Opioid use review Patient is not currently using opioids. Depression screening Depression Screening PHQ-2 Score 01/13/2018 0 Depression screening tool completed and reviewed. Based on score and interview, patient is already diagnosed with depression. Screening tool discussed with patient, and I recommended starting medication. Cognitive screening Mini Cog Score: Score: 5 Cognitive screening reviewed and no further action needed (score 3-5) Functional Observation Was the patient's timed Up & Go test unsteady or longer than 30 seconds? No Advance Care Planning End of Life planning discussed, including patient's advanced directive wishes: Yes Measurements BP 132/68 Pulse 83 Ht 5' 5.354 (1.66m) Wt 180 lb (81.6kg) SpO2 96% BMI 29.63 kg/(m^2). Visual acuity: Nursing Notes: Cata Donaldson Ma 05/13/2022 3:28 PM Signed VISUAL ACUITY: Today's exam: Vision Correction? Glasses: RIGHT EYE: 20/40 LEFT EYE: 20/ 30 BOTH EYES: 20/25 Cata Donaldson Ma 05/13/2022 5:31 PM Signed Ambulatory Ear Lavage Pre-treatment: Warm water Treatment: Left ear Equipment and Irrigation solution and Volume used: Single use syringe with single use irrigation tip Water Total Irrigation Volume: 250 ml Return flow appearance: Brown Debris Patient tolerated procedure: yes Post-treatment: Post Irrigation Post-treatment: Ear Canal/Tympanic membrane assessed by LIP YES Hearing Evaluation: within normal limits Assessment/Plan - Counseled on healthy diet and regular exercise - Fall avoidance - Depression screening. - Follow up for annual exam in one year Mai Schmidt PA-C ADDITIONAL CONCERNS ADDRESSED: Psvt (paroxysmal supraventricular tachycardia) (hcc) (primary encounter diagnosis) Other chest pain Elevated cholesterol Cardiovascular interval hx: stopped amlodipine 1 months ago when she ran ou levothyroxine and decide to see what baseline would look like. Current meds: Amlodipine 5 mg daily ASA 81 mg twice daily Use of NTG: No Chest pain, arm, jaw pain, neck, or upper back pain suggestive of angina: No. SOB: No Dyspnea with exertion: No orthopnea: No Cough : No racing or irregular heartbeats: No palpitations: No syncopal sx: No Headache: No Unexplainable fatigue: tired a lot. Lays in bed and sleeps. Leg swelling: No Nausea: No diaphoresis: No Heartburn: No Claudication: No Smoking: no Following Low cholesterol, high fiber diet? trying If on statin: muscle aches? No If on statin: GI sx or diarrhea? No Additional history . Lab review: Component Latest Ref Rng & Units 03/23/2020 05/21/2021 05/08/2022 05/10/2022 WBC 3.70 - 11.00 k/uL 9.18 9.41 RBC 3.90 - 5.20 m/uL 4.89 5.15 Hemoglobin 11.5 - 15.5 g/dL 13.9 14.4 Hematocrit 36.0 - 46.0 % 41.3 42.9 MCV 80.0 - 100.0 fL 84.5 83.3 MCH 26.0 - 34.0 pg 28.4 28.0 MCHC 30.5 - 36.0 g/dL 33.7 33.6 RDW-CV 11.5 - 15.0 % 13.2 13.8 Platelet Count 150 - 400 k/uL 250 235 MPV 9.0 - 12.7 fL 10.4 11.1 Neut% % 57.2 55.7 Abs Neut (ANC) 1.45 - 7.50 k/uL 5.24 5.25 Lymph% % 30.0 30.9 Abs Lymph 1.00 - 4.00 k/uL 2.75 2.91 Thayer% % 7.8 9.4 Abs Thayer <0.87 k/uL 0.72 0.88 (H) Eosin% % 4.0 2.8 Abs Eosin <0.46 k/uL 0.37 0.26 Baso% % 1.0 0.9 Abs Baso <0.11 k/uL 0.09 0.08 Immature Gran % % 0.3 IMMATURE GRANS (ABS) <0.10 k/uL 0.03 NRBC /100 WBC 0.0 Absolute nRBC <0.01 k/uL <0.01 <0.01 DTYPE Auto Nucleated Reds 0 /100 WBC 0.0 Diff Type Auto Diff Protein, Total 6.3 - 8.0 g/dL 7.0 7.1 Albumin 3.9 - 4.9 g/dL 4.4 4.4 Calcium 8.5 - 10.2 mg/dL 9.1 8.8 Bilirubin, Total 0.2 - 1.3 mg/dL 0.2 0.3 Alkaline Phosphatase 34 - 123 U/L 85 100 AST 13 - 35 U/L 20 17 Glucose 74 - 99 mg/dL 91 128 (H) BUN 7 - 21 mg/dL 18 17 Creatinine 0.58 - 0.96 mg/dL 0.89 1.00 (H) Sodium 136 - 144 mmol/L 136 137 Potassium 3.7 - 5.1 mmol/L 3.6 (L) 3.9 Chloride 97 - 105 mmol/L 102 102 CO2 22 - 30 mmol/L 22 26 Anion Gap 9 - 18 mmol/L 12 9 ALT 7 - 38 U/L 18 15 eGFR- >60 eGFR-All Other Races . 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 Interval history: none. Current medications: none Worsening shortness of breath: No. 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 Wheezing: No. Smoking: No. Obstructive sleep apnea syndrome Goes in spurts With CPAP compliance, pulls it off a lot at night, wakes her up. Uses probably three times a week Tends to rip it of in the middle of the night Prediabetes Hemoglobin A1C (%) Date Value 05/08/2022 5.9 05/21/2021 6.1 12/17/2018 6.0 ) Chronic renal insufficiency, stage 3 (moderate) (hcc) Component Latest Ref Rng & Units 05/21/2021 05/08/2022 Protein, Total 6.3 - 8.0 g/dL 7.0 7.1 Albumin 3.9 - 4.9 g/dL 4.4 4.4 Calcium 8.5 - 10.2 mg/dL 9.1 8.8 Bilirubin, Total 0.2 - 1.3 mg/dL 0.2 0.3 Alkaline Phosphatase 34 - 123 U/L 85 100 AST 13 - 35 U/L 20 17 Glucose 74 - 99 mg/dL 91 128 (H) BUN 7 - 21 mg/dL 18 17 Creatinine 0.58 - 0.96 mg/dL 0.89 1.00 (H) Sodium 136 - 144 mmol/L 136 137 Potassium 3.7 - 5.1 mmol/L 3.6 (L) 3.9 Chloride 97 - 105 mmol/L 102 102 CO2 22 - 30 mmol/L 22 26 Anion Gap 9 - 18 mmol/L 12 9 ALT 7 - 38 U/L 18 15 eGFR- >60 eGFR-All Other Races . >60 eGFR >=60 mL/min/1.73m 61 Hypothyroidism Current medication: Levothyroxine 50mcg daily Taking as directed on an empty stomach? No. Thyroid pain: No. Mass effect: No. Change in energy level/ fatigue? No. Sleep disturbance ?wants to sleep a lot. 9-6 if working, 2h nap midday. Temperature Intolerance: cold No, hot No. In females, menstrual cycle issues? No, If yes: Change in bowel habits? No. If yes: Weight changes?No. Memory issues: No. Diaphoresis: No. Numbness, tingling none Change in hair or skin? No. If yes: Other symptoms: Last 2 Encounter Wt Readings: Date: Wt: Last 2 Encounter Wt Readings: Date: Wt: 05/13/2022 81.6 kg (180 lb) 05/21/2021 79.8 kg (176 lb) Last thyroid labs: TSH Date Value 05/08/2022 9.160 mIU/L 05/19/2020 3.360 uU/mL 03/23/2020 5.620 uU/mL ) Recurrent major depression in partial remission (hcc) Current medications: Citalopram 40 mg daily Bupropion XL 300 mg daily Ana's disease (hcc) Primary osteoarthritis of left knee Current medications: Celecoxib 200 mg daily A little numbness right hand- talked with Dr. Buck, has brace Hx uveiitis Dr. 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 Baumann-PSVT ARTHROSCOPY KNEE DIAGNOSTIC W/WO SYNOVIAL BX SPX Left 1973 DELIVERY ONLY 1982,1986 , low transverse CHOLECYSTECTOMY Cholecystectomy COLONOSCOPY 2012, 2015 COLONOSCOPY FLX DX W/COLLJ SPEC WHEN PFRMD 03/31/2020 Colonoscopy COLSC FLX W/RMVL OF TUMOR POLYP LESION SNARE TQ 12/12/2009 Multiple polyps,diverticulosis EYE SURGERY HX Left 2017 cataract TONSILLECTOMY HX TOTAL ABDOMINAL HYSTERECT W/WO RMVL TUBE OVARY Hysterectomy, BRIE TOTAL KNEE REPLACEMENT Left 06/06/2021 Left total knee arthroplasty VAGINAL HYSTERECTOMY Social History Tobacco Use Smoking status: Never Smokeless tobacco: Never Vaping Use Vaping Use: Never used Substance Use Topics Alcohol use: No Drug use: No ACTIVE PROBLEM LIST Psvt (Paroxysmal Supraventricular Tachycardia) (Hcc) Ana's disease (HCC) Sarcoidosis of Lung With Sarcoidosis of Lymph Nodes (Hcc) Diverticulosis of Colon Recurrent Major Depression in Partial Remission (Hcc) Personal History of Colonic Polyps Elevated Cholesterol IRB # [id number]: [employer] ICY-AVNRT Study Abhijit's Deformity of Left Heel Tendonitis, Achilles, Left Obstructive Sleep Apnea Syndrome Other Chest Pain Chronic Renal Insufficiency, Stage 3 (Moderate) (Hcc) Subclinical Hypothyroidism Prediabetes Primary Osteoarthritis of Left Knee Current Outpatient Medications Medication Sig Dispense Refill levothyroxine (LEVOXYL) 50 mcg tablet Take 1 tablet by mouth once daily. Take on empty stomach. For Thyroid 30 tablet 2 amLODIPine (NORVASC) 5 mg tablet Take 1 tablet by mouth once daily. 90 tablet 3 celecoxib (CELEBREX) 200 mg capsule Take 1 capsule by mouth once daily. 30 capsule 1 clindamycin (CLEOCIN) 300 mg capsule 2 capsules 1 hour prior to dental procedure. 2 capsule 3 citalopram (CELEXA) 40 mg tablet Take 1 tablet by mouth once daily. 90 tablet 1 buPROPion XL (WELLBUTRIN XL) 300 mg 24 hr tablet Take 1 tablet by mouth once daily. 90 tablet 1 aspirin, enteric coated (ASPIRIN, ENTERIC COATED) 81 mg EC tablet Take 1 tablet by mouth twice daily for 28 days. (Patient not taking: Reported on 12/13/2021 ) 56 tablet 0 cyclobenzaprine (FLEXERIL) 10 mg tablet Take 1/2 - 1 tid prn (Patient not taking: Reported on 12/13/2021 ) 15 tablet 0 Difluprednate (DUREZOL) 0.05 % drop As needed (Patient taking differently: Use 1 Drop in the left eye. As needed for inflamation) CALCIUM CARBONATE/VITAMIN D3 (VITAMIN D-3 ORAL) Take by mouth. No current facility-administered medications for this visit. ADVANCE DIRECTIVE DISCUSSION Never done ANNUAL PCP TEAM CHRONIC DISEASE VISIT due on 04/05/2022 MAMMOGRAM due on 06/04/2022 EXAM: BP 132/68 Pulse 83 Ht 166 cm (5' 5.35) Wt 81.6 kg (180 lb) SpO2 96% BMI 29.63 kg/m Pleasant overweight adult woman in no acute distress. Alert and oriented all spheres. Normal affect and cognition. Speech normal. No deficits to learning or comprehension. Skin warm, dry, pink to lips and nailbeds. Normal turgor. Right chest [id number] flat brownish macule with slightly blanches, fine wrinkling. Respirations regular and unlabored. HEENT: NCAT. No scleral icterus or conjunctival injection. TM's clear. Nose and oropharynx free from injection or lesion. Oral membranes moist and pink. No cervical lymph nodes. Thyroid non-tender, no masses, or enlargement. Carotids pulses 2+/4+ without bruits. No JVD with HOB at 30 degrees. Chest is normal shape. Lungs are clear to all ritchie with good air exchange through out. HRRR without murmur or gallop. No lifts, heaves, or rubs. Abdomen: active bowel sounds throughout, soft, nontender, no masses or organomegaly. No CVAT. Extrem: no clubbing or cyanosis. Edema: none. Extremities are warm and pink with prompt capillary refill. Feet:Shoes and socks removed, No deformities, ulcers, calluses, normal distal pulses, and sensitive to 10 gm monofilament Gait and balance normal. Sensation grossly intact. Negative findings: speech normal, mental status intact, cranial nerves 2-12 intact, muscle tone normal, DTRs 2/4+ and symmetric. Right ear wax obstructed removed by me, use of lighted curette. Left ear wax removed by MA warm tap water irrigation: ear canal clear and canal and TM appear normal. ASSESSMENT/PLAN: 1. PSVT (paroxysmal supraventricular tachycardia) ([facility]) - ICD9: 427.0, ICD10: I47.1 (primary diagnosis) Stable on medication, no recurrences or symptoms. 2. Other chest pain - ICD9: 786.59, ICD10: R07.89 Asymptomatic 3. Elevated cholesterol - ICD9: 272.0, ICD10: E78.00 Well-controlled, continue medication. Again encouraged exercise, weight loss, high-fiber low-cholesterol diet. 4. Sarcoidosis of lung with sarcoidosis of lymph nodes ([facility]) - ICD9: 135, 517.8, ICD10: D86.2 Patient is intermittent cough, no shortness of breath or chest pain. No other hallmarks for sarcoid. 5. Obstructive sleep apnea syndrome - ICD9: 327.23, ICD10: G47.33 Intermittent use of CPAP, encouraged try to increase use to at least 70% of the time. 6. Prediabetes - ICD9: 790.29, ICD10: R73.03 Stable, nicely controlled. 7. Chronic renal insufficiency, stage 3 (moderate) ([facility]) - ICD9: 585.3, ICD10: N18.30 - eGFR: Worsening - Counseled on avoiding regular use of NSAIDs, adequate hydration, potential risk of IV dye - Labs ordered: Renal function panel 8. Subclinical hypothyroidism - ICD9: 244.8, ICD10: E03.8 - Instructed patient on importance of taking on an empty stomach either first thing in the morning or at bedtime. Recheck of lab work in 8 weeks with medication compliance - LEVOTHYROXINE 25 MCG TABLET 9. Recurrent major depression in partial remission (HCC) - ICD9: 296.35, ICD10: F33.41 Patient is tired a lot, scores moderate in anxiety and depression. Trial wean off of Wellbutrin 300 mg going every other day for a week and then stopping. Wean Celexa 40 alternating with 20 mg daily for a week, then 20 mg daily for a week, then 20 mg every other day for a week and then off as able. May increase as needed if symptomatic. Start desvenlafaxine 25 mg XL at the end of the second week of weaning. Reviewed new medication, box warnings, precautions, side effects, administration, weaning, anticipated length of duration Follow-up in 6 weeks to review. 10. IRB # [id number]: [employer] ICY-AVNRT Study - ICD9: V70.7, ICD10: Z00.6 No longer in study. 11. Ana's disease (HCC) - ICD9: 099.3, ICD10: M02.30 Stable overall, doing well with [id number] use of ibuprofen intermittently. 12. Primary osteoarthritis of left knee - ICD9: 715.16, ICD10: M17.12 As above. Encouraged weight loss, patient does walk routinely, recommended core exercises for strengthening. 13. Encounter for screening mammogram for malignant neoplasm of breast - ICD9: V76.12, ICD10: Z12.31 - Completed pelvic and breast exam - Encouraged monthly BSE - Follow up for annual exam in one year. - JASPAL SCREENING 14. Medicare annual wellness visit, subsequent - ICD9: V70.0, ICD10: Z00.00 - Counseled on healthy diet and regular exercise - Calcium intake with supplements or by diet of 1000 mg/day for under 50, 8714-2976 mg/day for 50+ - Discussed need and benefit for weight loss. BMI 29.63 kg/(m^2) - Depression screening tool completed and reviewed with patient. Based on score and interview, patient is already diagnosed with depression and recommended starting medicationRose Marie Samanta Drummond is a 67 year old female here for a Medicare Subsequent Annual Wellness Visit Mai Schmidt PA-C documented in this encounter [facility] 05-11-2022 Miscellaneous Notes Phoned patient and went over results, notes from Emerson HASSAN with understanding. Patient said she had missed several doses. Aware rx to pharmacy. Patient has appt in office on Friday. Please advise labs are stable except TSH is high indicating need for additional thyroid. Any missed doses? If not, recommend increase dose to 50mcg and recheck in 2 months. Telephone on 05/11/22 TSH BLD T4 FREE/FREE THYROX The following approved medication requests have been transmitted electronically. Requested Prescriptions Signed Prescriptions Disp Refills levothyroxine (LEVOXYL) 50 mcg tablet 30 tablet 2 Sig: Take 1 tablet by mouth once daily. Take on empty stomach. For Thyroid Authorizing Provider: Mai SCHMIDT PA-C documented in this encounter [facility] 04-12-2022 Miscellaneous Notes Orders for fasting labs placed. Sharda Sneed APRN.ROCÍO Patient is scheduled for 04/18 however there is currently no lab orders in please place orders as patient plans to come in on 04/15 to complete labs. Schedulers please assist pt with scheduling 40min Annual appt with labs to be completed prior to appt. Chris Ross LPN One month supply sent. Has not been seen by primary care in over a year. Has not had thyroid labwork in nearly two years. Please help schedule an appointment. Sharda Sneed APRN.CNP Patient has been identified by name and date of : Yes Requested Prescriptions Pending Prescriptions Disp Refills levothyroxine (SYNTHROID) 25 mcg tablet 30 tablet 11 Sig: Take 1 tablet by mouth once daily. Take on empty stomach. For thyroid. RX INSTRUCTIONS: Patient aware RX will be sent to pharmacy. No need to notify patient. Vero Whipple documented in this encounter [facility] 04-03-2022 History of Presen t illness Narrative POPULATION HEALTH NAVIGATION OUTREACH Action/FYI: [facility] Care Gaps 04/03/22 Discuss/Due: ~Medicare Wellness Exam ~AD Discussion ~Mammogram -due 06/05/22 or after Outcome: ~Left voice mail and sent [employer] message ~AD information sent via [employer] Pt identified by name and : NO Outreach Outcome/Action Unable to reach patient: Left message [employer] message sent Did you use a PCP flex slot to schedule this appointment? N/A Reason for Outreach Care Gap or Scheduling/Wellness visits Payer: Payor: [employer] MEDICARE / Plan: [employer] MEDICARE PPO / Product Type: PPO / Care Gap Reviewed:: Annual Wellness visit Breast Cancer screening Reminder: Reminder note to check Health Maintenance for items below Health Maintenance items due: ADVANCE DIRECTIVE DISCUSSION Never done COVID-19 VACCINE(4 - Booster for Moderna series) due on 09/06/2021 INFLUENZA(1) due on 03/07/2022 MAMMOGRAM due on 06/04/2022 Message Sent to Practice: No Navigation Signature: Sweetie Brink Population Health Navigator April 03, 2022 1:04 PM documented in this encounter [facility] 02-04-2022 Miscellaneous Notes Last office visit: 04/05/21 F/u scheduled: none, no showed for appt on 10/04/21 Jen Montana Ma Patient has been identified by name and date of : Yes Pending Prescriptions Disp Refills AMLODIPINE 5 MG TABLET 90 tablet 3 Sig: Take 1 tablet by mouth once daily. CAROLYN: No RX INSTRUCTIONS: Patient aware RX will be sent to pharmacy. No need to notify patient. Emely Geliyoose documented in this encounter [facility] 01-15-2022 History of Presen t illness Narrative [facility] Enrollment Provider Action/FYI: - ckd Patient referred by: [facility] Blas Contact made with patient: No - 2nd attempt to reach patient, left another message: Hi my name is Mariya Leo RN and I am calling from the [facility] on behalf of your PCP, Mai Schmidt PA-C. We are excited to share with you a new program to help you manage your health. Please call me back at [phone]. I hope you can take the time to speak with me. (Keep encounter open for additional two business days in case patient calls back. Close encounter if no response by end of second business day) Closing: Could not reach the patient after two attempted outreaches. Lead Software Tester to retry patient in one week. END OUTREACH [facility] Enrollment Provider Action/FYI: - ckd Patient referred by: [facility] Blas Contact made with patient: No - Left Message: Hi my name is Mariya Leo RN and I am calling from the [facility] on behalf of your PCP, Mai Schmidt PA-C. We are excited to share with you a new program to help you manage your health. Please call me back at [phone] between the hours of 8am-5pm Friday-Friday. You will receive another phone call from me within the next two business days. I hope you can take the time to speak with me. (Keep encounter open and attempt 2nd outreach in two business days from today) END OUTREACH documented in this encounter [facility] 01-14-2022 History of Presen t illness Narrative Zak Buck MD Department of Orthopaedics [facility] [address] [facility] [address] Dept: [phone] Dept January 14, 2022 CHIEF COMPLAINT: Established Patient and Pain of the Right Knee HPI Patient here today for right knee pain for a couple months. Pain wakes her at night. Denies any injury. ASSESSMENT: M17.11 Primary osteoarthritis of right knee (primary encounter diagnosis) PLAN: We reviewed her knee arthritis again and treatment options. She like to try different anti-inflammatory at this time. Ms. Rose Marie Drummond was advised as to contrast therapies and/or to take analgesics/anti-inflammatories as needed and all contraindications were reviewed. OBJECTIVE: Ms. Rose Marie Drummond is a pleasant 66 year old in no apparent distress. Gen:There were no vitals taken for this visit. nl development, non obese, no deformities ENT: Normocephalic, normal hearing, moist mucosa CV: Pulses:DP/PT= 2+ and symmetric, capillary refill < 2 secs, no peripheral edema/varicosities Skin: no rash, bruising or lesions. Good turgor. Psych: cooperative and appropriate, alert and oriented x 3, good mood and affect. Musculoskeletal: Patient walks with mild antalgia to the right, normal station. Hip motion without pain. Knee with cannot effusion. Patella tracks normally. There is no patellar crepitance. No pain along the medial or lateral facets. Range of motion 5 1 25. Positive medial, without lateral joint line pain on palpation. Ligamentous exam stable on varus and valgus stress testing at 0 and 30 degrees. Jose E's examination is negative. Posterior drawer is negative. Negative McMurrays, without palpable click. Extremity is warm and well perfused. Sensation is grossly intact to light touch, subjectively. Imaging: IMPRESSION: Degenerative change with no acute process seen. Power Lineman Technician: JULIANO Transcribe Date/Time: Jan 14 2022 4:05P Dictated by : KENNEDY CORREIA MD This examination was interpreted and the report reviewed and electronically signed by: KENNEDY CORREIA MD on Jan 14 2022 4:06PM EST Results-Findings * * *Final Report* * * DATE OF EXAM: Jan 14 2022 9:17AM WRX [id number] - XR KNEE 4V AP/PA BOTH+LAT/MANOJ RT / PROCEDURE REASON: Right knee pain, unspecified chronicity * * * * Physician Interpretation * * * * History: Right knee pain FINDINGS: 4 views of the right knee are compared to the prior study of 11/23/2021. There is medial femoral tibial joint space narrowing and marginal spurring. Femoral patellar joint space is maintained. No acute bony abnormality is seen. There is no joint effusion appreciated. Included views of the left knee demonstrate stable arthroplasty/patellar resurfacing. Supporting Subjective Information Below: Past Surgical History: PAST SURGICAL HISTORY Procedure Laterality Date ABLATION:PSVT W/TRANSSEPTAL 09/2013 Dr. Baumann-PSVT ARTHROSCOPY KNEE DIAGNOSTIC W/WO SYNOVIAL BX SPX Left 1973 DELIVERY ONLY 1982,1986 , low transverse CHOLECYSTECTOMY Cholecystectomy COLONOSCOPY 2012, 2015 COLONOSCOPY FLX DX W/COLLJ SPEC WHEN PFRMD 03/31/2020 Colonoscopy COLSC FLX W/RMVL OF TUMOR POLYP LESION SNARE TQ 12/12/2009 Multiple polyps,diverticulosis EYE SURGERY HX Left 2017 cataract TONSILLECTOMY HX TOTAL ABDOMINAL HYSTERECT W/WO RMVL TUBE OVARY Hysterectomy, BRIE TOTAL KNEE REPLACEMENT Left 06/06/2021 Left total knee arthroplasty VAGINAL HYSTERECTOMY Medications: Current Outpatient Medications Medication Sig citalopram (CELEXA) 40 mg tablet Take 1 tablet by mouth once daily. buPROPion XL (WELLBUTRIN XL) 300 mg 24 hr tablet Take 1 tablet by mouth once daily. levothyroxine (SYNTHROID) 25 mcg tablet Take 1 tablet by mouth once daily. Take on empty stomach. For thyroid. amLODIPine (NORVASC) 5 mg tablet Take 1 tablet by mouth once daily. clindamycin (CLEOCIN) 300 mg capsule 2 capsules 1 hour prior to dental procedure. aspirin, enteric coated (ASPIRIN, ENTERIC COATED) 81 mg EC tablet Take 1 tablet by mouth twice daily for 28 days. (Patient not taking: Reported on 12/13/2021 ) cyclobenzaprine (FLEXERIL) 10 mg tablet Take 1/2 - 1 tid prn (Patient not taking: Reported on 12/13/2021 ) Difluprednate (DUREZOL) 0.05 % drop As needed (Patient taking differently: Use 1 Drop in the left eye. As needed for inflamation) CALCIUM CARBONATE/VITAMIN D3 (VITAMIN D-3 ORAL) Take by mouth. No current facility-administered medications for this visit. Allergies: Amoxicillin, Codeine, Iodine, Lisinopril, and Seafood [Other] ROS: General (negative for fatigue, malaise, weight loss/gain) HEENT (negative for headache, earache, recent vision changes, sinus pain, sore throat) Respiratory (no recent shortness of breath, hemoptysis) CV (negative for chest tightness, palpitations) Musculoskeletal (see HPI) Psych (no depression, anxiety) Zak Buck MD documented in this encounter [facility] 01-14-2022 History of Presen t illness Narrative Radiology Service Progress Note PATIENT NAME: Rose Marie Drummond DATE OF SERVICE: January 14, 2022 TIME: 9:05 AM PATIENT IDENTITY VERIFICATION COMPLETED USING TWO (2) IDENTIFIERS: Name and Date of confirmed by patient verbally. FALL SCREENING: Has the patient had 2 falls in the last year or 1 fall with injury or currently using an Ambulatory Assistive Device (Walker, Cane, Wheelchair, Crutches, etc.)? No PATIENT GENDER DATA: Female. status: : No status: NO. PATIENT RELEVANT IMPLANT DATA REVIEWED: Not Applicable RADIOLOGY DEPARTMENT: General X-ray: Exam(s) Completed: Lower Extremity X-Ray(s): Knee, AP / Lat / Tunne / Merchant Right and Wt. Bearing PERIPHERAL IV DATA: Not applicable SIGNED BY: RT Lamar(R) January 14, 2022 9:05 AM documented in this encounter [facility] 12-13-2021 History of Presen t illness Narrative PT ASSESSMENT - CASTING ROOM Rose Marie presents for Application of brace. Applied Rossana and Wood modabber wrist brace to Right wrist. Patient tolerated well. Patient has been instructed in Care and proper application of brace. Patient verbalized understanding. Hannah Scott Ma Zak Buck MD Department of Orthopaedics Orthopaedics [address] [facility] [address] Dept: [phone] Dept December 13, 2021 CHIEF COMPLAINT: Post Op of the Left Knee and 6 months post op Left TKA (Having pain - fell in October). HPI Patient states in October she missed a step while in [place] and hit her bonds on the step. She has continued to have pain in her left knee. Taking Advil or Tylenol for the pain and helped. Initially when she fell she had alternated Tylenol and Naproxen. Patient states she is also having numbness and tingling in all of her fingers in right hand. Has not loss any property man strength or dropping things. AMB ROOMING INTAKE FLOWSHEET DATA Risk Screening Do you have concerns about personal safety or safety in the home?: No Pain Pain Level: 1 Pain Location: Knee-Left Description: Aching Duration Amount of Time: 2 Duration Units: Months Frequency: Intermittent Intervention/Comfort measure: Medication ASSESSMENT: M25.562 Acute pain of left knee (primary encounter diagnosis) Z96.652 Status post left knee replacement G56.01 Carpal tunnel syndrome of right wrist SUMMARY/PLAN: She is doing a bit better since her fall, the majority of her symptoms were more directly on the anterior, superior portion of the tibia as opposed to the joint specifically. She is also having some issues with carpal tunnel which we will try some bracing and see if we need to do any further testing beyond that. Exam: Left knee without effusion. Previous surgical incision healed without any complications. Gentle range of motion is without pain. Ligamentous exam is stable in the knee. No ecchymoses or signs of trauma though she does still have some tenderness to palpation over the mid third of the tibia. Remains with excellent range of motion of the knee joint. Imaging: IMPRESSION: Left total knee arthroplasty grossly unremarkable. No fracture. Power Lineman Technician: JULIANO Transcribe Date/Time: Nov 23 2021 8:09A Dictated by : MARQUISE JONAS MD This examination was interpreted and the report reviewed and electronically signed by: MARQUISE JONAS MD on Nov 23 2021 8:10AM EST Results-Findings * * *Final Report* * * DATE OF EXAM: Nov 23 2021 7:53AM WRX [id number] - XR KNEE 4V AP/PA BOTH+LAT/MANOJ LT / PROCEDURE REASON: multiple diagnoses * * * * Physician Interpretation * * * * HISTORY: pain in left knee after falling 2 weeks ago. Primary osteoarthritis of left knee Status post left knee replacement . TECHNIQUE: XR KNEE 4V AP/PA BOTH+LAT/MANOJ LT Laterality: LEFT Number of different views (projections): 4 COMPARISON: June 2021 RESULT: Left total knee arthroplasty remains in good alignment. No fracture. No progressive periprosthetic radiolucency. Decreased amount of soft tissue swelling/effusion since the prior study. Kimberly Rose Marie Drummond was advised as to contrast therapies and/or to take analgesics/anti-inflammatories as needed and all contraindications were reviewed. Supporting Information Below: Medications: Current Outpatient Medications Medication Sig citalopram (CELEXA) 40 mg tablet Take 1 tablet by mouth once daily. buPROPion XL (WELLBUTRIN XL) 300 mg 24 hr tablet Take 1 tablet by mouth once daily. levothyroxine (SYNTHROID) 25 mcg tablet Take 1 tablet by mouth once daily. Take on empty stomach. For thyroid. amLODIPine (NORVASC) 5 mg tablet Take 1 tablet by mouth once daily. Difluprednate (DUREZOL) 0.05 % drop As needed (Patient taking differently: Use 1 Drop in the left eye. As needed for inflamation) CALCIUM CARBONATE/VITAMIN D3 (VITAMIN D-3 ORAL) Take by mouth. aspirin, enteric coated (ASPIRIN, ENTERIC COATED) 81 mg EC tablet Take 1 tablet by mouth twice daily for 28 days. (Patient not taking: Reported on 12/13/2021 ) cyclobenzaprine (FLEXERIL) 10 mg tablet Take 1/2 - 1 tid prn (Patient not taking: Reported on 12/13/2021 ) No current facility-administered medications for this visit. Allergies: Amoxicillin, Codeine, Iodine, Lisinopril, and Seafood [Other] Zak Buck MD documented in this encounter [facility] 11-23-2021 History of Presen t illness Narrative Radiology Service Progress Note PATIENT NAME: Rose Marie Drummond DATE OF SERVICE: November 23, 2021 TIME: 7:53 AM PATIENT IDENTITY VERIFICATION COMPLETED USING TWO (2) IDENTIFIERS: Name and Date of confirmed by patient verbally. FALL SCREENING: Has the patient had 2 falls in the last year or 1 fall with injury or currently using an Ambulatory Assistive Device (Walker, Cane, Wheelchair, Crutches, etc.)? Yes, Patient High Risk for Falls What interventions were put in place to prevent falls during this visit? Instructed Patient to Call for Help if Needed, Offered Assistance with Transfers/Clothing, Instructed Patient to Remain Seated (Not on Exam Table) Until Exam, Increased Observations by Caregivers and Patient Refused Interventions/Assistance PATIENT GENDER DATA: Female. status: : No status: NO. PATIENT RELEVANT IMPLANT DATA REVIEWED: Not Applicable RADIOLOGY DEPARTMENT: General X-ray: Exam(s) Completed: Lower Extremity X-Ray(s): Knee, AP / Lat / Tunne / Merchant Left and Wt. Bearing PERIPHERAL IV DATA: Not applicable SIGNED BY: RT Lamar(R) November 23, 2021 7:53 AM documented in this encounter [facility] 11-21-2021 Miscellaneous Notes Patient phones requesting refills as follows: Pending Prescriptions Disp Refills CITALOPRAM 40 MG TABLET 90 tablet 1 Sig: Take 1 tablet by mouth once daily. CAROLYN: No BUPROPION XL 300 MG 24 HR TAB 90 tablet 1 Sig: Take 1 tablet by mouth once daily. CAROLYN: No LEBRON 04/05/21 *Pt no showed appt on 10/04/21 NOV no upcoming appt Please review and advise. Chris Ross LPN Patient has been identified by name and date of : Yes Pending Prescriptions Disp Refills CITALOPRAM 40 MG TABLET 90 tablet 1 Sig: Take 1 tablet by mouth once daily. CAROLYN: No BUPROPION XL 300 MG 24 HR TAB 90 tablet 1 Sig: Take 1 tablet by mouth once daily. CAROLYN: No RX INSTRUCTIONS: Patient aware RX will be sent to pharmacy. No need to notify patient. Vero Whipple documented in this encounter [facility] 11-20-2021 History of Presen t illness Narrative POPULATION HEALTH NAVIGATION OUTREACH Action/FYI Patient returned my call she will wait until March to make her appointment for her mammogram and pcp Pt identified by name and : YES, via phone Outreach Outcome/Action Spoke to patient or caregiver: Patient declined Reason for Outreach Payer: Payor: [employer] MEDICARE / Plan: [employer] MEDICARE PPO / Product Type: PPO / Care Gap Reviewed:: Reminder: Reminder note to check Health Maintenance for items below Health Maintenance items due: ADVANCE DIRECTIVE DISCUSSION Never done COVID-19 VACCINE(4 - Booster for Moderna series) due on 11/09/2021 Message Sent to Practice: Navigation Signature: Louise Gutierrez Population Health Navigator November 20, 2021 2:35 PM POPULATION HEALTH NAVIGATION OUTREACH Action/I I left a voice message and a my chart message re: mammogram and pcp appointment Pt identified by name and : NO Outreach Outcome/Action Unable to reach patient: Left message MyChart message sent Reason for Outreach Care Gap or Scheduling/Wellness visits Payer: Payor: [employer] MEDICARE / Plan: [employer] MEDICARE PPO / Product Type: PPO / Care Gap Reviewed:: Annual Wellness visit Breast Cancer screening Reminder: Reminder note to check Health Maintenance for items below Health Maintenance items due: ADVANCE DIRECTIVE DISCUSSION Never done COVID-19 VACCINE(4 - Booster for Moderna series) due on 11/09/2021 Message Sent to Practice: No Navigation Signature: Louise Gutierrez [facility] Navigator November 20, 2021 2:30 PM documented in this encounter [facility] 10-18-2021 Miscellaneous Notes Patient notified of providers response and verbalized understanding. Patient wants to try Tylenol over the weekend. She will call Friday with an update and let us know if she wants an order for an x-ray. Nope, all of that sounds very appropriate. Can check things out with an xray if she would like when she gets back. Patient called in to update that she fell on Friday (10/13/2021) while on vacation in [place]. She reports some improvement, but most of her pain is when she stands up or sits, no pain with walking. Patient is still out of the area and will be returning later today. Encouraged her to use Tylenol or ibuprofen, compression and rest with some ice. Patient verbalized understanding and will contact the office back on Friday if she feels that she needs to be seen. Any further advice? documented in this encounter [facility] 06-07-2021 Note HNO ID: [id number] Author: Ceci Moore ([employer] Extension Specialist) Service: Pharmacy Author Type: ? Type: Plan of Care Filed: 06/07/2021 5:00 PM Note Text: PHARMACY BEDSIDE DELIVERY SERVICE Patient Name: Rose Marie Drummond The marked outpatient medications were Filled at: [facility] and delivered to the patient's bedside to 291 Medication List START taking these medications aspirin, enteric coated 81 mg EC tablet Commonly known as: ASPIRIN, ENTERIC COATED Take 1 tablet by mouth twice daily for 28 days. X docusate sodium 100 mg capsule Commonly known as: COLACE Take 1 capsule by mouth twice daily. X GAVILAX 17 gram/dose powder Generic drug: polyethylene glycol 3350 Dissolve one capful (17 grams) into 4 to 8 ounces of water, juice or coffee and drink once daily as directed. X HYDROcodone-acetaminophen 5-325 mg per tablet Commonly known as: NORCO Take 1-2 tablets by mouth every 6 hours as needed for pain. X CONTINUE taking these medications amLODIPine 5 mg tablet Commonly known as: NORVASC Take 1 tablet by mouth once daily. buPROPion XL 300 mg 24 hr tablet Commonly known as: WELLBUTRIN XL Take 1 tablet by mouth once daily. citalopram 40 mg tablet Commonly known as: CeleXA Take 1 tablet by mouth once daily. cyclobenzaprine 10 mg tablet Commonly known as: FLEXERIL Take 1/2 - 1 tid prn difluprednate 0.05 % ophthalmic suspension Commonly known as: DurezoL As needed levothyroxine 25 mcg tablet Commonly known as: SYNTHROID Take 1 tablet by mouth once daily. Take on empty stomach. For thyroid. VITAMIN D-3 ORAL You might also be taking other medications not listed above. If you have questions about any of your other medications, talk to the person who prescribed them or your Primary Care Provider. STOP taking these medications mupirocin 2 % ointment Commonly known as: BACTROBAN naproxen 500 mg tablet Commonly known as: NAPROSYN traMADol 50 mg tablet Commonly known as: FLORENCE Moore ([employer] Specialist) PAGER: [phone] June 07, 2021 5:00 PM [facility] 06-07-2021 Note HNO ID: [id number] Author: Sam Ramey PA-C Service: Orthopaedic Surgery Author Type: Physician Histologic Technician Type: Progress Notes Filed: 06/07/2021 7:44 AM Note Text: POSTOP NOTE ORTHOPEDIC SERVICE DATE: 06/07/2021 SERVICE TIME: 7:42 AM IMPRESSION/PLAN: S/P Procedure(s) (LRB): ARTHROPLASTY REPLACE JOINT TOTAL KNEE (Left) on 06/06/2021 OT/Physical Therapy evaluation WBAT LLE DVT prophylaxis: with aspirin, additional anticoagulant is contraindicated due to bleeding risk and Intermittent pneumatic compression device (IPCD) Pain control Case Management for discharge planning Plan of care discussed with: Provider, RN, Patient. Patient Active Hospital Problem List: No active hospital problems. POST OPERATIVE COMPLICATIONS: Complicated by uneventful/none SUBJECTIVE: Patient states that they are comfortable Well Controlled knee pain. Denies incisional pain. OBJECTIVE: VITAL SIGNS: BP 122/68 Pulse 87 Temp 36.5 ?C (97.7 ?F) (Oral) Resp 18 Ht 167.6 cm (5' 6) Wt 85.9 kg (189 lb 6 oz) SpO2 96% BMI 30.57 kg/m? INTAKE AND OUTPUT: Intake/Output Summary (Last 24 hours) at 06/07/2021 0742 Last data filed at 06/07/2021 0617 Gross per 24 hour Intake 1000 ml Output 1800 ml Net -800 ml LABS: Hemoglobin Date Value Ref Range Status 06/07/2021 11.8 11.5 - 15.5 g/dL Final 05/21/2021 13.9 11.5 - 15.5 g/dL Final Hematocrit Date Value Ref Range Status 06/07/2021 34.8 (L) 36.0 - 46.0 % Final 05/21/2021 41.3 36.0 - 46.0 % Final Platelet Count Date Value Ref Range Status 06/07/2021 194 150 - 400 k/uL Final 05/21/2021 250 150 - 400 k/uL Final WBC Date Value Ref Range Status 06/07/2021 13.52 (H) 3.70 - 11.00 k/uL Final 05/21/2021 9.18 3.70 - 11.00 k/uL Final Creatinine Date Value Ref Range Status 05/21/2021 0.89 0.58 - 0.96 mg/dL Final 12/17/2018 1.01 (H) 0.58 - 0.96 mg/dL Final Potassium Date Value Ref Range Status 05/21/2021 3.6 (L) 3.7 - 5.1 mmol/L Final 12/17/2018 4.0 3.7 - 5.1 mmol/L Final VTE Prophylaxis: Active VTE Risk Category Order: 06/06/212114 VTE RISK CATEGORY: SURGICAL HIGH RISK ([place], [place]) Active VTE Medication Orders: Anticoagulant AND Antiplatelet Medications (From admission, onward) Start Dose Route Frequency Last Action Ordered Stop 06/07/21 0900 aspirin, enteric coated 81 mg tab(s) (Surgical Risk Categories) 81 mg ORAL 2 TIMES DAILY Ordered 06/06/212103 -- Active VTE Prophylaxis Orders: 06/06/212114 PNEUMATIC COMPRESSION STOCKINGS ([place]) PHYSICAL EXAMINATION: Left Lower Extremity: Dorsalis pedis pulses palpable. Posterior tibial pulses palpable. Dorsi flexion 5/5. Plantar flexion 5/5. Extensor hallucis extension: 5/5. Sensory intact to light touch L1-S1. Dressing clean, dry and intact. Surgical site no drainage and Silverlon intact. Thigh is not swollen, calf is not tender, no signs of DVT or infection Problem Review and Assessment: Skin and Abdominal Wall: Patient monitored, no new events overnight Cardiovascular and Vascular: Patient monitored, no new events overnight Respiratory: Patient monitored, no new events overnight Endocrine and Metabolic: Patient monitored, no new events overnight Gastrointestinal: Patient monitored, no new events overnight Genitourinary and Nephrology: Patient monitored, no new events overnight Behavioral, Cerebrovascular and Nervous: Patient monitored, no new events overnight Infectious: Patient monitored, no new events overnight DATA: Diagnostic tests reviewed for today's visit: Most recent labs and imaging results. SIGNATURE: Sam Ramey PA-C PATIENT NAME: Rose Marie Drummond DATE: June 07, 2021 TIME: 7:42 AM The patient has undergone major orthopedic surgery and participating in therapy. Pain cannot be managed within an average of 30 MED per day. Patient requiring average of higher than 30 MED per day in order to control pain and allow patient to actively and safely participate in therapy and this is the lowest dose consistent with patient's medical condition. Non-narcotic medication options have been discussed. In addition, the patient has been advised of the benefits and risks of the opioid (including the potential for addiction). Patient demonstrated understanding of risks versus benefits. [facility] 06-06-2021 Note HNO ID: [id number] Author: Galen Orlando APRN.ESCALATOR CONSTRUCTOR Service: Anesthesiology Author Type: Nurse Rouge Presser Type: Anesthesia Procedure Notes Filed: 06/06/2021 3:09 PM Note Text: ANESTHESIOLOGY PROCEDURE NOTE Spinal Block General Information Procedure Start Time/Medication Administration: 06/06/2021 2:34 PM Patient location during procedure: OR Timeout Performed Pre-procedure: timeout performed Consent Obtained: Yes Patient identity confirmed: arm band and patient Reason for Block: primary surgical anesthetic Staffing ESCALATOR CONSTRUCTOR: Galen Orlando APRN.CRNA Other anesthesia staff/rotator: Galen Orlando APRN.ESCALATOR CONSTRUCTOR Performed by: SORIN Preparation Sterility Preparation: hand hygiene performed prior to procedure, gown used during line insertion, surgical cap used, mask used, sterile drape used during line insertion, skin prep agent completely dried prior to procedure Site Prep: Betadine Procedure Details Patient Position: sitting Ultrasound Guided: No Monitoring: Pulse Ox and NIBP Approach: Midline Location: L3-4 Injection Technique: single-shot Needle Needle Type: pencil-tip Needle Gauge: 25 G Assessment Events: tolerated well SIGNATURE: Galen Orlando APRN.CRNA PATIENT NAME: Rose Marie Drummond DATE: June 06, 2021 TIME: 3:08 PM CSN: [id number] [facility] 06-06-2021 Note HNO ID: [id number] Author: Randy Adkins MD Service: Anesthesiology Author Type: Anesthesiologist Type: Anesthesia Procedure Notes Filed: 06/06/2021 2:02 PM Note Text: ANESTHESIOLOGY PROCEDURE NOTE Peripheral Nerve Block General Information Procedure Start Time/Medication Administration: 06/06/2021 1:54 PM Procedure End time: 06/06/2021 1:57 PM Patient location during procedure: induction room Timeout Performed Pre-procedure: timeout performed Consent Obtained: Yes Patient identity confirmed: arm band and patient Reason for block: post-op pain management/at surgeon's request Staffing Anesthesiologist: Randy Adkins MD Performed by: anesthesiologist Preparation Sterility Preparation: hand hygiene performed prior to procedure, surgical cap used, mask used, sterile drape used during line insertion, skin prep agent completely dried prior to procedure Site Prep: Chloraprep Pre-Procedure Neuro Exam Location: LLE Sensory: intact Motor: intact Procedure Details Patient Position: supine Monitoring: Pulse OX, EKG and NIBP Block Type Lower Extremity: distal femoral (adductor canal) Laterality: left Injection Technique: single-shot Ultrasound Guided: Yes Image in Chart: yes Local Infiltration: Yes Needle Needle Gauge: 22 G Needle Length: 83 mm Needle Localization: ultrasound Assessment Injection assessment: negative aspiration, no paresthesia on injection, incremental injection and local visualized surrounding nerve on ultrasound Paresthesia: none Post-Procedure Neuro Exam Expected Regional Anesthesia: Yes Medications Administered Dexamethasone sodium phosphate injection (DECADRON), 10 mg ropivacaine (PF) 5 mg/mL (0.5 %) injection (NAROPIN), 30 mL SIGNATURE: Randy Adkins MD PATIENT NAME: Rose Marie Drummond DATE: June 06, 2021 TIME: 2:01 PM CSN: [id number] [facility] 03-15-2021 Miscellaneous Notes appt has been set.-[place] Phone call placed, detailed message to schedule blood pressure follow up nurse visit in one week. Ruby Moreno LPN I forgot to have nurse schedule a one week follow-up BP check. Please assist in scheduling. Thanks, Carin oYu APRN.ROCÍO documented in this encounter [facility] 12-06-2020 History of Presen t illness Narrative Radiology Service Progress Note PATIENT NAME: Rose Marie Drummond DATE OF SERVICE: December 06, 2020 TIME: 2:21 PM PATIENT IDENTITY VERIFICATION COMPLETED USING TWO (2) IDENTIFIERS: Name and Date of confirmed by patient verbally. FALL SCREENING: Has the patient had 2 falls in the last year or 1 fall with injury or currently using an Ambulatory Assistive Device (Walker, Cane, Wheelchair, Crutches, etc.)? No PATIENT GENDER DATA: Female. status: : No status: NO. 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 documented as of this encounter (statuses as of 10/19/2021) [facility] History of Past illness Narrative* Problem Noted Date Resolved Date History of depression 12/14/2018 03/06/2020 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 documented as of this encounter (statuses as of 11/20/2021) [facility] History of Past illness Narrative* Problem Noted Date Resolved Date History of depression 12/14/2018 03/06/2020 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 documented as of this encounter (statuses as of 11/20/2021) [facility] of Past illness Narrative* Problem Noted Date Resolved Date History of depression 12/14/2018 03/06/2020 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 documented as of this encounter (statuses as of 11/21/2021) [facility] of [facility] Narrative* Problem Noted Date Resolved Date History of depression 12/14/2018 03/06/2020 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 documented as of this encounter (statuses as of 11/24/2021) [facility] of Past illness Narrative* Problem Noted Date Resolved Date History of depression 12/14/2018 03/06/2020 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 documented as of this encounter (statuses as of 12/17/2021) [facility] of [facility] Narrative* Problem Noted Date Resolved Date History of depression 12/14/2018 03/06/2020 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 documented as of this encounter (statuses as of 01/14/2022) [facility] of [facility] Narrative* Problem Noted Date Resolved Date History of depression 12/14/2018 03/06/2020 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 documented as of this encounter (statuses as of 01/15/2022) [facility] of [facility] Narrative* Problem Noted Date Resolved Date History of depression 12/14/2018 03/06/2020 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 documented as of this encounter (statuses as of 01/15/2022) [facility] Narrative* Problem Noted Date Resolved Date History of depression 12/14/2018 03/06/2020 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 documented as of this encounter (statuses as of 01/23/2022) [facility] Narrative* Problem Noted Date Resolved Date History of depression 12/14/2018 03/06/2020 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 documented as of this encounter (statuses as of 01/29/2022) [facility] Narrative* Problem Noted Date Resolved Date History of depression 12/14/2018 03/06/2020 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 documented as of this encounter (statuses as of 02/04/2022) [facility] Narrative* Problem Noted Date Resolved Date History of depression 12/14/2018 03/06/2020 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 documented as of this encounter (statuses as of 04/03/2022) [facility] N[facility]ative* Problem Noted Date Resolved Date History of depression 12/14/2018 03/06/2020 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 documented as of this encounter (statuses as of 04/12/2022) [facility] N[facility]ative* Problem Noted Date Resolved Date History of depression 12/14/2018 03/06/2020 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 Routine gynecological examination 02/06/2009 04/16/2022 documented as of this encounter (statuses as of 05/11/2022) [facility] N[facility]ative* Problem Noted Date Resolved Date History of depression 12/14/2018 03/06/2020 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 Routine gynecological examination 02/06/2009 04/16/2022 documented as of this encounter (statuses as of 05/13/2022) [facility] N[facility]ative* Problem Noted Date Resolved Date History of depression 12/14/2018 03/06/2020 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 Routine gynecological examination 02/06/2009 04/16/2022 documented as of this encounter (statuses as of 05/26/2022) [facility] N[facility]ative* Problem Noted Date Resolved Date History of depression 12/14/2018 03/06/2020 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 Routine gynecological examination 02/06/2009 04/16/2022 documented as of this encounter (statuses as of 06/11/2022) [facility] N[facility]ative* Problem Noted Date Resolved Date History of depression 12/14/2018 03/06/2020 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 Routine gynecological examination 02/06/2009 04/16/2022 documented as of this encounter (statuses as of 06/17/2022) [facility] N[facility]ative* Problem Noted Date Resolved Date History of depression 12/14/2018 03/06/2020 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 Routine gynecological examination 02/06/2009 04/16/2022 documented as of this encounter (statuses as of 07/11/2022) [address] History of Past illness Narrative* Problem Noted Date Resolved Date History of depression 12/14/2018 03/06/2020 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 Routine gynecological examination 02/06/2009 04/16/2022 documented as of this encounter (statuses as of 07/14/2022) [facility] N[facility]ative* Problem Noted Date Resolved Date History of depression 12/14/2018 03/06/2020 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 Routine gynecological examination 02/06/2009 04/16/2022 documented as of this encounter (statuses as of 08/18/2022) [facility] N[facility]ative* Problem Noted Date Resolved Date History of depression 12/14/2018 03/06/2020 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 Routine gynecological examination 02/06/2009 04/16/2022 documented as of this encounter (statuses as of 08/26/2022) [facility] N[facility]ative* Problem Noted Date Resolved Date History of depression 12/14/2018 03/06/2020 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 Routine gynecological examination 02/06/2009 04/16/2022 documented as of this encounter (statuses as of 11/13/2022) [facility] N[facility]ative* Problem Noted Date Diagnosed Date Resolved Date History of depression 12/14/20182019 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 03/06/2020 Routine gynecological examination 02/06/2009 04/16/2022 documented as of this encounter (statuses as of 01/23/2023) [address] History of Past illness Narrative* Problem Noted Date Diagnosed Date Resolved Date History of depression 12/14/20182019 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 03/06/2020 Routine gynecological examination 02/06/2009 04/16/2022 documented as of this encounter (statuses as of 01/27/2023) [facility] Narrative* Problem Noted Date Diagnosed Date Resolved Date History of depression 12/14/20182019 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 03/06/2020 Routine gynecological examination 02/06/2009 04/16/2022 documented as of this encounter (statuses as of 02/19/2023) [facility] Narrative* Problem Noted Date Diagnosed Date Resolved Date History of depression 12/14/20182019 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 03/06/2020 Routine gynecological examination 02/06/2009 04/16/2022 documented as of this encounter (statuses as of 05/09/2023) [facility] Narrative* Problem Noted Date Diagnosed Date Resolved Date History of depression 12/14/20182019 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 03/06/2020 Routine gynecological examination 02/06/2009 04/16/2022 documented as of this encounter (statuses as of 05/09/2023) [facility] of [facility] illness Narrative* Problem Noted Date Diagnosed Date Resolved Date History of depression 12/14/20182019 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 03/06/2020 Routine gynecological examination 02/06/2009 04/16/2022 documented as of this encounter (statuses as of 06/01/2023) [facility] Primary osteoarthritis of left knee- Primary Primary localized osteoarthrosis, lower leg Status post left knee replacement [facility] Recurrent major depression in partial remission (HCC) Major depressive disorder, recurrent episode, in partial or unspecified remission [facility] Diagnosis Primary osteoarthritis of left knee Primary localized osteoarthrosis, lower leg Status post left knee replacement [facility] Diagnosis Acute pain of left knee- Primary Status post left knee replacement Carpal tunnel syndrome of right wrist Carpal tunnel syndrome [facility] Diagnosis Right knee pain, unspecified chronicity- Primary [facility] Diagnosis Right knee pain, unspecified chronicity [facility] Diagnosis Chronic renal insufficiency, stage 3 (moderate) (HCC)- Primary [facility] Diagnosis Primary osteoarthritis of right knee- Primary Primary localized osteoarthrosis, lower leg [facility] Diagnosis Hyperlipidemia, mixed- Primary Mixed hyperlipidemia Subclinical hypothyroidism Other specified acquired hypothyroidism Prediabetes Other abnormal glucose Chronic renal insufficiency, stage 3 (moderate) (HCC) [facility] Diagnosis Subclinical hypothyroidism- Primary Other specified acquired hypothyroidism [facility] Diagnosis PSVT (paroxysmal supraventricular tachycardia) (HCC)- Primary Paroxysmal supraventricular tachycardia Other chest pain Elevated cholesterol Pure hypercholesterolemia 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) Sarcoidosis Obstructive sleep apnea syndrome Obstructive sleep apnea (adult) (pediatric) Prediabetes Other abnormal glucose Chronic renal insufficiency, stage 3 (moderate) (HCC) Subclinical hypothyroidism Other specified acquired hypothyroidism Recurrent major depression in partial remission (HCC) Major depressive disorder, recurrent episode, in partial or unspecified remission IRB # [id number]: [employer] ICY-AVNRT Study Examination of participant in clinical trial Ana's disease (HCC) Ana's disease Primary osteoarthritis of left knee Primary localized osteoarthrosis, lower leg Encounter for screening mammogram for malignant neoplasm of breast Other screening mammogram Medicare annual wellness visit, subsequent Routine general medical examination at a health care facility Bilateral impacted cerumen Impacted cerumen [facility] Diagnosis Acute non-recurrent maxillary sinusitis- Primary [facility] Diagnosis Primary osteoarthritis of right knee- Primary Primary localized osteoarthrosis, lower leg Status post left knee replacement [facility] Status post left knee replacement- [facility] Diagnosis Recurrent major depression in partial remission (HCC)- Primary Major depressive disorder, recurrent episode, in partial or unspecified remission [facility] Diagnosis Bacterial sinusitis- Primary Unspecified sinusitis (chronic) [facility]* Diagnosis Conjunctivitis of left eye, unspecified conjunctivitis type- Primary documented in this encounter 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* Diagnosis Right knee pain, unspecified chronicity documented in this encounter [facility]* Diagnosis Encounter for screening mammogram for malignant neoplasm of breast Other screening mammogram documented in this encounter [facility]* Diagnosis Chronic pain of right knee- Primary Primary osteoarthritis of right knee Primary localized osteoarthrosis, lower leg documented in this encounter [facility]* Diagnosis PSVT (paroxysmal supraventricular tachycardia) (HCC)- Primary Paroxysmal supraventricular tachycardia Mixed hyperlipidemia Prediabetes Other abnormal glucose Chronic renal insufficiency, stage 3 (moderate) (HCC) Subclinical hypothyroidism Other specified acquired hypothyroidism Recurrent major depression in partial remission (HCC) Major depressive disorder, recurrent episode, in partial or unspecified remission Encounter for screening mammogram for breast cancer documented in this encounter [facility]* Diagnosis Encounter for screening mammogram for breast cancer [facility] Diagnosis Mass of left breast, unspecified quadrant- Primary Abnormal mammogram Abnormal mammogram, unspecified documented in this encounter [facility] note* Diagnosis Pre-operative examination- Primary Preoperative examination, unspecified Tendonitis, Achilles, left Achilles bursitis or tendinitis Abhijit's deformity of left heel PSVT (paroxysmal supraventricular tachycardia) (HCC) Paroxysmal supraventricular tachycardia Elevated cholesterol Pure hypercholesterolemia Sarcoidosis Obstructive sleep apnea syndrome Obstructive sleep apnea (adult) (pediatric) Recurrent major depression in partial remission (HCC) Major depressive disorder, recurrent episode, in partial or unspecified remission Personal history of colonic polyps Pre-operative examination- Primary Preoperative examination, unspecified Primary osteoarthritis of left knee Primary localized osteoarthrosis, lower leg Elevated cholesterol Pure hypercholesterolemia PSVT (paroxysmal supraventricular tachycardia) (HCC) Paroxysmal supraventricular tachycardia Obstructive sleep apnea syndrome Obstructive sleep apnea (adult) (pediatric) 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) Sarcoidosis Chronic renal insufficiency, stage 3 (moderate) (HCC) Ana's disease (HCC) Ana's disease Subclinical hypothyroidism Other specified acquired hypothyroidism Recurrent major depression in partial remission (HCC) Major depressive disorder, recurrent episode, in partial or unspecified remission Prediabetes Other abnormal glucose Mass of left breast, unspecified quadrant Abnormal mammogram Abnormal mammogram, unspecified [facility]* Diagnosis Pre-operative examination- Primary Preoperative examination, unspecified Tendonitis, Achilles, left Achilles bursitis or tendinitis Abhijit's deformity of left heel PSVT (paroxysmal supraventricular tachycardia) (HCC) Paroxysmal supraventricular tachycardia Elevated cholesterol Pure hypercholesterolemia Sarcoidosis Obstructive sleep apnea syndrome Obstructive sleep apnea (adult) (pediatric) Recurrent major depression in partial remission (HCC) Major depressive disorder, recurrent episode, in partial or unspecified remission Personal history of colonic polyps Pre-operative examination- Primary Preoperative examination, unspecified Primary osteoarthritis of left knee Primary localized osteoarthrosis, lower leg Elevated cholesterol Pure hypercholesterolemia PSVT (paroxysmal supraventricular tachycardia) (HCC) Paroxysmal supraventricular tachycardia Obstructive sleep apnea syndrome Obstructive sleep apnea (adult) (pediatric) 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) Sarcoidosis Chronic renal insufficiency, stage 3 (moderate) (HCC) Ana's disease (HCC) Ana's disease Subclinical hypothyroidism Other specified acquired hypothyroidism Recurrent major depression in partial remission (HCC) Major depressive disorder, recurrent episode, in partial or unspecified remission Prediabetes Other abnormal glucose 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) Sarcoidosis [facility]* Diagnosis Pre-operative examination- Primary Preoperative examination, unspecified Tendonitis, Achilles, left Achilles bursitis or tendinitis Abhijit's deformity of left heel PSVT (paroxysmal supraventricular tachycardia) (HCC) Paroxysmal supraventricular tachycardia Elevated cholesterol Pure hypercholesterolemia Sarcoidosis Obstructive sleep apnea syndrome Obstructive sleep apnea (adult) (pediatric) Recurrent major depression in partial remission (HCC) Major depressive disorder, recurrent episode, in partial or unspecified remission Personal history of colonic polyps Pre-operative examination- Primary Preoperative examination, unspecified Primary osteoarthritis of left knee Primary localized osteoarthrosis, lower leg Elevated cholesterol Pure hypercholesterolemia PSVT (paroxysmal supraventricular tachycardia) (HCC) Paroxysmal supraventricular tachycardia Obstructive sleep apnea syndrome Obstructive sleep apnea (adult) (pediatric) 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) Sarcoidosis Chronic renal insufficiency, stage 3 (moderate) (HCC) Ana's disease (HCC) Ana's disease Subclinical hypothyroidism Other specified acquired hypothyroidism Recurrent major depression in partial remission (HCC) Major depressive disorder, recurrent episode, in partial or unspecified remission Prediabetes Other abnormal glucose 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) Sarcoidosis [facility]* Diagnosis Pre-operative examination- Primary Preoperative examination, unspecified Tendonitis, Achilles, left Achilles bursitis or tendinitis Abhijit's deformity of left heel PSVT (paroxysmal supraventricular tachycardia) (HCC) Paroxysmal supraventricular tachycardia Elevated cholesterol Pure hypercholesterolemia Sarcoidosis Obstructive sleep apnea syndrome Obstructive sleep apnea (adult) (pediatric) Recurrent major depression in partial remission (HCC) Major depressive disorder, recurrent episode, in partial or unspecified remission Personal history of colonic polyps Pre-operative examination- Primary Preoperative examination, unspecified Primary osteoarthritis of left knee Primary localized osteoarthrosis, lower leg Elevated cholesterol Pure hypercholesterolemia PSVT (paroxysmal supraventricular tachycardia) (HCC) Paroxysmal supraventricular tachycardia Obstructive sleep apnea syndrome Obstructive sleep apnea (adult) (pediatric) 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) Sarcoidosis Chronic renal insufficiency, stage 3 (moderate) (HCC) Ana's disease (HCC) Ana's disease Subclinical hypothyroidism Other specified acquired hypothyroidism Recurrent major depression in partial remission (HCC) Major depressive disorder, recurrent episode, in partial or unspecified remission Prediabetes Other abnormal glucose Hypertension, essential Unspecified essential hypertension Recurrent major depression in partial remission (HCC) Major depressive disorder, recurrent episode, in partial or unspecified remission [facility]* Diagnosis Pre-operative examination- Primary Preoperative examination, unspecified Tendonitis, Achilles, left Achilles bursitis or tendinitis Abhijit's deformity of left heel PSVT (paroxysmal supraventricular tachycardia) (HCC) Paroxysmal supraventricular tachycardia Elevated cholesterol Pure hypercholesterolemia Sarcoidosis Obstructive sleep apnea syndrome Obstructive sleep apnea (adult) (pediatric) Recurrent major depression in partial remission (HCC) Major depressive disorder, recurrent episode, in partial or unspecified remission Personal history of colonic polyps Pre-operative examination- Primary Preoperative examination, unspecified Primary osteoarthritis of left knee Primary localized osteoarthrosis, lower leg Elevated cholesterol Pure hypercholesterolemia PSVT (paroxysmal supraventricular tachycardia) (HCC) Paroxysmal supraventricular tachycardia Obstructive sleep apnea syndrome Obstructive sleep apnea (adult) (pediatric) 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) Sarcoidosis Chronic renal insufficiency, stage 3 (moderate) (HCC) Ana's disease (HCC) Ana's disease Subclinical hypothyroidism Other specified acquired hypothyroidism Recurrent major depression in partial remission (HCC) Major depressive disorder, recurrent episode, in partial or unspecified remission Prediabetes Other abnormal glucose Recurrent major depression in partial remission (HCC)- Primary Major depressive disorder, recurrent episode, in partial or unspecified remission Encounter for immunization Need for other specified prophylactic vaccination against single bacterial disease [facility]* Diagnosis Pre-operative examination- Primary Preoperative examination, unspecified Tendonitis, Achilles, left Achilles bursitis or tendinitis Abhijit's deformity of left heel PSVT (paroxysmal supraventricular tachycardia) (HCC) Paroxysmal supraventricular tachycardia Elevated cholesterol Pure hypercholesterolemia Sarcoidosis Obstructive sleep apnea syndrome Obstructive sleep apnea (adult) (pediatric) Recurrent major depression in partial remission (HCC) Major depressive disorder, recurrent episode, in partial or unspecified remission Personal history of colonic polyps Pre-operative examination- Primary Preoperative examination, unspecified Primary osteoarthritis of left knee Primary localized osteoarthrosis, lower leg Elevated cholesterol Pure hypercholesterolemia PSVT (paroxysmal supraventricular tachycardia) (HCC) Paroxysmal supraventricular tachycardia Obstructive sleep apnea syndrome Obstructive sleep apnea (adult) (pediatric) 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) Sarcoidosis Chronic renal insufficiency, stage 3 (moderate) (HCC) Ana's disease (HCC) Ana's disease Subclinical hypothyroidism Other specified acquired hypothyroidism Recurrent major depression in partial remission (HCC) Major depressive disorder, recurrent episode, in partial or unspecified remission Prediabetes Other abnormal glucose Acute cough- Primary URI, acute Acute upper respiratory infections of unspecified site Acute cough [facility]* Diagnosis Pre-operative examination- Primary Preoperative examination, unspecified Tendonitis, Achilles, left Achilles bursitis or tendinitis Abhijit's deformity of left heel PSVT (paroxysmal supraventricular tachycardia) (HCC) Paroxysmal supraventricular tachycardia Elevated cholesterol Pure hypercholesterolemia Sarcoidosis Obstructive sleep apnea syndrome Obstructive sleep apnea (adult) (pediatric) Recurrent major depression in partial remission (HCC) Major depressive disorder, recurrent episode, in partial or unspecified remission Personal history of colonic polyps Pre-operative examination- Primary Preoperative examination, unspecified Primary osteoarthritis of left knee Primary localized osteoarthrosis, lower leg Elevated cholesterol Pure hypercholesterolemia PSVT (paroxysmal supraventricular tachycardia) (HCC) Paroxysmal supraventricular tachycardia Obstructive sleep apnea syndrome Obstructive sleep apnea (adult) (pediatric) 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* Diagnosis Pre-operative examination- Primary Preoperative examination, unspecified Tendonitis, Achilles, left Achilles bursitis or tendinitis Abhijit's deformity of left heel PSVT (paroxysmal supraventricular tachycardia) (HCC) Paroxysmal supraventricular tachycardia Elevated cholesterol Pure hypercholesterolemia Sarcoidosis Obstructive sleep apnea syndrome Obstructive sleep apnea (adult) (pediatric) Recurrent major depression in partial remission (HCC) Major depressive disorder, recurrent episode, in partial or unspecified remission Personal history of colonic polyps Pre-operative examination- Primary Preoperative examination, unspecified Primary osteoarthritis of left knee Primary localized osteoarthrosis, lower leg Elevated cholesterol Pure hypercholesterolemia PSVT (paroxysmal supraventricular tachycardia) (HCC) Paroxysmal supraventricular tachycardia Obstructive sleep apnea syndrome Obstructive sleep apnea (adult) (pediatric) 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) Sarcoidosis Chronic renal insufficiency, stage 3 (moderate) (HCC) Ana's disease (HCC) Ana's disease Subclinical hypothyroidism Other specified acquired hypothyroidism Recurrent major depression in partial remission (HCC) Major depressive disorder, recurrent episode, in partial or unspecified remission Prediabetes Other abnormal glucose Conjunctivitis of left eye, unspecified conjunctivitis type- Primary Rhinosinusitis Unspecified sinusitis (chronic) Acute cough [facility]* Diagnosis Pre-operative examination- Primary Preoperative examination, unspecified Tendonitis, Achilles, left Achilles bursitis or tendinitis Abhijit's deformity of left heel PSVT (paroxysmal supraventricular tachycardia) (HCC) Paroxysmal supraventricular tachycardia Elevated cholesterol Pure hypercholesterolemia Sarcoidosis Obstructive sleep apnea syndrome Obstructive sleep apnea (adult) (pediatric) Recurrent major depression in partial remission (HCC) Major depressive disorder, recurrent episode, in partial or unspecified remission Personal history of colonic polyps Pre-operative examination- Primary Preoperative examination, unspecified Primary osteoarthritis of left knee Primary localized osteoarthrosis, lower leg Elevated cholesterol Pure hypercholesterolemia PSVT (paroxysmal supraventricular tachycardia) (HCC) Paroxysmal supraventricular tachycardia Obstructive sleep apnea syndrome Obstructive sleep apnea (adult) (pediatric) 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* Diagnosis Pre-operative examination- Primary Preoperative examination, unspecified Tendonitis, Achilles, left Achilles bursitis or tendinitis Abhijit's deformity of left heel PSVT (paroxysmal supraventricular tachycardia) (HCC) Paroxysmal supraventricular tachycardia Elevated cholesterol Pure hypercholesterolemia Sarcoidosis Obstructive sleep apnea syndrome Obstructive sleep apnea (adult) (pediatric) Recurrent major depression in partial remission (HCC) Major depressive disorder, recurrent episode, in partial or unspecified remission Personal history of colonic polyps Pre-operative examination- Primary Preoperative examination, unspecified Primary osteoarthritis of left knee Primary localized osteoarthrosis, lower leg Elevated cholesterol Pure hypercholesterolemia PSVT (paroxysmal supraventricular tachycardia) (HCC) Paroxysmal supraventricular tachycardia Obstructive sleep apnea syndrome Obstructive sleep apnea (adult) (pediatric) 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) Sarcoidosis Chronic renal insufficiency, stage 3 (moderate) (HCC) Ana's disease (HCC) Ana's disease Subclinical hypothyroidism Other specified acquired hypothyroidism Recurrent major depression in partial remission (HCC) Major depressive disorder, recurrent episode, in partial or unspecified remission Prediabetes Other abnormal glucose Subclinical hypothyroidism Other specified acquired hypothyroidism [facility]* Diagnosis Pre-operative examination- Primary Preoperative examination, unspecified Tendonitis, Achilles, left Achilles bursitis or tendinitis Abhijit's deformity of left heel PSVT (paroxysmal supraventricular tachycardia) (HCC) Paroxysmal supraventricular tachycardia Elevated cholesterol Pure hypercholesterolemia Sarcoidosis Obstructive sleep apnea syndrome Obstructive sleep apnea (adult) (pediatric) Recurrent major depression in partial remission Major depressive disorder, recurrent episode, in partial or unspecified remission Personal history of colonic polyps Pre-operative examination- Primary Preoperative examination, unspecified Primary osteoarthritis of left knee Primary localized osteoarthrosis, lower leg Elevated cholesterol Pure hypercholesterolemia PSVT (paroxysmal supraventricular tachycardia) (HCC) Paroxysmal supraventricular tachycardia Obstructive sleep apnea syndrome Obstructive sleep apnea (adult) (pediatric) 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) Sarcoidosis Chronic renal insufficiency, stage 3 (moderate) (HCC) Ana's disease (HCC) Ana's disease Subclinical hypothyroidism Other specified acquired hypothyroidism Recurrent major depression in partial remission Major depressive disorder, recurrent episode, in partial or unspecified remission Prediabetes Other abnormal glucose PSVT (paroxysmal supraventricular tachycardia) (HCC)- Primary Paroxysmal supraventricular tachycardia Recurrent major depression in partial remission Major depressive disorder, recurrent episode, in partial or unspecified remission Ana's disease (HCC) Ana's disease Skin lesion Unspecified disorder of skin and subcutaneous tissue 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) Sarcoidosis Prediabetes Other abnormal glucose Mixed hyperlipidemia Subclinical hypothyroidism Other specified acquired hypothyroidism Reactive arthritis, unspecified site (HCC) [facility]* Diagnosis Pre-operative examination- Primary Preoperative examination, unspecified Tendonitis, Achilles, left Achilles bursitis or tendinitis Abhijit's deformity of left heel PSVT (paroxysmal supraventricular tachycardia) (HCC) Paroxysmal supraventricular tachycardia Elevated cholesterol Pure hypercholesterolemia Sarcoidosis Obstructive sleep apnea syndrome Obstructive sleep apnea (adult) (pediatric) Recurrent major depression in partial remission Major depressive disorder, recurrent episode, in partial or unspecified remission Personal history of colonic polyps Pre-operative examination- Primary Preoperative examination, unspecified Primary osteoarthritis of left knee Primary localized osteoarthrosis, lower leg Elevated cholesterol Pure hypercholesterolemia PSVT (paroxysmal supraventricular tachycardia) (HCC) Paroxysmal supraventricular tachycardia Obstructive sleep apnea syndrome Obstructive sleep apnea (adult) (pediatric) 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) Sarcoidosis Chronic renal insufficiency, stage 3 (moderate) (HCC) Ana's disease (HCC) Ana's disease Subclinical hypothyroidism Other specified acquired hypothyroidism Recurrent major depression in partial remission Major depressive disorder, recurrent episode, in partial or unspecified remission Prediabetes Other abnormal glucose Skin lesion- Primary Unspecified disorder of skin and subcutaneous tissue Urinary incontinence, unspecified type Postmenopausal atrophic vaginitis Encounter for screening mammogram for malignant neoplasm of breast Other screening mammogram [facility]* Diagnosis Pre-operative examination- Primary Preoperative examination, unspecified Tendonitis, Achilles, left Achilles bursitis or tendinitis Abhijit's deformity of left heel PSVT (paroxysmal supraventricular tachycardia) (HCC) Paroxysmal supraventricular tachycardia Elevated cholesterol Pure hypercholesterolemia Sarcoidosis Obstructive sleep apnea syndrome Obstructive sleep apnea (adult) (pediatric) Recurrent major depression in partial remission Major depressive disorder, recurrent episode, in partial or unspecified remission Personal history of colonic polyps Pre-operative examination- Primary Preoperative examination, unspecified Primary osteoarthritis of left knee Primary localized osteoarthrosis, lower leg Elevated cholesterol Pure hypercholesterolemia PSVT (paroxysmal supraventricular tachycardia) (HCC) Paroxysmal supraventricular tachycardia Obstructive sleep apnea syndrome Obstructive sleep apnea (adult) (pediatric) 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) Sarcoidosis Chronic renal insufficiency, stage 3 (moderate) (HCC) Ana's disease (HCC) Ana's disease Subclinical hypothyroidism Other specified acquired hypothyroidism Recurrent major depression in partial remission Major depressive disorder, recurrent episode, in partial or unspecified remission Prediabetes Other abnormal glucose Encounter for screening mammogram for malignant neoplasm of breast Other [facility] Diagnosis Pre-operative examination- Primary Preoperative examination, unspecified Tendonitis, Achilles, left Achilles bursitis or tendinitis Abhijit's deformity of left heel PSVT (paroxysmal supraventricular tachycardia) (HCC) Paroxysmal supraventricular tachycardia Elevated cholesterol Pure hypercholesterolemia Sarcoidosis Obstructive sleep apnea syndrome Obstructive sleep apnea (adult) (pediatric) Recurrent major depression in partial remission Major depressive disorder, recurrent episode, in partial or unspecified remission Personal history of colonic polyps Pre-operative examination- Primary Preoperative examination, unspecified Primary osteoarthritis of left knee Primary localized osteoarthrosis, lower leg Elevated cholesterol Pure hypercholesterolemia PSVT (paroxysmal supraventricular tachycardia) (HCC) Paroxysmal supraventricular tachycardia Obstructive sleep apnea syndrome Obstructive sleep apnea (adult) (pediatric) 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) Sarcoidosis Chronic renal insufficiency, stage 3 (moderate) (HCC) Ana's disease (HCC) Aan's disease Subclinical hypothyroidism Other specified acquired hypothyroidism Recurrent major depression in partial remission Major depressive disorder, recurrent episode, in partial or unspecified remission Prediabetes Other abnormal glucose Screen for colon cancer- Primary Special screening for malignant neoplasms, colon History of colonic polyps Personal history of colonic polyps documented in this [facility] Diagnostic Procedure Only (Routine) - Pending Review Specialty Diagnoses / Procedures Referred By Johnny t Referred To Contact XR IMAGING Diagnoses Primary osteoarthritis of left knee Status post left knee replacement Procedures XR KNEE GENERAL 4V AP BOTH/PA BOTH/LAT/MERC LEFT RADIOLOGIC EXAM KNEE COMPLETE 4/MORE VIEWS Zak Buck MD [address] [place] [address] Xr Imaging Referral ID Status Reason Start Date Expiration Date Visits Requested Visits Authorized [id number] Pending Review Auto-Generat ed Referral 11/20/2021 12/20/2022 1 1 [facility] for referral (narrative)* Diagnostic Procedure Only (Routine) - Closed Specialty Diagnoses / Procedures Referred By Contac t Referred To Contact XR IMAGING Diagnoses Primary osteoarthritis of left knee Status post left knee replacement Procedures XR KNEE GENERAL 4V AP BOTH/PA BOTH/LAT/MERC LEFT RADIOLOGIC EXAM KNEE COMPLETE 4/MORE VIEWS Zak Buck MD [address] [place] [address] Xr Imaging Referral ID Status Reason Start Date Expiration Date V isits Requested Visits Authorized [id number] Closed Auto-Generate d Referral 11/20/2021 12/20/2022 1 1 T [facility] for referral (narrative)* Diagnostic Procedure Only (Routine) - Closed Specialty Diagnoses / Procedures Referred By Contac t Referred To Contact XR IMAGING Diagnoses Right knee pain, unspecified chronicity Procedures XR KNEE GENERAL 4V AP BOTH/PA BOTH/LAT/MERC RIGHT RADIOLOGIC EXAM KNEE COMPLETE 4/MORE VIEWS Zak Buck MD [address] [place] [address] Xr Imaging Referral ID Status Reason Start Date Expiration Date V isits Requested Visits Authorized [id number] Closed Auto-Generate d Referral 01/14/2022 02/13/2023 1 1 T [facility] for referral (narrative)* Diagnostic Procedure Only (Routine) - Closed Specialty Diagnoses / Procedures Referred By Contac t Referred To Contact XR IMAGING Diagnoses Right knee pain, unspecified chronicity Procedures XR KNEE GENERAL 4V AP BOTH/PA BOTH/LAT/MERC RIGHT RADIOLOGIC EXAM KNEE COMPLETE 4/MORE VIEWS Zak Buck MD [address] [place] [address] Xr Imaging Referral ID Status Reason Start Date Expiration Date V isits Requested Visits Authorized [id number] Closed Auto-Generate d Referral 01/14/2022 02/13/2023 1 1 [facility] for referral (narrative)* Diagnostic Procedure Only (Routine) - Pending Review Specialty Diagnoses / Procedures Referred By Contac t Referred To Contact BR IMAGING Diagnoses Encounter for screening mammogram for malignant neoplasm of breast Procedures JASPAL SCREENING SCREENING MAMMOGRAPHY BI 2-VIEW BREAST INC CAD Mai Schmidt PA-C [address] [place] [address] [facility] [address] [place] [address] Referral ID Status Reason Start Date Expiration Date Visits Requested Visits Authorized [id number] Pending Review Auto-Generat ed Referral 05/13/2022 06/12/2023 1 1 [facility] for referral (narrative)* Diagnostic Procedure Only (Routine) - Pending Review Specialty Diagnoses / Procedures Referred By Contac t Referred To Contact XR IMAGING Diagnoses Primary osteoarthritis of right knee Status post left knee replacement Procedures XR KNEE GENERAL 4V AP BOTH/PA BOTH/LAT/MERC LEFT RADIOLOGIC EXAM KNEE COMPLETE 4/MORE VIEWS Zak Buck MD [address] [place] [address] Xr Imaging Referral ID Status Reason Start Date Expiration Date Visits Requested Visits Authorized [id number] Pending Review Auto-Generat ed Referral 06/11/2022 07/11/2023 1 1 [facility] for referral (narrative)* Diagnostic Procedure Only (Routine) - Closed Specialty Diagnoses / Procedures Referred By Contac t Referred To Contact XR IMAGING Diagnoses Right knee pain, unspecified chronicity Procedures XR KNEE GENERAL 4V AP BOTH/PA BOTH/LAT/MERC RIGHT RADIOLOGIC EXAM KNEE COMPLETE 4/MORE VIEWS Zak Buck MD [address] [place] [address] [place] [address] Referral ID Status Reason Start Date Expiration Date V isits Requested Visits Authorized [id number] Closed Auto-Generate d Referral 05/05/2023 06/03/2024 1 1 [facility] for referral (narrative)* Diagnostic Procedure Only (Routine) - Closed Specialty Diagnoses / Procedures Referred By Contac t Referred To Contact BR IMAGING Diagnoses Encounter for screening mammogram for malignant neoplasm of breast Procedures JASPAL SCREENING SCREENING MAMMOGRAPHY BI 2-VIEW BREAST INC CAD Mai Schmidt PA-C [address] [place] [address] [facility] [address] [place] [address] Referral ID Status Reason Start Date Expiration Date V isits Requested Visits Authorized [id number] Closed Auto-Generate d Referral 05/13/2022 06/12/2023 1 1 [facility] for referral (narrative)* Diagnostic Procedure Only (Routine) - Closed Specialty Diagnoses / Procedures Referred By Contac t Referred To Contact BR IMAGING Diagnoses Encounter for screening mammogram for breast cancer Procedures JASPAL SCREENING W JOSE SCREENING DIGITAL BREAST TOMOSYNTHESIS BI SCREENING MAMMOGRAPHY BI 2-VIEW BREAST INC CAD Sera Steven, BOWL SANDER.SALES FACILITATOR [address] [place] [address] [facility] [address] [place] [address] Referral ID Status Reason Start Date Expiration Date V isits Requested Visits Authorized [id number] Closed Auto-Generate d Referral 02/09/2024 03/10/2025 1 1 [facility] for referral (narrative)* Diagnostic Procedure Only (Routine) - Authorized Specialty Diagnoses / Procedures Referred By Johnny lopez Referred To Contact BR IMAGING Diagnoses Mass of left breast, unspecified quadrant Abnormal mammogram Procedures US BREAST LTD LEFT US BREAST UNI REAL TIME WITH IMAGE LIMITED Sera Steven APRN.CNP [address] [place] [address] [facility] [address] [place] [address] Referral ID Status Reason Start Date Expiration Date Visits Requested Visits Authorized [id number] Authorized Auto-Generat ed Referral 02/18/2024 03/19/2025 1 1 * Diagnostic Procedure Only (Routine) - Authorized Specialty Diagnoses / Procedures Referred By Johnny lopez Referred To Contact BR IMAGING Diagnoses Mass of left breast, unspecified quadrant Abnormal mammogram Procedures JASPAL DIAGNOSTIC LEFT DIAGNOSTIC MAMMOGRAPHY COMPUTER-AIDED DETCJ UNI Sera Steven APRN.CNP [address] [place] [address] [facility] [address] [place] [address] Referral ID Status Reason Start Date Expiration Date Visits Requested Visits Authorized [id number] Authorized Auto-Generat ed Referral 02/18/2024 03/19/2025 1 1 [facility] for referral (narrative)* Diagnostic Procedure Only (Routine) - Closed Specialty Diagnoses / Procedures Referred By Johnny t Referred To Contact BR IMAGING Diagnoses Mass of left breast, unspecified quadrant Abnormal mammogram Procedures US BREAST LTD LEFT US BREAST UNI REAL TIME WITH IMAGE LIMITED Sera Steven APRN.SALES FACILITATOR [address] [place] [address] [facility] [address] [place] [address] Referral ID Status Reason Start Date Expiration Date V isits Requested Visits Authorized [id number] Closed Auto-Generate d Referral 02/18/2024 03/19/2025 1 1 [facility] for visit Narrative* Diagnostic Procedure Only (Routine) - Closed Specialty Diagnoses / Procedures Referred By Contac t Referred To Contact XR IMAGING Diagnoses Primary osteoarthritis of left knee Status post left knee replacement Procedures XR KNEE GENERAL 4V AP BOTH/PA BOTH/LAT/MERC LEFT RADIOLOGIC EXAM KNEE COMPLETE 4/MORE VIEWS Zak Buck MD [address] [place] [address] Xr Imaging Referral ID Status Reason Start Date Expiration Date V isits Requested Visits Authorized [id number] Closed Auto-Generate d Referral 11/20/2021 12/20/2022 1 1 [facility] for visit Narrative* Diagnostic Procedure Only (Routine) - Closed Specialty Diagnoses / Procedures Referred By Contac t Referred To Contact XR IMAGING Diagnoses Right knee pain, unspecified chronicity Procedures XR KNEE GENERAL 4V AP BOTH/PA BOTH/LAT/MERC RIGHT RADIOLOGIC EXAM KNEE COMPLETE 4/MORE VIEWS Zak Buck MD [address] [place] [address] Xr Imaging Referral ID Status Reason Start Date Expiration Date V isits Requested Visits Authorized [id number] Closed Auto-Generate d Referral 01/14/2022 02/13/2023 1 1 [facility] for visit Narrative* Diagnostic Procedure Only (Routine) - Closed Specialty Diagnoses / Procedures Referred By Contac t Referred To Contact XR IMAGING Diagnoses Right knee pain, unspecified chronicity Procedures XR KNEE GENERAL 4V AP BOTH/PA BOTH/LAT/MERC RIGHT RADIOLOGIC EXAM KNEE COMPLETE 4/MORE VIEWS Zak Buck MD [address] [place] [address] [place] [address] Referral ID Status Reason Start Date Expiration Date V isits Requested Visits Authorized [id number] Closed Auto-Generate d Referral 05/05/2023 06/03/2024 1 1 [facility] for visit Narrative* Diagnostic Procedure Only (Routine) - Closed Specialty Diagnoses / Procedures Referred By Contac t Referred To Contact BR IMAGING Diagnoses Encounter for screening mammogram for malignant neoplasm of breast Procedures JASPAL SCREENING SCREENING MAMMOGRAPHY BI 2-VIEW BREAST INC CAD Mai Schmidt PA-C [address] [place] [address] [facility] [address] [place] [address] Referral ID Status Reason Start Date Expiration Date V isits Requested Visits Authorized [id number] Closed Auto-Generate d Referral 05/13/2022 06/12/2023 1 1 [facility] for visit Narrative* Diagnostic Procedure Only (Routine) - Closed Specialty Diagnoses / Procedures Referred By Johnny t Referred To Contact BR IMAGING Diagnoses Encounter for screening mammogram for breast cancer Procedures JASPAL SCREENING W JOSE SCREENING DIGITAL BREAST TOMOSYNTHESIS BI SCREENING MAMMOGRAPHY BI 2-VIEW BREAST INC CAD Sera Steven APRN.SALES FACILITATOR [address] [place] [address] [facility] [address] [place] [address] Referral ID Status Reason Start Date Expiration Date V isits Requested Visits Authorized [id number] Closed Auto-Generate d Referral 02/09/2024 03/10/2025 1 1 [facility] for visit Narrative* Diagnostic Procedure Only (Routine) - Closed Specialty Diagnoses / Procedures Referred By Johnny lopez Referred To Contact BR IMAGING Diagnoses Mass of left breast, unspecified quadrant Abnormal mammogram Procedures US BREAST LTD LEFT US BREAST UNI REAL TIME WITH IMAGE LIMITED Sera Steven, PATIENCE.SALES FACILITATOR [address] [place] [address] [facility] [address] [place] [address] Referral ID Status Reason Start Date Expiration Date V isits Requested Visits Authorized [id number] Closed Auto-Generate d Referral 02/18/2024 03/19/2025 1 1 [facility] for visit Narrative* Diagnostic Procedure Only (Routine) - Closed Specialty Diagnoses / Procedures Referred By Johnny t Referred To Contact BR IMAGING Diagnoses Encounter for screening mammogram for malignant neoplasm of breast Procedures JASPAL SCREENING W JOSE SCREENING DIGITAL BREAST TOMOSYNTHESIS BI SCREENING MAMMOGRAPHY BI 2-VIEW BREAST INC CAD Beverley Cuevas APRN.SALES FACILITATOR [address] [place] [address] Phone: tel: fax: [facility] [address] [place] [address] Referral ID Status Reason Start Date Expiration Date V isits Requested Visits Authorized [id number] Closed Auto-Generate d Referral 12/07/2024 01/06/2026 1 1 [facility] Summary Purpose Family History No Family History Records FoundNo Family History Records FoundNo Family History Records FoundNo Family History Records Found Advance Directives No Advanced Directives Records FoundDocuments on File Type Date Recorded Patient Clipper Counters Expl anation Advance Directive(s) 06/06/2021 11:54 AM Advance Directive(s) 05/15/2021 12:26 PM Advance Directive(s) 03/31/2020 7:15 AM Advance Directive(s) 03/20/2020 10:45 AM Advance Directive(s) 12/28/2018 6:17 AM Latest Code Status on File Code Status Date Activated Date Inactivated Comments Full Code 06/08/2021 2:25 PM Documents on File Type Date Recorded Patient Clipper Counters Expl anation Advance Directive(s) 06/06/2021 11:54 AM Advance Directive(s) 05/15/2021 12:26 PM Advance Directive(s) 03/31/2020 7:15 AM Advance Directive(s) 03/20/2020 10:45 AM Advance Directive(s) 12/28/2018 6:17 AM Latest Code Status on File Code Status Date Activated Date Inactivated Comments Full Code 06/08/2021 2:25 PM Latest Code Status on File Code Status Date Activated Date Inactivated Comments Full Code 06/08/2021 2:25 PM Latest Code Status on File Code Status Date Activated Date Inactivated Comments Full Code 06/08/2021 2:25 PM Date Activated Date Inactivated Comments 06/08/2021 2:25 PM Date Activated Date Inactivated Comments 06/08/2021 2:25 PM Health Concerns Infection Onset Date Last Indicated Resolved Time COVID-19 Rule-Out 04/04/2021 04/03/2021 04/24/2021 8:51 PM EDT Medications Administered Section Inactive Administered Medications - up to 3 most recent administrations Medication Order MAR Action Action Date Dose Rate Site betamethasone acetate-betamethasone sodium phosphate 6 mg injection (CELESTONE) 6 mg, Injection - FOR ORTHO USE ONLY, ONCE, 1 dose, Starting on 05/05/23 at 1534, Until 05/05/23 at 1534 Given 05/05/2023 3:34 PM EDT 6 mg Knee, Right lidocaine (PF) 10 mg/mL (1 %) 4 mL injection (XYLOCAINE) 4 mL, Injection - FOR ORTHO USE ONLY, ONCE, 1 dose, Starting on 05/05/23 at 1534, Until 05/05/23 at 1534 Given 05/05/2023 3:34 PM EDT 4 mL Knee, Right Reason for Referral Specialty Diagnoses / Procedures Referred By Johnny lopez Referred To Contact Cardiology Diagnoses PSVT (paroxysmal supraventricular tachycardia) (HCC) Mixed hyperlipidemia Procedures CONSULT TO CARDIOLOGY OFFICE/OUTPATIENT [facility] 60 MINUTES Sera Steven APRN.SALES FACILITATOR [address] [place] [address] Referral ID Status Reason Start Date Expiration Date Visits Requested Visits Authorized [id number] Authorized PCP Requested Referral 02/09/2024 02/08/2025 1 1 Specialty Diagnoses / Procedures Referred By Johnny lopez Referred To Contact BR IMAGING Diagnoses Encounter for screening mammogram for breast cancer Procedures JASPAL SCREENING W JOSE SCREENING DIGITAL BREAST TOMOSYNTHESIS BI SCREENING MAMMOGRAPHY BI 2-VIEW BREAST INC CAD Sera Steven APRN.SALES FACILITATOR [address] [place] [address] [facility] [address] [place] [address] Referral ID Status Reason Start Date Expiration Date Visits Requested Visits Authorized [id number] Authorized Auto-Generat ed Referral 02/09/2024 03/10/2025 1 1 Additional Source Comments INFORMATION SOURCE (unrecogn ized section and content) DATE CREATED AUTHOR 12/07/2020 [facility] DATE CREATED AUTHOR AUTHOR'S ORGANIZ ATION 04/27/2021 [facility] DATE CREATED AUTHOR AUTHOR'S ORGANIZ ATION 06/10/2021 [facility] DATE CREATED AUTHOR AUTHOR'S ORGANIZ ATION 05/06/[address] [facility] Source Comments (unrecognize d section and content) In the event this informatio n is protected by the Federal Confidentiality of Alcohol and Drug Abuse Patient Records regulations: The Federal rules restrict any use of the information to criminally investigate or prosecute any alcohol or drug abuse patient.[facility] HospitalIn the event this information is protected by the Federal Confidentiality of Alcohol and Drug Abuse Patient Records regulations: The Federal rules restrict any use of the information to criminally investigate or prosecute any alcohol or drug abuse patient.[facility] HospitalIn the event this information is protected by the Federal Confidentiality of Alcohol and Drug Abuse Patient Records regulations: The Federal rules restrict any use of the information to criminally investigate or prosecute any alcohol or drug abuse patient.[facility] HospitalIn the event this information is protected by the Federal Confidentiality of Alcohol and Drug Abuse Patient Records regulations: The Federal rules restrict any use of the information to criminally investigate or prosecute any alcohol or drug abuse patient.[facility] HospitalIn the event this information is protected by the Federal Confidentiality of Alcohol and Drug Abuse Patient Records regulations: The Federal rules restrict any use of the information to criminally investigate or prosecute any alcohol or drug abuse patient.[facility] HospitalIn the event this information is protected by the Federal Confidentiality of Alcohol and Drug Abuse Patient Records regulations: The Federal rules restrict any use of the information to criminally investigate or prosecute any alcohol or drug abuse patient.[facility] HospitalIn the event this information is protected by the Federal Confidentiality of Alcohol and Drug Abuse Patient Records regulations: The Federal rules restrict any use of the information to criminally investigate or prosecute any alcohol or drug abuse patient.[facility] HospitalIn the event this information is protected by the Federal Confidentiality of Alcohol and Drug Abuse Patient Records regulations: The Federal rules restrict any use of the information to criminally investigate or prosecute any alcohol or drug abuse patient.[facility] HospitalIn the event this information is protected by the Federal Confidentiality of Alcohol and Drug Abuse Patient Records regulations: The Federal rules restrict any use of the information to criminally investigate or prosecute any alcohol or drug abuse patient.[facility] HospitalIn the event this information is protected by the Federal Confidentiality of Alcohol and Drug Abuse Patient Records regulations: The Federal rules restrict any use of the information to criminally investigate or prosecute any alcohol or drug abuse patient.[facility] HospitalIn the event this information is protected by the Federal Confidentiality of Alcohol and Drug Abuse Patient Records regulations: The Federal rules restrict any use of the information to criminally investigate or prosecute any alcohol or drug abuse patient.[facility] HospitalIn the event this information is protected by the Federal Confidentiality of Alcohol and Drug Abuse Patient Records regulations: The Federal rules restrict any use of the information to criminally investigate or prosecute any alcohol or drug abuse patient.[facility] HospitalIn the event this information is protected by the Federal Confidentiality of Alcohol and Drug Abuse Patient Records regulations: The Federal rules restrict any use of the information to criminally investigate or prosecute any alcohol or drug abuse patient.[facility] HospitalIn the event this information is protected by the Federal Confidentiality of Alcohol and Drug Abuse Patient Records regulations: The Federal rules restrict any use of the information to criminally investigate or prosecute any alcohol or drug abuse patient.[facility] HospitalIn the event this information is protected by the Federal Confidentiality of Alcohol and Drug Abuse Patient Records regulations: The Federal rules restrict any use of the information to criminally investigate or prosecute any alcohol or drug abuse patient.[facility] HospitalIn the event this information is protected by the Federal Confidentiality of Alcohol and Drug Abuse Patient Records regulations: The Federal rules restrict any use of the information to criminally investigate or prosecute any alcohol or drug abuse patient.[facility] HospitalIn the event this information is protected by the Federal Confidentiality of Alcohol and Drug Abuse Patient Records regulations: The Federal rules restrict any use of the information to criminally investigate or prosecute any alcohol or drug abuse patient.[facility] HospitalIn the event this information is protected by the Federal Confidentiality of Alcohol and Drug Abuse Patient Records regulations: The Federal rules restrict any use of the information to criminally investigate or prosecute any alcohol or drug abuse patient.[facility] HospitalIn the event this information is protected by the Federal Confidentiality of Alcohol and Drug Abuse Patient Records regulations: The Federal rules restrict any use of the information to criminally investigate or prosecute any alcohol or drug abuse patient.[facility] HospitalIn the event this information is protected by the Federal Confidentiality of Alcohol and Drug Abuse Patient Records regulations: The Federal rules restrict any use of the information to criminally investigate or prosecute any alcohol or drug abuse patient.[facility] HospitalIn the event this information is protected by the Federal Confidentiality of Alcohol and Drug Abuse Patient Records regulations: The Federal rules restrict any use of the information to criminally investigate or prosecute any alcohol or drug abuse patient.[facility] HospitalIn the event this information is protected by the Federal Confidentiality of Alcohol and Drug Abuse Patient Records regulations: The Federal rules restrict any use of the information to criminally investigate or prosecute any alcohol or drug abuse patient.[facility] HospitalIn the event this information is protected by the Federal Confidentiality of Alcohol and Drug Abuse Patient Records regulations: The Federal rules restrict any use of the information to criminally investigate or prosecute any alcohol or drug abuse patient.[facility] HospitalIn the event this information is protected by the Federal Confidentiality of Alcohol and Drug Abuse Patient Records regulations: The Federal rules restrict any use of the information to criminally investigate or prosecute any alcohol or drug abuse patient.[facility] HospitalIn the event this information is protected by the Federal Confidentiality of Alcohol and Drug Abuse Patient Records regulations: The Federal rules restrict any use of the information to criminally investigate or prosecute any alcohol or drug abuse patient.[facility] HospitalIn the event this information is protected by the Federal Confidentiality of Alcohol and Drug Abuse Patient Records regulations: The Federal rules restrict any use of the information to criminally investigate or prosecute any alcohol or drug abuse patient.[facility] HospitalIn the event this information is protected by the Federal Confidentiality of Alcohol and Drug Abuse Patient Records regulations: The Federal rules restrict any use of the information to criminally investigate or prosecute any alcohol or drug abuse patient.[facility] HospitalIn the event this information is protected by the Federal Confidentiality of Alcohol and Drug Abuse Patient Records regulations: The Federal rules restrict any use of the information to criminally investigate or prosecute any alcohol or drug abuse patient.[facility] HospitalIn the event this information is protected by the Federal Confidentiality of Alcohol and Drug Abuse Patient Records regulations: The Federal rules restrict any use of the information to criminally investigate or prosecute any alcohol or drug abuse patient.[facility] HospitalIn the event this information is protected by the Federal Confidentiality of Alcohol and Drug Abuse Patient Records regulations: The Federal rules restrict any use of the information to criminally investigate or prosecute any alcohol or drug abuse patient.[facility] HospitalIn the event this information is protected by the Federal Confidentiality of Alcohol and Drug Abuse Patient Records regulations: The Federal rules restrict any use of the information to criminally investigate or prosecute any alcohol or drug abuse patient.[facility] HospitalIn the event this information is protected by the Federal Confidentiality of Alcohol and Drug Abuse Patient Records regulations: The Federal rules restrict any use of the information to criminally investigate or prosecute any alcohol or drug abuse patient.[facility] HospitalIn the event this information is protected by the Federal Confidentiality of Alcohol and Drug Abuse Patient Records regulations: The Federal rules restrict any use of the information to criminally investigate or prosecute any alcohol or drug abuse patient.[facility] HospitalIn the event this information is protected by the Federal Confidentiality of Alcohol and Drug Abuse Patient Records regulations: The Federal rules restrict any use of the information to criminally investigate or prosecute any alcohol or drug abuse patient.[facility] HospitalIn the event this information is protected by the Federal Confidentiality of Alcohol and Drug Abuse Patient Records regulations: The Federal rules restrict any use of the information to criminally investigate or prosecute any alcohol or drug abuse patient.[facility] HospitalIn the event this information is protected by the Federal Confidentiality of Alcohol and Drug Abuse Patient Records regulations: The Federal rules restrict any use of the information to criminally investigate or prosecute any alcohol or drug abuse patient.[facility] HospitalIn the event this information is protected by the Federal Confidentiality of Alcohol and Drug Abuse Patient Records regulations: The Federal rules restrict any use of the information to criminally investigate or prosecute any alcohol or drug abuse patient.[facility] HospitalIn the event this information is protected by the Federal Confidentiality of Alcohol and Drug Abuse Patient Records regulations: The Federal rules restrict any use of the information to criminally investigate or prosecute any alcohol or drug abuse patient.[facility] HospitalIn the event this information is protected by the Federal Confidentiality of Alcohol and Drug Abuse Patient Records regulations: The Federal rules restrict any use of the information to criminally investigate or prosecute any alcohol or drug abuse patient.[facility] HospitalIn the event this information is protected by the Federal Confidentiality of Alcohol and Drug Abuse Patient Records regulations: The Federal rules restrict any use of the information to criminally investigate or prosecute any alcohol or drug abuse patient.[facility] HospitalIn the event this information is protected by the Federal Confidentiality of Alcohol and Drug Abuse Patient Records regulations: The Federal rules restrict any use of the information to criminally investigate or prosecute any alcohol or drug abuse patient.[facility] HospitalIn the event this information is protected by the Federal Confidentiality of Alcohol and Drug Abuse Patient Records regulations: The Federal rules restrict any use of the information to criminally investigate or prosecute any alcohol or drug abuse patient.[facility] HospitalIn the event this information is protected by the Federal Confidentiality of Alcohol and Drug Abuse Patient Records regulations: The Federal rules restrict any use of the information to criminally investigate or prosecute any alcohol or drug abuse patient.[facility] HospitalIn the event this information is protected by the Federal Confidentiality of Alcohol and Drug Abuse Patient Records regulations: The Federal rules restrict any use of the information to criminally investigate or prosecute any alcohol or drug abuse patient.[facility] HospitalIn the event this information is protected by the Federal Confidentiality of Alcohol and Drug Abuse Patient Records regulations: The Federal rules restrict any use of the information to criminally investigate or prosecute any alcohol or drug abuse patient.[facility] HospitalIn the event this information is protected by the Federal Confidentiality of Alcohol and Drug Abuse Patient Records regulations: The Federal rules restrict any use of the information to criminally investigate or prosecute any alcohol or drug abuse patient.[facility] HospitalIn the event this information is protected by the Federal Confidentiality of Alcohol and Drug Abuse Patient Records regulations: The Federal rules restrict any use of the information to criminally investigate or prosecute any alcohol or drug abuse patient.[facility] HospitalIn the event this information is protected by the Federal Confidentiality of Alcohol and Drug Abuse Patient Records regulations: The Federal rules restrict any use of the information to criminally investigate or prosecute any alcohol or drug abuse patient.[facility] HospitalIn the event this information is protected by the Federal Confidentiality of Alcohol and Drug Abuse Patient Records regulations: The Federal rules restrict any use of the information to criminally investigate or prosecute any alcohol or drug abuse patient.[facility] HospitalIn the event this information is protected by the Federal Confidentiality of Alcohol and Drug Abuse Patient Records regulations: The Federal rules restrict any use of the information to criminally investigate or prosecute any alcohol or drug abuse patient.[facility] HospitalIn the event this information is protected by the Federal Confidentiality of Alcohol and Drug Abuse Patient Records regulations: The Federal rules restrict any use of the information to criminally investigate or prosecute any alcohol or drug abuse patient.[facility] HospitalIn the event this information is protected by the Federal Confidentiality of Alcohol and Drug Abuse Patient Records regulations: The Federal rules restrict any use of the information to criminally investigate or prosecute any alcohol or drug abuse patient.[facility] HospitalIn the event this information is protected by the Federal Confidentiality of Alcohol and Drug Abuse Patient Records regulations: The Federal rules restrict any use of the information to criminally investigate or prosecute any alcohol or drug abuse patient.[facility] HospitalIn the event this information is protected by the Federal Confidentiality of Alcohol and Drug Abuse Patient Records regulations: The Federal rules restrict any use of the information to criminally investigate or prosecute any alcohol or drug abuse patient.[facility] Reason for Visit (unrecogniz ed section and content) Reason Comments Patient Update Reason Onset Date Comments [facility] Navigation Outreach 11/20/2021 [employer] Care Gap Reason Onset Date Comments Refill Request 11/21/2021 Reason Comments 6 months post op Left TKA Having pain - fell in October Post Op Reason Comments chronic disease management insight enrol lment Reason Comments Appointment Nurse BP Reason Comments Established Patient Pain Reason Comments Refill Request Reason Onset Date Comments [facility] Outreach 04/03/2022 [employer] Care Gaps Reason Onset Date Comments Refill Request 04/11/2022 Reason Comments Results Reason Comments Cough Cough, sinus, green drainage and laryngitis x 8 days Reason Comments Follow Up Follow up Reason Comments Ear Pain Right ear pain x 2 d ays Reason Comments Eye Problem left side x 1 day, d rainage Reason Comments Patient Question Reason Onset Date Comments [facility] Outreach 11/13/2022 HCC Reason Onset Date Comments [facility] Outreach 01/23/2023 HCC Reason Comments 6 Month Exam Derm Problem Left forearm, patchy , bumpy Reason Comments Established Patient Knee Pain Last seen 06/17/22 S/P Left TKA (06/06/21 ) Reason Comments 6 Month Exam Reason Comments Results Labs Reason Comments Results Mammogram Orders Reason Comments Results Breast US Reason Onset Date Comments Refill Request 2024 Reason Comments Recheck 1 month follow up- P ristiq increased at last visit Reason Comments Cough Cough, congestion, s inus and sore ribs x 4 days Reason Comments Sinus Problem Cough, sore throat, eye redness itching, x 3 weeks Reason Onset Date Comments [facility] Outreach 09/14/2024 [employer] High Risk - 1st attempt Reason Onset Date Comments Refill Request 09/16/2024 Reason Onset Date Comments [facility] Outreach 09/29/2024 [employer] High Risk Attempt [place] [facility] Reason Comments 6 Month Exam Reason Comments LESION, SKIN Specialty Diagnoses / Procedures Referred By Contac t Referred To Contact Gynecology Diagnoses Skin lesion Procedures CONSULT TO GYNECOLOGY OFFICE/OUTPATIENT [facility] 60 MINUTES Sharda Sneed, PATIENCE.SALES FACILITATOR [address] [facility] [place] [address] Phone: tel: fax: Referral ID Status Reason Start Date Expiration Date V isits Requested Visits Authorized [id number] Closed PCP Requested Referral Auto-Generated Referral 10/25/2024 10/25/2025 1 1 Reason Onset Date Comments Population Health Navigation Outreach 02/18/2025 [employer] [place] Reason Onset Date Comments Population Health Navigation Outreach 02/23/2025 [employer] HCC SPRINT LIST Reason Comments Consult Due for repeat colon oscopy. Denies GI issues Care Teams (unrecognized sec tion and content) Fitness Club Manager Relationship Specialty Start Date End Date Mai Schmidt PA-C [address] [place], [place] [address] PCP - General Family Practice 10/01/17 Zak Buck MD [address] [id number] Home Care Physician Orthopedics 06/07/21 Zak Buck MD [address] [id number] Referring Orthopedics 06/07/21 Paris Barros, PT [address] [place] [address] Labor Mediator Post Acute Care 06/07/21 Fitness Club Manager Relationship Specialty Start Date End Date Mai Schmidt PA-C [address] [place] [address] PCP - General Family Practice 10/01/17 Zak Buck MD [address] [address] Home Care Physician Orthopedics 06/07/21 Zak Buck MD [address] [address] Referring Orthopedics 06/07/21 Paris Barros, PT [address] [place], [place] [id number] Labor Mediator Post Acute Care 06/07/21 Fitness Club Manager Relationship Specialty Start Date End Date Mai Schmidt PA-C [address] [place] [address] PCP - General Family Practice 10/01/17 Zak Buck MD [address] [address] Home Care Physician Orthopedics 06/07/21 Zak Buck MD [address] [address] Referring Orthopedics 06/07/21 Paris Barros, PT [address] [place] [address] Labor Mediator Post Acute Care 06/07/21 Fitness Club Manager Relationship Specialty Start Date End Date Mai Schmidt PA-C [address] [place] [address] PCP - General Family Practice 10/01/17 Zak Buck MD [address] [address] Home Care Physician Orthopedics 06/07/21 Zak Buck MD [address] [address] Referring Orthopedics 06/07/21 Paris Braros, PT [address] [place] [address] Labor Mediator Post Acute Care 06/07/21 Fitness Club Manager Relationship Specialty Start Date End Date Mai Schmidt PA-C [address] [place] [address] PCP - General Family Practice 10/01/17 Zak Buck MD [address] [address] Home Care Physician Orthopedics 06/07/21 Zak Buck MD [address] [address] Referring Orthopedics 06/07/21 Paris Barros, PT [address] [place] [address] Labor Mediator Post Acute Care 06/07/21 Fitness Club Manager Relationship Specialty Start Date End Date Mai Schmidt PA-C [address] [place] [address] PCP - General Family Practice 10/01/17 Zak Buck MD [address] [address] Home Care Physician Orthopedics 06/07/21 Zak Buck MD [address] [address] Referring Orthopedics 06/07/21 Paris Barros, PT [address] [place] [address] Labor Mediator Post Acute Care 06/07/21 Fitness Club Manager Relationship Specialty Start Date End Date Mai Schmidt PA-C [address] [place] [address] PCP - General Family Practice 10/01/17 Zak Buck MD [address] [address] Home Care Physician Orthopedics 06/07/21 Zak Buck MD [address] [address] Referring Orthopedics 06/07/21 Paris Barros, PT [address] [place] [address] Labor Mediator Post Acute Care 06/07/21 Fitness Club Manager Relationship Specialty Start Date End Date Mai Schmidt PA-C [address] [place] [address] PCP - General Family Practice 10/01/17 Zak Buck MD [address] [address] Home Care Physician Orthopedics 06/07/21 Zak Buck MD [address] [address] Referring Orthopedics 06/07/21 Paris Barros, PT [address] [place] [address] Labor Mediator Post Acute Care 06/07/21 Fitness Club Manager Relationship Specialty Start Date End Date Mai Schmidt PA-C [address] [place] [address] PCP - General Family Practice 10/01/17 Ambrose Eugene, [facility] [address] [place] [address] Specialty Lead Software Tester Orthopedics 04/03/21 07/14/21 Zak Buck MD [address] [address] Home Care Physician Orthopedics 06/07/21 Zak Buck MD [address] [address] Referring Orthopedics 06/07/21 Paris Barros, PT [address] [place] [address] Labor Mediator Post Acute Care 06/07/21 Fitness Club Manager Relationship Specialty Start Date End Date Mai Schmidt PA-C [address] [place] [address] PCP - General Family Medicine 10/01/17 Zak Buck MD [address] [address] Home Care Provider Orthopedics 06/07/21 Zak Buck MD [address] [address] Referring Orthopedics 06/07/21 Paris Barros, PT [address] [place] [address] Labor Mediator Post Acute Care 06/07/21 Fitness Club Manager Relationship Specialty Start Date End Date Mai Schmidt PA-C [address] [place] [address] PCP - General Family Medicine 10/01/17 Zak Buck MD [address] [address] Home Care Provider Orthopedics 06/07/21 Zak Buck MD [address] [address] Referring Orthopedics 06/07/21 Paris Barros, PT [address] [place] [address] Labor Mediator Post Acute Care 06/07/21 Fitness Club Manager Relationship Specialty Start Date End Date Mai Schmidt PA-C [address] [place] [address] PCP - General Family Medicine 10/01/17 Zak Buck MD [address] [address] Home Care Provider Orthopedics 06/07/21 Zak Buck MD [address] [address] Referring Orthopedics 06/07/21 Paris Barros, PT [address] [place] [address] Labor Mediator Post Acute Care 06/07/21 Fitness Club Manager Relationship Specialty Start Date End Date Mai Schmidt PA-C [address] [place] [address] PCP - General Family Medicine 10/01/17 Zak Buck MD [address] [address] Home Care Provider Orthopedics 06/07/21 Zak Buck MD [address] [address] Referring Orthopedics 06/07/21 Paris Barros, PT [address] [place] [address] Labor Mediator Post Acute Care 06/07/21 Fitness Club Manager Relationship Specialty Start Date End Date Mai Schmidt PA-C [address] [place] [address] PCP - General Family Medicine 10/01/17 Zak Buck MD [address] [address] Home Care Provider Orthopedics 06/07/21 Zak Buck MD [address] [address] Referring Orthopedics 06/07/21 Paris Barros, PT [address] [place] [address] Labor Mediator Post Acute Care 06/07/21 Fitness Club Manager Relationship Specialty Start Date End Date Mai Schmidt PA-C [address] [place] [address] PCP - General Family Medicine 10/01/17 Zak Buck MD [address] [address] Home Care Provider Orthopedics 06/07/21 Zak Buck MD [address] [address] Referring Orthopedics 06/07/21 Paris Barros, PT [address] [place] [address] Labor Mediator Post Acute Care 06/07/21 Fitness Club Manager Relationship Specialty Start Date End Date Mai Schmidt PA-C [address] [place] [address] PCP - General Family Medicine 10/01/17 Zak Buck MD [address] [address] Home Care Provider Orthopedics 06/07/21 Zak Buck MD [address] [address] Referring Orthopedics 06/07/21 Paris Barros, PT [address] [place] [address] Labor Mediator Post Acute Care 06/07/21 Fitness Club Manager Relationship Specialty Start Date End Date Mai Schmidt PA-C [address] [place] [address] PCP - General Family Medicine 10/01/17 Zak Buck MD [address] [address] Home Care Provider Orthopedics 06/07/21 Zak Buck MD [address] [address] Referring Orthopedics 06/07/21 Paris Barros, PT [address] [place] [address] Labor Mediator Post Acute Care 06/07/21 Fitness Club Manager Relationship Specialty Start Date End Date Mai Schmidt PA-C [address] [place] [address] PCP - General Family Medicine 10/01/17 Zak Buck MD [address] [address] Home Care Provider Orthopedics 06/07/21 Zak Buck MD [address] [address] Referring Orthopedics 06/07/21 Paris Barros, PT [address] [place] [address] Labor Mediator Post Acute Care 06/07/21 Fitness Club Manager Relationship Specialty Start Date End Date Mai Schmidt PA-C [address] [place] [address] PCP - General Family Medicine 10/01/17 Zak Buck MD [address] [address] Home Care Provider Orthopedics 06/07/21 Zak Buck MD [address] [address] Referring Orthopedics 06/07/21 Paris Barros, PT [address] [place] [address] Labor Mediator Post Acute Care 06/07/21 Fitness Club Manager Relationship Specialty Start Date End Date Mai Schmidt PA-C [address] [place] [address] PCP - General Family Medicine 10/01/17 Zak Buck MD [address] [address] Home Care Provider Orthopedics 06/07/21 Zak Buck MD [address] [address] Referring Orthopedics 06/07/21 Paris Barros, PT [address] [place], [place] [address] Labor Mediator Post Acute Care 06/07/21 Fitness Club Manager Relationship Specialty Start Date End Date Mai Schmidt PA-C [address] [place] [address] PCP - General Family Medicine 10/01/17 Zak Buck MD [address] [address] Home Care Provider Orthopedics 06/07/21 Zak Buck MD [address] [id number] Referring Orthopedics 06/07/21 Paris Barros, PT [address] [place], [place] [address] Labor Mediator Post Acute Care 06/07/21 Fitness Club Manager Relationship Specialty Start Date End Date Mai Schmidt PA-C [address] [place] [address] PCP - General Family Medicine 10/01/17 Zak Buck MD [address] [address] Home Care Provider Orthopedics 06/07/21 Zak Buck MD [address] [address] Referring Orthopedics 06/07/21 Paris Barros, PT [address] [place], [place] [id number] Labor Mediator Post Acute Care 06/07/21 Fitness Club Manager Relationship Specialty Start Date End Date Mai Schmidt PA-C [address] [place] [address] PCP - General Family Medicine 10/01/17 Zak Buck MD [address] [address] Home Care Provider Orthopedics 06/07/21 Zak Buck MD [address] [address] Referring Orthopedics 06/07/21 Paris Barros, PT [address] [place] [address] Labor Mediator Post Acute Care 06/07/21 Fitness Club Manager Relationship Specialty Start Date End Date Mai Schmidt PA-C [address] [place] [address] PCP - General Family Medicine 10/01/17 Zak Buck MD [address] [address] Home Care Provider Orthopedics 06/07/21 Zak Buck MD [address] [address] Referring Orthopedics 06/07/21 Paris Barros, PT [address] [place] [address] Labor Mediator Post Acute Care 06/07/21 02/17/23 Fitness Club Manager Relationship Specialty Start Date End Date Mai Schmidt PA-C [address] [place] [address] PCP - General Family Medicine 10/01/17 Zak Buck MD [address] [address] Home Care Provider Orthopedics 06/07/21 Zak Buck MD [address] [address] Referring Orthopedics 06/07/21 Fitness Club Manager Relationship Specialty Start Date End Date Mai Schmidt PA-C [address] [place] [address] PCP - General Family Medicine 10/01/17 Zak Buck MD [address] [address] Home Care Provider Orthopedics 06/07/21 Zak Buck MD [address] [id number] Referring Orthopedics 06/07/21 Paris Barros, PT [address] [place] [address] Labor Mediator Post Acute Care 06/07/21 02/17/23 Fitness Club Manager Relationship Specialty Start Date End Date Mai Schmidt PA-C [address] [place] [address] PCP - General Family Medicine 10/01/17 Zak Buck MD [address] [address] Home Care Provider Orthopedics 06/07/21 Zak Buck MD [address] [address] Referring Orthopedics 06/07/21 Fitness Club Manager Relationship Specialty Start Date End Date Mai Schmidt PA-C [address] [place] [address] PCP - General Family Medicine 10/01/17 Zak Buck MD [address] [address] Home Care Provider Orthopedics 06/07/21 Zak Buck MD [address] [address] Referring Orthopedics 06/07/21 Fitness Club Manager Relationship Specialty Start Date End Date Mai Schmidt PA-C [address] [place] [address] PCP - General Family Medicine 10/01/17 Zak Buck MD [address] [address] Home Care Provider Orthopedics 06/07/21 Zak Buck MD [address] [address] Referring Orthopedics 06/07/21 Fitness Club Manager Relationship Specialty Start Date End Date Mai Schmidt PA-C [address] [place] [address] PCP - General Family Medicine 10/01/17 Zak Buck MD [address] [address] Home Care Provider Orthopedics 06/07/21 Zak Buck MD [address] [address] Referring Orthopedics 06/07/21 Fitness Club Manager Relationship Specialty Start Date End Date Mai Schmidt PA-C [address] [place] [address] PCP - General Family Medicine 10/01/17 Zak Buck MD [address] [address] Home Care Provider Orthopedics 06/07/21 Zak Buck MD [address] [address] Referring Orthopedics 06/07/21 Fitness Club Manager Relationship Specialty Start Date End Date Mai Schmidt PA-C [address] [place] [address] PCP - General Family Medicine 10/01/17 Zak Buck MD [address] [address] Home Care Provider Orthopedics 06/07/21 Zak Buck MD [address] [address] Referring Orthopedics 06/07/21 Fitness Club Manager Relationship Specialty Start Date End Date Mai Schmidt PA-C [address] [place] [address] PCP - General Family Medicine 10/01/17 Zak Buck MD [address] [address] Home Care Provider Orthopedics 06/07/21 Zak Buck MD [address] [address] Referring Orthopedics 06/07/21 Fitness Club Manager Relationship Specialty Start Date End Date Mai Schmidt PA-C [address] [place] [address] PCP - General Family Medicine 10/01/17 Zak Buck MD [address] [address] Home Care Provider Orthopedics 06/07/21 Zak Buck MD [address] [address] Referring Orthopedics 06/07/21 Fitness Club Manager Relationship Specialty Start Date End Date Mai Schmidt PA-C [address] [place] [address] PCP - General Family Medicine 10/01/17 Zak Buck MD [address] [address] Home Care Provider Orthopedics 06/07/21 Zak Buck MD [address] [address] Referring Orthopedics 06/07/21 Fitness Club Manager Relationship Specialty Start Date End Date Mai Schmidt PA-C [address] [place] [address] PCP - General Family Medicine 10/01/17 Zak Buck MD [address] [address] Home Care Provider Orthopedics 06/07/21 Zak Buck MD [address] [address] Referring Orthopedics 06/07/21 Paris Barros, PT [address] [place], [place] [id number] Labor Mediator Post Acute Care 06/07/21 02/17/23 Fitness Club Manager Relationship Specialty Start Date End Date Mai Schmidt PA-C [address] [place], [place] [address] PCP - General Family Medicine 10/01/17 Fitness Club Manager Relationship Specialty Start Date End Date Mai Schmidt PA-C [address] [place], [place] [address] PCP - General Family Medicine 10/01/17 Zak Buck MD [address] [address] Home Care Provider Orthopedics 06/07/21 Zak Buck MD [address] [address] Referring Orthopedics 06/07/21 Fitness Club Manager Relationship Specialty Start Date End Date Sharda Sneed BOWL SANDER.SALES FACILITATOR [address] [place] [address] PCP - General Family Medicine 04/19/24 Zak Buck MD [address] 29039[address] Home Care Provider Orthopedics 06/07/21 Zak Buck MD [address] [address] Referring Orthopedics 06/07/21 Fitness Club Manager Relationship Specialty Start Date End Date Sharda Sneed BOWL SANDER.SALES FACILITATOR [address] [place] [address] PCP - General Family Medicine 04/19/24 Zak Buck MD [address] [address] Home Care Provider Orthopedics 06/07/21 Zak Buck MD [address] [address] Referring Orthopedics 06/07/21 Connie De La Torre, BOWL SANDER.SALES FACILITATOR [address] [place] [address] Subcontract Manager Family Medicine 06/13/24 Mehrdad Yuan MD [address] [place], [place] [address] Subcontract Manager Family Medicine 06/13/24 [employer]itness [employer] Manager Relationship Specialty Start Date End Date Sharda Sneed APRN.SALES FACILITATOR [address] [place] [address] PCP - General Family Medicine 04/19/24 Zak Buck MD [address] [id number] Home Care Provider Orthopedics 06/07/21 Zak Buck MD [address] [id number] Referring Orthopedics 06/07/21 Connie De La Torre BOWL SANDER.SALES FACILITATOR [address] [place] [address] Subcontract Manager Family Medicine 06/13/24 Mehrdad Yuan MD [address] [place] [address] Subcontract Manager [facility] Medicine 06/13/24 [employer]itness Club Manager Relationship Specialty Start Date End Date Sharda Sneed APRN.SALES FACILITATOR [address] [place] [address] PCP - General Family Medicine 04/19/24 Zak Buck MD [address] [id number] Home Care Provider Orthopedics 06/07/21 Zak Buck MD [address] [id number] Referring Orthopedics 06/07/21 Connie De La Torre BOWL SANDER.SALES FACILITATOR [address] [place] [address] Subcontract Manager Family Medicine 06/13/24 Mehrdad Yuan MD [address] [place] [address] Subcontract Manager Family Medicine 06/13/24 Fitness Club Manager Relationship Specialty Start Date End Date Sharda Sneed, BOWL SANDER.SALES FACILITATOR [address] [place] [address] PCP - General Family Medicine 04/19/24 Zak Buck MD [address] [address] Home Care Provider Orthopedics 06/07/21 Zak Buck MD [address] [id number] Referring Orthopedics 06/07/21 oCnnie De La Torre, BOWL SANDER.SALES FACILITATOR [address] [place] [address] Subcontract Manager Family Medicine 06/13/24 Mehrdad Yuan MD [address] [place] [address] Subcontract Manager Family Medicine 06/13/24 Fitness Club Manager Relationship Specialty Start Date End Date Sharda Sneed, BOWL SANDER.SALES FACILITATOR [address] [place] [address] PCP - General Family Medicine 04/19/24 Zak Buck MD [address] [address] Home Care Provider Orthopedics 06/07/21 Zak uBck MD [address] [address] Referring Orthopedics 06/07/21 Connie De La Torre, BOWL SANDER.SALES FACILITATOR [address] [place] [address] Subcontract Manager Family Medicine 06/13/24 Mehrdad Yuan MD [address] [place] [address] Subcontract Manager Family Medicine 06/13/24 Fitness Club Manager Relationship Specialty Start Date End Date Sharda Sneed, BOWL SANDER.SALES FACILITATOR [address] [place] [address] PCP - General Family Medicine 04/19/24 Zak Buck MD [address] [address] Home Care Provider Orthopedics 06/07/21 Zak Buck MD [address] [address] Referring Orthopedics 06/07/21 Fitness Club Manager Relationship Specialty Start Date End Date Sharda Sneed, BOWL SANDER.SALES FACILITATOR [address] [place] [address] PCP - General Family Medicine 04/19/24 Zak Buck MD [address] [address] Home Care Provider Orthopedics 06/07/21 Zak Buck MD [address] [address] Referring Orthopedics 06/07/21 Fitness Club Manager Relationship Specialty Start Date End Date Sharda Sneed, BOWL SANDER.SALES FACILITATOR [address] [place] [address] PCP - General Family Medicine 04/19/24 Zak Buck MD [address] [address] Home Care Provider Orthopedics 06/07/21 Zak Buck MD [address] [address] Referring Orthopedics 06/07/21 Fitness Club Manager Relationship Specialty Start Date End Date Sharda Sneed APRN.SALES FACILITATOR [address] [place] [address] PCP - General Family Medicine 04/19/24 Zak Buck MD [address] [address] Home Care Provider Orthopedics 06/07/21 Zak Buck MD [address] [address] Referring Orthopedics 06/07/21 Fitness Club Manager Relationship Specialty Start Date End Date Sharda Sneed APRN.SALES FACILITATOR [address] [place] [address] PCP - General Family Medicine 04/19/24 Zak Buck MD [address] [address] Home Care Provider Orthopedics 06/07/21 Zak Buck MD [address] [address] Referring Orthopedics 06/07/21 Fitness Club Manager Relationship Specialty Start Date End Date Sharda Sneed APRN.SALES FACILITATOR [address] [place] [address] PCP - General Family Medicine 04/19/24 Zak Buck MD [address] [address] Home Care Provider Orthopedics 06/07/21 Zak Buck MD [address] [address] Referring Orthopedics 06/07/21 FOR RECORDS PERTAINING TO PATIENTS WHO ARE OR HAVE BEEN ENROLLED IN A CHEMICAL DEPENDENCY/SUBSTANCEABUSE PROGRAM, SOME INFORMATION MAY BE OMITTED. This clinical summary was aggregated from multiple sources. Caution should be exercised in using it in the provision of clinical care. This summary normalizes information from multiple sources, and as a consequence, information in this document may materially change the coding, format and clinical context of patient data. In addition, data may be omitted in some cases. CLINICAL DECISIONS SHOULD BE BASED ON THE PRIMARY CLINICAL RECORDS. [employer] provides no warranty or guarantee of the accuracy or completeness of information in this document.
== END 2025-06-05 20:22 | disposition home or self-care (01) ==
LOC: ED 20:22
PROVIDERS: Emergency Provider Emergency Medicine; PCP Physician Assistant; Visit Provider Emergency Medicine
DX: S61.210A Laceration without foreign body of right index finger without damage to nail, initial encounter (principal); W26.0XXA Contact with knife, initial encounter; F32.A Depression, unspecified; I10 Essential (primary) hypertension; Z79.899 Other long term (current) drug therapy
CPT/HCPCS: 12001; 99282